=== PATIENT | female | born 1950 | race Caucasian/White ===

== ENCOUNTER 2024-10-19 10:55 | Inpatient (IN) ==
[2024-10-19] MEDS: SODIUM CHLORIDE 0.9% 1,000 ML IV ONE (11:30)
[2024-10-19 12:29] LABS: Hematocrit (blood only) 43.6 % (37.0-47.0); Hemoglobin 15.4 g/dl (12.0-16.0); Mean Corpuscular Hemoglobin 30.4 pg (25.0-34.0); Mean Corpuscular Hgb Conc 35.3 g/dL (32.0-36.0); Mean Platelet Volume 10.1 fL (9.4-12.4); Platelet Count 294 K/uL (130-400); RDW Coefficient of Variation 13.5 % (11.5-14.5); RDW Standard Deviation 42.4 fL (36.4-46.3); Red Blood Count 5.07 M/uL (4.20-5.40); White Blood Count 18.42 K/ul (4.8-10.8)
[2024-10-19 12:41] LABS: Alanine Aminotransferase 19 U/L (7-52); Albumin Level 3.4 gm/dl (3.4-5.0); Alkaline Phosphatase 69 U/L (34-104); Anion Gap 10 (3-11); Aspartate Aminotransferase 29 U/L (13-39); BUN Creatinine Ratio 26.1 (10-20); Bilirubin Direct 0.2 mg/dl (0-0.2); Bilirubin,Total 0.8 mg/dl (0.2-1.0); Blood Urea Nitrogen 12 mg/dl (6-23); Calcium 8.6 mg/dl (8.6-10.3); Carbon Dioxide 28 mmol/L (21-32); Chloride 93 mmol/L (98-107); Glucose 265 mg/dl (70-99(Fasting)); Magnesium 1.5 mg/dl (1.7-2.4); Potassium 3.9 mmol/L (3.5-5.1); Sodium 131 mmol/L (136-145); Total Protein 7.5 gm/dl (6.0-8.3)
[2024-10-19 12:46] LABS: Troponin I High Sensitivity 17.4 pg/ml (0-14)
[2024-10-19] MEDS: CEFEPIME 2000MG 2,000 MG/20 ML SYR IV STA (12:46)
[2024-10-19 12:52] LABS: Basophils # (auto) 0.05 K/uL (0.00-0.20); Basophils % (auto) 0.3 %; Eosinophils # (auto) 0.09 K/uL (0.00-0.50); Eosinophils % (auto) 0.5 %; Immature Granulocytes # (auto) 0.13 K/uL (0.01-0.20); Immature Granulocytes % (auto) 0.7 %; Lymphocytes % (auto) 2.7 %; Monocytes # (auto) 0.59 K/uL (0.11-0.59); Monocytes % (auto) 3.2 %; Neutrophils # (auto) 17.06 K/uL (1.40-6.50); Neutrophils % (auto) 92.6 %
--- NOTE | 2024-10-19 12:52 | Emergency Department Note ---
History of Present Illness General Chief complaint: Syncope (Near Syncope) Stated complaint: COUGH, WEAKNESS, FAINTED LAST WEEK/FELL ON FACE Time Seen by Provider: 10/19/24 11:31 Source: patient Mode of arrival: ambulatory Limitations: no limitations History of Present Illness Patient is a 74-year-old female with history of chronic hypotension on midodrine, chronic tobacco use presenting for 2 to 3 weeks of increased lightheadedness, generalized weakness and falls. She has fallen twice over the past week. Most recently today when she was getting out of her car. Unknown loss of consciousness. She does endorse head injury. Patient states she gets lightheaded prior to the falls. She does have some old bruising to the right side of her face from a fall last week. She was seen by her primary care physician at that time but no imaging was performed. Patient is also had 2 weeks of a productive cough. Denies any shortness of breath or chest pain. No fevers, chills, nausea, vomiting, abdominal pain. Denies any change in bowel or bladder habits. She did take her midodrine this morning. Past Med/Surg History Problem List (Updated 10/19/24 @ 17:06 by Anil Riley MD) Pneumonia (Acute) Sepsis (Acute) Atrial fibrillation Influenza A (Acute) Social History Smoking Status: Current every day smoker Feels Safe at Home: Yes Review of Systems See HPI for pertinent positives & negatives. Physical Exam Vital Signs Vital Signs - 24 hr 10/19/24 11:04 10/19/24 11:30 10/19/24 11:30 Temperature 36.7 C Temperature Source Temporal Artery Scan Pulse Rate 108 H 98 H Pulse Rate [Apical] Pulse Rate from SpO2 Sensor 97 H Respiratory Rate 16 26 H Respiratory Effort / Characteristics Non-Labored Spontaneous Respiratory Depth Normal Blood Pressure 93/59 L 79/58 L Blood Pressure [Left Arm] Blood Pressure Mean 70 65 Blood Pressure Mean [Left Arm] Blood Pressure Position Sitting Pulse Oximetry 97 95 Oxygen Delivery Method Room Air Room Air Sepsis Recent Fever Within 48 Hours No Sepsis New/Unexplained Change in Mental Status N/A Sepsis Action Taken by Nursing No Action Required 10/19/24 11:33 10/19/24 11:35 10/19/24 11:40 Temperature Temperature Source Pulse Rate 105 H 98 H Pulse Rate [Apical] Pulse Rate from SpO2 Sensor 101 H Respiratory Rate 21 Respiratory Effort / Characteristics Respiratory Depth Blood Pressure 86/56 L Blood Pressure [Left Arm] Blood Pressure Mean 71 Blood Pressure Mean [Left Arm] Blood Pressure Position Pulse Oximetry 96 Oxygen Delivery Method Room Air Sepsis Recent Fever Within 48 Hours Sepsis New/Unexplained Change in Mental Status Sepsis Action Taken by Nursing 10/19/24 11:40 10/19/24 11:45 10/19/24 11:45 Temperature Temperature Source Pulse Rate 97 H Pulse Rate [Apical] Pulse Rate from SpO2 Sensor 98 H Respiratory Rate 21 Respiratory Effort / Characteristics Respiratory Depth Blood Pressure 82/55 L 85/60 L Blood Pressure [Left Arm] Blood Pressure Mean 66 67 Blood Pressure Mean [Left Arm] Blood Pressure Position Pulse Oximetry 97 Oxygen Delivery Method Room Air Sepsis Recent Fever Within 48 Hours Sepsis New/Unexplained Change in Mental Status Sepsis Action Taken by Nursing 10/19/24 11:48 10/19/24 11:50 10/19/24 11:54 Temperature Temperature Source Pulse Rate 99 H 96 H Pulse Rate [Apical] Pulse Rate from SpO2 Sensor 94 H Respiratory Rate 22 26 H Respiratory Effort / Characteristics Respiratory Depth Blood Pressure 89/60 L Blood Pressure [Left Arm] Blood Pressure Mean 75 Blood Pressure Mean [Left Arm] Blood Pressure Position Pulse Oximetry 92 Oxygen Delivery Method Room Air Sepsis Recent Fever Within 48 Hours Sepsis New/Unexplained Change in Mental Status Sepsis Action Taken by Nursing 10/19/24 11:55 10/19/24 11:57 10/19/24 12:00 Temperature Temperature Source Pulse Rate 93 H Pulse Rate [Apical] Pulse Rate from SpO2 Sensor 96 H Respiratory Rate 20 Respiratory Effort / Characteristics Respiratory Depth Blood Pressure 87/58 L 94/57 L Blood Pressure [Left Arm] Blood Pressure Mean 66 80 Blood Pressure Mean [Left Arm] Blood Pressure Position Pulse Oximetry 99 Oxygen Delivery Method Room Air Sepsis Recent Fever Within 48 Hours Sepsis New/Unexplained Change in Mental Status Sepsis Action Taken by Nursing 10/19/24 12:10 10/19/24 12:10 10/19/24 12:15 Temperature Temperature Source Pulse Rate Pulse Rate [Apical] Pulse Rate from SpO2 Sensor Respiratory Rate Respiratory Effort / Characteristics Respiratory Depth Blood Pressure 78/49 L 78/49 L 79/51 L Blood Pressure [Left Arm] Blood Pressure Mean 61 61 69 Blood Pressure Mean [Left Arm] Blood Pressure Position Pulse Oximetry Oxygen Delivery Method Sepsis Recent Fever Within 48 Hours Sepsis New/Unexplained Change in Mental Status Sepsis Action Taken by Nursing 10/19/24 12:25 10/19/24 12:30 10/19/24 12:30 Temperature Temperature Source Pulse Rate 95 H Pulse Rate [Apical] Pulse Rate from SpO2 Sensor 96 H Respiratory Rate 24 Respiratory Effort / Characteristics Respiratory Depth Blood Pressure 83/59 L 80/49 L Blood Pressure [Left Arm] Blood Pressure Mean 68 61 Blood Pressure Mean [Left Arm] Blood Pressure Position Pulse Oximetry 95 Oxygen Delivery Method Sepsis Recent Fever Within 48 Hours Sepsis New/Unexplained Change in Mental Status Sepsis Action Taken by Nursing 10/19/24 12:30 10/19/24 12:50 10/19/24 12:51 Temperature Temperature Source Pulse Rate 128 H Pulse Rate [Apical] Pulse Rate from SpO2 Sensor Respiratory Rate 38 H Respiratory Effort / Characteristics Respiratory Depth Blood Pressure 80/49 L 79/66 L Blood Pressure [Left Arm] Blood Pressure Mean 61 71 Blood Pressure Mean [Left Arm] Blood Pressure Position Pulse Oximetry Oxygen Delivery Method Sepsis Recent Fever Within 48 Hours Sepsis New/Unexplained Change in Mental Status Sepsis Action Taken by Nursing 10/19/24 12:54 10/19/24 12:55 10/19/24 12:57 Temperature Temperature Source Pulse Rate 140 H 135 H Pulse Rate [Apical] Pulse Rate from SpO2 Sensor 126 H Respiratory Rate 24 21 Respiratory Effort / Characteristics Respiratory Depth Blood Pressure 89/52 L Blood Pressure [Left Arm] Blood Pressure Mean 69 Blood Pressure Mean [Left Arm] Blood Pressure Position Pulse Oximetry 93 Oxygen Delivery Method Sepsis Recent Fever Within 48 Hours Sepsis New/Unexplained Change in Mental Status Sepsis Action Taken by Nursing 10/19/24 13:00 10/19/24 13:00 10/19/24 13:00 Temperature Temperature Source Pulse Rate 129 H Pulse Rate [Apical] Pulse Rate from SpO2 Sensor Respiratory Rate 25 H Respiratory Effort / Characteristics Respiratory Depth Blood Pressure 74/54 L 74/54 L Blood Pressure [Left Arm] Blood Pressure Mean 60 60 Blood Pressure Mean [Left Arm] Blood Pressure Position Pulse Oximetry Oxygen Delivery Method Sepsis Recent Fever Within 48 Hours Sepsis New/Unexplained Change in Mental Status Sepsis Action Taken by Nursing 10/19/24 13:05 10/19/24 13:10 10/19/24 13:15 Temperature Temperature Source Pulse Rate Pulse Rate [Apical] Pulse Rate from SpO2 Sensor Respiratory Rate Respiratory Effort / Characteristics Respiratory Depth Blood Pressure 78/54 L 75/54 L 76/58 L Blood Pressure [Left Arm] Blood Pressure Mean 64 57 64 Blood Pressure Mean [Left Arm] Blood Pressure Position Pulse Oximetry Oxygen Delivery Method Sepsis Recent Fever Within 48 Hours Sepsis New/Unexplained Change in Mental Status Sepsis Action Taken by Nursing 10/19/24 13:32 10/19/24 13:33 10/19/24 13:35 Temperature Temperature Source Pulse Rate 125 H Pulse Rate [Apical] Pulse Rate from SpO2 Sensor 121 H Respiratory Rate 24 Respiratory Effort / Characteristics Respiratory Depth Blood Pressure 82/59 L 82/62 L Blood Pressure [Left Arm] Blood Pressure Mean 64 65 Blood Pressure Mean [Left Arm] Blood Pressure Position Pulse Oximetry 94 Oxygen Delivery Method Sepsis Recent Fever Within 48 Hours Sepsis New/Unexplained Change in Mental Status Sepsis Action Taken by Nursing 10/19/24 13:36 10/19/24 13:41 10/19/24 13:45 Temperature Temperature Source Pulse Rate 145 H Pulse Rate [Apical] 126 H Pulse Rate from SpO2 Sensor 127 H Respiratory Rate 28 H Respiratory Effort / Characteristics Respiratory Depth Blood Pressure 92/75 L Blood Pressure [Left Arm] 84/66 L Blood Pressure Mean 77 Blood Pressure Mean [Left Arm] 72 Blood Pressure Position Pulse Oximetry 91 Oxygen Delivery Method Sepsis Recent Fever Within 48 Hours Sepsis New/Unexplained Change in Mental Status Sepsis Action Taken by Nursing 10/19/24 13:45 10/19/24 13:45 10/19/24 13:45 Temperature Temperature Source Pulse Rate 122 H Pulse Rate [Apical] Pulse Rate from SpO2 Sensor 118 H Respiratory Rate 24 Respiratory Effort / Characteristics Respiratory Depth Blood Pressure 92/75 L 92/75 L Blood Pressure [Left Arm] Blood Pressure Mean 77 77 Blood Pressure Mean [Left Arm] Blood Pressure Position Pulse Oximetry 95 Oxygen Delivery Method Sepsis Recent Fever Within 48 Hours Sepsis New/Unexplained Change in Mental Status Sepsis Action Taken by Nursing 10/19/24 13:48 10/19/24 13:50 10/19/24 13:50 Temperature Temperature Source Pulse Rate 132 H Pulse Rate [Apical] Pulse Rate from SpO2 Sensor 129 H Respiratory Rate 28 H Respiratory Effort / Characteristics Respiratory Depth Blood Pressure 87/53 L 87/53 L Blood Pressure [Left Arm] Blood Pressure Mean 76 76 Blood Pressure Mean [Left Arm] Blood Pressure Position Pulse Oximetry 93 Oxygen Delivery Method Sepsis Recent Fever Within 48 Hours Sepsis New/Unexplained Change in Mental Status Sepsis Action Taken by Nursing 10/19/24 13:50 10/19/24 13:51 10/19/24 13:54 Temperature Temperature Source Pulse Rate 134 H 136 H Pulse Rate [Apical] Pulse Rate from SpO2 Sensor 129 H 136 H Respiratory Rate 25 H 21 Respiratory Effort / Characteristics Respiratory Depth Blood Pressure 87/53 L Blood Pressure [Left Arm] Blood Pressure Mean 76 Blood Pressure Mean [Left Arm] Blood Pressure Position Pulse Oximetry 95 92 Oxygen Delivery Method Sepsis Recent Fever Within 48 Hours Sepsis New/Unexplained Change in Mental Status Sepsis Action Taken by Nursing 10/19/24 13:55 10/19/24 13:55 10/19/24 14:00 Temperature Temperature Source Pulse Rate 135 H Pulse Rate [Apical] Pulse Rate from SpO2 Sensor 134 H Respiratory Rate 15 Respiratory Effort / Characteristics Respiratory Depth Blood Pressure 88/63 L 88/63 L Blood Pressure [Left Arm] Blood Pressure Mean 68 68 Blood Pressure Mean [Left Arm] Blood Pressure Position Pulse Oximetry 92 Oxygen Delivery Method Sepsis Recent Fever Within 48 Hours Sepsis New/Unexplained Change in Mental Status Sepsis Action Taken by Nursing 10/19/24 14:00 10/19/24 14:05 10/19/24 14:05 Temperature Temperature Source Pulse Rate Pulse Rate [Apical] Pulse Rate from SpO2 Sensor Respiratory Rate Respiratory Effort / Characteristics Respiratory Depth Blood Pressure 85/61 L 78/58 L 78/58 L Blood Pressure [Left Arm] Blood Pressure Mean 63 67 67 Blood Pressure Mean [Left Arm] Blood Pressure Position Pulse Oximetry Oxygen Delivery Method Sepsis Recent Fever Within 48 Hours Sepsis New/Unexplained Change in Mental Status Sepsis Action Taken by Nursing 10/19/24 14:05 10/19/24 14:05 10/19/24 14:06 Temperature Temperature Source Pulse Rate 124 H Pulse Rate [Apical] Pulse Rate from SpO2 Sensor 134 H Respiratory Rate 26 H Respiratory Effort / Characteristics Respiratory Depth Blood Pressure 78/58 L 78/58 L Blood Pressure [Left Arm] Blood Pressure Mean 67 67 Blood Pressure Mean [Left Arm] Blood Pressure Position Pulse Oximetry 94 Oxygen Delivery Method Sepsis Recent Fever Within 48 Hours Sepsis New/Unexplained Change in Mental Status Sepsis Action Taken by Nursing 10/19/24 14:09 10/19/24 14:10 10/19/24 14:20 Temperature Temperature Source Pulse Rate 133 H Pulse Rate [Apical] Pulse Rate from SpO2 Sensor 135 H Respiratory Rate 26 H Respiratory Effort / Characteristics Respiratory Depth Blood Pressure 90/62 L 91/65 L Blood Pressure [Left Arm] Blood Pressure Mean 76 70 Blood Pressure Mean [Left Arm] Blood Pressure Position Pulse Oximetry 95 Oxygen Delivery Method Sepsis Recent Fever Within 48 Hours Sepsis New/Unexplained Change in Mental Status Sepsis Action Taken by Nursing 10/19/24 14:21 10/19/24 14:25 10/19/24 14:30 Temperature Temperature Source Pulse Rate 137 H 134 H Pulse Rate [Apical] Pulse Rate from SpO2 Sensor 138 H 130 H Respiratory Rate 25 H 27 H Respiratory Effort / Characteristics Respiratory Depth Blood Pressure 84/68 L Blood Pressure [Left Arm] Blood Pressure Mean 76 Blood Pressure Mean [Left Arm] Blood Pressure Position Pulse Oximetry 93 93 Oxygen Delivery Method Room Air Sepsis Recent Fever Within 48 Hours Sepsis New/Unexplained Change in Mental Status Sepsis Action Taken by Nursing 10/19/24 14:30 10/19/24 14:35 10/19/24 14:36 Temperature Temperature Source Pulse Rate 139 H Pulse Rate [Apical] Pulse Rate from SpO2 Sensor 137 H Respiratory Rate 23 Respiratory Effort / Characteristics Respiratory Depth Blood Pressure 92/65 L 87/64 L Blood Pressure [Left Arm] Blood Pressure Mean 76 69 Blood Pressure Mean [Left Arm] Blood Pressure Position Pulse Oximetry 93 Oxygen Delivery Method Room Air Sepsis Recent Fever Within 48 Hours Sepsis New/Unexplained Change in Mental Status Sepsis Action Taken by Nursing 10/19/24 14:39 10/19/24 14:41 10/19/24 14:45 Temperature Temperature Source Pulse Rate 139 H 147 H Pulse Rate [Apical] Pulse Rate from SpO2 Sensor 135 H 145 H Respiratory Rate 17 28 H Respiratory Effort / Characteristics Respiratory Depth Blood Pressure 82/64 L Blood Pressure [Left Arm] Blood Pressure Mean 72 Blood Pressure Mean [Left Arm] Blood Pressure Position Pulse Oximetry 93 99 Oxygen Delivery Method Room Air Room Air Sepsis Recent Fever Within 48 Hours Sepsis New/Unexplained Change in Mental Status Sepsis Action Taken by Nursing 10/19/24 14:46 10/19/24 14:51 10/19/24 14:55 Temperature Temperature Source Pulse Rate Pulse Rate [Apical] Pulse Rate from SpO2 Sensor Respiratory Rate Respiratory Effort / Characteristics Respiratory Depth Blood Pressure 87/51 L 92/53 L 87/68 L Blood Pressure [Left Arm] Blood Pressure Mean 58 71 76 Blood Pressure Mean [Left Arm] Blood Pressure Position Pulse Oximetry Oxygen Delivery Method Sepsis Recent Fever Within 48 Hours Sepsis New/Unexplained Change in Mental Status Sepsis Action Taken by Nursing 10/19/24 14:57 10/19/24 15:00 10/19/24 15:05 Temperature Temperature Source Pulse Rate 141 H Pulse Rate [Apical] Pulse Rate from SpO2 Sensor 142 H Respiratory Rate 32 H Respiratory Effort / Characteristics Respiratory Depth Blood Pressure 62/49 L 80/48 L Blood Pressure [Left Arm] Blood Pressure Mean 51 68 Blood Pressure Mean [Left Arm] Blood Pressure Position Pulse Oximetry 95 Oxygen Delivery Method Room Air Sepsis Recent Fever Within 48 Hours Sepsis New/Unexplained Change in Mental Status Sepsis Action Taken by Nursing 10/19/24 15:09 10/19/24 15:15 10/19/24 15:18 Temperature Temperature Source Pulse Rate 143 H 143 H Pulse Rate [Apical] Pulse Rate from SpO2 Sensor 144 H 141 H Respiratory Rate 26 H 27 H Respiratory Effort / Characteristics Respiratory Depth Blood Pressure 81/54 L 90/74 L Blood Pressure [Left Arm] Blood Pressure Mean 63 79 Blood Pressure Mean [Left Arm] Blood Pressure Position Pulse Oximetry 93 91 Oxygen Delivery Method Sepsis Recent Fever Within 48 Hours Sepsis New/Unexplained Change in Mental Status Sepsis Action Taken by Nursing 10/19/24 15:20 10/19/24 15:24 10/19/24 15:25 Temperature Temperature Source Pulse Rate 144 H Pulse Rate [Apical] Pulse Rate from SpO2 Sensor 134 H Respiratory Rate 27 H Respiratory Effort / Characteristics Respiratory Depth Blood Pressure 86/66 L 76/53 L Blood Pressure [Left Arm] Blood Pressure Mean 70 55 Blood Pressure Mean [Left Arm] Blood Pressure Position Pulse Oximetry 93 Oxygen Delivery Method Sepsis Recent Fever Within 48 Hours Sepsis New/Unexplained Change in Mental Status Sepsis Action Taken by Nursing 10/19/24 15:37 10/19/24 15:40 Temperature Temperature Source Pulse Rate 89 Pulse Rate [Apical] Pulse Rate from SpO2 Sensor Respiratory Rate Respiratory Effort / Characteristics Respiratory Depth Blood Pressure 91/66 L Blood Pressure [Left Arm] Blood Pressure Mean 77 Blood Pressure Mean [Left Arm] Blood Pressure Position Pulse Oximetry Oxygen Delivery Method Sepsis Recent Fever Within 48 Hours Sepsis New/Unexplained Change in Mental Status Sepsis Action Taken by Nursing See below Constitutional WD/WN, vitals as above Eyes PERRL, conjunctivae normal, anicteric sclerae ENMT external ear and nose normal, oropharynx normal dry mucosa Respiratory normal respiratory effort; does not use accessory muscles and not tachypneic Auscultation: + crackles (Bibasilar ) Cardiovascular Rate/Rhythm: + tachycardic and + irregularly irregular Heart Sounds: + murmur Vessels: no JVD Extremities: no calf tenderness, no pedal edema and no edema Gastrointestinal (Abdomen) normal bowel sounds, soft, nontender, no hepatosplenomegaly Musculoskeletal no cyanosis or clubbing, extremities motor strength 5/5 Skin no rashes, warm and dry Course Administered Medications Discontinued Medications Diltiazem HCl (Diltiazem Hcl 5 Mg/Ml 5 Ml Vial) 15 mg IV NOW STA Stop: 10/19/24 14:41 Last Admin: 10/19/24 14:57 Dose: 15 mg Documented By: NIKOLAY Co-signed By: VON Hydrocortisone Sodium Succinate (Hydrocortisone Sod Succinate 100 Mg/2 Ml Vial) 100 mg IV NOW STA Stop: 10/19/24 16:27 Last Admin: 10/19/24 16:49 Dose: 100 mg Documented By: CEF Cefepime HCl (Maxipime 2000mg) 2,000 mg in 20 mls @ 5 mls/min IV NOW STA; Protocol Stop: 10/19/24 11:52 Last Admin: 10/19/24 12:46 Dose: 5 mls/min Documented By: NIKOLAY Sodium Chloride (Nss) 1,000 mls @ 999 mls/hr IV .Q1H1M BRUNO Stop: 10/19/24 13:54 Last Infusion: 10/19/24 13:33 Dose: Infused Documented By: Admin: 10/19/24 13:08 Dose: 999 mls/hr Documented By: NIKOLAY Norepinephrine Bitartrate (Levophed/D5w) 4 mg in 250 mls @ 9.638 mls/hr IV .Q24H BRUNO; Protocol Stop: 11/18/24 13:29 Last Titration: 10/19/24 16:55 Dose: Infused Documented By: SALOMÓN Co-signed By: LYNNETTE Titration: 10/19/24 14:47 Dose: 0.09 mcg/kg/min, 17.3 mls/hr Documented By: NIKOLAY Co-signed By: VON Titration: 10/19/24 14:09 Dose: 0.07 mcg/kg/min, 13.5 mls/hr Documented By: LINNETTE Co-signed By: LYNNETTE Admin: 10/19/24 13:34 Dose: 0.05 mcg/kg/min, 9.6 mls/hr Documented By: LINNETTE Co-signed By: NIOKLAY Sodium Chloride (Nss) 1,000 mls @ 999 mls/hr IV .Q1H1M ONE Stop: 10/19/24 15:27 Last Infusion: 10/19/24 14:29 Dose: Infused Documented By: Admin: 10/19/24 11:30 Dose: 999 mls/hr Documented By: NIKOLAY Miscellaneous (Stat Iv Infusion Titration Per Protocol) 1 each N/A NOW STA Stop: 10/19/24 13:23 Last Admin: 10/19/24 13:37 Dose: Not Given Documented By: LINNETTE Norepinephrine Bitartrate (Norepinephrine/D5w 4 Mg/250 Ml) Confirm Administered Dose 4 mg IV .STK-MED ONE Stop: 10/19/24 13:26 Last Admin: 10/19/24 13:37 Dose: Not Given Documented By: LINNETTE Critical Care Time Critical Care Time: Yes Total Critical Care Time: 45 Medical Decision Making Differential Diagnosis Sepsis, pneumonia, influenza, shock, dehydration, atrial fibrillation Medical Records Attestation: I reviewed the patient's medical records. Laboratory Data 10/19/24 11:33 10/19/24 11:33 Lab Results 10/19/24 10/19/24 10/19/24 Range/Units 11:25 11:33 12:08 WBC 18.42 H (4.8-10.8) K/ul RBC 5.07 (4.20-5.40) M/uL Hgb 15.4 (12.0-16.0) g/dl Hct 43.6 (37.0-47.0) % MCV 86.0 (80.0-100.0) fL MCH 30.4 (25.0-34.0) pg MCHC 35.3 (32.0-36.0) g/dL RDW Std Deviation 42.4 (36.4-46.3) fL RDW Coeff of Misty 13.5 (11.5-14.5) % Plt Count 294 (130-400) K/uL MPV 10.1 (9.4-12.4) fL Immature Gran % (Auto) 0.7 % Neut % (Auto) 92.6 % Lymph % (Auto) 2.7 % Cole % (Auto) 3.2 % Eos % (Auto) 0.5 % Baso % (Auto) 0.3 % Neut # (Auto) 17.06 H (1.40-6.50) K/uL Lymph # (Auto) 0.50 L (1.20-3.40) K/uL Cole # (Auto) 0.59 (0.11-0.59) K/uL Eos # (Auto) 0.09 (0.00-0.50) K/uL Baso # (Auto) 0.05 (0.00-0.20) K/uL Immature Gran # (Auto) 0.13 (0.01-0.20) K/uL Sodium 131 L (136-145) mmol/L Potassium 3.9 (3.5-5.1) mmol/L Chloride 93 L (98-107) mmol/L Carbon Dioxide 28 (21-32) mmol/L Anion Gap 10 (3-11) BUN 12 (6-23) mg/dl Creatinine 0.46 L (0.6-1.2) mg/dl Est Cr Clr Drug Dosing Not Reportable eGFR 100.35 BUN/Creatinine Ratio 26.1 H (10-20) Glucose 265 H (70-99(Fasting)) mg/dl POC Glucose 287 H (70-99) mg/dl Lactate 1.3 (0.4-2.0) mmol/L Calcium 8.6 (8.6-10.3) mg/dl Magnesium 1.5 L (1.7-2.4) mg/dl Total Bilirubin 0.8 (0.2-1.0) mg/dl Direct Bilirubin 0.2 (0-0.2) mg/dl AST 29 (13-39) U/L ALT 19 (7-52) U/L Alkaline Phosphatase 69 (34-104) U/L Troponin I High Sens 17.4 H (0-14) pg/ml Total Protein 7.5 (6.0-8.3) gm/dl Albumin 3.4 (3.4-5.0) gm/dl Procalcitonin 0.08 (0-0.5) ng/ml Random Cortisol 55.69 mcg/dl Urine Color Urine Appearance (Clear) Urine pH (4.5-7.5) Ur Specific [place] (1.000-1.030) Urine Protein (Negative) Urine Glucose (UA) (Negative) Urine Ketones (Negative) Urine Blood (Negative) Urine Nitrite (Negative) Urine Bilirubin (Negative) Urine Urobilinogen (Negative) Ur Leukocyte Esterase (Negative) Urine WBC (Auto) (0-5) /hpf Urine RBC (Auto) (0-2) /hpf U Hyaline Cast (Auto) (0-2) /lpf U Epithel Cells (Auto) (0-2) /hpf Urine Bacteria (Auto) (None Seen) Adenovirus (PCR) Not Detected (NotDetected) B. pertussis DNA (PCR) Not Detected (NotDetected) B.parapertussis DNA PCR Not Detected (NotDetected) C. pneumoniae DNA (PCR) Not Detected (NotDetected) Coronavirus OC43 (PCR) Not Detected (NotDetected) Coronavirus HKU1 (PCR) Not Detected (NotDetected) Coronavirus 229E (PCR) Not Detected (NotDetected) SARS-CoV-2 (PCR) Not Detected (NotDetected) Coronavirus NL63 (PCR) Not Detected (NotDetected) Human Metapneumovir PCR Not Detected (NotDetected) Influenza A (H3) PCR DETECTED A (NotDetected) Influenza Type B (PCR) Not Detected (NotDetected) M. pneumoniae (PCR) Not Detected (NotDetected) Parainfluenza 1 (PCR) Not Detected (NotDetected) Parainfluenza 2 (PCR) Not Detected (NotDetected) Parainfluenza 3 (PCR) Not Detected (NotDetected) Parainfluenza 4 (PCR) Not Detected (NotDetected) RSV (PCR) Not Detected (NotDetected) Entero/Rhino (PCR) Not Detected (NotDetected) 10/19/24 Range/Units 14:40 WBC (4.8-10.8) K/ul RBC (4.20-5.40) M/uL Hgb (12.0-16.0) g/dl Hct (37.0-47.0) % MCV (80.0-100.0) fL MCH (25.0-34.0) pg MCHC (32.0-36.0) g/dL RDW Std Deviation (36.4-46.3) fL RDW Coeff of Misty (11.5-14.5) % Plt Count (130-400) K/uL MPV (9.4-12.4) fL Immature Gran % (Auto) % Neut % (Auto) % Lymph % (Auto) % Cole % (Auto) % Eos % (Auto) % Baso % (Auto) % Neut # (Auto) (1.40-6.50) K/uL Lymph # (Auto) (1.20-3.40) K/uL Cole # (Auto) (0.11-0.59) K/uL Eos # (Auto) (0.00-0.50) K/uL Baso # (Auto) (0.00-0.20) K/uL Immature Gran # (Auto) (0.01-0.20) K/uL Sodium (136-145) mmol/L Potassium (3.5-5.1) mmol/L Chloride (98-107) mmol/L Carbon Dioxide (21-32) mmol/L Anion Gap (3-11) BUN (6-23) mg/dl Creatinine (0.6-1.2) mg/dl Est Cr Clr Drug Dosing eGFR BUN/Creatinine Ratio (10-20) Glucose (70-99(Fasting)) mg/dl POC Glucose (70-99) mg/dl Lactate (0.4-2.0) mmol/L Calcium (8.6-10.3) mg/dl Magnesium (1.7-2.4) mg/dl Total Bilirubin (0.2-1.0) mg/dl Direct Bilirubin (0-0.2) mg/dl AST (13-39) U/L ALT (7-52) U/L Alkaline Phosphatase (34-104) U/L Troponin I High Sens (0-14) pg/ml Total Protein (6.0-8.3) gm/dl Albumin (3.4-5.0) gm/dl Procalcitonin (0-0.5) ng/ml Random Cortisol mcg/dl Urine Color Yellow Urine Appearance Cloudy A (Clear) Urine pH 6.0 (4.5-7.5) Ur Specific [place] 1.012 (1.000-1.030) Urine Protein 1+ H (Negative) Urine Glucose (UA) 2+ H (Negative) Urine Ketones 1+ H (Negative) Urine Blood Negative (Negative) Urine Nitrite Negative (Negative) Urine Bilirubin Negative (Negative) Urine Urobilinogen Negative (Negative) Ur Leukocyte Esterase Negative (Negative) Urine WBC (Auto) 0-5 (0-5) /hpf Urine RBC (Auto) 11-20 H (0-2) /hpf U Hyaline Cast (Auto) 0-2 (0-2) /lpf U Epithel Cells (Auto) 3-5 H (0-2) /hpf Urine Bacteria (Auto) 2+ H (None Seen) Adenovirus (PCR) (NotDetected) B. pertussis DNA (PCR) (NotDetected) B.parapertussis DNA PCR (NotDetected) C. pneumoniae DNA (PCR) (NotDetected) Coronavirus OC43 (PCR) (NotDetected) Coronavirus HKU1 (PCR) (NotDetected) Coronavirus 229E (PCR) (NotDetected) SARS-CoV-2 (PCR) (NotDetected) Coronavirus NL63 (PCR) (NotDetected) Human Metapneumovir PCR (NotDetected) Influenza A (H3) PCR (NotDetected) Influenza Type B (PCR) (NotDetected) M. pneumoniae (PCR) (NotDetected) Parainfluenza 1 (PCR) (NotDetected) Parainfluenza 2 (PCR) (NotDetected) Parainfluenza 3 (PCR) (NotDetected) Parainfluenza 4 (PCR) (NotDetected) RSV (PCR) (NotDetected) Entero/Rhino (PCR) (NotDetected) Imaging Data Radiologist's Impression: Head CT 10/19/24 11:52 CT head/brain wo con CLINICAL HISTORY: 74 years-old Female with fall on plavix. Acute head trauma status post fall TECHNIQUE: Multiple axial CT images of the head were obtained without contrast. A dose lowering technique was utilized adhering to the principles of ALARA. CT DOSE: 625.8 mGy.cm COMPARISON: None. FINDINGS: No acute intracranial hemorrhage, midline shift, intracranial mass, hydrocephalus, territorial ischemia or abnormal extra-axial collection. Involutional changes with mild white matter hypodensities, likely chronic microvascular ischemic disease. The calvarium is intact. Moderate to severe mucosal thickening of the right- sided paranasal sinuses. Mastoid air cells are clear. Unremarkable soft tissues. IMPRESSION: No acute intracranial abnormality or calvarial fracture. ACT 112: Negative or not required by law. The above report was generated using voice recognition software. It may contain grammatical, syntax or spelling errors. Electronically signed by: Fei Swanson M.D. 10/19/2024 1:03 PM Chest X-Ray 10/19/24 14:58 XR chest 1V portable HISTORY: 74 years-old Female cough acute cough COMPARISON: None TECHNIQUE: AP view the chest FINDINGS: Cardiac silhouette is enlarged. Perivascular congestion with interstitial coarsening. Patchy ill-defined left basilar opacities. Masslike left perihilar/paramediastinal opacity measures up to approximately 9 cm. A vascular graft is noted. Degenerative changes of the shoulders and spine. IMPRESSION: 1. Left perihilar/paramediastinal masslike opacity requires further correlation with chest CT. 2. Cardiomegaly with pulmonary vascular congestion. 3. Mild patchy left basilar atelectasis versus pneumonitis. ACT 112: Positive. There are findings on this exam that require communication between the performing entity and the patient following Patient Test Result Information Act ([place] Act 112) guidelines. The above report was generated using voice recognition software. It may contain grammatical, syntax or spelling errors. Electronically signed by: Fei Swanson M.D. 10/19/2024 3:45 PM Blood Pressure Blood Pressure Findings: Low blood pressure MDM Narrative Patient is a 74-year-old female with history of chronic hypotension who presents for generalized weakness, cough and syncopal event. Patient initially hypotensive with a pressure of 87/51 on arrival. Heart rate of 125 . Unclear patient's baseline blood pressure without any prior records however it is known that patient is on midodrine 3 times a day for hypotension. Afebrile however due to her hypotension and tachycardia sepsis workup was initiated. On my evaluation patient's heart rate had improved to 102 and was noted to be sinus tach on the monitor. Patient given 2 L of IV fluids here in the ED with concerns for dehydration and sepsis. Patient did not respond to fluid boluses here in the ED and was eventually started on Levophed. Leukocytosis of 18,000 here in the ED. Lactate within normal limits. No evidence of endorgan damage noted on lab work. Influenza A positive. Patient was started on IV cefepime. Blood cultures and urine culture sent prior to broad-spectrum antibiotics. I discussed the case with Dr. Brannon with critical care who recommended trial of stress dose steroids and restarting the midodrine as well as discontinue the Levophed as long as maps remain above 55. Chest x-ray shows left-sided perihilar mass versus opacity. CT was ordered to further deliniate. Patient was accepted by the hospitalist service with admission to ICU. Critical care to consult. Impression & Plan Influenza A, Sepsis, Pneumonia Admit to ICU Discharge Plan Visit Data Chief Complaint: Syncope (Near Syncope) Stated Complaint: COUGH, WEAKNESS, FAINTED LAST WEEK/FELL ON FACE ED Provider: Anil Riley Discharge Problem: Influenza A, Sepsis, Pneumonia Forms Stand Alone Forms: My [facility] Referrals Referrals: Sean Macias MD [Primary Care Provider] -
--- NOTE | 2024-10-19 13:00 | Electrocardiogram Report ---
Test Reason : Blood Pressure : */* mmHG Vent. Rate : 102 BPM Atrial Rate : 102 BPM P-R Int : 142 ms QRS Dur : 80 ms QT Int : 338 ms P-R-T Axes : 50 4 71 degrees QTcB Int : 440 ms Sinus tachycardia Otherwise normal ECG No previous ECGs available Confirmed by Miles Simmons ([id number]) on 10/19/2024 1:00:35 PM Referred By: REFERRED SELF Confirmed By: Miles Simmons
--- NOTE | 2024-10-19 13:05 | CT Scan Report ---
CT head/brain wo con CLINICAL HISTORY: 74 years-old Female with fall on plavix. Acute head trauma status post fall TECHNIQUE: Multiple axial CT images of the head were obtained without contrast. A dose lowering tech nique was utilized adhering to the principles of ALARA. CT DOSE: 625.8 mGy.cm COMPARISON: None. FINDINGS: No acute intracranial hemorrhage, midline shift, intracranial mass, hydrocephalus, territorial ischem ia or abnormal extra-axial collection. Involutional changes with mild white matter hypodensities, lik kostas chronic microvascular ischemic disease. The calvarium is intact. Moderate to severe mucosal thickening of the right-sided paranasal sinuses. Mastoid air cells are clear. Unremarkable soft tissues. IMPRESSION: No acute intracranial abnormality or calvarial fracture. ACT 112: Negative or not required by law. The above report was generated using voice recognition software. It may contain grammatical, syntax o r spelling errors. Electronically signed by: Fei Swanson M.D. 10/19/2024 1:03 PM
[2024-10-19] MEDS: SODIUM CHLORIDE 0.9% 1,000 ML IV SCH ×2 (13:08→19:41)
[2024-10-19 13:32] LABS: Adenovirus PCR Not Detected (NotDetected); Bordetella parapertussis PCR Not Detected (NotDetected); Bordetella pertussis PCR Not Detected (NotDetected); Chlamydia pneumoniae PCR Not Detected (NotDetected); Coronavirus 229E PCR Not Detected (NotDetected); Coronavirus CoV-2 (COVID19)PCR Not Detected (NotDetected); Coronavirus HKU1 PCR Not Detected (NotDetected); Coronavirus NL63 PCR Not Detected (NotDetected); Coronavirus OC43PCR Not Detected (NotDetected); Human Metapneumovirus PCR Not Detected (NotDetected); Influenza A (H3) PCR DETECTED (NotDetected); Influenza B PCR Not Detected (NotDetected); Mycoplasma pneumoniae PCR Not Detected (NotDetected); Parainfluenza Virus 1 PCR Not Detected (NotDetected); Parainfluenza Virus 2 PCR Not Detected (NotDetected); Parainfluenza Virus 3 PCR Not Detected (NotDetected); Parainfluenza Virus 4 PCR Not Detected (NotDetected); Respiratory Syncytial VirusPCR Not Detected (NotDetected); Rhinovirus/Enterovirus PCR Not Detected (NotDetected)
[2024-10-19] MEDS: NOREPINEPHRINE/D5W 4 MG/250 ML PLCT IV SCH ×2 (13:34→18:07)
[2024-10-19] MEDS: STAT IV Infusion **Titration per Protocol STA (13:37)
[2024-10-19] MEDS: NOREPINEPHRINE/D5W 4 MG/250 ML IV ONE (13:37)
[2024-10-19] MEDS: dilTIAZem HCl 5 MG/ML 5 ML VIAL IV STA (14:57)
[2024-10-19 15:06] LABS: Appearance Urine Cloudy (Clear); Bacteria Urine Automated 2+ (None Seen); Bilirubin Urine Negative (Negative); Blood Urine Negative (Negative); Cast Urine Automated 0-2 /lpf (0-2); Color Urine Yellow; Glucose Urine UA 2+ (Negative); Ketones Urine 1+ (Negative); Leukocyte Esterase Urine Negative (Negative); Nitrite Urine Negative (Negative); Protein Urine 1+ (Negative); Specific Gravity Urine 1.012 (1.000-1.030); Urobilinogen Urine Negative (Negative); WBC Urine Automated 0-5 /hpf (0-5)
--- NOTE | 2024-10-19 15:46 | XRay Report ---
XR chest 1V portable HISTORY: 74 years-old Female cough acute cough COMPARISON: None TECHNIQUE: AP view the chest FINDINGS: Cardiac silhouette is enlarged. Perivascular congestion with interstitial coarsening. Patchy ill-defi tod left basilar opacities. Masslike left perihilar/paramediastinal opacity measures up to approximat kostas 9 cm. A vascular graft is noted. Degenerative changes of the shoulders and spine. IMPRESSION: 1. Left perihilar/paramediastinal masslike opacity requires further correlation with chest CT. 2. Cardiomegaly with pulmonary vascular congestion. 3. Mild patchy left basilar atelectasis versus pneumonitis. ACT 112: Positive. There are findings on this exam that require communication between the performing entity and the patient following Patient Test Result Information Act [place] Act 112) guidelines. The above report was generated using voice recognition software. It may contain grammatical, syntax o r spelling errors. Electronically signed by: Fei Swanson M.D. 10/19/2024 3:45 PM
[2024-10-19] MEDS: HYDROCORTISONE SOD SUCCINATE 100 MG/2 ML VIAL IV STA (16:49)
--- NOTE | 2024-10-19 16:49 | Cardiology Consultation ---
Date of Consultation October 19, 2024 Assessment & Plan (1) Influenza A: (2) Atrial fibrillation: At baseline patient is on midodrine 5 mg 3 times daily for blood pressure support due to longstanding history of orthostasis and need for diuretics with regards to chronic venous insufficiency with lower extremity edema. Ongoing treatment midodrine recommended, and agree with acute plan to titrate to 10 mg 3 times daily. Oral fludrocortisone has been initiated. I think this is reasonable in the sh ort-term, although long-term, would likely result in additional fluid retention is likely not a good long-term medication for her. Will hold off on additional AV malka blockers for now, if she becomes tachycardic again, would recommend low-dose IV metoprolol or digoxin as first- line agents rather than diltiazem as they are less likely to contribute to the low blood pressure. As noted it appears that the low blood pressure was present before the atrial fibrillation. The patient's [id number] score is at least 4, with 1 point assigned for age greater than 64 and less than 75 however it is noted that she is closer to 75 and 65, female sex, vascular disease, and diabetes predicting a moderate risk for cardioembolic stroke. The patient however was only documented to have been in atrial fibrillation for 3 hours and she has a history of orthostasis and multiple recent mechanical falls and therefore I think it is most prudent to hold off on systemic anticoagulation for now. Not certain that she is a long- term anticoagulation candidate and we have a reason for the atrial fibrillation event (influenza illness, sepsis, and received norepinephrine with beta agonist action). Will need additional imaging for evaluation of abnormal chest x-ray once clinically stable. History of Present Illness History of Present Illness Caitlin Izquierdo is a 74 year old female seen in cardiology consultation per the request of Dr Riley for the evaluation of atrial fibrillation. The patient is accompanied by her family in the emergency department. She endorses a 1 week history of easy fatigability and several week history of cough. She noted increased lightheadedness today and has had recent frequent falls most recent of which was getting out of a car today. She has tested positive for influenza A (H3) . Her initial vital signs on presentation earlier today at 11:04 AM include a blood pressure of 93/59 and a heart rate in the 80s with sinus rhythm noted on telemetry. She had several low blood pressure readings with systolic blood pressures in the 70s and ultimately had a blood pressure as low as 60/49 today at 1500. This prompted initiation of peripheral norepinephrine. Shortly thereafter the patient was observed to have converted from sinus rhythm with rate of 100 bpm to atrial fibrillation with r apid ventricular response at 150 bpm at 12:45 PM. The patient subsequently received a dose of IV diltiazem and as of 1536 she converted back to sinus rhythm and rate remains in the range of 80 to 100 bpm at rest. She denies any chest discomfort or shortness of breath. Denies any recent palpitations. At time of most recent cardiology follow-up visit on 09/06/2024, stable cardiac signs and symptoms were noted. She had a repeat transthoracic echocardiogram performed as an outpatient 3 weeks ago that revealed stable findings of moderate bicuspid aortic valve stenosis. Past Cardiac History: History includes: 1.bicuspid aortic valve with moderate aortic stenosis per last echo 2.carotid vascular disease S/P left CEA - follows with vascular 3.Dyslipidemia 4.active tobacco abuse. 5.Hypotension - on midodrine 6.Chronic LE edema/venous stasis Patient History Social History Smoking Status: Current every day smoker Feels Safe at Home: Yes Review of Systems Review of Systems: All systems reviewed & are unremarkable except as noted in HPI & below Physical Exam Physical Exam: General: no acute distress and stated age, Thin, frail in appearance Mild ecchymosis over the right face stemming from a fall a week ago Eyes: conjunctiva are pink and non-injected, sclera clear Neck: normal jugular venous pulse, no hepatojugular reflux Chest: normal shape and normal respiratory effort Lungs: clear to auscultation and percussion Cardiac Exam: - Regular rhythm, 2/6 systolic murmur, no edema Abdomen: abdomen soft, non-tender, no abnormal masses and no hepatosplenomegaly Musculoskeletal: no gait disturbance, no weakness Extremities: no edema and no cyanosis Neuro:awake, conversant, follows commands, no focal motor deficits Results & Data Vital Signs (Past 12 Hours) Vital Signs Temp Pulse Pulse Resp BP BP Pulse Ox 10/19/24 15:40 91/66 L 10/19/24 15:37 89 10/19/24 15:25 76/53 L 10/19/24 15:24 144 H 27 H 93 10/19/24 15:20 86/66 L 10/19/24 15:18 143 H 27 H 91 10/19/24 15:15 90/74 L 10/19/24 15:09 143 H 26 H 81/54 L 93 10/19/24 15:05 80/48 L 10/19/24 15:00 62/49 L 10/19/24 14:57 141 H 32 H 95 10/19/24 14:55 87/68 L 10/19/24 14:51 92/53 L 10/19/24 14:46 87/51 L 10/19/24 14:45 147 H 28 H 99 10/19/24 14:41 82/64 L 10/19/24 14:39 139 H 17 93 10/19/24 14:36 139 H 23 93 10/19/24 14:35 87/64 L 10/19/24 14:30 92/65 L 10/19/24 14:30 134 H 27 H 93 10/19/24 14:25 84/68 L 10/19/24 14:21 137 H 25 H 93 10/19/24 14:20 91/65 L 10/19/24 14:10 90/62 L 10/19/24 14:09 133 H 26 H 95 10/19/24 14:06 124 H 26 H 94 10/19/24 14:05 78/58 L 10/19/24 14:05 78/58 L 10/19/24 14:05 78/58 L 10/19/24 14:05 78/58 L 10/19/24 14:00 85/61 L 10/19/24 14:00 135 H 15 92 10/19/24 13:55 88/63 L 10/19/24 13:55 88/63 L 10/19/24 13:54 136 H 21 92 10/19/24 13:51 134 H 25 H 95 10/19/24 13:50 87/53 L 10/19/24 13:50 87/53 L 10/19/24 13:50 87/53 L 10/19/24 13:48 132 H 28 H 93 10/19/24 13:45 122 H 24 95 10/19/24 13:45 92/75 L 10/19/24 13:45 92/75 L 10/19/24 13:45 92/75 L 10/19/24 13:41 126 H 84/66 L 10/19/24 13:36 145 H 28 H 91 10/19/24 13:35 82/62 L 10/19/24 13:33 125 H 24 94 10/19/24 13:32 82/59 L 10/19/24 13:15 76/58 L 10/19/24 13:10 75/54 L 10/19/24 13:05 78/54 L 10/19/24 13:00 74/54 L 10/19/24 13:00 129 H 25 H 10/19/24 13:00 74/54 L 10/19/24 12:57 135 H 21 93 10/19/24 12:55 89/52 L 10/19/24 12:54 140 H 24 10/19/24 12:51 128 H 38 H 10/19/24 12:50 79/66 L 10/19/24 12:30 80/49 L 10/19/24 12:30 80/49 L 10/19/24 12:30 95 H 24 95 10/19/24 12:25 83/59 L 10/19/24 12:15 79/51 L 10/19/24 12:10 78/49 L 10/19/24 12:10 78/49 L 10/19/24 12:00 94/57 L 10/19/24 11:57 93 H 20 99 10/19/24 11:55 87/58 L 10/19/24 11:54 96 H 26 H 92 10/19/24 11:50 89/60 L 10/19/24 11:48 99 H 22 10/19/24 11:45 97 H 21 97 10/19/24 11:45 85/60 L 10/19/24 11:40 82/55 L 10/19/24 11:40 98 H 10/19/24 11:35 86/56 L 10/19/24 11:33 105 H 21 96 10/19/24 11:30 98 H 26 H 95 10/19/24 11:30 79/58 L 10/19/24 11:04 36.7 C 108 H 16 93/59 L 97 O2 Del Method 10/19/24 15:40 10/19/24 15:37 10/19/24 15:25 10/19/24 15:24 10/19/24 15:20 10/19/24 15:18 10/19/24 15:15 10/19/24 15:09 10/19/24 15:05 10/19/24 15:00 10/19/24 14:57 Room Air 10/19/24 14:55 10/19/24 14:51 10/19/24 14:46 10/19/24 14:45 Room Air 10/19/24 14:41 10/19/24 14:39 Room Air 10/19/24 14:36 Room Air 10/19/24 14:35 10/19/24 14:30 10/19/24 14:30 Room Air 10/19/24 14:25 10/19/24 14:21 10/19/24 14:20 10/19/24 14:10 10/19/24 14:09 10/19/24 14:06 10/19/24 14:05 10/19/24 14:05 10/19/24 14:05 10/19/24 14:05 10/19/24 14:00 10/19/24 14:00 10/19/24 13:55 10/19/24 13:55 10/19/24 13:54 10/19/24 13:51 10/19/24 13:50 10/19/24 13:50 10/19/24 13:50 10/19/24 13:48 10/19/24 13:45 10/19/24 13:45 10/19/24 13:45 10/19/24 13:45 10/19/24 13:41 10/19/24 13:36 10/19/24 13:35 10/19/24 13:33 10/19/24 13:32 10/19/24 13:15 10/19/24 13:10 10/19/24 13:05 10/19/24 13:00 10/19/24 13:00 10/19/24 13:00 10/19/24 12:57 10/19/24 12:55 10/19/24 12:54 10/19/24 12:51 10/19/24 12:50 10/19/24 12:30 10/19/24 12:30 10/19/24 12:30 10/19/24 12:25 10/19/24 12:15 10/19/24 12:10 10/19/24 12:10 10/19/24 12:00 10/19/24 11:57 Room Air 10/19/24 11:55 10/19/24 11:54 Room Air 10/19/24 11:50 10/19/24 11:48 10/19/24 11:45 Room Air 10/19/24 11:45 10/19/24 11:40 10/19/24 11:40 10/19/24 11:35 10/19/24 11:33 Room Air 10/19/24 11:30 Room Air 10/19/24 11:30 10/19/24 11:04 Room Air Laboratory Results Cardiac Enzymes 10/19/24 Range/Units 11:33 AST 29 (13-39) U/L Troponin I High Sens 17.4 H (0-14) pg/ml CBC 10/19/24 Range/Units 11:33 WBC 18.42 H (4.8-10.8) K/ul RBC 5.07 (4.20-5.40) M/uL Hgb 15.4 (12.0-16.0) g/dl Hct 43.6 (37.0-47.0) % Plt Count 294 (130-400) K/uL Neut # (Auto) 17.06 H (1.40-6.50) K/uL Lymph # (Auto) 0.50 L (1.20-3.40) K/uL [place] # (Auto) 0.59 (0.11-0.59) K/uL Eos # (Auto) 0.09 (0.00-0.50) K/uL Baso # (Auto) 0.05 (0.00-0.20) K/uL Comprehensive Metabolic Panel 10/19/24 Range/Units 11:33 Sodium 131 L (136-145) mmol/L Potassium 3.9 (3.5-5.1) mmol/L Chloride 93 L (98-107) mmol/L Carbon Dioxide 28 (21-32) mmol/L BUN 12 (6-23) mg/dl Creatinine 0.46 L (0.6-1.2) mg/dl Glucose 265 H (70-99(Fasting)) mg/dl Calcium 8.6 (8.6-10.3) mg/dl Direct Bilirubin 0.2 (0-0.2) mg/dl AST 29 (13-39) U/L ALT 19 (7-52) U/L Alkaline Phosphatase 69 (34-104) U/L Total Protein 7.5 (6.0-8.3) gm/dl Albumin 3.4 (3.4-5.0) gm/dl Intake and Output 10/19/24 10/19/24 10/19/24 06:59 14:59 22:59 Intake Total Balance Intake: IV Norepinephrine/D5w 4 mg In 250 ml @ 0.05 MCG/KG/MIN 9.638 mls/ hr IV .Q24H [facility] Rx#:[id number] Sodium Chloride 0.9% 1,000 ml @ 2000 / 2000 999 mls/hr IV .Q1H1M [facility] Rx#: [id number] Other: Weight 51.4 kg Weight Measurement Method Built in [facility] Patient Weight 10/20/24 06:59 Weight 51.4 kg Diagnostic Findings EKG performed on arrival 10/19/2024 at 1118 and interpret independently: Sinus tachycardia 102 bpm, no significant repolarization abnormalities. Summary transthoracic echocardiogram performed today 10/05/2024: The LV wall thickness is mildly increased (concentric). The left ventricular wall motion is normal. The qualitative LV ejection fraction is 60-64% (normal). The left ventricular diastolic function is mildly abnormal (grade I). The aortic valve is congenitally bicuspid. The aortic valve is moderately calcified. Moderate aortic valve stenosis is present. There is mild mitral annular calcification. The aortic root and proximal ascending aorta are normal sized. Compared to prior study of June 17, 2023, there is no significant change. Radiology report reviewed, CT of the head with no acute intracranial abnormality Summary of radiology report of chest x-ray: Left perihilar Mediastinal masslike opacity for which further correlation with chest CT recommended Cardiomegaly with pulmonary vascular congestion Mild patchy left basilar atelectasis versus pneumonitis
[2024-10-19 17:07] LABS: iSTAT Arterial Blood Gas HCO3 23 meg/L (19-24); iSTAT Arterial Blood Gas pCO2 32 mmHg (35-46); iSTAT Arterial Blood Gas pH 7.46 (7.35-7.45); iSTAT Arterial Blood Gas pO2 62 mmHg (80-95); iSTAT Carbon Dioxide 23 mmol/L (24-31); iSTAT Hematocrit 38 % (37-47); iSTAT Hemoglobin 12.9 g/dl (12.0-16.0); iSTAT Potassium 3.5 mmol/L (3.3-5.0); iSTAT Sodium 134 mmol/L (135-144)
[2024-10-19] MEDS: OPTIRAY 320 100ml IV ONE (17:10)
--- NOTE | 2024-10-19 17:24 | History & Physical Report ---
Date of Service October 19, 2024 Assessment & Plan (1) Pneumonia: Plan Influenza A URTI Possible pneumonia, likely superimposed bacterial infection Septic shock: In the setting of pneumonia. Patient presents with cough for 2 weeks, productive in nature. Admitting CXR with left. Hilar/paramediastinal masslike opacity and mild patchy left basilar atelectasis versus pneumonitis. Blood pressure has been running low, respiratory rate & WBC elevated, lactate WNL. Blood pressure low. VBG with pO2 at 62. CT chest pending. Status post 2 L IV fluid in the ED, Levophed was started in the ED and currently on hold per ICU recommendation. BP dropped to 60/40, give iv albumin, give further ivf. D/w icu attending, use neosynephrine instead of levophed. Will admit patient to ICU for close monitoring/possible need for continuation of pressure support. f/u blood and sputum culture. c/w cefepime and doxy Droplet precaution A-fib RVR. Syncope likely orthostatic hypotension given underlying Chronic hypotension given possible ongoing repiratory infection in the last 1-2 weeks. Patient reports lightheadedness and fall last Thursday. Get ortho vitals. Patient noted to be in A-fib RVR with heart rate in 140s at presentation in the ED. Patient reports no prior diagnosis of A-fib.. Patient spontaneously converted to normal sinus rhythm in the ED. Will get TSH. 10/05/2024 echo with EF of 60 to 64%, grade 1 diastolic dysfunction, left ventricular wall motion normal. Trend troponin x 1 more time, cardiology consult. Mild hyponatremia: Sodium of 131, patient started with sodium level of close 135. Likely 2/2 acute infection. Labs in AM. Hypomagnesemia: Replete magnesium Other chronic medical conditions: Continue/resume home meds as when able. Patient's Home medications are: As needed albuterol, as needed Xanax 0.5 Mg, baby aspirin daily, Plavix 75 Mg daily, atorvastatin 80 Mg daily, furosemide 20 Mg as needed for leg swelling. Levothyroxine 100 mcg daily, midodrine 5 Mg 3 times daily, nortriptyline 25 Mg at bedtime, omeprazole 1-2 times a week, Ozempic 4 mg subcutaneous every week,. DVT prophylaxis: Heparin subcu CODE STATUS: History of Present Illness Chief Complaint: lightheadedness, generalized weakness and fall Primary Care Provider: Sean Macias MD 74-year-old lady with PMH of T2DM, peripheral neuropathy, peripheral angiopathy, HLD, postoperative hypothyroidism, hypotension on midodrine, COPD, peripheral arterial disease, right subclavian artery stenosis, GERD, restless leg syndrome, lumbar disc disease, primary osteoarthritis of both knees, bariatric surgery, RUY, tobacco use disorder, status post carotid endarterectomy presented to the ED with complaint of cough, generalized weakness and syncope x 1. Patient reports cough for 2 weeks productive cough greenish sputum, currently sore throat has resolved, denies fever. Reports worsening generalized weakness. Patient reports poor appetite at baseline, denies nausea and vomiting currently but did have upset stomach earlier in the course. Patient reports 1 episode of diarrhea yesterday, denies pain or burning while passing urine. The patient reports getting lightheaded and dizzy and fell on face after getting out of car last Thursday. She hit right side of the face. Because she was not getting better and getting weaker, she decided to come to the ED. Patient noted to be in A-fib RVR with heart rate in the 140s at presentation. S/P 2L IVF at ED. ER physician was in touch w/ ICU attending, recommendation was to use hydrocortisone, florinef, home midodrine and hold Levophed to see if patient can hold her blood pressure. Pt was evaluated at bedside and BP noted to be 60/40, pt w/ no symptom of lightheadedness or chest pain. I will put in 25% albumin and put pressors back. and admit to ICU. Patient reports smoking her whole life, 1 pack a day currently. Denies alcohol/recreational drug use. Medication reviewed with the patient at bedside. Full code Plan of care discussed with the patient and her daughter at bedside, answered all the questions, they voiced understanding. Allergies Allergy/AdvReac Type Severity Reaction Status Date / Time Penicillins Allergy Hives Unverified 10/19/24 18:40 metformin AdvReac Diarrhea Unverified 10/19/24 18:40 Home Medications Medication Instructions Recorded Confirmed Type albuterol sulfate 90 mcg/actuation 2 inh inhalation QID PRN SOB 10/19/24 10/19/24 History aerosol inhaler alprazolam 0.5 mg tablet 0.5 mg PO BID PRN Anxiety 10/19/24 10/19/24 History atorvastatin 80 mg tablet 80 mg PO DAILY 10/19/24 10/19/24 History clopidogrel 75 mg tablet 75 mg PO DAILY 10/19/24 10/19/24 History hydrocodone 5 mg-acetaminophen 325 1 tab PO Q6H PRN Pain 10/19/24 10/19/24 History mg tablet levothyroxine 100 mcg tablet 100 mcg PO DAILY 10/19/24 10/19/24 History midodrine 5 mg tablet 5 mg PO DAILY 10/19/24 10/19/24 History nortriptyline 25 mg capsule 25 mg PO DAILY 10/19/24 10/19/24 History omeprazole 20 mg capsule,delayed 20 mg PO DAILY 10/19/24 10/19/24 History release semaglutide 1 mg/dose (4 mg/3 mL) 1 mg subcut WK 10/19/24 10/19/24 History subcutaneous pen injector (Ozempic) Past Med/Surg History Problem List (Updated 10/19/24 @ 17:06 by Anil Riley MD) Pneumonia (Acute) Sepsis (Acute) Atrial fibrillation Influenza A (Acute) Social History Smoking Status: Current every day smoker Feels Safe at Home: Yes Review of Systems Review of Systems: Negative otherwise mentioned in HPI. Physical Exam Physical Exam: GENERAL: Alert and oriented x3. NAD, on RA. Appears weak/frail/ill. HEENT: No pallor, no icterus. Pupils equal, round and reactive to light. Oral mucosa moist. NECK: No JVD, no neck masses. HEART: S1 and S2 heard. Regular rate and rhythm. in 80s. No murmur, no gallop. RESPIRATORY SYSTEM: Normal AP diameter. No accessory muscle use. No wheezing, bb crackles. ABDOMEN: Soft, bowel sounds present, nontender, no distention. CENTRAL NERVOUS SYSTEM: No facial droop. Speech is clear. Obeys simple commands. Moves extremities. EXTREMITIES: No edema, no erythema seen. ble chronic skin changes noted. Results & Data Results & Data Vital Signs (Past 12 Hours) Vital Signs Temp Pulse Pulse Resp BP BP Pulse Ox 10/19/24 15:40 91/66 L 10/19/24 15:37 89 10/19/24 15:25 76/53 L 10/19/24 15:24 144 H 27 H 93 10/19/24 15:20 86/66 L 10/19/24 15:18 143 H 27 H 91 10/19/24 15:15 90/74 L 10/19/24 15:09 143 H 26 H 81/54 L 93 10/19/24 15:05 80/48 L 10/19/24 15:00 62/49 L 10/19/24 14:57 141 H 32 H 95 10/19/24 14:55 87/68 L 10/19/24 14:51 92/53 L 10/19/24 14:46 87/51 L 10/19/24 14:45 147 H 28 H 99 10/19/24 14:41 82/64 L 10/19/24 14:39 139 H 17 93 10/19/24 14:36 139 H 23 93 10/19/24 14:35 87/64 L 10/19/24 14:30 92/65 L 10/19/24 14:30 134 H 27 H 93 10/19/24 14:25 84/68 L 10/19/24 14:21 137 H 25 H 93 10/19/24 14:20 91/65 L 10/19/24 14:10 90/62 L 10/19/24 14:09 133 H 26 H 95 10/19/24 14:06 124 H 26 H 94 10/19/24 14:05 78/58 L 10/19/24 14:05 78/58 L 10/19/24 14:05 78/58 L 10/19/24 14:05 78/58 L 10/19/24 14:00 85/61 L 10/19/24 14:00 135 H 15 92 10/19/24 13:55 88/63 L 10/19/24 13:55 88/63 L 10/19/24 13:54 136 H 21 92 10/19/24 13:51 134 H 25 H 95 10/19/24 13:50 87/53 L 10/19/24 13:50 87/53 L 10/19/24 13:50 87/53 L 10/19/24 13:48 132 H 28 H 93 10/19/24 13:45 122 H 24 95 10/19/24 13:45 92/75 L 10/19/24 13:45 92/75 L 10/19/24 13:45 92/75 L 10/19/24 13:41 126 H 84/66 L 10/19/24 13:36 145 H 28 H 91 10/19/24 13:35 82/62 L 10/19/24 13:33 125 H 24 94 10/19/24 13:32 82/59 L 10/19/24 13:15 76/58 L 10/19/24 13:10 75/54 L 10/19/24 13:05 78/54 L 10/19/24 13:00 74/54 L 10/19/24 13:00 129 H 25 H 10/19/24 13:00 74/54 L 10/19/24 12:57 135 H 21 93 10/19/24 12:55 89/52 L 10/19/24 12:54 140 H 24 10/19/24 12:51 128 H 38 H 10/19/24 12:50 79/66 L 10/19/24 12:30 80/49 L 10/19/24 12:30 80/49 L 10/19/24 12:30 95 H 24 95 10/19/24 12:25 83/59 L 10/19/24 12:15 79/51 L 10/19/24 12:10 78/49 L 10/19/24 12:10 78/49 L 10/19/24 12:00 94/57 L 10/19/24 11:57 93 H 20 99 10/19/24 11:55 87/58 L 10/19/24 11:54 96 H 26 H 92 10/19/24 11:50 89/60 L 10/19/24 11:48 99 H 22 10/19/24 11:45 97 H 21 97 10/19/24 11:45 85/60 L 10/19/24 11:40 82/55 L 10/19/24 11:40 98 H 10/19/24 11:35 86/56 L 10/19/24 11:33 105 H 21 96 10/19/24 11:30 98 H 26 H 95 10/19/24 11:30 79/58 L 10/19/24 11:04 36.7 C 108 H 16 93/59 L 97 O2 Del Method 10/19/24 15:40 10/19/24 15:37 10/19/24 15:25 10/19/24 15:24 10/19/24 15:20 10/19/24 15:18 10/19/24 15:15 10/19/24 15:09 10/19/24 15:05 10/19/24 15:00 10/19/24 14:57 Room Air 10/19/24 14:55 10/19/24 14:51 10/19/24 14:46 10/19/24 14:45 Room Air 10/19/24 14:41 10/19/24 14:39 Room Air 10/19/24 14:36 Room Air 10/19/24 14:35 10/19/24 14:30 10/19/24 14:30 Room Air 10/19/24 14:25 10/19/24 14:21 10/19/24 14:20 10/19/24 14:10 10/19/24 14:09 10/19/24 14:06 10/19/24 14:05 10/19/24 14:05 10/19/24 14:05 10/19/24 14:05 10/19/24 14:00 10/19/24 14:00 10/19/24 13:55 10/19/24 13:55 10/19/24 13:54 10/19/24 13:51 10/19/24 13:50 10/19/24 13:50 10/19/24 13:50 10/19/24 13:48 10/19/24 13:45 10/19/24 13:45 10/19/24 13:45 10/19/24 13:45 10/19/24 13:41 10/19/24 13:36 10/19/24 13:35 10/19/24 13:33 10/19/24 13:32 10/19/24 13:15 10/19/24 13:10 10/19/24 13:05 10/19/24 13:00 10/19/24 13:00 10/19/24 13:00 10/19/24 12:57 10/19/24 12:55 10/19/24 12:54 10/19/24 12:51 10/19/24 12:50 10/19/24 12:30 10/19/24 12:30 10/19/24 12:30 10/19/24 12:25 10/19/24 12:15 10/19/24 12:10 10/19/24 12:10 10/19/24 12:00 10/19/24 11:57 Room Air 10/19/24 11:55 10/19/24 11:54 Room Air 10/19/24 11:50 10/19/24 11:48 10/19/24 11:45 Room Air 10/19/24 11:45 10/19/24 11:40 10/19/24 11:40 10/19/24 11:35 10/19/24 11:33 Room Air 10/19/24 11:30 Room Air 10/19/24 11:30 10/19/24 11:04 Room Air
[2024-10-19] MEDS ORDERED: STAT IV Infusion **Titration per Protocol STA ×2 (17:47→18:04)
[2024-10-19] MEDS: FLUDROCORTISONE ACETATE 0.1 MG TAB PO SCH (17:58)
[2024-10-19] MEDS: MIDODRINE HCL 10 MG TAB PO SCH (17:58)
[2024-10-19] MEDS ORDERED: Patient's ALLERGY Info needs ENTERED STA (18:12)
--- NOTE | 2024-10-19 18:36 | CT Scan Report ---
CT chest with contrast History: Chest pain Comparison: None Technique: Helical CT imaging of the chest performed with IV contrast Dose reduction techniques were achieved by using automatic exposure control and/or adjustment of mA and/or kV according to patient size and/or use of iterative reconstruction technique. Findings: Small left pleural effusion. Moderate bibasilar patchy consolidative opacities. Masslike, necrotic lymphadenopathy throughout the mediastinum, including a 9.4 x 6.7 cm area throughout the left mediastinum with rim enhancement. No pneumothorax. Heart size is normal. The thoracic aorta is normal in size. The pulmonary artery is enlarged in size. No significant pericardial effusion. Severe emphysema. The central airway is clear. Limited visualized upper abdomen. There are numerous rim-enhancing lesions throughout the liver, including the right lobe, image 46, measuring 14 mm, and in the left lobe on axial image 50 measuring 11 mm, within the anterior central portion of the liver on axial image 50 measuring 9 mm, in the medial right lobe on axial image 50, measuring 13 mm, in the posterior right lobe on axial image 50 measuring 13 mm. Prominent multilobular thickening of the left adrenal gland suspicious for metastatic disease. No acute bony abnormalities. Impression: Masslike, necrotic lymphadenopathy in the mediastinum, is consistent with malignancy, especially small cell lung cancer, versus possibly lymphoma. Small left pleural effusion. Bibasilar patchy opacities, consistent with pneumonia. Numerous rim-enhancing lesions throughout the liver partially seen, consistent with metastasis. Multilobular thickening of the left adrenal gland is most suspicious for metastatic disease. No pulmonary embolism. Electronically signed by Juan Hardwick 10-19-2024 6:35 PM
[2024-10-19] MEDS: PHENYLEPHRINE/NSS 25 MG/250 ML BAG IV SCH (18:49)
[2024-10-19] MEDS: POTASSIUM CHLORIDE CRTAB 20 MEQ TABCR PO STA (18:50)
[2024-10-19] MEDS: ALBUMIN 25% 25 GM/100 ML VIAL IV ONE (19:22)
--- NOTE | 2024-10-19 19:44 | Critical Care Consultation ---
Date of Consultation October 19, 2024 Assessment & Plan (1) Hypotension: (2) Mediastinal mass: (3) Atrial fibrillation: (4) Influenza A: Plan Reason Critically Ill: Hypotension likely 2/2 hypovolemia on ?carotid sinus syndrome based on history from patient. Influenza A + Neuro - [facility] ICU: negative RASS GOAL 0 Multimodal pain management APAP PRN pain/fever Fall precautions Cardiac - AFRVR has resolved Cardiology was consulted in ED with recommendations for low dose BB or Digoxin for recurrence. No AC given her frequent falls Continue neosynephrine for MAP goal 55-60mmHg. Continue midodrine at 10mg TID while weaning neosynephrine. TTE from 09/2024 showed known bicuspid AV stenosis, unable to review other findings as not available on [facility] Respiratory - SpO2 goal 90-92% Albuterol PRN, DuoNebs PRN Nicotine patch IS/Flutter GI - Diet: Advance as tolerated SUP: Home PPI Bowel regimen: Miralax RENAL/LYTES - Replete electrolytes as indicated No current indication for marrero catheter Maintain net even to net negative ENDO - Continue hydrocortisone and fludrocortisone for presumed adrenal insufficiency TSH pending Continue home Levoxyl BG 140-180 per [facility] guidelines ISS if needed while inpatient HEME/ONC/OTHER - Will obtain MRI Brain w/wo to evaluate for metastasis Consult Oncology for possible bx when clinically stable ID - Cefepime and doxycycline started in ED Follow fever curve, WBC, culture data with de-escalation as indicated BC x2 pending, sputum cx, procalcitonin pending, Flu A +, UA not infected LINES/TUBES/DRAINS - PIV x2 DVT PROPHYLAXIS - Enoxaparin Disposition: ICU while on vasopressors I have personally spent 35 minutes of critical care time in the direct management of this patient. This is a life/limb threatening event. This includes time spent evaluating patient, direct bedside care, chart review, placing orders, interpretation of diagnostic studies, discussion with consultants, patient, and family members, as well as other required patient management activities. This time is exclusive of all separately billable procedures, and teaching time and separate from and in addition to any other critical care service time. Thank you for allowing us to participate in the care of this patient. Please refer to my attending physician's documentation for any further recommendations. Supervising Physician Co-Signing Physician Notes Patient seen and examined. EMR reviewed. Discussed with ER staff, admitting hospitalist, and critical care ELVIE. Agree with assessment plan as noted. For additional details please refer to my progress note from 10/20/2024 History of Present Illness Reason for Consultation: Shock Requesting Physician: Andrea Attending Physician: Andrea History of Present Illness Ms. Caitlin Izquierdo is a 74YOF with a history of tobacco use disorder, emphysema with presumed COPD (no PFTs on file), anxiety, hyperlipidemia, orthostatic hypotension, hypothyroidism, and GERD who presented to [facility] ED on 10/19/2024 due to 2-3 weeks of dizziness, generalized weakness, productive cough, and falls. She was hypotensive and tachycardic on arrival to ED. She received 2L IVF and was subsequently started on vasopressors. She developed AFRVR shortly thereafter. Received IV Diltiazem with conversion to sinus rhythm. Her work-up was remarkable for leukocytosis with neutrophil predominance, Flu A +. Lactate WNL. Imaging showed necrotic lymphadenopathy of the mediastinum concerning for malignancy as well as possible metastasis to liver as well as adrenal gland. She was started on cefepime and doxycycline as well as stress-dosed steroids. ICU was consulted for admission due to vasopressor dependence. Patient seen on arrival to ICU 110. She is AAOx3. No acute distress. Hemodynamically stable on 0.5mcg/kg/min neosynephrine. Quite frail appearing. Patient tells me she's lost a bit of weight the past few months which she attributes to her Ozempic. Appetite has been OK, states she is eating and drinking adequately. She continues to smoke about 1 PPD cigarettes. Endorses hypotension and syncope since her L CEA where the surgeon told her "a fiber was hit" which now has lead to her symptoms. She has been on midodrine since that time. Tells me her baseline blood pressure is 50/30 and with this BP she is up and walking around asymptomatically. Denies current or recent chest pain, headache, visual disturbances, shortness of breath, n/v/d, peripheral edema. + recent productive cough, falls, and weakness. Of note, chart review is limited as patient is [facility] so I am unable to see office 365 consultant vascular surgery notes. Allergies Allergy/AdvReac Type Severity Reaction Status Date / Time Penicillins Allergy Hives Unverified 10/19/24 18:40 metformin AdvReac Diarrhea Unverified 10/19/24 18:40 Home Medications Medication Instructions Recorded Confirmed Type albuterol sulfate 90 mcg/actuation 2 inh inhalation QID PRN SOB 10/19/24 10/19/24 History aerosol inhaler alprazolam 0.5 mg tablet 0.5 mg PO BID PRN Anxiety 10/19/24 10/19/24 History atorvastatin 80 mg tablet 80 mg PO DAILY 10/19/24 10/19/24 History clopidogrel 75 mg tablet 75 mg PO DAILY 10/19/24 10/19/24 History hydrocodone 5 mg-acetaminophen 325 1 tab PO Q6H PRN Pain 10/19/24 10/19/24 History mg tablet levothyroxine 100 mcg tablet 100 mcg PO DAILY 10/19/24 10/19/24 History midodrine 5 mg tablet 5 mg PO DAILY 10/19/24 10/19/24 History nortriptyline 25 mg capsule 25 mg PO DAILY 10/19/24 10/19/24 History omeprazole 20 mg capsule,delayed 20 mg PO DAILY 10/19/24 10/19/24 History release semaglutide 1 mg/dose (4 mg/3 mL) 1 mg subcut WK 10/19/24 10/19/24 History subcutaneous pen injector (Ozempic) Patient History Social History Smoking Status: Former smoker Tobacco Type: Cigarettes Cigarettes Per Day: 20; Do You Dip or Chew Tobacco: No; Hx Alcohol Use: No Hx Substance Use: No Preferred Language: Mohawk Communication Ability: Effective [employer] Safe Required: No Beliefs That Will Affect Care: None Current Living Situation: Family Current Living Situation Comment: grandson and great grandson Feels Safe at Home: Yes Safety Concerns: Feels Safe At This Time Assistive Devices: Denture - Upper, Denture - Lower and Glasses Review of Systems Review of Systems: All systems reviewed & are unremarkable except as noted in Subjective Physical Exam Constitutional: + thin and + frail appearing; no acute d istress Eyes: PERRL, conjunctivae normal, anicteric sclerae ENMT: edentulous MM WNL Neck: Thyroid: normal thyroid LAD bilaterally Respiratory: normal respiratory effort; no respiratory distress Auscultation: + diminished lung sounds Cardiovascular: Rate/Rhythm: regular rate and regular rhythm Heart Sounds: + murmur Vessels: no JVD and no carotid bruit Extremities: normal capillary refill; no edema Gastrointestinal (Abdomen): normal bowel sounds, soft, nontender, no hepatosplenomegaly No palpable LN in abdomen Musculoskeletal: Head/Neck/Chest: normocephalic and head atraumatic Extremities: strength 5/5 throughout Skin: normal turgor; no rashes and no lesions No groin LAD Neurologic: PERRL, EOMI, accommodation nl, no face palsy, no dysarthria Results & Data Results & Data Vital Signs (Past 12 Hours) Vital Signs Temp Pulse Pulse Resp BP BP Pulse Ox 10/19/24 18:40 75/51 L 10/19/24 18:36 82/54 L 10/19/24 18:33 83 25 H 96/48 L 96 10/19/24 18:29 81 10/19/24 18:25 86/54 L 10/19/24 18:21 83 24 83/50 L 10/19/24 18:18 82 24 88/45 L 10/19/24 18:09 85 26 H 76/51 L 95 10/19/24 18:05 76/49 L 10/19/24 18:00 63/42 L 10/19/24 17:57 83 26 H 63/42 L 94 10/19/24 17:55 72/43 L 10/19/24 17:55 72/43 L 10/19/24 17:54 84 15 94 10/19/24 17:50 69/45 L 10/19/24 17:46 65/41 L 10/19/24 17:45 85 30 H 95 10/19/24 17:44 60/46 L 10/19/24 17:42 86 28 H 92 10/19/24 17:33 87 21 95 10/19/24 17:21 86 25 H 93 10/19/24 16:55 91/66 L 10/19/24 16:50 75/61 L 10/19/24 16:48 92 H 27 H 87/58 L 94 10/19/24 16:35 96/64 L 10/19/24 16:30 92/68 L 10/19/24 16:25 88/62 L 10/19/24 16:21 88 29 H 92/66 L 95 10/19/24 16:15 86 26 H 88/65 L 94 10/19/24 16:10 92/68 L 10/19/24 16:05 91/58 L 10/19/24 16:03 88 28 H 88/55 L 95 10/19/24 16:00 88/55 L 10/19/24 15:57 88 26 H 93 10/19/24 15:55 81/56 L 10/19/24 15:51 90 27 H 89/67 L 92 10/19/24 15:40 91/66 L 10/19/24 15:37 89 10/19/24 15:25 76/53 L 10/19/24 15:24 144 H 27 H 93 10/19/24 15:20 86/66 L 10/19/24 15:18 143 H 27 H 91 10/19/24 15:15 90/74 L 10/19/24 15:09 143 H 26 H 81/54 L 93 10/19/24 15:05 80/48 L 10/19/24 15:00 62/49 L 10/19/24 14:57 141 H 32 H 95 10/19/24 14:55 87/68 L 10/19/24 14:51 92/53 L 10/19/24 14:46 87/51 L 10/19/24 14:45 147 H 28 H 99 10/19/24 14:41 82/64 L 10/19/24 14:39 139 H 17 93 10/19/24 14:36 139 H 23 93 10/19/24 14:35 87/64 L 10/19/24 14:30 92/65 L 10/19/24 14:30 134 H 27 H 93 10/19/24 14:25 84/68 L 10/19/24 14:21 137 H 25 H 93 10/19/24 14:20 91/65 L 10/19/24 14:10 90/62 L 10/19/24 14:09 133 H 26 H 95 10/19/24 14:06 124 H 26 H 94 10/19/24 14:05 78/58 L 10/19/24 14:05 78/58 L 10/19/24 14:05 78/58 L 10/19/24 14:05 78/58 L 10/19/24 14:00 85/61 L 10/19/24 14:00 135 H 15 92 10/19/24 13:55 88/63 L 10/19/24 13:55 88/63 L 10/19/24 13:54 136 H 21 92 10/19/24 13:51 134 H 25 H 95 10/19/24 13:50 87/53 L 10/19/24 13:50 87/53 L 10/19/24 13:50 87/53 L 10/19/24 13:48 132 H 28 H 93 10/19/24 13:45 122 H 24 95 10/19/24 13:45 92/75 L 10/19/24 13:45 92/75 L 10/19/24 13:45 92/75 L 10/19/24 13:41 126 H 84/66 L 10/19/24 13:36 145 H 28 H 91 10/19/24 13:35 82/62 L 10/19/24 13:33 125 H 24 94 10/19/24 13:32 82/59 L 10/19/24 13:15 76/58 L 10/19/24 13:10 75/54 L 10/19/24 13:05 78/54 L 10/19/24 13:00 74/54 L 10/19/24 13:00 129 H 25 H 10/19/24 13:00 74/54 L 10/19/24 12:57 135 H 21 93 10/19/24 12:55 89/52 L 10/19/24 12:54 140 H 24 10/19/24 12:51 128 H 38 H 10/19/24 12:50 79/66 L 10/19/24 12:30 80/49 L 10/19/24 12:30 80/49 L 10/19/24 12:30 95 H 24 95 10/19/24 12:25 83/59 L 10/19/24 12:15 79/51 L 10/19/24 12:10 78/49 L 10/19/24 12:10 78/49 L 10/19/24 12:00 94/57 L 10/19/24 11:57 93 H 20 99 10/19/24 11:55 87/58 L 10/19/24 11:54 96 H 26 H 92 10/19/24 11:50 89/60 L 10/19/24 11:48 99 H 22 10/19/24 11:45 97 H 21 97 10/19/24 11:45 85/60 L 10/19/24 11:40 82/55 L 10/19/24 11:40 98 H 10/19/24 11:35 86/56 L 10/19/24 11:33 105 H 21 96 10/19/24 11:30 98 H 26 H 95 10/19/24 11:30 79/58 L 10/19/24 11:04 36.7 C 108 H 16 93/59 L 97 O2 Del Method 10/19/24 18:40 10/19/24 18:36 10/19/24 18:33 10/19/24 18:29 10/19/24 18:25 10/19/24 18:21 10/19/24 18:18 10/19/24 18:09 10/19/24 18:05 10/19/24 18:00 10/19/24 17:57 10/19/24 17:55 10/19/24 17:55 10/19/24 17:54 10/19/24 17:50 10/19/24 17:46 10/19/24 17:45 10/19/24 17:44 10/19/24 17:42 10/19/24 17:33 10/19/24 17:21 10/19/24 16:55 10/19/24 16:50 10/19/24 16:48 10/19/24 16:35 10/19/24 16:30 10/19/24 16:25 10/19/24 16:21 10/19/24 16:15 10/19/24 16:10 10/19/24 16:05 10/19/24 16:03 10/19/24 16:00 10/19/24 15:57 10/19/24 15:55 10/19/24 15:51 10/19/24 15:40 10/19/24 15:37 10/19/24 15:25 10/19/24 15:24 10/19/24 15:20 10/19/24 15:18 10/19/24 15:15 10/19/24 15:09 10/19/24 15:05 10/19/24 15:00 10/19/24 14:57 Room Air 10/19/24 14:55 10/19/24 14:51 10/19/24 14:46 10/19/24 14:45 Room Air 10/19/24 14:41 10/19/24 14:39 Room Air 10/19/24 14:36 Room Air 10/19/24 14:35 10/19/24 14:30 10/19/24 14:30 Room Air 10/19/24 14:25 10/19/24 14:21 10/19/24 14:20 10/19/24 14:10 10/19/24 14:09 10/19/24 14:06 10/19/24 14:05 10/19/24 14:05 10/19/24 14:05 10/19/24 14:05 10/19/24 14:00 10/19/24 14:00 10/19/24 13:55 10/19/24 13:55 10/19/24 13:54 10/19/24 13:51 10/19/24 13:50 10/19/24 13:50 10/19/24 13:50 10/19/24 13:48 10/19/24 13:45 10/19/24 13:45 10/19/24 13:45 10/19/24 13:45 10/19/24 13:41 10/19/24 13:36 10/19/24 13:35 10/19/24 13:33 10/19/24 13:32 10/19/24 13:15 10/19/24 13:10 10/19/24 13:05 10/19/24 13:00 10/19/24 13:00 10/19/24 13:00 10/19/24 12:57 10/19/24 12:55 10/19/24 12:54 10/19/24 12:51 10/19/24 12:50 10/19/24 12:30 10/19/24 12:30 10/19/24 12:30 10/19/24 12:25 10/19/24 12:15 10/19/24 12:10 10/19/24 12:10 10/19/24 12:00 10/19/24 11:57 Room Air 10/19/24 11:55 10/19/24 11:54 Room Air 10/19/24 11:50 10/19/24 11:48 10/19/24 11:45 Room Air 10/19/24 11:45 10/19/24 11:40 10/19/24 11:40 10/19/24 11:35 10/19/24 11:33 Room Air 10/19/24 11:30 Room Air 10/19/24 11:30 10/19/24 11:04 Room Air Laboratory Results Reviewed. Diagnostic Findings Reviewed. Medications Administered See NOV. Coding Level of Care Code 77967 CRITICAL CARE 1ST 30-74M Diagnoses Hypotension I95.9 Mediastinal mass J98.59 Atrial fibrillation I48.91 Influenza A J10.1 Time Spent (min) 35
[2024-10-19 19:48] LABS: Partial Thromboplastin Ratio 1.2; Partial Thromboplastin Time 31 Seconds (21-31); Prothrombin Time 10.9 Seconds (9.0-12.0)
[2024-10-19] MEDS: MAGNESIUM SULFATE / D5W 1 GM/100 ML BAG IV SCH (20:26)
[2024-10-19] MEDS ORDERED: ICU Protocol for HYPERglycemia SCH (21:00)
[2024-10-19] MEDS: GADOBUTROL 65ML VIAL IV ONE (21:08)
--- NOTE | 2024-10-19 22:09 | Magnetic Resonance Report ---
Exam(s): MRI HEAD W/WO Contrast IV Amt: 5mL Gadavist given existing IV EXAM: MR Head Without and With Intravenous Contrast CLINICAL HISTORY: Reason for exam: Metastatic cancer. TECHNIQUE: Magnetic resonance images of the head/brain without and with intravenous contrast in multiple planes. CONTRAST: Patient received 5mL Gadavist given existing IV of IV contrast COMPARISON: No relevant prior studies available. FINDINGS: Brain: Unremarkable. No mass. No hemorrhage. No acute infarct. No abnormal enhancement. Ventricles: Unremarkable. No ventriculomegaly. Bones/joints: Unremarkable. No acute fracture. Sinuses: Right maxillary sinusitis. Mastoid air cells: Unremarkable as visualized. No mastoid effusion. Orbits: Unremarkable as visualized. IMPRESSION: 1. No acute intracranial abnormality. 2. Right maxillary sinusitis. Electronically signed by: Brennan Moore MD 10/19/24 22:08 PM
[2024-10-19] MEDS: CEFEPIME 2000MG 2,000 MG/20 ML SYR IV SCH (22:20)
[2024-10-19] MEDS: DOXYCYCLINE HYCLATE 100 MG in DEXTROSE 5% MINI-B 100 ML IV SCH (22:20)
[2024-10-19] MEDS: OSELTAMIVIR PHOSPHATE 75 MG CAP PO SCH (22:29)
[2024-10-19] MEDS: NORTRIPTYLINE HCL 25 MG CAP PO SCH (22:31)
[2024-10-19] MEDS: ICU Protocol for HYPERglycemia SCH (22:35)
[2024-10-19] MEDS ORDERED: GLUCOSE 10 TAB/TUBE PO PRN (22:36)
[2024-10-19] MEDS ORDERED: DEXTROSE 50% 50 ML SYRINGE IV PRN (22:36)
[2024-10-19] MEDS ORDERED: GLUCAGON FOR INJ 1 MG VIAL SQ PRN (22:36)
[2024-10-19] MEDS ORDERED: CARBOHYDRATES FOR HYPOGLYCEMIA PO PRN (22:36)
[2024-10-19] MEDS ORDERED: GLUCOSE 40% GEL 15 GM TUBE PO PRN (22:36)
[2024-10-19] MEDS: HEPARIN SOD 5,000 UNIT/0.5 ML VIAL SQ SCH (22:39)
[2024-10-19] MEDS: INSULIN ASPART PER UNIT CHARGE SC SCH (22:50)
--- OUTSIDE RECORDS SUMMARY | 2024-10-20 03:54 | External Medical Summary | Summary of Care ---
Author Name Unknown Organization [facility] Address [address] [place] [address] Phone [phone] Care Team Providers Care Park Warden Name Role Phone Sena Macias MD Primary Care Provider [phone] Reason for Referral * Ancillary Services (Within 10 days (routine)) - Authorized Specialty Diagnoses / Procedures Referred By Contac t Referred To Contact Audiology Diagnoses Hearing impaired person, bilateral Aurelio Ball MD [address] [place] [address] Phone: tel: fax: Referral ID Status Reason Start Date Expiration Date Visits Requested Visits Authorized [id number] Authorized Ancillary Services Required 10/12/2024 999 999 Question Answer Referral Priority Within 10 days (routine) [facility] Reason for Referral: Hearing Loss Is this sudden hearing loss or post chemotherapy hearing loss? No Reason for Visit * Reason Comments Fall Pt here for a fall M onday in the [employer] parking lot next to her car. Pt states that she fell forward hitting her head on the pavement. Pt not sure what happened but believes that she may have passed out for a few seconds. Pt does have some lacerations by the right eye from her glasses along with bruising Pt reports that she also has a sore spot on her right hip. . Encounter Details Date Type Department Care Team (Latest Contact Info) Description 10/12/2024 11:00 AM EST Office Visit Family [facility] [address] [place] [address] Aurelio Ball MD [address] [place] [phone] Fall in elderly patient*; Screening for depression; Orthostatic hypotension; Subconjunctival hematoma, right; Hearing impaired person, bilateral; Hematoma; Hypotension, unspecified hypotension type; COPD, group A, by GOLD 2017 classification ([facility]); DM type 2 with diabetic peripheral neuropathy ([facility]); Postoperative hypothyroidism; Dyslipidemia; RUY (generalized anxiety disorder) Allergies Active Allergy Reactions Criticality Noted Date Comments Gabapentin Neuro complications (Please comment) Medium 12/14/2013 Metformin Diarrhea Medium 07/17/2011 Penicillins 10/12/2024 Hives only when given high doses documented as of this encounter (statuses as of 10/12/2024) Medications MULTIVITAMINS PO TABS one tablet daily Active ASPIRIN EC 81 MG PO TBECIndications:DM type 2, goal A1c below 7 Take one pill daily 100 Tab 3 11/28/19 11 Active Fluconazole 150 MG Oral Tablet (Diflucan) Take 1 tablet by mouth every 72 hours x 3 doses, then one tablet per week x 3 months 15 Tablet 11/27/19 23 Active Clopidogrel Bisulfate 75 MG Oral Tablet (Plavix)Indication s:Carotid stenosis, non-symptomatic, bilateral Take 1 Tablet by mouth in the morning. 30 Tablet 5 09/28/19 24 Active Diclofenac Sodium 1 % External Gel (Voltaren) Apply 2 g topically to affected area in the morning and 2 g at noon and 2 g before bedtime. Apply 2 g topically on the skin 3 times a day.. 100 g 3 12/03/19 24 Active Nortriptyline HCl 25 MG Oral Capsule (Pamelor)Indicatio ns:DM type 2 with diabetic peripheral neuropathy (HCC) TAKE ONE CAPSULE BY MOUTH AT BEDTIME 90 Capsule 3 01/21/20 24 Active Nystatin-Triamcino lone 391565-8.1 UNIT/GM-% External Cream (Mycolog) Apply topically to affected area 3 times a day. Apply to vulvar region 15 g 2 03/02/20 24 Active PowWowHRTouch Ultra 2 w/Device Kit Check blood sugar one to two times daily. E11.9 1 Each 03/16/20 24 Active OneTouch Ultra Test In Vitro Strip (Glucose Blood) Check blood sugar one to two times daily. E11.9 100 Strip 3 03/16/20 24 Active OneTouch Delica Lancets 33G Check blood sugar one to two times daily. E11.9 100 Each 3 03/16/20 24 Active Furosemide 20 MG Oral Tablet (Lasix) Take 1 Tablet by mouth in the morning. 30 Tablet 11 03/16/20 24 Active Atorvastatin Calcium 80 MG Oral Tablet (Lipitor)Indicatio ns:Dyslipidemia Take 1 Tablet by mouth in the morning. 90 Tablet 2 03/21/20 24 Active Mupirocin 2 % External Ointment (Bactroban) APPLY TOPICALLY TO AFFECTED AREA 3 TIMES A DAY FOR UP TO 14 DAYS 22 g 1 03/30/20 24 Active Omeprazole 20 MG Oral Capsule Delayed Release (PriLOSEC)Indicati ons:Gastroesophage al reflux disease with esophagitis TAKE ONE CAPSULE BY MOUTH EVERY DAY BEFORE BREAKFAST 30 Capsule 5 04/25/20 24 Active Levothyroxine Sodium 100 MCG Oral Tablet (Levoxyl)Indicatio ns:Toxic diffuse goiter,Postoperati ve hypothyroidism TAKE ONE TABLET BY MOUTH EVERY DAY AT LEAST 30 MINUTES PRIOR TO BREAKFAST OR OTHER MEALS 90 Tablet 2 06/22/20 24 Active Albuterol Sulfate HFA 108 (90 Base) MCG/ACT Inhalation Aerosol SolutionIndication s:Bronchitis, complicated INHALE TWO PUFFS BY MOUTH FOUR TIMES A DAY 18 g 3 09/03/20 24 Active ALPRAZolam 0.5 MG Oral Tablet (xaNAX)Indications :Generalized anxiety disorder TAKE ONE TABLET BY MOUTH TWICE A DAY NEEDED FOR ANXIETY 60 Tablet 09/21/19 25 Active HYDROcodone-Acetam inophen 5-325 MG Oral TabletIndications: Lumbar disc disease Take 1 Tablet by mouth every 6 hours as needed for Pain, Severe. 60 Tablet 10/05/19 25 Active Ozempic (1 MG/DOSE) 4 MG/3ML Subcutaneous Solution Pen-injector (Semaglutide (1 MG/DOSE))Indicatio ns:DM type 2 with diabetic peripheral neuropathy (HCC) INJECT 1MG UNDER THE SKIN ONCE A WEEK 3 mL 5 10/08/19 25 Active Midodrine HCl 5 MG Oral Tablet (Proamatine)Indica tions:Hypotension, unspecified hypotension type Take 1 tablet in the morning. Take 1 tablet in the afternoon. Take 1 tablet in evening 90 Tablet 5 10/12/19 25 Active Midodrine HCl 5 MG Oral Tablet (Proamatine)Indica tions:Hypotension, unspecified hypotension type Take 1 tablet in the morning. Take 1 tablet in the afternoon 09/06/20 24 025 Discontin ued(Refil l) documented as of this encounter (statuses as of 10/12/2024) Active Problems Problem Noted Date Diagnosed Date Overweight (BMI 25.0-29.9) 10/21/2023 Subclavian artery stenosis, right 03/18/2023 DM peripheral angiopathy 01/07/2023 S/P carotid endarterectomy 11/18/2022 Calcific aortic stenosis of bicuspid valve 06/11 Assessment & Plan (01/07/2023 4:29 PM EDT): Followed by cardiology with annual echo Peripheral arterial disease 06/05/2021 COPD, group A, by GOLD 2017 classification 02/12 Overview: Per COPD GOLD Classification Assessment & Plan (03/16/2023 1:23 PM EDT): Current Status : "Stable" for patient / At or near baseline Degree of Condition Awareness: Demonstrates very good awareness of condition, disease course, and prognosis "RED FLAG" COPD symptoms: o Increased dyspnea on exertion ("I can't walk to the kitchen or up the stairs without coughing and wheezing", "My chest feels tight any time I move") o Increased shortness of breath at rest ("I struggle to breathe even when watching TV", "I have to wear or turn up my oxygen just when I'm sitting on the couch") o Cough ("I get a different kind of cough than what I' have every day") o Wheezing ("You can hear the whistling across the room") Medication Regimen o All Classes - ERIK Self-Management plan o High frequency nebulizer treatments every 4-6 hours around the clock Exacerbation plan o Chest Xray o Other/Additional Comments: Pred 40mg bid x 5 days, oral abx Assessment & Plan (01/07/2023 4:46 PM EDT): "RED FLAG" COPD symptoms: o NO IDENTIFIED SYMPTOMS Medication Regimen o All Classes - ERIK Self-Management plan o Other/Additional Comments: no recent exac, call [facility] Exacerbation plan o Chest Xray Additional Comments: o Stable today o Not interested in smoking cessation Gastroesophageal reflux disease with esophagitis 01/26/2019 Tobacco use disorder 12/21/2018 Assessment & Plan (03/16/2023 1:23 PM EDT): Recommend cessation of tobacco use Assessment & Plan (01/07/2023 4:47 PM EDT): Not interested in cessation Primary osteoarthritis of both knees 11/29/2018 DM type 2 with diabetic peripheral neuropathy Assessment & Plan (01/07/2023 4:45 PM EDT): "RED FLAG" Diabetic symptoms: o Other: none Goal HgbA1c o <8 Diabetic Complications o Vascular (examples: PVD, PAD, CAD, CVA) o Neurologic (example: Peripheral Neuropathy) Medication Regimen o Sulfonylureas (ex: Glipizide) o TZD (ex: Actos) DM Secondary Prevention o Moderate-High Intensity Statin o Aspirin Additional Comments o Referral to outpt MTM to assist with improved DM control and assist with patient assistance program for meds she cannot afford. Postoperative hypothyroidism 04/01/2018 Overview (04/01/2018): I 131 History of radioactive iodine thyroid ablation 0 04/13/2017 Dyslipidemia 04/13/2017 RUY (generalized anxiety disorder) 04/13/2017 Lumbar disc disease 03/25/2012 Overview (03/25/2012): L5 NERVE ROOT PRESSURE ON RIGHT. Restless legs syndrome 02/19/2011 Type 2 diabetes mellitus wit h hemoglobin A1c goal of less than 8.0% 11/19/2010 Overview (01/01/2016): ICD-10 update of inactive term Assessment & Plan (03/16/2023 1:28 PM EDT): Current Status: "Stable" for patient / At or near baseline Degree of Condition Awareness: Demonstrates very good awareness of condition, disease course, and prognosis "RED FLAG" Diabetic symptoms: o polyurea, polydipsia, polyphagia, fatigue, blurry vision Goal HgbA1c o <7 Diabetic Complications o Vascular (examples: PVD, PAD, CAD, CVA) o Neurologic (example: Peripheral Neuropathy) Medication Regimen o GLP-1 Agonist (ex: Victoza, Trulicity, Ozempic) o TZD (ex: Actos) DM Secondary Prevention o Moderate-High Intensity Statin o Aspirin o Routine Podiatry Care o Yearly Diabetic Eye Exam No GILMAR/ARB secondary to hypotension History of bariatric surgery 11/19/2010 documented as of this encounter (statuses as of 10/12/2024) Resolved Problems Problem Noted Date Diagnosed Date Resolved Date Essential (primary) hypertension 02/15/2024 08/19/2024 Hypotension 01/07/2023 08/12/2023 Assessment & Plan (03/16/2023 1:22 PM EDT): BP 118/72 during visit. However, has had a few readings SBP<100 since prior provider visit in January - note BP logs in visit note. Will hold off on weaning midodrine for now and patient is agreeable. Patient is asymptomatic. Recommend compression stocking daily - remove hs Assessment & Plan (01/07/2023 4:48 PM EDT): Remains on midodrine and to monitor BP and we midodrine as tolerated. Noted if systolic BP remains greater than 100 reduce midodrine to 2.5 mg three times daily, then twice daily, then discontinued. Low threshold to start low-dose furosemide for fluid status rather than resuming hydrochlorothiazide. Aortic atherosclerosis 01/07/202308/12 Assessment & Plan (01/07/2023 4:53 PM EDT): Aortic Atherosclerosis noted on prior imaging. Continue with treatment including Antiplatelet therapy Blood pressure control Lipid control Smoking abstinence/cessation Glycemic control Dyslipidemia, goal LDL below 70 12/30/2022 08/11/2023 Postprocedural hypotension 11/18/2022 0 11/28/2022 Obesity, Class I, BMI 30.0-3 4.9 (see actual BMI) 09/30/2022 10/21/2023 Compression fracture of L1 v ertebra with routine healing 06/14/2021 03/16/2023 Carotid stenosis, non-symptomatic, bilateral 08/12/2023 Obesity, Class II, BMI 35-39 .9, isolated (see actual BMI) 06/10/2021 09/30/2022 Severe obesity (BMI 35.0-39. 9) with comorbidity 03/05/2021 06/10/2021 Panlobular emphysema 01/10/2019 022 Morbid (severe) obesity due to excess calories 12/21/2018 03/05/2021 HTN, goal below 140/90 12/21/201810/12 COPD, moderate 12/21/2018 02/16/2020 Overview: Per COPD GOLD Classification Heart murmur 12/21/2018 06/11/2021 COPD exacerbation 12/21/2018 01/19/2019 Plantar fasciitis 04/01/2018 12/21/2018 Overview (04/01/2018): Left- injected April 01, 2018 Hx of fracture of clavicle 06/17/2017 0 04/01/2018 Reactive airway disease that is not asthma 04/13/2017 12/21/2018 Female stress incontinence 01/26/2017 1 Gardnerella vaginitis 08/15/20162016 Essential hypertension with goal blood pressure less than 140/90 04/21/2016 04/13/2017 Cellulitis of right lower extremity 12/27/2015 04/13/2017 Systolic murmur 12/21/2015 04/13/2017 Cellulitis of left lower leg 12/21/2015 04/13/2017 HTN, goal below 150/90 09/21/201506/22 S/P gastric bypass 09/21/2015 2 Acute bronchitis, complicated 06/06/2015 09/21/2015 Postoperative hypothyroidism 05/21/2015 04/13/2017 Monilial vaginitis 01/17/2015 5 Candidal vulvovaginitis 03/17/201405/08 Hypertension goal BP (blood pressure) < 140/80 12/14/2013 09/21/2015 Complicated acute bronchitis 11/17/2012 10/07/2013 Cellulitis of leg 07/22/2012 10/07/2013 BV (bacterial vaginosis) 06/28/2012 GBS (group B streptococcus) infection 06/28/2012 10/07/2013 Infected sebaceous cyst 01/07/201203/07 Hair follicle infection 01/07/201203/07 L4-5 SPONDYLOLISTHESIS 07/17/201104/13 SCREENING MAMMOGRAM 02/19/2011 01/02/20 12 Encounter for routine gyneco logical examination 02/19/2011 01/02/2012 Overview (06/08/2017): ICD-10 update of inactive term II A HLP (goal LDL below 70) 11/27/2010 03/05/2021 Special screening for malign ant neoplasms, colon 11/27/2010 01/02/2012 EDEMA LEFT LEG 11/19/2010 01/02/2012 CELLULITIS OF LEFT LEG 11/19/201001/01 HYPOTHYROIDISM POST ABLATION 11/19/2010 05/21/2015 GRAVE'S DISEASE OF THYROID S/P ABLATION 11/19/2010 04/13/2017 Need for influenza vaccination 11/19/2010 11/19/2010 SUPERFICIAL PHLEBITIS LEFT LEG 11/19/2010 01/02/2012 OSTEOARTHRITIS 11/19/2010 04/13/2017 HYPOTHYROIDISM POST ABLATION 11/19/2010 04/01/2018 GRAVE'S DISEASE OF THYROID S/P ABLATION 11/19/2010 06/22/2018 Acute cystitis 05/27/2010 09/25/2011 MEDICATION USE AGREEMENT documented as of this encounter (statuses as of 10/12/2024) Immunizations Name Administration Dates Next Due Diptheria/Tetanus (Adult) 06/25/2000 Hepatitis B, 0-19 yrs 02/23/2001,10/05/2000,06/07 PPD 06/25/2000 Pneumococcal Conjugate Vacc, 13 Valent (Prevnar) 05/18/2015 Pneumococcal Polysaccharide PPV23 (Pneumovax) 10/15/2016,06/23/2005 Seasonal Influenza Vac., MDV , IM, 0.5 mL (Fluzone) 05/18/2015,10/02/2014,07/08/2012,06/09,11/19/2010,07/08/2008,06/07/20,08/07/2004 11/20/2011 Seasonal Influenza, High Dos e, Trivalent, PF, IM (Fluzone HD) 09/06/2024,06/17/2017 Seasonal Influenza, MDCK, Tr ivalent, PF, (Flucelvax) 10/07/2013 Seasonal Influenza, PF, 6 M & above, IM , (FluLaval or Fluzone) 06/22/2018 Seasonal Influenza, Quadriva lent Hd (Fluzone Hd) 06/11/2021 Seasonal Influenza, Quadriva lent, No Preserve, IM 10/15/2016 TDAP, Age 7 and older, IM (Adacel) 02/19/2011 documented as of this encounter Social History Tobacco Use Types Packs/Day Years Used Date Smoking Tobacco: Some Days Cigarettes Started: 11/19/1976; Last attempted to quit: 11/19/2006 Passive Smoke Exposure: Current Smokeless Tobacco: Never Tobacco Cessation:Ready to Q uit: No; Counseling Given: No Comments:03/18/23 1 pack daily, declined pamphlet Alcohol Use Standard Drinks/Week Comments Not Currently 0 (1 standard drink = 0.6 oz pur e alcohol) rarely PHQ-2 Answer Date Recorded PHQ Adult Total Score 0 10/12/2024 Hunger Vital Sign Answer Date Recorded Worried About Running Out of Food in the Last Ye ar Never true 03/05/2021 Ran Out of Food in the Last Year Never true 03/05/2021 Comments No Sex and Gender Information Value Date Recorded Sex Assigned at Female 12/21/2018 11:08 AM EDT Legal Sex Female 6:45 AM EST Gender Identity Female 12/21/2018 11:08 AM EDT Sexual Orientation Straight 12/21/2018 11 :08 AM EDT documented as of this encounter Last Filed Vital Signs Vital Sign Reading Time Taken Comments Blood Pressure 92/62 10/12/2024 11:19 AM EST Pulse 68 10/12/2024 11:19 AM EST Temperature 36.3 C (97.4 F) 10/12/2024 1 1:19 AM EST Respiratory Rate 16 10/12/2024 11:1 9 AM EST Oxygen Saturation - - Inhaled Oxygen Concentration - - Weight 58.9 kg (129 lb 12.8 oz) 025 11:19 AM EST Height 165.1 cm (5' 5") 10/12/2024 11:1 9 AM EST Body Mass Index 21.6 10/12/2024 11:19 AM EST documented in this encounter Functional Status * Are you deaf or do you have serious difficulty hearing? Answer Date of Assessment Author No 11/18/2022 5:10 PM Masoud Yo RN * Are you blind or do you have serious difficulty seeing, even when wearing glasses? Answer Date of Assessment Author No 11/18/2022 5:10 PM Masoud Yo RN * Do you have serious difficulty walking or climbing stairs? (5 years old or older) Answer Date of Assessment Author No 11/18/2022 5:10 PM Masoud Yo RN * Do you have difficulty dressing or bathing? (5 years old or older) Answer Date of Assessment Author No 11/18/2022 5:10 PM Masoud Yo RN * Because of a physical, mental, or emotional condition, do you have difficulty doing errands alone such as visiting a doctors office or shopping? (15 years old or older) Answer Date of Assessment Author No 11/18/2022 5:10 PM Masoud Yo RN documented as of this encounter Mental Status * Because of a physical, mental, or emotional condition, do you have serious difficulty concentrating, remembering, or making decisions? (5 years old or older) Answer Entry Date Author No 11/18/2022 5:10 PM Masoud Yo RN documented in this encounter Progress Notes * Aurelio Ball MD - 10/12/2024 11:41 AM EST Images from the original note were not included. History of Present Illness Caitlin Izquierdo is a 74 year old female that presents for Fall (Pt here for a fall Thursday in the [employer] parking lot next to her car. Pt states that she fell forward hitting her head on the pavement. Pt not sure what happened but believes that she may have passed out for a few seconds. Pt does have some lacerations by the right eye from her glasses along with bruising Pt reports that she also has a sore spot on her right hip. . ) Physical Exam BP 92/62 (BP Site: Left Arm, BP Position: Sitting, BP Cuff Size: Regular) | Pulse 68 | Temp 97.4 F (36.3 C) (Tympanic) | Resp 16 | Ht 5' 5" (1.651 m) | Wt 129 lb 12.8 oz (58.9 kg) | BMI 21.60 kg/m | BSA 1.64 m NAD Thin habitus Evidence of recent weight loss Non ill appearing + hematoma of right eye orbit with mild swelling Minimal tenderness EOMI Visual acuity intact myopically No deformity noted + right subconjunctival hemorrhage RRR Lungs clear Neck supple Throat clear Slow gait I have reviewed most recent labs Hemoglobin A1C Assessment and Plan Fall in elderly patient - orthostatic by description and history. She fell forward onto her face breaking her glasses and pushing her frames into her right orbital area. Screening for depression - completed - DEPRESSION SCREENING PERFORMED Orthostatic hypotension - see above. We will adjust her midodrine again - her recent and continued weight loss is an issue here. Will change midodrine to 3x a day again. She was advised that she needs to stop her ozempic due to the weight loss and the restriction/impairment to her appetite and intake. She is very hesitantto do this "because my sugar is the best its been in years." I will discuss this with her PCP who she is seeing next week Subconjunctival hematoma, right - related to fall - has ROM movement and no acute change or loss in visual acuity. She does have a cataract and will be seeing her physician neonatology soon to get new glasses - needs this evaluated along with DM eye exam - she encourages me she will have this done Hearing impaired person, bilateral - more of a concern per daughter but the patient readily admits that her hearing has declined. Audiology referral made for eval and likely hearing aids - AUDIOLOGY REFERRAL OP Hematoma - of orbit/periorbital area. Topical ice Hypotension, unspecified hypotension type - increased midodrine to TID. - Midodrine HCl 5 MG Oral Tablet (Proamatine); Take 1 tablet in the morning. Take 1 tablet in the afternoon. Take 1 tablet in evening Wrap-Up Keep scheduled f/u with PCP Time: I spent a total of 40-54 minutes (exact time 44 mins) on the date of service in preparation, delivery, and documentation of the care provided to Caitlin Izquierdo excluding any time spent in the performance of separately billed services. documented in this encounter Plan of Treatment Upcoming Encounters Date Type Department Care Team (Late st Contact Info) Description 10/19/2024 10:20 AM EST Office [facility] [address] [facility] [address] [facility] [address] [facility] [address] 10/19/2024 1:00 PM EST [facility] [address] [facility] [address] 12/27/2024 1:00 PM EDT Appointment Vascular Lab, [address] [address] 12/27/2024 2:00 PM EDT Appointment Vascular Lab, [address] [address] 01/05/2025 1:30 PM EDT Office Visit Vascular Surgery, [address] [address] Sean Vitale MD [address] [place] [address] 03/29/2025 10:00 AM EDT Office Visit Cardiology, [facility] [address] [facility] [place] [address] Lupe Haile PA-C [address] [place] [address] Scheduled Referrals Name Type Priority Associated Diagnoses Orde r Schedule AUDIOLOGY REFERRAL OP Referral Within 10 days (routine) Hearing impaired person, bilateral Ordered: 10/12/2024 Health Maintenance Due Date Last Done Comments Alpha-1 Antitrypsin 1968 O2 ASSESSMENT COMPLETED IN PAST YEAR FOR COPD 1968 Cologuard 1995 Sigmoidoscopy 1995 Fecal Occult Blood Test 02/25/2012 02/24/2011 DISCUSS TOBACCO CESSATION (REFER TO SMARTSET #[id number]) 10/02/2015 10/02/2014 Adult Wellness Visit 2016 *COPD SEVERITY VERIFIED BY PFT 12/23/2018 Diabetic Foot Exam 01/24/2021 01/25/2020, 1 , 06/17/2017, Additional history exists Diabetic Eye Exam 06/06/2022 06/06/2021, (Discussed) DXA Scan 12/20/2022 12/21/2015 DTap/Tdap Vaccines (2 - Td or Tdap) 10/13/2024 02/19/2011, 06/25/2000 Postponed from 02/19/2021 (Patient Declined After Education) Zoster Vaccines (1 of 2) 10/13/2024 Pos tponed from 2000 (Patient Declined After Education) Mammogram 11/04/2024 11/04/2023, 10/09, 10/29/2022, Additional history exists TSH 02/14/2025 02/15/2024, 05/0 09/2023, 03/07/2022, Additional history exists HbA1c 03/08/2025 09/08/2024, 05/0 09/2023, 09/17/2023, Additional history exists Albumin/Creatinine Ratio 09/08/2025 025, 03/11/2023, 03/05/2021, Additional history exists GFR 09/08/2025 09/08/2024, 071 , 02/18/2024, Additional history exists Depression Screening 10/12/2025 10/12/2024 Colonoscopy 01/21/2028 01/20/2018, 01/20/2018 Colorectal Cancer Screening 01/21/2028 Lipid Panel 01/05/2029 01/06/2024, 07/0 09/2021, 03/05/2021, Additional history exists Hepatitis B Vaccine Aged Out 02/23/2001, 10/05/2000, 06/25/2000 No longer eligible based on patient's age to complete this topic Pneumococcal Vaccine: 50+ Years Completed 10/15/2016, 05/18/2015, 06/23/2005 Influenza Vaccine (FLU shot) Completed 09/06/2024, 06/11/2021, 06/22/2018, Additional history exists COVID-19 Vaccine Discontinued HPV (Gardasil) Vaccine Aged Out No lo nger eligible based on patient's age to complete this topic MENINGOCOCCAL (MENACTRA/MENVEO) Aged Out No longer eligible based on patient's age to complete this topic documented as of this encounter Medical Devices Implanted Type Area Instructional Leader Device Identifier Shelf Expiration Date Model / Serial / Lot Patch Xenosure [id number] - [id number] Implanted:Qty : 1 on 11/18/2022 by Sean Vitale MD at OR [facility] Left: Carotid [employer] [id number] 07/04/2028 E0.8P8 / [id number] / [id number] documented as of this encounter Visit Diagnoses Diagnosis DM type 2 with diabetic peripheral neuropathy (HCC)- Primary Type II or unspecified type diabetes mellitus with neurological manifestations, not stated as uncontrolled Advanced care planning/counseling discussion Other specified counseling Calcific aortic stenosis of bicuspid valve Congenital stenosis of aortic valve COPD, group A, by GOLD 2017 classification ([facility]) History of bariatric surgery Bariatric surgery status S/P carotid endarterectomy Other postprocedural status Tobacco use disorder Hypotension, unspecified hypotension type History of radioactive iodine thyroid ablation Personal history of surgery to other organs DM peripheral angiopathy (HCC) Type II or unspecified type diabetes mellitus with peripheral circulatory disorders, not stated as uncontrolled Aortic atherosclerosis (HCC) Atherosclerosis of aorta Hypotension, unspecified hypotension type- Primary COPD, group A, by GOLD 2017 classification ([facility]) Type 2 diabetes mellitus with hemoglobin A1c goal of less than 8.0% (HCC) Tobacco use disorder Fall in elderly patient- Primary Screening for depression Orthostatic hypotension Subconjunctival hematoma, right Hearing impaired person, bilateral Hematoma Contusion of unspecified site Hypotension, unspecified hypotension type COPD, group A, by GOLD 2017 classification (HCC) DM type 2 with diabetic peripheral neuropathy (HCC) Type II or unspecified type diabetes mellitus with neurological manifestations, not stated as uncontrolled Postoperative hypothyroidism Postsurgical hypothyroidism Dyslipidemia Other and unspecified hyperlipidemia RUY (generalized anxiety disorder) Generalized anxiety disorder documented in this encounter Advance Directives * Full Code (Latest Code Status on File) Date Activated Date Inactivated Comments 05/18/2023 12:06 PM 05/19/2023 2:48 PM This order reflects the patients wishes and were consensually agreed upon. Question Answer Comments Discussion of Advance Directives occurred with: Patient * Full Code Date Activated Date Inactivated Comments 11/18/2022 10:24 AM 11/22/2022 4:04 PM This order reflects the patients wishes and were consensually agreed upon. Question Answer Comments Discussion of Advance Direct ra occurred with: Not Discussed due to patient's condition * Full Code Date Activated Date Inactivated Comments 03/12/2015 10:17 AM 03/12/2015 4:02 PM This order re flects the patients wishes and were consensually agreed upon. Healthcare Agents on File Name Relationship Healthcare Agent Relationshi p Communication Brigid Villalobos Adult Child Health Care Repr esentative (appointed verbally by patient or by statute hierarchy) Radha Cruz Adult Child Health Care Repr esentative (appointed verbally by patient or by statute hierarchy) Care Teams Park Warden Relationship Specialty Start Date End Date Sean Macias MD [address] [place] [address] PCP - General Family Medicine 11/04/21 documented as of this encounter
--- OUTSIDE RECORDS SUMMARY | 2024-10-20 03:54 | External Medical Summary | Summary of Care ---
Author Name Unknown Organization [facility] Address [address] [place] [address] Phone [phone] Care Team Providers Care Groundwater Monitoring Technician Name Role Phone Sean Macias MD Primary Care Provider [phone] [phone] Reason for Visit * Reason Onset Date Comments Test Results 10/11/2024 Encounter Details Date Type Department Care Team (Late st Contact Info) Description 10/11/2024 Telephone Cardiology, [facility] [address] [place] [address] Lupe Haile PA-C [address] [place] [address] Test Results Allergies Active Allergy Reactions Criticality Noted Date Comments Gabapentin Neuro complications (Please comment) Medium 12/14/2013 Metformin Diarrhea Medium 07/17/2011 documented as of this encounter (statuses as of 10/12/2024) Medications MULTIVITAMINS PO TABS one tablet daily Active ASPIRIN EC 81 MG PO TBECIndications:DM type 2, goal A1c below 7 Take one pill daily 100 Tab 3 1 Active Fluconazole 150 MG Oral Tablet (Diflucan) Take 1 tablet by mouth every 72 hours x 3 doses, then one tablet per week x 3 months 15 Tablet 3 Active Clopidogrel Bisulfate 75 MG Oral Tablet (Plavix)Indication s:Carotid stenosis, non-symptomatic, bilateral Take 1 Tablet by mouth in the morning. 30 Tablet 5 4 Active Diclofenac Sodium 1 % External Gel (Voltaren) Apply 2 g topically to affected area in the morning and 2 g at noon and 2 g before bedtime. Apply 2 g topically on the skin 3 times a day.. 100 g 3 4 Active Nortriptyline HCl 25 MG Oral Capsule (Pamelor)Indicatio ns:DM type 2 with diabetic peripheral neuropathy (HCC) TAKE ONE CAPSULE BY MOUTH AT BEDTIME 90 Capsule 3 4 Active Nystatin-Triamcino lone 132632-8.1 UNIT/GM-% External Cream (Mycolog) Apply topically to affected area 3 times a day. Apply to vulvar region 15 g 2 4 Active [employer] Ultra 2 w/Device Kit Check blood sugar one to two times daily. E11.9 1 Each 4 Active [employer] Ultra Test In Vitro Strip (Glucose Blood) Check blood sugar one to two times daily. E11.9 100 Strip 3 4 Active [employer] Delica Lancets 33G Check blood sugar one to two times daily. E11.9 100 Each 3 4 Active Furosemide 20 MG Oral Tablet (Lasix) Take 1 Tablet by mouth in the morning. 30 Tablet 11 4 Active Atorvastatin Calcium 80 MG Oral Tablet (Lipitor)Indicatio ns:Dyslipidemia Take 1 Tablet by mouth in the morning. 90 Tablet 2 4 Active Mupirocin 2 % External Ointment (Bactroban) APPLY TOPICALLY TO AFFECTED AREA 3 TIMES A DAY FOR UP TO 14 DAYS 22 g 1 4 Active Omeprazole 20 MG Oral Capsule Delayed Release (PriLOSEC)Indicati ons:Gastroesophage al reflux disease with esophagitis TAKE ONE CAPSULE BY MOUTH EVERY DAY BEFORE BREAKFAST 30 Capsule 5 4 Active Levothyroxine Sodium 100 MCG Oral Tablet (Levoxyl)Indicatio ns:Toxic diffuse goiter,Postoperati ve hypothyroidism TAKE ONE TABLET BY MOUTH EVERY DAY AT LEAST 30 MINUTES PRIOR TO BREAKFAST OR OTHER MEALS 90 Tablet 2 4 Active Albuterol Sulfate HFA 108 (90 Base) MCG/ACT Inhalation Aerosol SolutionIndication s:Bronchitis, complicated INHALE TWO PUFFS BY MOUTH FOUR TIMES A DAY 18 g 3 4 Active Midodrine HCl 5 MG Oral Tablet (Proamatine)Indica tions:Hypotension, unspecified hypotension type Take 1 tablet in the morning. Take 1 tablet in the afternoon 4 Active ALPRAZolam 0.5 MG Oral Tablet (xaNAX)Indications :Generalized anxiety disorder TAKE ONE TABLET BY MOUTH TWICE A DAY NEEDED FOR ANXIETY 60 Tablet 5 Active HYDROcodone-Acetam inophen 5-325 MG Oral TabletIndications: Lumbar disc disease Take 1 Tablet by mouth every 6 hours as needed for Pain, Severe. 60 Tablet 5 Active Ozempic (1 MG/DOSE) 4 MG/3ML Subcutaneous Solution Pen-injector (Semaglutide (1 MG/DOSE))Indicatio ns:DM type 2 with diabetic peripheral neuropathy (HCC) INJECT 1MG UNDER THE SKIN ONCE A WEEK 3 mL 5 5 Active documented as of this encounter (statuses as [...] o Other/Additional Comments: no recent exac, call [facility] Exacerbation plan o Chest Xray Additional Comments: o Stable today o Not interested in smoking cessation Gastroesophageal reflux disease with esophagitis 01/26/2019 HTN, goal below 140/90 12/21/2018 Tobacco use disorder 12/21/2018 Assessment & Plan [...] obesity due to excess calories 12/21/2018 03/05/2021 COPD, moderate 12/21/2018 02/16/2020 Overview: Per COPD [...] Vac., MDV , IM, 0.5 mL (Fluzone) 05/18/2015,10/02/2014,07/08/2012,06/09,11/19/2010,07/08/2008,06/07/20 05,08/07/2004 11/20/2011 Seasonal Influenza, High Dos e, Trivalent, [...] Started: 11/19/1976; Last attempted to quit: 11/19/2006 Smokeless Tobacco: Never Comments:03/18/23 1 pack angel y, declined pamphlet Alcohol Use Standard Drinks/Week Comments Yes 0 (1 standard drink = 0.6 oz pur e alcohol) rarely PHQ-2 Answer Date Recorded PHQ Adult Total Score 0 03/05/2021 Hunger Vital Sign Answer Date Recorded Worried [...] AM EDT documented as of this encounter Functional Status * Are you deaf or do you have serious difficulty hearing? Answer Date of Assessment Author No 11/18/2022 5:10 PM YELENAT Masoud Smith RN * Are you blind or do you have serious difficulty seeing, even when wearing glasses? Answer Date of Assessment Author No 11/18/2022 5:10 PM YELENAT Masoud Smith RN * Do you have serious difficulty walking or climbing stairs? (5 years old or older) Answer Date of Assessment Author No 11/18/2022 5:10 PM YELENAT Masoud Smith RN * Do you have difficulty dressing [...] Masoud Yo RN documented in this encounter Miscellaneous Notes * Telephone Encounter - Kary Lugo CMA - 10/11/2024 3:42 PM EST Pt aware of results. * Telephone Encounter - Lillian Beckwith OSA - 10/11/2024 3:38 PM EST Person calling: Caitlin Relationship to patient: patient Phone/Fax to return call: [phone] Reason for call(brief): returning call Provider Name: Mic Detailed message to office: Patient returned call. Attempted to but unable to connect with nurse. Please advise. * Telephone Encounter - Annmarie Duff LPN - 10/11/2024 3:20 PM EST Called pt, no answer, LMOM * Telephone Encounter - Annmarie Duff LPN - 10/11/2024 3:19 PM EST ----- Message from Lupe Haile sent at 10/11/2024 3:11 PM EST ----- Echo results reviewed Normal LVEF at 60-64%. Normal wall motion Moderate aortic stenosis. Normal sized ascending aorta and aortic root. Compared with prior study, no significant changes. Stable valvular disease No changes at this time. Keep follow up as scheduled in Summer 2024 documented in this encounter Plan of Treatment Upcoming Encounters Date Type Department Care Team (Late st Contact Info) Description 10/12/2024 11:00 AM EST Office Visit [facility] [address] [address] Aurelio Ball MD [address] [place] [address] 10/19/2024 10:20 AM EST Office Visit [facility] [address] [address] Sean Macias MD [address] [place] [address] 10/19/2024 1:00 PM EST Imaging Vascular Lab, [facility] 2nd Floor, [place] [address] [place] [place] [address] 12/27/2024 1:00 PM EDT Appointment [facility]ascular [facility] [address] 12/27/2024 2:00 PM EDT Appointment Vascular Lab, [facility] [address] [facility] [place] [address] 01/05/2025 1:30 PM EDT Office Visit Vascular Surgery, [place] [address] [facility] [place] [address] [facility] MD [address] [facility] [address] 03/29/2025 10:00 AM EDT Office Visit Cardiology, [facility] [address] [place] [address] Lupe Haile PA-C [address] [place] [address] Health Maintenance Due Date Last Done Comments Alpha-1 Antitrypsin 1968 O2 ASSESSMENT COMPLETED IN PAST YEAR FOR COPD 1968 Cologuard 1995 Sigmoidoscopy 1995 Zoster Vaccines (1 of 2) 2000 Fecal Occult Blood Test 02/25/2012 02/24/2011 DISCUSS TOBACCO CESSATION (REFER TO SMARTSET #3291) 10/02/2015 10/02/2014 Adult Wellness Visit 2016 *COPD SEVERITY VERIFIED BY PFT 12/23/2018 Diabetic Foot Exam 01/24/2021 01/25/2020, 1 , 06/17/2017, Additional history exists DTap/Tdap Vaccines (2 - Td or Tdap) 02/19/2021 02/19/2011, 06/25/2000 Depression Screening 03/05/2022 03/05/2021 Diabetic Eye Exam 06/06/2022 06/06/2021, (Discussed) DXA Scan 12/20/2022 12/21/2015 Mammogram 11/04/2024 11/04/2023, 10/09, 10/29/2022, Additional history exists TSH 02/14/2025 02/15/2024, 050 09/2023, 03/07/2022, Additional history exists HbA1c 03/08/2025 09/08/2024, 05/0 09/2023, 09/17/2023, Additional history exists Albumin/Creatinine Ratio 09/08/2025 025, 03/11/2023, 03/05/2021, Additional history exists GFR 09/08/2025 09/08/2024, 1 , 02/18/2024, Additional history exists Colonoscopy 01/21/2028 01/20/2018, 01/20/2018 Colorectal Cancer Screening 01/21/2028 Lipid Panel 01/05/2029 01/06/2024, 070 09/2021, 03/05/2021, Additional history exists Hepatitis B [...] this encounter Medical Devices Implanted Type Area Mortgage Loan Originator Device Identifier Shelf Expiration Date Model / Serial / Lot Patch Xenosure [id number] - [id number] Implanted:Qty : 1 on 11/18/2022 by Sean Vitale MD at [facility] Left: Carotid [employer] [id number] 07/04/2028 E0.8P8 / [id number] / [id number] documented as of this encounter Advance Directives * Full Code [...] patient or by statute hierarchy) Care Teams Groundwater Monitoring Technician Relationship Specialty Start Date End Date Sean Macias MD [address] [address] PCP - General Family Medicine 11/04/21 documented as of this encounter
--- OUTSIDE RECORDS SUMMARY | 2024-10-20 03:54 | External Medical Summary | Summary of Care ---
Author Name Unknown Organization [facility] Address [address] [place] [address] Phone [phone] Care Team Providers Care Charge Attendant Name Role Phone Sean Macias MD Primary Care Provider [phone] Reason for Visit * Reason Onset Date Comments Appointment 10/11/2024 Encounter Details Date Type Department Care Team (Late st Contact Info) Description 10/11/2024 Telephone Family Practice [facility] [address] [place] [address] Sean Macias MD [address] [place] [phone] Appointment Allergies Active Allergy Reactions Criticality Noted Date [...] 90 Capsule 3 4 Active Nystatin-Triamcino lone 487412-5.1 UNIT/GM-% External Cream (Mycolog) Apply topically to affected area 3 times a day. Apply to vulvar region 15 g 2 4 Active [employer] Ultra 2 w/Device Kit Check blood sugar one to two times daily. E11.9 1 Each 4 Active [employer] Ultra Test In Vitro Strip (Glucose Blood) Check blood sugar one to two times daily. E11.9 100 Strip 3 4 Active [employer] Delica Lancets 33G Check blood sugar one [...] o Other/Additional Comments: no recent exac, call [facility] Exacerbation plan o Chest Xray Additional Comments: [...] of Assessment Author No 11/18/2022 5:10 PM EDT Masoud Smith RN * Are you blind or do you have serious difficulty seeing, even when wearing glasses? Answer Date of Assessment Author No 11/18/2022 5:10 PM EDT Masoud Smith RN * Do you have [...] encounter Miscellaneous Notes * Telephone Encounter - Brenna Donato OSA - 10/11/2024 2:41 PM EST Spoke w/ pt and specifically said Dr Ball has an opening pt agreed to come in tomorrow for acute with Dr Ball * Telephone Encounter - Evelyn Huitron OSA - 10/11/2024 1:47 PM EST No Appointments Available What Visit Type is needed? Acute Were surrounding clinics offered? Yes Call Details are required. Please review Patient declined available appointment(s)?: Yes, explain: will only see at [facility] Were other providers in the clinic offered? Yes documented in this encounter Plan of Treatment Upcoming Encounters Date Type Department Care Team (Late st Contact Info) Description 10/12/2024 11:00 AM EST Office [facility] [place] [address] Aurelio Ball MD [address] [place] [address] 10/19/2024 10:20 AM EST Office Visit [facility] [address] [facility] [place] [address] Sean Macias MD [address] [facility] [place] [address] 10/19/2024 1:00 PM EST [facility] [address] [facility] [place] [address] 12/27/2024 1:00 PM EDT Appointment Vascular Lab, [address] [place] [address] 12/27/2024 2:00 PM EDT Appointment Vascular Lab, [address] [place] [address] 01/05/2025 1:30 PM EDT Office Visit Vascular Surgery, [address] [place] [address] Sean Vitale MD [address] [place] [address] 03/29/2025 10:00 AM EDT Office Visit Cardiology, [facility] [address] [facility] [place] [address] Lupe Haile PA-C [address] [place] [address] Health Maintenance Due Date Last Done Comments Alpha-1 Antitrypsin 1968 O2 ASSESSMENT COMPLETED IN PAST YEAR FOR COPD 1968 Cologuard 1995 Sigmoidoscopy 1995 Zoster Vaccines (1 of 2) 2000 Fecal Occult Blood Test 02/25/2012 02/24/2011 DISCUSS TOBACCO CESSATION (REFER TO SMARTSET #6745) 10/02/2015 10/02/2014 Adult Wellness Visit 2016 *COPD [...] this encounter Medical Devices Implanted Type Area Maintenance Shop Manager Device Identifier Shelf Expiration Date Model / Serial / Lot Patch Xenosure [id number] - [id number] Implanted:Qty : 1 on 11/18/2022 by Sean Vitale MD at [facility] Left: Carotid [employer] [id number] 07/04/2028 E0.8P8 / [id number] / [id number] documented as of this encounter Advance Directives [...] patient or by statute hierarchy) Care Teams Charge Attendant Relationship Specialty Start Date End Date Sean Macias MD [address] [place] [address] PCP - General Family Medicine 11/04/21 documented as of this encounter
--- OUTSIDE RECORDS SUMMARY | 2024-10-20 03:54 | External Medical Summary | Summary of Care ---
Author Name Unknown Organization [facility] Address [address] [place] [address] Phone [phone] Care Team Providers Care Underwater Trapper Name Role Phone Sean Macias MD Primary Care Provider [phone] [phone] Encounter Details Date Type Department Care Team (Late st Contact Info) Description 10/18/2024 Orders Only Family Practice [facility] [address] [place] [address] Sean Macias MD [address] [place] [address] Allergies Active Allergy Reactions Criticality Noted Date Comments Gabapentin Neuro complications (Please comment) Medium 12/14/2013 Metformin Diarrhea Medium 07/17/2011 Penicillins 10/12/2024 Hives only when given high doses documented as of this encounter (statuses as of 10/18/2024) Medications MULTIVITAMINS PO TABS one tablet daily [...] 90 Capsule 3 4 Active Nystatin-Triamcino lone 755461-3.1 UNIT/GM-% External Cream (Mycolog) Apply topically to affected area 3 times a day. Apply to vulvar region 15 g 2 4 Active [employer] Ultra 2 w/Device Kit Check blood sugar one to two times daily. E11.9 1 Each 4 Active [employer] Ultra Test In Vitro Strip (Glucose Blood) Check blood sugar one to two times daily. E11.9 100 Strip 3 4 Active [employer] Delica Lancets 33G Check blood sugar one [...] A DAY 18 g 3 4 Active ALPRAZolam 0.5 MG Oral Tablet [...] A WEEK 3 mL 5 5 Active Midodrine HCl 5 MG Oral Tablet (Proamatine)Indica tions:Hypotension, unspecified hypotension type Take 1 tablet in the morning. Take 1 tablet in the afternoon. Take 1 tablet in evening 90 Tablet 5 5 Active documented as of this encounter (statuses as of 10/18/2024) Active Problems Problem Noted Date Diagnosed Date [...] o Other/Additional Comments: no recent exac, call [place] Exacerbation plan o Chest Xray Additional Comments: [...] as of this encounter (statuses as of 10/18/2024) Resolved Problems Problem Noted Date Diagnosed Date [...] as of this encounter (statuses as of 10/18/2024) Immunizations Name Administration Dates Next Due Diptheria/Tetanus [...] Passive Smoke Exposure: Current Smokeless Tobacco: Never Comments:03/18/23 1 pack angel [...] 11/18/2022 5:10 PM YELENAT Masoud Smith RN documented as of this encounter Mental Status * Because of a physical, mental, or emotional condition, do you have serious difficulty concentrating, remembering, or making decisions? (5 years old or older) Answer Entry Date Author No 11/18/2022 5:10 PM Masoud Yo RN documented in this encounter Plan of Treatment Upcoming Encounters Date Type Department Care Team (Late st Contact Info) Description 10/19/2024 10:20 AM EST Office Visit Family Practice [facility] [address] [place] [address] [address] Sean Macias MD [address] [place] [address] 10/19/2024 1:00 PM EST Imaging Vascular Lab, [facility] 2nd Floor, [place] [address] [address] 12/27/2024 1:00 PM EDT Appointment Vascular Lab, [address] [place] [address] 12/27/2024 2:00 PM EDT Appointment Vascular Lab, [facility] [address] [facility] [place] [address] 01/05/2025 1:30 PM EDT Office [address], [address] [address] Sean Vitale MD [address] [facility] [place] [address] 03/29/2025 10:00 AM EDT Office Visit Cardiology, [facility] [address] [place] [address] uLpe Haile PA-C [address] [place] [address] Health Maintenance Due Date Last Done Comments Alpha-1 Antitrypsin 1968 O2 ASSESSMENT COMPLETED IN PAST YEAR FOR COPD 1968 Cologuard 1995 Sigmoidoscopy 1995 Zoster Vaccines (1 of 2) 2000 Fecal Occult Blood Test 02/25/2012 02/24/2011 DISCUSS TOBACCO CESSATION (REFER TO SMARTSET #0153) 10/02/2015 10/02/2014 Adult Wellness Visit 2016 *COPD SEVERITY VERIFIED BY PFT 12/23/2018 Diabetic Foot Exam 01/24/2021 01/25/2020, 1 , 06/17/2017, Additional history exists DTap/Tdap Vaccines (2 - Td or Tdap) 02/19/2021 02/19/2011, 06/25/2000 DXA Scan 12/20/2022 12/21/2015 Mammogram 11/04/2024 11/04/2023, 10/09, 10/29/2022, Additional history exists TSH 02/14/2025 02/15/2024, 05/0 09/2023, 03/07/2022, Additional history exists HbA1c 03/08/2025 09/08/2024, 050 09/2023, 09/17/2023, Additional history exists Albumin/Creatinine Ratio 09/08/2025 025, 03/11/2023, 03/05/2021, Additional history exists GFR 09/08/2025 09/08/2024, 03/07, 02/18/2024, Additional history exists Depression Screening 10/12/2025 10/12/2024 Diabetic Eye Exam 10/17/2025 10/17/2024, , 02/19/2011 (Discussed) Colonoscopy 01/21/2028 01/20/2018, 01/20/2018 Colorectal Cancer Screening 01/21/2028 Lipid Panel 01/05/2029 01/06/2024, 09/2021, 03/05/2021, Additional history exists Hepatitis B [...] this encounter Medical Devices Implanted Type Area Banquet Supervisor Device Identifier Shelf Expiration Date Model / Serial / Lot Patch Xenosure [id number] - [id number] Implanted:Qty : 1 on 11/18/2022 by Sean Vitale MD at [facility] Left: Carotid [employer] [id number] 07/04/2028 E0.8P8 / [id number] / [id number] documented as of this encounter Procedures Procedure Name Priority Date/Time Associated Diagnosis Comments DIABETIC EYE EXAM Routine 10/17/2024 documented in this encounter Results * DIABETIC EYE EXAM (10/17/2024) 10/17/2024 us Deepika Ariza OD OTHER Final Result OUTSIDE LAB (SEE SCANNED REPORT) documented in this encounter Advance Directives * [...] patient or by statute hierarchy) Care Teams Underwater Trapper Relationship Specialty Start Date End Date Sean Macias MD [address] [address] PCP - General Family Medicine 11/04/21 documented as of this encounter
--- OUTSIDE RECORDS SUMMARY | 2024-10-20 03:55 | External Medical Summary ---
Author Name Unknown Address Unknown Organization [id number]:[facility] [place] - [address] [facility] [facility] [address] Laboratory Report Ordering Provider Test Date Status KELVIN ALBERT 09/08/2024 10:49:40 Final Observation Date Value Abnormality Reference (Units ) Status BUN 09/08/2024 10:49:40 15 6-20 (mg/dL) Final Creatinine 09/08/2024 10:49:40 0.5 0.5-1.0 (mg/dL) Final Glomerular filtration rate/1.73 sq M.predicted [Volume Rate/Area] in Serum, Plasma or Blood by Creatinine-based formula (CKD-EPI) 09/08/2024 10:49:40 >90 >=60 (mL/min) Final eGFR is calculated based on the CKD-EPI 2020 equation. Sodium 09/08/2024 10:49:40 134 Below low normal 135 -146 (mmol/L) Final Potassium 09/08/2024 10:49:40 4.4 3.5-5.1 (m mol/L) Final Cl 09/08/2024 10:49:40 98 98-107 (mm ol/L) Final CO2 09/08/2024 10:49:40 20 Below low normal 22- 32 (mmol/L) Final Anion gap 09/08/2024 10:49:40 16 Above high normal 7- 15 (mmol/L) Final Glucose 09/08/2024 10:49:40 211 Above high normal 70 -120 (mg/dL) Final Calcium 09/08/2024 10:49:40 8.9 8.4-10.2 ( mg/dL) Final Performing Location [facility] [place] - [address] [place] [address]
--- OUTSIDE RECORDS SUMMARY | 2024-10-20 03:55 | External Medical Summary ---
Author Name Unknown Address Unknown Organization [id number]:[facility] [place] - [address] [place] [address] Laboratory Report Ordering Provider Test Date Status SHAUNVANDANADARWIN 09/08/2024 10:49:40 Final Normal: <30 mg/g creatinine< br/>High: 30-300 mg/g creatinine
Very High: >300 mg/g creatinine
Nephrotic: >2200 mg/g creatinine Observation Date Value Abnormality Reference (Units ) Status Albumin, Urine 09/08/2024 10:49:40 4.00 (mg/dL) Final Creatinine, Urine 09/08/2024 10:49:40 236 (mg/dL) Final Albumin/Creatinine [Mass Ratio] in Urine 09/08/2024 10:49:40 17 <30 (mg/g Creat) Final Performing Location [facility]ORY [facility] - [address] [place] [address]
--- OUTSIDE RECORDS SUMMARY | 2024-10-20 03:55 | External Medical Summary | Summary of Care ---
Author Name Unknown Organization [facility] Address [address] [place] [address] Phone [phone] Care Team Providers Care Promotions Director Name Role Phone Sudha Macias MD Primary Care Provider [phone] Reason for Referral * Medication Prior Authorization - Pending Review Specialty Diagnoses / Procedures Referred By Contac t Referred To Contact Diagnoses DM type 2 with diabetic peripheral neuropathy (HCC) Estrella Perez, [facility] [address] [facility] [place] [address] Phone: tel: fax: Referral ID Status Reason Start Date Expiration Date V isits Requested Visits Authorized [id number] Pending Review [id number] Reason for Visit * Reason Comments eRx-Medication Refill Encounter Details Date Type Department Care Team (Late st Contact Info) Description 10/08/2024 Refill Family Practice [facility] [address] [facility] [place] [address] Sudha Macias MD [address] [facility] [place] [address] DM type 2 with diabetic peripheral neuropathy (HCC) Allergies Active Allergy Reactions Criticality Noted Date Comments Gabapentin Neuro complications (Please comment) Medium 12/14/2013 Metformin Diarrhea Medium 07/17/2011 documented as of this encounter (statuses as of 10/08/2024) Medications MULTIVITAMINS PO TABS one tablet daily Active ASPIRIN EC 81 MG PO TBECIndications:D M type 2, goal A1c below 7 Take one pill daily 100 Tab 3 11/28/19 11 Active Fluconazole 150 MG Oral Tablet (Diflucan) Take 1 tablet by mouth every 72 hours x 3 doses, then one tablet per week x 3 months 15 Tablet 11/27/19 23 Active Clopidogrel Bisulfate 75 MG Oral Tablet (Plavix)Indicatio ns:Carotid stenosis, non-symptomatic, bilateral Take 1 Tablet by [...] Active Nortriptyline HCl 25 MG Oral Capsule (Pamelor)Indicati ons:DM type 2 with diabetic peripheral neuropathy (HCC) TAKE ONE CAPSULE BY MOUTH AT BEDTIME 90 Capsule 3 01/21/20 24 Active Nystatin-Triamcin olone 272071-1.1 UNIT/GM-% External Cream (Mycolog) Apply topically to affected area 3 times a day. Apply to vulvar region 15 g 2 03/02/20 24 Active South49 Solutionsuch Ultra 2 w/Device Kit Check blood sugar one to two times daily. E11.9 1 Each 03/16/20 24 Active South49 Solutionsuch Ultra Test In Vitro Strip (Glucose Blood) Check blood sugar one to two times daily. E11.9 100 Strip 3 03/16/20 24 Active South49 Solutionsuch Delica Lancets 33G Check blood sugar one to two times daily. E11.9 100 Each 3 03/16/20 24 Active Furosemide 20 MG Oral Tablet (Lasix) Take 1 Tablet by mouth in the morning. 30 Tablet 11 03/16/20 24 Active Atorvastatin Calcium 80 MG Oral Tablet (Lipitor)Indicati ons:Dyslipidemia Take 1 Tablet by mouth in the morning. 90 Tablet 2 03/21/20 24 Active Mupirocin 2 % External Ointment (Bactroban) APPLY TOPICALLY TO AFFECTED AREA 3 TIMES A DAY FOR UP TO 14 DAYS 22 g 1 03/30/20 24 Active Omeprazole 20 MG Oral Capsule Delayed Release (PriLOSEC)Indicat ions:Gastroesopha geal reflux disease with esophagitis TAKE ONE CAPSULE BY MOUTH EVERY DAY BEFORE BREAKFAST 30 Capsule 5 04/25/20 24 Active Levothyroxine Sodium 100 MCG Oral Tablet (Levoxyl)Indicati ons:Toxic diffuse goiter,Postoperat justin hypothyroidism TAKE ONE TABLET BY MOUTH EVERY DAY AT LEAST 30 MINUTES PRIOR TO BREAKFAST OR OTHER MEALS 90 Tablet 2 06/22/20 24 Active Albuterol Sulfate HFA 108 (90 Base) MCG/ACT Inhalation Aerosol SolutionIndicatio ns:Bronchitis, complicated INHALE TWO PUFFS BY MOUTH FOUR TIMES A DAY 18 g 3 09/03/20 24 Active Midodrine HCl 5 MG Oral Tablet (Proamatine)Indic ations:Hypotensio n, unspecified hypotension type Take 1 tablet in the morning. Take 1 tablet in the afternoon 09/06/20 24 Active ALPRAZolam 0.5 MG Oral Tablet (xaNAX)Indication s:Generalized anxiety disorder TAKE ONE TABLET BY MOUTH TWICE A DAY NEEDED FOR ANXIETY 60 Tablet 09/21/19 25 Active HYDROcodone-Aceta minophen 5-325 MG Oral TabletIndications :Lumbar disc disease Take 1 Tablet by mouth every 6 hours as needed for Pain, Severe. 60 Tablet 10/05/19 25 Active Ozempic (1 MG/DOSE) 4 MG/3ML Subcutaneous Solution Pen-injector (Semaglutide (1 MG/DOSE))Indicati ons:DM type 2 with diabetic peripheral neuropathy (HCC) INJECT 1MG UNDER THE SKIN ONCE A WEEK 3 mL 5 10/08/19 25 Active Ozempic (1 MG/DOSE) 4 MG/3ML Subcutaneous Solution Pen-injector (Semaglutide (1 MG/DOSE))Indicati ons:DM type 2 with diabetic peripheral neuropathy (HCC) Inject 1 mg under the skin once a week. (Patient assistance) 3 mL 06/06/20 24 025 Discontinued documented as of this encounter (statuses as of 10/08/2024) Active Problems Problem Noted Date Diagnosed Date [...] as of this encounter (statuses as of 10/08/2024) Resolved Problems Problem Noted Date Diagnosed Date [...] as of this encounter (statuses as of 10/08/2024) Immunizations Name Administration Dates Next Due Diptheria/Tetanus [...] Assessment Author No 11/18/2022 5:10 PM EDT Jigar Smith RN * Are you blind or [...] 5:10 PM YELENAT Masoud Smith RN * Because of a physical, mental, [...] encounter Miscellaneous Notes * Telephone Encounter - Estrella Perez [facility] - 10/08/2024 11:09 AM EST Signed Prescriptions: Disp Refills Ozempic (1 MG/DOSE) 4 MG/3ML Subcutaneous *3 mL 5 Sig: INJECT 1MG UNDER THE SKIN ONCE A WEEK Authorizing Provider: SUDHA MACIAS Ordering User: ESTRELLA PEREZ * Telephone Encounter - Wendy Sigala CPhT - 10/08/2024 10:58 AM EST Patient needs ordered today Did you pend patient's preferred pharmacy and medication before forwarding?yes Pharmacy: [facility] [address] [place] [address] [place] Pending Prescriptions: Disp Refills Ozempic (1 MG/DOSE) 4 MG/3ML Subcutaneous*3 mL 0 Sig: INJECT 1MG UNDER THE SKIN ONCE A WEEK Last Visit: 08/19/2024 (in office), Visit date not found (telemedicine) Next Visit: 10/19/2024 If no future appointments scheduled, and last appointment is greater than a year ago, please schedule patient for a follow-up appointment Last date the medication was ordered: [id number] Is this request for a controlled substance?No Urine Drug Screen: Results for orders placed or performed in visit on 03/05/21 PAIN MANAGEMENT DRUG PANEL, URINE W/ INTERPRETATION Result Value Compliance Interpretation Based on the medication information provided: The negative benzodiazepines screen is CONSISTENT with alprazolam last taken 2-3 weeks prior to urine drug testing. Confirmatory testing is available upon request. Amphetamines Screen, U Negative Benzodiazepines Screen, U Negative Cannabinoids Screen, U Negative Cocaine Metabolite Screen, U Negative Hydrocodone Screen, U Negative Methadone Metabolite Screen, U Negative Morphine/Codeine Screen, U Negative Oxycodone Screen, U Negative Valid Interpretation Normal Creatinine, U 53 Narrative Cutoff Concentrations: Drug Level Amphetamines 500 ng/mL Benzodiazepines 100 ng/mL Cannabinoids 50 ng/mL Cocaine Metabolite 150 ng/mL Hydrocodone / Hydromorphone 100 ng/mL Methadone Metabolite 100 ng/mL Morphine / Codeine 300 ng/mL Oxycodone / Oxymorphone 100 ng/mL Screening results are presumptive and can only be used for medical purposes. Confirmatory testing is available upon request. Results for orders placed or performed in visit on 10/04/14 TOX SCREEN, URINE, W/ CONFIRMATION Result Value Amphetamine NEGATIVE Barbiturates NEGATIVE Benzodiazepines NEGATIVE Cannabinoids NEGATIVE Cocaine Metabolite NEGATIVE Morphine / Codeine NEGATIVE METHADONE METABOLITE NEGATIVE OXYCODONE NEGATIVE TOX COMMENT THE ABOVE SCREENING RESULTS ARE PRESUMPTIVE AND CAN ONLY BE USED FOR MEDICAL PURPOSES. POSITIVE RESULTS REFLEX TO CONFIRMATORY TESTING. Cutoff Concentration Patient Phone Numbers Labs: Lab Results Component Value Date/Time CREAT 0.5 09/08/2024 10:49 AM CREAT 0.5 10/08/2021 12:00 AM CREAT 0.5 04/07/2018 10:25 AM POTASSIUM 4.4 09/08/2024 10:49 AM POTASSIUM 3.0 (L) 11/18/2022 09:57 AM POTASSIUM 5.0 10/08/2021 12:00 AM POTASSIUM 4.3 04/07/2018 10:25 AM TSH 0.73 02/15/2024 09:51 AM TSH 0.17 (L) 01/05/2019 08:24 AM LDL 44 01/06/2024 08:09 AM LDL 81 01/05/2019 08:24 AM LDL NOT APPLICABLE 01/05/2019 08:24 AM LDLCALC 119 11/20/2010 12:00 AM ALT 47 (H) 02/18/2024 01:40 PM ALT 18 04/07/2018 10:25 AM HGBA1C 8.8 (H) 09/08/2024 10:49 AM HGBA1C 8.0 (H) 01/05/2019 08:24 AM * Telephone Encounter - Joe Echols MD - 10/08/2024 10:52 AM EST Pending Prescriptions: Disp Refills Ozempic (1 MG/DOSE) 4 MG/3ML Subcutaneous *3 mL 0 Sig: INJECT 1MG UNDER THE SKIN ONCE A WEEK * Telephone Encounter - Joe Echols MD - 10/08/2024 10:52 AM EST To PCP documented in this encounter Plan of Treatment Upcoming Encounters Date Type Department Care Team (Late st Contact Info) Description 10/19/2024 10:20 AM EST Office Visit Family Practice [facility] [address] [place] [address] Sudha Macias MD [address] [place] [address] 10/19/2024 1:00 PM EST Imaging Vascular Lab, [facility] [address] [facility] [address] [place] [address] 12/27/2024 1:00 PM EDT Appointment Vascular Lab, [address] [place] [address] 12/27/2024 2:00 PM EDT Appointment Vascular Lab, [address] [place] [address] 01/05/2025 1:30 PM EDT Office Visit Vascular Surgery, [address] [place] [address] Sudha Vitale MD [address] [place], [place] [address] 03/29/2025 10:00 AM EDT Office Visit Cardiology, [facility] [address] [place] [address] Lupe Haile PA-C [address] [place] [address] Health Maintenance Due Date Last Done Comments Alpha-1 Antitrypsin 1968 O2 ASSESSMENT COMPLETED IN PAST YEAR FOR COPD 1968 Cologuard 1995 Sigmoidoscopy 1995 Zoster Vaccines (1 of 2) 2000 Fecal Occult Blood Test 02/25/2012 02/24/2011 DISCUSS TOBACCO CESSATION (REFER TO SMARTSET #9622) 10/02/2015 10/02/2014 Adult Wellness Visit 2016 *COPD [...] 09/08/2025 09/08/2024, 03/07, 02/18/2024, Additional history exists Colonoscopy 01/21/2028 01/20/2018, [...] this encounter Medical Devices Implanted Type Area Expanded Duty Dental Assistant Device Identifier Shelf Expiration Date Model / Serial / Lot Patch Xenosure [id number] - [id number] Implanted:Qty : 1 on 11/18/2022 by Sudha Vitale MD at [facility] Left: Carotid [employer] [id number] 07/04/2028 [id number] / [id number] / [id number] documented as of this encounter Visit Diagnoses Diagnosis DM type 2 with diabetic peripheral neuropathy (HCC)- Primary Type II or unspecified type diabetes mellitus with neurological manifestations, not stated as uncontrolled Advanced care planning/counseling discussion Other specified counseling Calcific aortic stenosis of bicuspid valve Congenital stenosis of aortic valve COPD, group A, by GOLD 2017 classification (HCC) History of bariatric surgery Bariatric surgery status [...] group A, by GOLD 2017 classification (HCC) Type 2 diabetes mellitus with hemoglobin A1c goal of less than 8.0% (HCC) Tobacco use disorder DM type 2 with diabetic peripheral neuropathy (HCC) Type II or unspecified type diabetes mellitus with neurological manifestations, not stated as uncontrolled documented in this encounter Advance Directives * [...] patient or by statute hierarchy) Care Teams Promotions Director Relationship Specialty Start Date End Date Sudha Macias MD [address] [place] [address] PCP - General Family Medicine 11/04/21 documented as of this encounter
--- OUTSIDE RECORDS SUMMARY | 2024-10-20 03:55 | External Medical Summary ---
Author Name Unknown Address Unknown Organization K01:[facility] [place] [facility] [address] [facility] [address] [facility] [id number] Laboratory Report Ordering Provider Test Date Status KELVIN ALBERT 09/08/2024 10:49:40 Final Observation Date Value Abnormality Reference (Units ) Status WBC, Total 09/08/2024 10:49:40 10.69 4.00-10.80 (K/uL) Final RBC 09/08/2024 10:49:40 4.42 3.85-5.15 (M/uL) Final Hemoglobin 09/08/2024 10:49:40 13.8 12.0-15.3 (g/dL) Final HCT 09/08/2024 10:49:40 41.4 36.0-45.2 (%) Final MCV 09/08/2024 10:49:40 93.7 81.5-97.5 (fL) Final MCH 09/08/2024 10:49:40 31.2 27.0-34.0 (pg) Final MCHC 09/08/2024 10:49:40 33.3 32.0-36.0 (g/dL) Final RDW 09/08/2024 10:49:40 13.4 11.5-15.5 (%) Final Platelets 09/08/2024 10:49:40 282 140-400 (K/uL) Final MPV 09/08/2024 10:49:40 11.6 6.6-11.1 (fL) Final Nucleated erythrocytes/100 leukocytes [Ratio] in Blood by Automated count 09/08/2024 10:49:40 0 <=0 (/100 WBCs) Final Performing Location [facility] [place] [facility] [address] [facility] [address]
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
--- OUTSIDE RECORDS SUMMARY | 2024-10-20 03:55 | External Medical Summary ---
Author Name Unknown Address Unknown Organization [id number]:LABORATORY [facility] - [address] [facility] [address] Laboratory Report Ordering Provider Test Date Status CRISTI HALEY 09/08/2024 10:49:40 Final Observation Date Value Abnormality Reference (Units ) Status HbA1C 09/08/2024 10:49:40 8.8 Above high normal 4. 0-5.6 (%) Final The use of HbA1c to monitor glycemic status is based on normal hemoglobin and HbA composition. This test should not be used in patients with abnormal hemoglobin that affects the half life of the red blood cell or the in vivo glycation rates. Glucose, estimated average 09/08/2024 10:49:40 206 Above high normal <126 (mg/dL) Eduard sena Performing Location LABORATORY [facility] - [address] [facility] [address]
--- OUTSIDE RECORDS SUMMARY | 2024-10-20 03:55 | External Medical Summary | Summary of Care ---
Author Name Unknown Organization [facility] Address [address] [place] [address] Phone [phone] Care Team Providers Care Staff Development Coordinator Name Role Phone Sean Macias MD Primary Care Provider [phone] Encounter Details Date Type Department Care Team (Late st Contact Info) Description 09/26/2024 Population Health External Data Unspecified Department Allergies Active Allergy Reactions Criticality Noted Date Comments Gabapentin Neuro complications (Please comment) Medium 12/14/2013 Metformin Diarrhea Medium 07/17/2011 documented as of this encounter (statuses as of 09/26/2024) Medications MULTIVITAMINS PO TABS one tablet daily [...] 90 Capsule 3 4 Active Nystatin-Triamcino lone 871052-4.1 UNIT/GM-% External Cream (Mycolog) Apply topically to affected area 3 times a day. Apply to vulvar region 15 g 2 4 Active Visual TeleHealth SystemsTouch Ultra 2 w/Device Kit Check blood sugar one to two times daily. E11.9 1 Each 4 Active Visual TeleHealth SystemsTouch Ultra Test In Vitro Strip (Glucose Blood) Check blood sugar one to two times daily. E11.9 100 Strip 3 4 Active OneTouch Delica Lancets 33G Check blood [...] BEFORE BREAKFAST 30 Capsule 5 4 Active Ozempic (1 MG/DOSE) 4 MG/3ML Subcutaneous Solution Pen-injector (Semaglutide (1 MG/DOSE))Indicatio ns:DM type 2 with diabetic peripheral neuropathy (HCC) Inject 1 mg under the skin once a week. (Patient assistance) 3 mL 4 Active Levothyroxine Sodium 100 MCG Oral [...] for Pain, Severe. 60 Tablet 5 Active documented as of this encounter (statuses as of 09/26/2024) Active Problems Problem Noted Date Diagnosed Date [...] o Other/Additional Comments: no recent exac, call [facility] Exacerbation plan o Chest Xray Additional Comments: [...] as of this encounter (statuses as of 09/26/2024) Resolved Problems Problem Noted Date Diagnosed Date [...] as of this encounter (statuses as of 09/26/2024) Immunizations Name Administration Dates Next Due Diptheria/Tetanus [...] Author No 11/18/2022 5:10 PM EDT Masoud Smith, RN * Are you blind or do [...] 5:10 PM EDT Masoud Smith RN * Because of a physical, mental, or emotional condition, do you have difficulty doing errands alone such as visiting a doctors office or shopping? (15 years old or older) Answer Date of Assessment Author No 11/18/2022 5:10 PM EDT Masoud Smith RN documented as of this encounter Mental Status * Because of a physical, mental, or emotional condition, do you have serious difficulty concentrating, remembering, or making decisions? (5 years old or older) Answer Entry Date Author No 11/18/2022 5:10 PM EDT Masoud Smith RN documented in this encounter Plan of Treatment Upcoming Encounters Date Type Department Care Team (Late st Contact Info) Description 10/05/2024 3:00 PM EST Cardiac Studies Cardiac Studies, [facility] [address] [place] [address] 10/19/2024 10:20 AM EST Office Visit Family Practice [facility] [address] [place] [address] Sean Macias MD [address] [facility] [place] [address] 12/27/2024 1:00 PM EDT Appointment Vascular Lab, [address] [place] [address] 12/27/2024 2:00 PM EDT Appointment Vascular Lab, [address] [place] [address] 01/05/2025 1:30 PM EDT Office Visit Vascular Surgery, [place] [address] [place] [address] Sean Vitale MD [address] [facility] [place] [address] 03/29/2025 10:00 AM EDT Office Visit Cardiology, [facility] [address] [place] [address] Lupe Haile, BREANNA [address] [place] [address] Health Maintenance Due Date Last Done Comments [...] this encounter Medical Devices Implanted Type Area Farmworker Dairy Device Identifier Shelf Expiration Date Model / Serial / Lot Patch Xenosure [id number] - [id number] Implanted:Qty : 1 on 11/18/2022 by Sean Vitale MD at [place] [facility] Left: Carotid [employer] [id number] 07/04/2028 E0.8P8 / [id number] / [id number] documented as of this encounter Advance Directives [...] patient or by statute hierarchy) Care Teams Staff Development Coordinator Relationship Specialty Start Date End Date Sean Macias MD [address] [place] [address] PCP - General Family Medicine 11/04/21 documented as of this encounter
--- OUTSIDE RECORDS SUMMARY | 2024-10-20 03:55 | External Medical Summary | Summary of Care ---
Author Name Unknown Organization [facility] Address [address] [place] [address] Phone [phone] Care Team Providers Care Aeronautics Teacher Name Role Phone Sean Macias MD Primary Care Provider [phone] Reason for Visit * Reason Comments Outpatient Testing Encounter Details Date Type Department Care Team (Late st Contact Info) Description 09/08/2024 10:40 AM EST Laboratory Laboratory [facility] [place] [address] [place] [address] [facility] [address] [place] [address] Diabetes mellitus (HCC); DM peripheral angiopathy (HCC); Calcific aortic stenosis of bicuspid valve; Need for prophylactic vaccination and inoculation against influenza; Bilateral leg edema; Venous stasis dermatitis Allergies Active Allergy Reactions Criticality Noted Date Comments Gabapentin Neuro complications (Please comment) Medium 12/14/2013 Metformin Diarrhea Medium 07/17/2011 documented as of this encounter (statuses as of 09/08/2024) Medications MULTIVITAMINS PO TABS one tablet daily [...] 90 Capsule 3 4 Active Nystatin-Triamcino lone 653101-8.1 UNIT/GM-% External Cream (Mycolog) Apply topically to affected area 3 times a day. Apply to vulvar region 15 g 2 4 Active Paperfold Ultra 2 w/Device Kit Check blood sugar one to two times daily. E11.9 1 Each 4 Active Paperfold Ultra Test In Vitro Strip (Glucose Blood) Check blood sugar one to two times daily. E11.9 100 Strip 3 4 Active Fetch Technologiesuch Delica Lancets 33G Check blood sugar one [...] BEFORE BREAKFAST 30 Capsule 5 4 Active ALPRAZolam 0.5 MG Oral Tablet (xaNAX)Indications :Generalized anxiety disorder TAKE ONE TABLET BY MOUTH TWICE A DAY NEEDED FOR ANXIETY 60 Tablet 4 Active Ozempic (1 MG/DOSE) 4 MG/3ML [...] OTHER MEALS 90 Tablet 2 4 Active HYDROcodone-Acetam inophen 5-325 MG Oral TabletIndications: Lumbar disc disease Take 1 Tablet by mouth every 6 hours as needed for Pain, Severe. 60 Tablet 4 Active Albuterol Sulfate HFA 108 (90 Base) MCG/ACT Inhalation Aerosol SolutionIndication s:Bronchitis, complicated INHALE TWO PUFFS BY MOUTH FOUR TIMES A DAY 18 g 3 4 Active Midodrine HCl 5 MG Oral Tablet (Proamatine)Indica tions:Hypotension, unspecified hypotension type Take 1 tablet in the morning. Take 1 tablet in the afternoon 4 Active documented as of this encounter (statuses as of 09/08/2024) Active Problems Problem Noted Date Diagnosed Date [...] o Other/Additional Comments: no recent exac, call [facility] Exacerbation plan o Chest Xray Additional Comments: [...] as of this encounter (statuses as of 09/08/2024) Resolved Problems Problem Noted Date Diagnosed Date [...] as of this encounter (statuses as of 09/08/2024) Immunizations Name Administration Dates Next Due Diptheria/Tetanus [...] Description 10/05/2024 2:00 PM EST Imaging Radiology [facility] [address] [place] [address] 10/05/2024 3:00 PM EST Cardiac Studies Cardiac Studies, [address] [place] [address] 10/19/2024 10:20 AM EST Office Visit Family Practice [address] [place] [address] Sean Macias MD [address] [place] [address] 03/29/2025 10:00 AM EDT Office Visit Cardiology, [facility] [address] [place] [address] Lupe Haile PA-C [address] [place] [address] Pending Results Name Type Priority Associated Diagnoses Date /Time HEMOGLOBIN A1C Lab Routine Diabetes mellitus (HCC) 09/08/2024 10:49 AM EST ALBUMIN / CREATININE RATIO, URINE Lab Routine DM peripheral angiopathy (HCC) 09/08/2024 10:49 AM EST CBC Lab Routine Calcific aortic stenosis of bicuspid valve Need for prophylactic vaccination and inoculation against influenza Bilateral leg edema Venous stasis dermatitis 09/08/2024 10:49 AM EST BASIC METABOLIC PANEL Lab Routine Calcific aortic stenosis of bicuspid valve Need for prophylactic vaccination and inoculation against influenza Bilateral leg edema Venous stasis dermatitis 09/08/2024 10:49 AM EST Health Maintenance Due Date Last Done Comments [...] DXA Scan 12/20/2022 12/21/2015 Albumin/Creatinine Ratio 03/11/2024 023, 03/05/2021, 04/07/2018, Additional history exists HbA1c [...] this encounter Medical Devices Implanted Type Area Mirror Painter Device Identifier Shelf Expiration Date Model / Serial / Lot Patch Xenosure [id number] - [id number] Implanted:Qty : 1 on 11/18/2022 by Sean Vitale MD at OR [facility] [place] Left: Carotid [employer] [id number] 07/04/2028 E0.8P8 / [id number] / [id number] documented as of this encounter Visit Diagnoses Diagnosis DM type 2 with diabetic peripheral neuropathy (HCC)- Primary Type II or unspecified type diabetes mellitus with neurological manifestations, not stated as uncontrolled Advanced care planning/counseling discussion Other specified counseling Calcific aortic stenosis of bicuspid valve Congenital stenosis of aortic valve COPD, group A, by GOLD 2017 classification ([facility]) History of bariatric surgery Bariatric surgery status [...] COPD, group A, by GOLD 2017 classification ([facility]) Type 2 diabetes mellitus with hemoglobin A1c goal of less than 8.0% (HCC) Tobacco use disorder Diabetes mellitus (HCC) Type II or unspecified type diabetes mellitus without mention of complication, not stated as uncontrolled DM peripheral angiopathy (HCC) Type II or unspecified type diabetes mellitus with peripheral circulatory disorders, not stated as uncontrolled Calcific aortic stenosis of bicuspid valve Congenital stenosis of aortic valve Need for prophylactic vaccination and inoculation against influenza Bilateral leg edema Edema Venous stasis dermatitis Varicose veins of lower extremities with inflammation documented in this encounter Advance Directives * [...] patient or by statute hierarchy) Care Teams Aeronautics Teacher Relationship Specialty Start Date End Date Sean Macias MD [address] [place] [address] PCP - General Family Medicine 11/04/21 documented as of this encounter
--- OUTSIDE RECORDS SUMMARY | 2024-10-20 03:55 | External Medical Summary | Summary of Care ---
Author Name Unknown Organization [facility] Address [address] [place] [address] Phone [phone] Care Team Providers Care Hog Worker Name Role Phone Sean Macias MD Primary Care Provider [phone] [phone] Reason for Visit * Reason Onset Date Comments Medication Refill 06/24/2024 Encounter Details Date Type Department Care Team (Late st Contact Info) Description 06/24/2024 Telephone Family Practice [facility] [address] [place] [address] Sean Macias MD [address] [place] [address] Medication Refill Allergies Active Allergy Reactions Criticality Noted Date Comments Gabapentin Neuro complications (Please comment) Medium 12/14/2013 Metformin Diarrhea Medium 07/17/2011 documented as of this encounter (statuses as of 09/23/2024) Medications MULTIVITAMINS PO TABS one tablet daily [...] Capsule 3 01/21/20 24 Active Nystatin-Triamcin olone 630777-7.1 UNIT/GM-% External Cream (Mycolog) Apply topically to affected area 3 times a day. Apply to vulvar region 15 g 2 03/02/20 24 Active [employer] Ultra 2 w/Device Kit Check blood sugar one to two times daily. E11.9 1 Each 03/16/20 24 Active [employer] Ultra Test In Vitro Strip (Glucose Blood) Check blood sugar one to two times daily. E11.9 100 Strip 3 03/16/20 24 Active [employer] Delica Lancets 33G Check blood sugar one [...] BREAKFAST 30 Capsule 5 04/25/20 24 Active Ozempic (1 MG/DOSE) 4 MG/3ML [...] OR OTHER MEALS 90 Tablet 2 06/22/20 Active Midodrine HCl 5 MG Oral Tablet (Proamatine)Indic ations:Hypotensio n, unspecified hypotension type TAKE 1 TABLET BY MOUTH IN THE MORNING, 1 TABLET AT NOON AND 1 TABLET BEFORE BEDTIME 90 Tablet 5 01/21/20 24 2023 Discontinued Albuterol Sulfate HFA 108 (90 Base) MCG/ACT Inhalation Aerosol SolutionIndicatio ns:Bronchitis, complicated INHALE TWO PUFFS BY MOUTH FOUR TIMES A DAY 18 g 3 04/25/20 24 2023 Discontinued ALPRAZolam 0.5 MG Oral Tablet (xaNAX)Indication s:Generalized anxiety disorder TAKE ONE TABLET BY MOUTH TWICE A DAY NEEDED FOR ANXIETY 60 Tablet 05/19/20 24 2024 Discontinued(R efill) documented as of this encounter (statuses as of 09/23/2024) Active Problems Problem Noted Date Diagnosed Date [...] o Other/Additional Comments: no recent exac, call [facility] Exacerbation plan o Chest Xray Additional Comments: [...] as of this encounter (statuses as of 09/23/2024) Resolved Problems Problem Noted Date Diagnosed Date [...] as of this encounter (statuses as of 09/23/2024) Immunizations Name Administration Dates Next Due Diptheria/Tetanus (Adult) 06/25/2000 Hepatitis B, 0-19 yrs 02/23/2001,10/05/2000,06/07 PPD 06/25/2000 Pneumococcal Conjugate Vacc, 13 Valent (Prevnar) 05/18/2015 Pneumococcal Polysaccharide PPV23 (Pneumovax) 10/15/2016,06/23/2005 Seasonal Influenza Vac., MDV , IM, 0.5 mL (Fluzone) 05/18/2015,10/02/2014,07/08/2012,06/09,11/19/2010,07/08/2008,06/07/20 05,08/07/2004 11/20/2011 Seasonal Influenza, High Dos e, Trivalent, PF, IM (Fluzone HD) 06/17/2017 Seasonal Influenza, MDCK, Tr ivalent, PF, (Flucelvax) [...] Masoud Smith RN documented in this encounter Miscellaneous Notes * Telephone Encounter - Kelli Samson LPN - 06/24/2024 2:48 PM EDT Received pt assistance medication Placed in med room fridge LMOM documented in this encounter Plan of Treatment Upcoming Encounters Date Type Department Care Team (Late st Contact Info) Description 10/05/2024 3:00 PM EST Cardiac Studies Cardiac Studies, [address] [place] [address] 10/19/2024 10:20 AM EST Office Visit Family Practice [facility] [address] [place] [address] Sean Macias MD [address] [place] [address] 12/27/2024 1:00 PM EDT Appointment Vascular Lab, [address] [address] 12/27/2024 2:00 PM EDT Appointment Vascular Lab, [facility] [address] [place] [address] 01/05/2025 1:30 PM EDT Office Visit Vascular Surgery, [address] [address] Sean Vitale MD [address] [place] [address] 03/29/2025 10:00 AM EDT Office Visit Cardiology, [facility] [address] [place] [address] Lupe Haile PA-C [address] [facility] [place] [address] Health Maintenance Due Date Last Done Comments [...] this encounter Medical Devices Implanted Type Area Equipment Maintenance Superintendent Device Identifier Shelf Expiration Date Model / Serial / Lot Patch Xenosure [id number] - [id number] Implanted:Qty : 1 on 11/18/2022 by Sean Vitale MD at [place] [facility] [place] Left: Carotid [employer] [id number] 07/04/2028 E0.8P8 / [id number] / [id number] documented as of this encounter Advance Directives [...] patient or by statute hierarchy) Care Teams Hog Worker Relationship Specialty Start Date End Date Sean Macias MD [address] [place] [address] PCP - General Family Medicine 11/04/21 documented as of this encounter
--- OUTSIDE RECORDS SUMMARY | 2024-10-20 03:55 | External Medical Summary | Summary of Care ---
Author Name Unknown Organization [facility] Address [address] [place] [address] Phone [phone] Care Team Providers Care Application Integrator Name Role Phone Sudha Colin MD Primary Care Provider [phone] Reason for Visit * Reason Onset Date Comments Medication Refill 09/20/2024 Encounter Details Date Type Department Care Team (Late st Contact Info) Description 09/20/2024 Refill Family Practice [facility] [address] [place] [address] Sudha Colin MD [address] [place] [address] Generalized anxiety disorder; Lumbar disc disease Allergies Active Allergy Reactions Criticality Noted Date Comments Gabapentin Neuro complications (Please comment) Medium 12/14/2013 Metformin Diarrhea Medium 07/17/2011 documented as of this encounter (statuses as of 09/21/2024) Medications MULTIVITAMINS PO TABS one tablet daily [...] Capsule 3 01/21/20 24 Active Nystatin-Triamcino lone 446327-8.1 UNIT/GM-% External Cream (Mycolog) Apply topically to affected area 3 times a day. Apply to vulvar region 15 g 2 03/02/20 24 Active UmBio Ultra 2 w/Device Kit Check blood sugar one to two times daily. E11.9 1 Each 03/16/20 24 Active UmBio Ultra Test In Vitro Strip (Glucose Blood) Check blood sugar one to two times daily. E11.9 100 Strip 3 03/16/20 24 Active A Green Night's Sleepuch Delica Lancets 33G Check blood sugar one [...] as needed for Pain, Severe. 60 Tablet 09/21/19 25 Active ALPRAZolam 0.5 MG Oral Tablet (xaNAX)Indications :Generalized anxiety disorder TAKE ONE TABLET BY MOUTH TWICE A DAY NEEDED FOR ANXIETY 60 Tablet 05/19/20 24 025 Discontin ued(Refil l) HYDROcodone-Acetam inophen 5-325 MG Oral TabletIndications: Lumbar disc disease Take 1 Tablet by mouth every 6 hours as needed for Pain, Severe. 60 Tablet 09/04/20 24 025 Discontin ued(Refil l) documented as of this encounter (statuses as of 09/21/2024) Active Problems Problem Noted Date Diagnosed Date [...] as of this encounter (statuses as of 09/21/2024) Resolved Problems Problem Noted Date Diagnosed Date [...] as of this encounter (statuses as of 09/21/2024) Immunizations Name Administration Dates Next Due Diptheria/Tetanus [...] encounter Miscellaneous Notes * Telephone Encounter - Sudha Colin MD - 09/21/2024 12:12 PM ESTSigned Prescriptions: Disp Refills ALPRAZolam 0.5 MG Oral Tablet (xaNAX) 60 Tab*0 Sig: TAKE ONE TABLET BY MOUTH TWICE A DAY NEEDED FOR ANXIETY Authorizing Provider: SUDHA COLIN HYDROcodone-Acetaminophen 5-325 MG Oral Ta*60 Tab*0 Sig: Take 1 Tablet by mouth every 6 hours as needed for Pain, Severe. Authorizing Provider: SUDHA COLIN S * Telephone Encounter - Kaity Matthews [facility] - 09/21/2024 11:45 AM ESTPending Prescriptions: Disp Refills ALPRAZolam 0.5 MG Oral Tablet (xaNAX) 60 Tab*0 Sig: TAKE ONE TABLET BY MOUTH TWICE A DAY NEEDED FOR ANXIETY HYDROcodone-Acetaminophen 5-325 MG Oral Ta*60 Tab*0 Sig: Take 1 Tablet by mouth every 6 hours as needed for Pain, Severe. * Telephone Encounter - Kaity Matthews [facility] - 09/21/2024 11:44 AM EST I have reviewed the patients controlled substance dispensing history in the Prescription Drug Monitoring Program in compliance with the [facility] regulations before prescribing a controlled substance. PDMP checked on 09/21/2024. Pending Prescriptions: Disp Refills ALPRAZolam 0.5 MG Oral Tablet (xaNAX) 60 Tab*0 Sig: TAKE ONE TABLET BY MOUTH TWICE A DAY NEEDED FOR ANXIETY HYDROcodone-Acetaminophen 5-325 MG Oral T*60 Tab*0 Sig: Take 1 Tablet by mouth every 6 hours as needed for Pain, Severe. Last Visit: 08/19/2024 (in office), Visit date not found (telemedicine) Next Visit: 10/19/2024 Date medication was last filled: 09/04 ([place]), 05/19 (Alprazolam) Date medication is due for refill: 09/18, 06/17 Pharmacy: [facility] [place] [id number] [id number] [facility] [place] Is this request for a controlled substance? Yes and Urine Drug Screen Not completed Toxicology results: Results for orders placed or performed in [...] RESULTS REFLEX TO CONFIRMATORY TESTING. Cutoff Concentration Please approve if appropriate. Thank You, Kaity Matthews [facility] Clinical Pharmacist [facility] ([facility]) [phone] [id number] 09/21/2024, 11:44 AM * Telephone Encounter - Adali Mckeon, deblocker - 09/20/2024 1:27 PM EST Did you pend patient's preferred pharmacy and medication before forwarding?yes Pharmacy: [id number] [id number] [facility] [place] Pending Prescriptions: Disp Refills ALPRAZolam 0.5 MG Oral Tablet (xaNAX) 60 Tab*0 Sig: TAKE ONE TABLET BY MOUTH TWICE A DAY NEEDED FOR ANXIETY HYDROcodone-Acetaminophen 5-325 MG Oral T*60 Tab*0 Sig: Take 1 Tablet by mouth every 6 hours as needed for Pain, Severe. Last Visit: 08/19/2024 (in office), Visit date not found (telemedicine) Next Visit: 10/19/2024 If no future appointments scheduled, and last appointment is greater than a year ago, please schedule patient for a follow-up appointment Last date the medication was ordered: 05/19/24-09/04/24 Is this request for a controlled substance?Yes, What was the last refill date 05/19/24-09/04/24 w/ quantity 60, 60 and dosage 0.5 mg, 5-325 mg and Urine Drug Screen was completed Urine Drug Screen: Results for orders placed [...] AM HGBA1C 8.0 (H) 01/05/2019 08:24 AM documented in this encounter Plan of Treatment Upcoming Encounters Date Type Department Care Team (Late st Contact Info) Description 10/05/2024 3:00 PM EST Cardiac Studies Cardiac Studies, [facility] [address] [place] [address] 10/19/2024 10:20 AM EST Office Visit Family Practice [facility] [address] [place] [address] Sudha Colin MD [address] [place] [address] 12/27/2024 1:00 PM EDT Appointment Vascular Lab, [address] [place] [address] 12/27/2024 2:00 PM EDT Appointment Vascular Lab, [address] [place] [address] 01/05/2025 1:30 PM EDT Office Visit Vascular Surgery, [address] [place] [address] [facility] [address] [facility] [address] 03/29/2025 10:00 AM EDT Office Visit Cardiology, [facility] [address] [place] [address] Lupe Haile PA-C [address] [place] [address] Health Maintenance Due Date Last Done Comments [...] Cancer Screening 01/21/2028 Lipid Panel 01/05/2029 01/06/2024, 0 09/2021, 03/05/2021, Additional history exists Hepatitis B [...] this encounter Medical Devices Implanted Type Area Tire Tester Device Identifier Shelf Expiration Date Model / Serial / Lot Patch Xenosure [id number] - [id number] Implanted:Qty : 1 on 11/18/2022 by Sudha Vitale MD at OR [facility] Left: Carotid [employer] [id number] 07/04/2028 E0.8P8 / [id number] / [id number] documented as of this encounter Visit Diagnoses Diagnosis DM type 2 with diabetic peripheral neuropathy (HCC)- Primary Type II or unspecified type diabetes mellitus with neurological manifestations, not stated as uncontrolled Advanced care planning/counseling discussion Other specified counseling Calcific aortic stenosis of bicuspid valve Congenital stenosis of aortic valve COPD, group A, by GOLD 2017 classification ([facility]) History of bariatric surgery Bariatric surgery status S/P carotid endarterectomy Other postprocedural status Tobacco use disorder Hypotension, unspecified hypotension type History of radioactive iodine thyroid ablation Personal history of surgery to other organs DM peripheral angiopathy ([facility]) Type II or unspecified type diabetes mellitus with peripheral circulatory disorders, not stated as uncontrolled Aortic atherosclerosis ([facility]) Atherosclerosis of aorta Hypotension, unspecified hypotension type- Primary COPD, group A, by GOLD 2017 classification ([facility]) Type 2 diabetes mellitus with hemoglobin A1c goal of less than 8.0% ([facility]) Tobacco use disorder Generalized anxiety disorder Lumbar disc disease Other and unspecified disc disorder of lumbar region documented in this encounter Advance Directives * [...] Relationship Healthcare Agent Relationshi p Communication Brigid Villalobso Adult Child Health Care Repr esentative (appointed verbally by patient or by statute hierarchy) Radha Cruz Adult Child Health Care Repr esentative (appointed verbally by patient or by statute hierarchy) Care Teams Application Integrator Relationship Specialty Start Date End Date Sudha Colin MD [address] [place] [id number] PCP - General Family Medicine 11/04/21 documented as of this encounter
--- OUTSIDE RECORDS SUMMARY | 2024-10-20 03:56 | External Medical Summary | Summary of Care ---
Author Name Unknown Organization [facility] Address [address] [place] [address] Phone [phone] Care Team Providers Care Senior Project Engineer Name Role Phone Sean Macias MD Primary Care Provider [phone] Reason for Visit * Reason Onset Date Comments Advice 08/16/2024 Encounter Details Date Type Department Care Team (Late st Contact Info) Description 08/16/2024 Telephone Family Practice [facility] [address] [place] [address] Sean Macias MD [address] [place] [address] Advice Allergies Active Allergy Reactions Criticality Noted Date Comments Gabapentin Neuro complications (Please comment) Medium 12/14/2013 Metformin Diarrhea Medium 07/17/2011 documented as of this encounter (statuses as of 08/17/2024) Medications MULTIVITAMINS PO TABS one tablet daily [...] BEDTIME 90 Capsule 3 01/21/20 24 Active Midodrine HCl 5 MG Oral Tablet (Proamatine)Indica tions:Hypotension, unspecified hypotension type TAKE 1 TABLET BY MOUTH IN THE MORNING, 1 TABLET AT NOON AND 1 TABLET BEFORE BEDTIME 90 Tablet 5 01/21/20 24 Active Additional Information Patient taking differently: 5 mg Oral Daily(Non-Specified), Reported on 03/16/2024 Nystatin-Triamcino lone 321405-6.1 UNIT/GM-% External Cream (Mycolog) Apply topically to affected area 3 times a day. Apply to vulvar region 15 g 2 03/02/20 24 Active ParasitXTouch Ultra 2 w/Device Kit Check blood sugar [...] DAYS 22 g 1 03/30/20 24 Active Albuterol Sulfate HFA 108 (90 Base) MCG/ACT Inhalation Aerosol SolutionIndication s:Bronchitis, complicated INHALE TWO PUFFS BY MOUTH FOUR TIMES A DAY 18 g 3 04/25/20 24 Active Omeprazole 20 MG Oral Capsule [...] MEALS 90 Tablet 2 06/22/20 24 Active HYDROcodone-Acetam inophen 5-325 MG Oral TabletIndications: Lumbar disc disease Take 1 Tablet by mouth every 6 hours as needed for Pain, Severe. 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 DM peripheral angiopathy 01/07/2023 S/P carotid [...] o Other/Additional Comments: no recent exac, call [facility] Exacerbation plan o Chest Xray [...] as of this encounter (statuses as of 08/17/2024) Resolved Problems Problem Noted Date Diagnosed Date Resolved Date Hypotension 01/07/2023 08/12/2023 Assessment & Plan (03/16/2023 [...] excess calories 12/21/2018 03/05/2021 HTN, goal below 130/80 12/21/201803/16 COPD, moderate 12/21/2018 02/16/2020 Overview: Per COPD [...] as of this encounter (statuses as of 08/17/2024) Immunizations Name Administration Dates Next Due Diptheria/Tetanus [...] in the Last Year Never true 03/05/2021 Utilities Answer Date Recorded Do you have trouble paying y our heating, water, or electric bill? (Adult - for ages 18 years and over) Not on file 02/23/2024 Is your family able to pay t he heat, water, or electric bill? (Household - for ages 0-17 years) Not on file 02/23/2024 Does your family have access to good internet? (Household - for ages 0-17 years) Not on file 02/23/2024 Social Connections Answer Date Recorded How often do you feel lonely or isolated from those around you? (Adult - for ages 18 years and over) Not on file 02/23/2024 Comments No Sex and Gender Information Value [...] Telephone Encounter - Brenna Donato OSA - 08/17/2024 3:39 PM EST Called pt tried to offer other clinics - she denied and is going to call back tomorrow morning for acute appointments at [facility] * Telephone Encounter - Natalie Snell OSA - 08/17/2024 3:04 PM EST Patient called back tried to contact the front end technician twice no answer. Please call patient back to assist with overbooking per note. * Telephone Encounter - Kelli Samson LPN - 08/16/2024 6:25 PM EST Please assist pt with appt * Telephone Encounter - Eryn Alfonso OSA - 08/16/2024 4:35 PM EST No Appointments Available Patient declined appointments?: Yes What Visit Type is needed? Acute If Acute Visit Type is needed, were surrounding clinics offered to patient (Yes/No)? Yes Was patient offered appointments with other available providers (Yes/No)? Yes See Call Details? (Yes or No): Yes documented in this encounter Plan of Treatment Upcoming Encounters Date Type Department Care Team (Late st Contact Info) Description 09/06/2024 2:30 PM EST Office Visit Cardiology, [facility] [address] [place] [address] Lupe Haile PA-C [address] [place] [address] 10/19/2024 10:20 AM EST Office Visit Family Practice [facility] [address] [place] [address] Sean Macias MD [address] [place] [address] Health Maintenance Due Date Last Done Comments Alpha-1 Antitrypsin 1968 Cologuard 1995 Sigmoidoscopy 1995 Zoster Vaccines [...] 03/11/2024 023, 03/05/2021, 04/07/2018, Additional history exists Influenza Vaccine (FLU shot) (#1) 2024 06/11/2021, 06/22/2018, 06/17/2017, Additional history exists HbA1c 07/08/2024 01/06/2024, 09/07, 03/11/2023, Additional history exists O2 ASSESSMENT COMPLETED IN PAST YEAR FOR COPD 08/21/2024 08/21/2023 Mammogram 11/04/2024 11/04/2023, 10/09, 10/29/2022, Additional history [...] age to complete this topic Pneumococcal Vaccine: 65+ Years Completed 10/15/2016, 05/18/2015, 06/23/2005 COVID-19 Vaccine Discontinued HPV (Gardasil) Vaccine Aged Out No lo nger eligible based on patient's age to complete this topic MENINGOCOCCAL (MENACTRA/MENVEO) Aged Out No longer eligible based on patient's age to complete this topic documented as of this encounter Medical Devices Implanted Type Area Sack Sewer Device Identifier Shelf Expiration Date Model / Serial / Lot Patch Xenosure [id number] - [id number] Implanted:Qty : 1 on 11/18/2022 by Sean Vitale MD at [facility] Left: Carotid [employer] [id number] 07/04/2028 E0.8P8 / [id number] / [id number] documented as of this encounter Advance Directives [...] patient or by statute hierarchy) Care Teams Senior Project Engineer Relationship Specialty Start Date End Date Sean Macias MD [address] [place] [address] PCP - General Family Medicine 11/04/21 documented as of this encounter
--- OUTSIDE RECORDS SUMMARY | 2024-10-20 03:56 | External Medical Summary | Summary of Care ---
Author Name Unknown Organization [facility] Address [address] [place] [address] Phone [phone] Care Team Providers Care Investigation Division Captain Name Role Phone Sean Macias MD Primary Care Provider [phone] Reason for Visit * Reason Onset Date Comments FYI 08/08/2024 Encounter Details Date Type Department Care Team ([facility] st Contact Info) Description 08/08/2024 Telephone Pharmacy, [address] [place] [phone] Eileen Ann, [facility] [address] [place] [address] FYI Allergies Active Allergy Reactions Criticality Noted Date Comments Gabapentin Neuro complications (Please comment) Medium 12/14/2013 Metformin Diarrhea Medium 07/17/2011 documented as of this encounter (statuses as of 08/08/2024) Medications MULTIVITAMINS PO TABS one tablet daily [...] Oral Daily(Non-Specified), Reported on 03/16/2024 Nystatin-Triamcino lone 693523-9.1 UNIT/GM-% External Cream (Mycolog) Apply topically to affected area 3 times a day. Apply to vulvar region 15 g 2 03/02/20 24 Active KwicrTouch Ultra 2 w/Device Kit Check blood sugar [...] as of this encounter (statuses as of 08/08/2024) Active Problems Problem Noted Date Diagnosed Date [...] o Other/Additional Comments: no recent exac, call [facility] Exacerbation plan o Chest Xray [...] as of this encounter (statuses as of 08/08/2024) Resolved Problems Problem Noted Date Diagnosed Date [...] as of this encounter (statuses as of 08/08/2024) Immunizations Name Administration Dates Next Due Diptheria/Tetanus [...] encounter Miscellaneous Notes * Telephone Encounter - Eileen Ann RPh - 08/08/2024 10:15 AM EST [facility] [place] [facility] and requested 2022 taxinformation. Eileen Ann RPH Clinical Pharmacist 08/08/2024, 10:15 AM documented in this encounter Plan of Treatment Upcoming Encounters Date Type Department Care Team (Late st Contact Info) Description 09/06/2024 2:30 PM EST Office Visit Cardiology, [facility] [address] [place] [address] Lupe Haile PA-C [address] [place] [address] 10/19/2024 10:20 AM EST Office Visit Family Practice [facility] [address] [place] [address] Sean Macias MD [address] [place] [address] Health Maintenance Due Date Last Done Comments [...] this encounter Medical Devices Implanted Type Area Appliance Counselor Device Identifier Shelf Expiration Date Model / Serial / Lot Patch Xenosure [id number] - [id number] Implanted:Qty : 1 on 11/18/2022 by Sean Vitale MD at [facility] Left: Carotid [employer] [id number] 07/04/2028 E0.8P8 / [id number] / [id number] documented as of this encounter Advance Directives [...] patient or by statute hierarchy) Care Teams Investigation Division Captain Relationship Specialty Start Date End Date Sean Macias MD [address] [place] [address] PCP - General Family Medicine 11/04/21 documented as of this encounter
--- OUTSIDE RECORDS SUMMARY | 2024-10-20 03:56 | External Medical Summary | Summary of Care ---
Author Name Unknown Organization [facility] Address [address] [place] [address] Phone [phone] Care Team Providers Care Automation And Controls Instructor Name Role Phone Sean Macias MD Primary Care Provider [phone] Reason for Visit * Reason Comments Redness Pt c/o redness in BL E, pt states her legs are painful and at times she has discharge in legs Encounter Details Date Type Department Care Team (Late st Contact Info) Description 08/19/2024 12:20 PM EST Office Visit Family Practice [facility] [address] [facility] [place] [address] Sean Macias MD [address] [place] [address] Stasis dermatitis of both legs*; Lumbar disc disease Allergies Active Allergy Reactions Criticality Noted Date Comments Gabapentin Neuro complications (Please comment) Medium 12/14/2013 Metformin Diarrhea Medium 07/17/2011 documented as of this encounter (statuses as of 08/20/2024) Medications MULTIVITAMINS PO TABS one tablet daily [...] differently: 5 mg Oral Daily(Non-Specified), Reported on 08/19/2024 Nystatin-Triamcino lone 929476-5.1 UNIT/GM-% External Cream (MycStudentbox) Apply topically to affected area 3 times a day. Apply to vulvar region 15 g 2 03/02/20 24 Active iOculi Ultra 2 w/Device Kit Check blood sugar one to two times daily. E11.9 1 Each 03/16/20 24 Active [employer] Ultra Test In Vitro Strip (Glucose Blood) Check blood sugar one to two times daily. E11.9 100 Strip 3 03/16/20 24 Active [employer] Delica Lancets 33G Check blood sugar one [...] MEALS 90 Tablet 2 06/22/20 24 Active Sulfamethoxazole-T rimethoprim 800-160 MG Oral Tablet (Bactrim DS) Take 1 Tablet by mouth in the morning and 1 Tablet before bedtime. Do all this for 10 days. Until gone.. 20 Tablet 08/19/20 24 024 Active Mupirocin 2 % External Ointment (Bactroban) Apply topically to affected area 3 times a day for 14 days. To affected area for up to 14 days. 22 g 1 08/19/20 24 024 Active HYDROcodone-Acetam inophen 5-325 MG Oral TabletIndications: Lumbar disc disease Take 1 Tablet by mouth every 6 hours as needed for Pain, Severe. 60 Tablet 08/19/20 24 Active HYDROcodone-Acetam inophen 5-325 MG Oral TabletIndications: Lumbar disc disease Take 1 Tablet by mouth every 6 hours as needed for Pain, Severe. 60 Tablet 08/07/20 24 024 Discontin ued(Refil l) documented as of this encounter (statuses as of 08/20/2024) Active Problems Problem Noted Date Diagnosed Date [...] o Other/Additional Comments: no recent exac, call [facility] Exacerbation plan o Chest Xray Additional [...] as of this encounter (statuses as of 08/20/2024) Resolved Problems Problem Noted Date Diagnosed Date [...] as of this encounter (statuses as of 08/20/2024) Immunizations Name Administration Dates Next Due Diptheria/Tetanus [...] Sign Reading Time Taken Comments Blood Pressure 92/60 08/19/2024 12:23 PM EST Pulse 88 08/19/2024 12:23 PM EST Temperature 36 C (96.8 F) 08/19/2024 12:23 PM EST Respiratory Rate 18 08/19/2024 12:23 PM EST Oxygen Saturation - - Inhaled Oxygen Concentration - - Weight 64 kg (141 lb) 08/19/2024 12:23 PM EST Height 165.1 cm (5' 5") 08/19/2024 12:23 PM EST Body Mass Index 23.46 08/19/2024 12:23 PM EST documented in this [...] documented in this encounter Progress Notes * Sean Macias MD - 08/20/2024 7:20 PM EST SUBJECTIVE: Caitlin Izquierdo is a 73 year old female. Chief Complaint Patient presents with Redness Pt c/o redness in BLE, pt states her legs are painful and at times she has discharge in legs HPI: Chronic stasis dermatitis now painful. Might be early cellulitis. No fevers. Needs pain meds for back refilled. Patient Active Problem List Diagnosis Type 2 diabetes mellitus with hemoglobin A1c goal of less than 8.0% (HCC) History of bariatric surgery Restless legs syndrome Lumbar disc disease History of radioactive iodine thyroid ablation Dyslipidemia RUY (generalized anxiety disorder) Postoperative hypothyroidism DM type 2 with diabetic peripheral neuropathy (HCC) Primary osteoarthritis of both knees HTN, goal below 140/90 Tobacco use disorder Gastroesophageal reflux disease with esophagitis COPD, group A, by GOLD 2017 classification (HCC) Peripheral arterial disease (HCC) Calcific aortic stenosis of bicuspid valve S/P carotid endarterectomy DM peripheral angiopathy (HCC) Subclavian artery stenosis, right (HCC) Overweight (BMI 25.0-29.9) Current Outpatient Medications Medication Sig Dispense Refill [...] by mouth daily.) 90 Tablet 5 Nystatin-Triamcinolone 982979-3.1 UNIT/GM-% External Cream (Mycolog) Apply topically to affected area 3 times a day. Apply to vulvar region 15 g 2 OneTouch Delica Lancets 33G Check blood sugar [...] UP TO 14 DAYS 22 g 1 Albuterol Sulfate HFA 108 (90 Base) MCG/ACT Inhalation Aerosol Solution INHALE TWO PUFFS BY MOUTH FOUR TIMES A DAY 18 g 3 Omeprazole 20 MG Oral Capsule Delayed Release [...] BREAKFAST OR OTHER MEALS 90 Tablet 2 Sulfamethoxazole-Trimethoprim 800-160 MG Oral Tablet (Bactrim DS) Take 1 Tablet by mouth in the morning and 1 Tablet before bedtime. Do all this for 10 days. Until gone.. 20 Tablet 0 Mupirocin 2 % External Ointment (Bactroban) Apply topically to affected area 3 times a day for 14 days. To affected area for up to 14 days. 22 g 1 HYDROcodone-Acetaminophen 5-325 MG Oral Tablet Take 1 Tablet by mouth every 6 hours as needed for Pain, Severe. 60 Tablet 0 OneTouch Ultra 2 w/Device Kit Check blood sugar one to two times daily. E11.9 1 Each 0 OneTouch Ultra Test In Vitro Strip (Glucose Blood) Check blood sugar one to two times daily. E11.9 100 Strip 3 No current facility-administered medications for this visit. Allergy: Review of patient's allergies indicates: Allergen Reactions Gabapentin Neuro complications (Please comment) Metformin Diarrhea OBJECTIVE: BP 92/60 | Pulse 88 | Temp 96.8 F (36 C) | Resp 18 | Ht 5' 5" (1.651 m) | Wt 141 lb (64 kg) | BMI 23.46 kg/m | BSA 1.71 m Gen: nad Ext: b/l stasis dermatitis ASSESSMENT AND PLAN: (I87.2) Stasis dermatitis of both legs (primary encounter diagnosis) Plan: will treat with abx for early cellulitis (M51.9) Lumbar disc disease Plan: HYDROcodone-Acetaminophen 5-325 MG Oral Tablet Follow up as needed. No other complaints were offered at this time. Sean Macias MD documented in this encounter Nursing Notes * Kelli Samson LPN - 08/19/2024 12:23 PM EST The patient has been properly identified by confirmation of name and date of . Chief Complaint Patient presents with Redness Pt c/o redness in BLE, pt states her legs are painful and at times she has discharge in legs documented in this encounter Plan of Treatment Upcoming Encounters Date Type Department Care Team (Late st Contact Info) Description 09/06/2024 2:30 PM EST Office Visit Cardiology, [facility] [address] [place] [address] Lupe Haile PA-C [address] [place] [address] 10/19/2024 10:20 AM EST Office Visit Family Practice [facility] [address] [place] [address] Sean Macias MD [address] [place] [address] Health Maintenance Due Date Last Done Comments [...] this encounter Medical Devices Implanted Type Area Technical Maintenance Technician Device Identifier Shelf Expiration Date Model / Serial / Lot Patch Xenosure [id number] - [id number] Implanted:Qty : 1 on 11/18/2022 by Sean Vitale MD at OR [facility] Left: Carotid [employer] [id number] 07/04/2028 E0.8P8 / [id number] / [id number] documented as of this encounter Visit Diagnoses Diagnosis DM type 2 with diabetic peripheral neuropathy (HCC)- Primary Type II or unspecified type diabetes mellitus with neurological manifestations, not stated as uncontrolled Advanced care planning/counseling discussion Other specified counseling Calcific aortic stenosis of bicuspid valve Congenital stenosis of aortic valve COPD, group A, by GOLD 2017 classification ([facility]) History of bariatric surgery Bariatric surgery [...] COPD, group A, by GOLD 2017 classification ([facility]) Type 2 diabetes mellitus with hemoglobin A1c goal of less than 8.0% ([facility]) Tobacco use disorder Stasis dermatitis of both legs- Primary Varicose veins of lower extremities with inflammation Lumbar disc disease Other and unspecified disc [...] patient or by statute hierarchy) Care Teams Automation And Controls Instructor Relationship Specialty Start Date End Date Sean Macias MD [address] [place] [phone] PCP - General Family Medicine 11/04/21 documented as of this encounter
--- OUTSIDE RECORDS SUMMARY | 2024-10-20 03:56 | External Medical Summary | Summary of Care ---
Author Name Unknown Organization [facility] Address [address] [place] [address] Phone [phone] Care Team Providers Care Cake Press Operator Name Role Phone Sean Macias MD Primary Care Provider [phone] Encounter Details Date Type Department Care Team (Late st Contact Info) Description 08/09/2024 Orders Only PATIENT PORTAL DO NOT DELETE THIS DEPT [facility] [place] [address] Allergies Active Allergy Reactions Criticality Noted Date Comments Gabapentin Neuro complications (Please comment) Medium 12/14/2013 Metformin Diarrhea Medium 07/17/2011 documented as of this encounter (statuses as of 08/09/2024) Medications MULTIVITAMINS PO TABS one tablet daily [...] Oral Daily(Non-Specified), Reported on 03/16/2024 Nystatin-Triamcino lone 603449-3.1 UNIT/GM-% External Cream (Mycolog) Apply topically to affected area 3 times a day. Apply to vulvar region 15 g 2 03/02/20 24 Active [employer]onetics Technologiesuch Ultra 2 w/Device Kit Check blood sugar one to two times daily. E11.9 1 Each 03/16/20 24 Active [employer] Ultra Test In Vitro Strip (Glucose Blood) Check blood sugar one to two times daily. E11.9 100 Strip 3 03/16/20 24 Active [employer] Delica Lancets 33G Check blood sugar [...] as of this encounter (statuses as of 08/09/2024) Active Problems Problem Noted Date Diagnosed Date [...] as of this encounter (statuses as of 08/09/2024) Resolved Problems Problem Noted Date Diagnosed Date [...] as of this encounter (statuses as of 08/09/2024) Immunizations Name Administration Dates Next Due Diptheria/Tetanus [...] 09/06/2024 2:30 PM EST Office Visit Cardiology, [address] [place] [address] Lupe Haile, BREANNA [address] [place] [address] 10/19/2024 10:20 AM EST Office Visit Family [facility] [address] [place] [address] Sean Macias MD [address] [place] [address] Health Maintenance Due Date Last Done Comments [...] 02/15/2024, 050 09/2023, 03/07/2022, Additional history exists GFR 03/16/2025 [...] this encounter Medical Devices Implanted Type Area Puller Out Device Identifier Shelf Expiration Date Model / Serial / Lot Patch Xenosure [id number] - [id number] Implanted:Qty : 1 on 11/18/2022 by Sean Vitale MD at [place] [facility] [place] Left: Carotid [employer] [id number] 07/04/2028 E0.8P8 / [id number] / [id number] documented as of this encounter Advance Directives [...] by patient or by statute hierarchy) Radha Nancy Adult Child Health Care Repr esentative (appointed verbally by patient or by statute hierarchy) Care Teams Cake Press Operator Relationship Specialty Start Date End Date Sean Macias MD [address] [place] [address] PCP - General Family Medicine 11/04/21 documented as of this encounter
--- OUTSIDE RECORDS SUMMARY | 2024-10-20 03:56 | External Medical Summary | Summary of Care ---
Author Name Unknown Organization [facility] Address [address] [place] [address] Phone [phone] Care Team Providers Care Drop Wire Hanger Name Role Phone Sudha Colin MD Primary Care Provider [phone] Reason for Visit * Reason Onset Date Comments Medication Refill 09/02/2024 Encounter Details Date Type Department Care Team (Late st Contact Info) Description 09/02/2024 Refill Family Practice [facility] [address] [place] [address] Sudha Colin MD [address] [place] [address] Lumbar disc disease Allergies Active Allergy Reactions Criticality Noted Date Comments Gabapentin Neuro complications (Please comment) Medium 12/14/2013 Metformin Diarrhea Medium 07/17/2011 documented as of this encounter (statuses as of 09/04/2024) Medications MULTIVITAMINS PO TABS one tablet daily [...] Oral Daily(Non-Specified), Reported on 08/19/2024 Nystatin-Triamcino lone 596891-8.1 UNIT/GM-% External Cream (Mycolog) Apply topically to affected area 3 times a day. Apply to vulvar region 15 g 2 03/02/20 24 Active [employer] Ultra 2 w/Device Kit Check blood sugar one to two times daily. E11.9 1 Each 03/16/20 24 Active OneTouch Ultra Test In Vitro Strip (Glucose Blood) Check blood sugar one to two times daily. E11.9 100 Strip 03/16/20 24 Active OneTouch Delica Lancets 33G [...] Pain, Severe. 60 Tablet 09/04/20 24 Active HYDROcodone-Acetam inophen 5-325 MG Oral TabletIndications: Lumbar disc disease Take 1 Tablet by mouth every 6 hours as needed for Pain, Severe. 60 Tablet 08/19/20 24 024 Discontin ued(Refil l) documented as of this encounter (statuses as of 09/04/2024) Active Problems Problem Noted Date Diagnosed Date [...] o Other/Additional Comments: no recent exac, call [facility] Exacerbation plan o Chest Xray Additional [...] as of this encounter (statuses as of 09/04/2024) Resolved Problems Problem Noted Date Diagnosed Date [...] as of this encounter (statuses as of 09/04/2024) Immunizations Name Administration Dates Next Due Diptheria/Tetanus [...] Telephone Encounter - Sudha Colin MD - 09/04/2024 10:20 AM ESTSigned Prescriptions: Disp Refills HYDROcodone-Acetaminophen 5-325 MG Oral Ta*60 Tab*0 Sig: Take 1 Tablet by mouth every 6 hours as needed for Pain, Severe. Authorizing Provider: SUDHA COLIN * Telephone Encounter - Ena Ball [facility] - 09/04/2024 7:56 AM EST Pending Prescriptions: Disp Refills HYDROcodone-Acetaminophen 5-325 MG Oral Ta*60 Tab*0 Sig: Take 1 Tablet by mouth every 6 hours as needed for Pain, Severe. * Telephone Encounter - Ena Ball [facility] - 09/04/2024 7:56 AM EST I have reviewed the patients controlled substance dispensing history in the Prescription Drug Monitoring Program in compliance with the [place] regulations before prescribing a controlled substance. PDMP checked on 09/04/2024. Pending Prescriptions: Disp Refills HYDROcodone-Acetaminophen 5-325 MG Oral T*60 Tab*0 Sig: Take 1 Tablet by mouth every 6 hours as needed for Pain, Severe. Last Visit: 08/19/2024 (in office), Visit date not found (telemedicine) Next Visit: 10/19/2024 Date medication was last filled: 08/21/24 Date medication is due for refill: 09/05/24 Pharmacy: [facility] [address] [place], [place] [id number] [facility] Is this request for a controlled substance? Yes and Urine Drug Screen was completed Toxicology results: Results for orders placed [...] Cutoff Concentration Please approve if appropriate. Thank you, Ena Ball, PharmD Clinical Pharmacist [facility] ([facility]) 09/04/24 7:56 AM [phone] * Telephone Encounter - Wendy Sigala CPhT - 09/02/2024 9:03 AM EST Did you pend patient's preferred pharmacy and medication before forwarding?yes Pharmacy: [facility] [address] [place], [place] [id number] [facility] Pending Prescriptions: Disp Refills HYDROcodone-Acetaminophen 5-325 MG Oral T*60 Tab*0 Sig: Take 1 Tablet by mouth every 6 hours as needed for Pain, Severe. Last Visit: 08/19/2024 (in office), Visit date not found (telemedicine) Next Visit: 10/19/2024 If no future appointments scheduled, and last appointment is greater than a year ago, please schedule patient for a follow-up appointment Last date the medication was ordered: Is this request for a controlled substance?Yes, What was the last refill date w/ quantity 60 and dosage 5/325mg and Urine Drug Screen Not completed Urine Drug Screen: Results for orders [...] Labs: Lab Results Component Value Date/Time CREAT 0.4 (L) 03/16/2024 12:49 PM CREAT 0.5 10/08/2021 12:00 AM CREAT 0.5 04/07/2018 10:25 AM POTASSIUM 4.4 03/16/2024 12:49 PM POTASSIUM 3.0 (L) 11/18/2022 09:57 AM POTASSIUM 5.0 10/08/2021 12:00 AM POTASSIUM 4.3 04/07/2018 10:25 AM TSH 0.73 02/15/2024 09:51 AM TSH 0.17 (L) 01/05/2019 08:24 AM LDL 44 01/06/2024 08:09 AM LDL 81 01/05/2019 08:24 AM LDL NOT APPLICABLE 01/05/2019 08:24 AM LDLCALC 119 11/20/2010 12:00 AM ALT 47 (H) 02/18/2024 01:40 PM ALT 18 04/07/2018 10:25 AM HGBA1C 7.2 (H) 01/06/2024 08:09 AM HGBA1C 8.0 (H) 01/05/2019 08:24 AM documented in this encounter Plan of Treatment Upcoming Encounters Date Type Department Care Team (Late st Contact Info) Description 09/06/2024 2:30 PM EST Office Visit Cardiology, [facility] [address] [place] [address] Lupe Haile PA-C [address] [place] [address] 10/19/2024 10:20 AM EST Office Visit Family Practice [facility] [address] [place] [address] Sudha Colin MD [address] [place] [address] Health Maintenance Due Date Last Done Comments Alpha-1 Antitrypsin 1968 O2 ASSESSMENT COMPLETED IN PAST YEAR FOR COPD 1968 Cologuard 1995 Sigmoidoscopy 1995 Zoster Vaccines (1 of 2) 2000 Fecal Occult Blood Test 02/25/2012 02/24/2011 DISCUSS TOBACCO CESSATION (REFER TO SMARTSET #7006) 10/02/2015 10/02/2014 Adult Wellness Visit 2016 *COPD [...] 10/29/2022, Additional history exists TSH 02/14/2025 02/15/2024, 0509/2023, 03/07/2022, Additional history exists GFR 03/16/2025 03/16/2024, 02/05, 02/15/2024, Additional history exists Colonoscopy 01/21/2028 01/20/2018, 01/20/2018 Colorectal Cancer Screening 01/21/2028 Lipid Panel 01/05/2029 01/06/2024, 07/0 09/2021, 03/05/2021, Additional history exists Hepatitis B Vaccine Aged Out 02/23/2001, 10/05/2000, 06/25/2000 No longer eligible based on patient's age to complete this topic Pneumococcal Vaccine: 50+ Years Completed 10/15/2016, 05/18/2015, 06/23/2005 COVID-19 Vaccine Discontinued HPV (Gardasil) Vaccine Aged Out No lo nger eligible based on patient's age to complete this topic MENINGOCOCCAL (MENACTRA/MENVEO) Aged Out No longer eligible based on patient's age to complete this topic documented as of this encounter Medical Devices Implanted Type Area Bakery Machine Mechanic Supervisor Device Identifier Shelf Expiration Date Model / Serial / Lot Patch Xenosure [id number] - [id number] Implanted:Qty : 1 on 11/18/2022 by Sudha Vitale MD at OR [facility] [place] Left: Carotid [employer] [id number] 07/04/2028 E0.8P8 / [id number] / [id number] documented as of this encounter Visit Diagnoses [...] less than 8.0% (HCC) Tobacco use disorder Lumbar disc disease Other and unspecified [...] Relationship Healthcare Agent Relationshi p Communication Brigid Canalesubb Adult Child Health Care Repr esentative (appointed verbally by patient or by statute hierarchy) Radha Cruz Adult Child Health Care Repr esentative (appointed verbally by patient or by statute hierarchy) Care Teams Drop Wire Hanger Relationship Specialty Start Date End Date Sudha Colin MD [address] [place] [address] PCP - General Family Medicine 11/04/21 documented as of this encounter
--- OUTSIDE RECORDS SUMMARY | 2024-10-20 03:56 | External Medical Summary | Summary of Care ---
Author Name Unknown Organization [facility] Address [address] [place] [address] Phone [phone] Care Team Providers Care Corporate Legal Intern Name Role Phone Sudha Colin MD Primary Care Provider [phone] Reason for Visit * Reason Comments eRx-Medication Refill Encounter Details Date Type Department Care Team (Late st Contact Info) Description 09/03/2024 Refill Family Practice [facility] [address] [place] [address] Sudha Colin MD [address] [place] [address] Bronchitis, complicated Allergies Active Allergy Reactions Criticality Noted Date Comments Gabapentin Neuro complications (Please comment) Medium 12/14/2013 Metformin Diarrhea Medium 07/17/2011 documented as of this encounter (statuses as of 09/03/2024) Medications MULTIVITAMINS PO TABS one tablet daily Active ASPIRIN EC 81 MG PO TBECIndications:D M type 2, goal A1c below 7 Take one pill daily 100 Tab 3 011 Active Fluconazole 150 MG Oral Tablet (Diflucan) Take 1 tablet by mouth every 72 hours x 3 doses, then one tablet per week x 3 months 15 Tablet 023 Active Clopidogrel Bisulfate 75 MG Oral Tablet (Plavix)Indicatio ns:Carotid stenosis, non-symptomatic, bilateral Take 1 Tablet by mouth in the morning. 30 Tablet 5 024 Active Diclofenac Sodium 1 % External Gel (Voltaren) Apply 2 g topically to affected area in the morning and 2 g at noon and 2 g before bedtime. Apply 2 g topically on the skin 3 times a day.. 100 g 3 024 Active Nortriptyline HCl 25 MG Oral Capsule (Pamelor)Indicati ons:DM type 2 with diabetic peripheral neuropathy (HCC) TAKE ONE CAPSULE BY MOUTH AT BEDTIME 90 Capsule 3 024 Active Midodrine HCl 5 MG Oral Tablet (Proamatine)Indic ations:Hypotensio n, unspecified hypotension type TAKE 1 TABLET BY MOUTH IN THE MORNING, 1 TABLET AT NOON AND 1 TABLET BEFORE BEDTIME 90 Tablet 5 024 Active Additional Information Patient taking differently: 5 mg Oral Daily(Non-Specified), Reported on 08/19/2024 Nystatin-Triamcin olone 572862-8.1 UNIT/GM-% External Cream (Active Endpoints) Apply topically to affected area 3 times a day. Apply to vulvar region 15 g 2 024 Active ShoutEmuch Ultra 2 w/Device Kit Check blood sugar one to two times daily. E11.9 1 Each 024 Active RingpayTouch Ultra Test In Vitro Strip (Glucose Blood) Check blood sugar one to two times daily. E11.9 100 Strip Active RingpayTouch Delica Lancets 33G Check blood sugar one to two times daily. E11.9 100 Each 3 024 Active Furosemide 20 MG Oral Tablet (Lasix) Take 1 Tablet by mouth in the morning. 30 Tablet 11 024 Active Atorvastatin Calcium 80 MG Oral Tablet (Lipitor)Indicati ons:Dyslipidemia Take 1 Tablet by mouth in the morning. 90 Tablet 2 024 Active Mupirocin 2 % External Ointment (Bactroban) APPLY TOPICALLY TO AFFECTED AREA 3 TIMES A DAY FOR UP TO 14 DAYS 22 g 1 024 Active Omeprazole 20 MG Oral Capsule Delayed Release (PriLOSEC)Indicat ions:Gastroesopha geal reflux disease with esophagitis TAKE ONE CAPSULE BY MOUTH EVERY DAY BEFORE BREAKFAST 30 Capsule 5 024 Active ALPRAZolam 0.5 MG Oral Tablet (xaNAX)Indication s:Generalized anxiety disorder TAKE ONE TABLET BY MOUTH TWICE A DAY NEEDED FOR ANXIETY 60 Tablet 024 Active Ozempic (1 MG/DOSE) 4 MG/3ML Subcutaneous Solution Pen-injector (Semaglutide (1 MG/DOSE))Indicati ons:DM type 2 with diabetic peripheral neuropathy (HCC) Inject 1 mg under the skin once a week. (Patient assistance) 3 mL 024 Active Levothyroxine Sodium 100 MCG Oral Tablet (Levoxyl)Indicati ons:Toxic diffuse goiter,Postoperat justin hypothyroidism TAKE ONE TABLET BY MOUTH EVERY DAY AT LEAST 30 MINUTES PRIOR TO BREAKFAST OR OTHER MEALS 90 Tablet 2 024 Active HYDROcodone-Aceta minophen 5-325 MG Oral TabletIndications :Lumbar disc disease Take 1 Tablet by mouth every 6 hours as needed for Pain, Severe. 60 Tablet 024 Active Albuterol Sulfate HFA 108 (90 Base) MCG/ACT Inhalation Aerosol SolutionIndicatio ns:Bronchitis, complicated INHALE TWO PUFFS BY MOUTH FOUR TIMES A DAY 18 g 3 024 Active Albuterol Sulfate HFA 108 (90 Base) MCG/ACT Inhalation Aerosol SolutionIndicatio ns:Bronchitis, complicated INHALE TWO PUFFS BY MOUTH FOUR TIMES A DAY 18 g 3 024 2023 Discontinued documented as of this encounter (statuses as of 09/03/2024) Active Problems Problem Noted Date Diagnosed Date [...] o Other/Additional Comments: no recent exac, call [facility] Exacerbation plan o Chest Xray Additional [...] as of this encounter (statuses as of 09/03/2024) Resolved Problems Problem Noted Date Diagnosed Date [...] as of this encounter (statuses as of 09/03/2024) Immunizations Name Administration Dates Next Due Diptheria/Tetanus [...] encounter Miscellaneous Notes * Telephone Encounter - Jose Sampson [facility] - 09/03/2024 7:34 PM ESTSigned Prescriptions: Disp Refills Albuterol Sulfate HFA 108 (90 Base) MCG/AC*18 g 3 Sig: INHALE TWO PUFFS BY MOUTH FOUR TIMES A DAYAuthorizing Provider: SUDHA COLIN User: JOSE SAMPSON documented in this encounter Plan of Treatment Upcoming Encounters Date Type Department Care Team (Late st Contact Info) Description 09/06/2024 2:30 PM EST Office Visit Cardiology, [facility] [address] [address] Lupe Haile PA-C [address] [place] [address] 10/19/2024 10:20 AM EST Office Visit Family Practice [facility] [address] [address] Sudha Colin MD [address] [place] [address] Health Maintenance Due Date Last Done Comments Alpha-1 Antitrypsin 1968 O2 ASSESSMENT COMPLETED IN PAST YEAR FOR COPD 1968 Cologuard 1995 Sigmoidoscopy 1995 Zoster Vaccines (1 of 2) 2000 Fecal Occult Blood Test 02/25/2012 02/24/2011 DISCUSS TOBACCO CESSATION (REFER TO SMARTSET #0251) 10/02/2015 10/02/2014 Adult Wellness Visit 2016 *COPD [...] this encounter Medical Devices Implanted Type Area Composing Machine Operator/Tender Device Identifier Shelf Expiration Date Model / Serial / Lot Patch Xenosure [id number] - [id number] Implanted:Qty : 1 on 11/18/2022 by Sudha Vitale [place] [facility] [place]: Carotid [employer] [id number] 07/04/2028 E0.8P8 / [id number] / [id number] documented as of this encounter Visit Diagnoses [...] less than 8.0% (HCC) Tobacco use disorder Bronchitis, complicated Bronchitis, not specified as acute or chronic documented in this encounter Advance Directives * [...] patient or by statute hierarchy) Care Teams Corporate Legal Intern Relationship Specialty Start Date End Date Sudha Colin MD [address] [place] [address] PCP - General Family Medicine 11/04/21 documented as of this encounter
--- OUTSIDE RECORDS SUMMARY | 2024-10-20 03:57 | External Medical Summary | Summary of Care ---
Author Name Unknown Organization [facility] Address [address] [place] [address] Phone [phone] Care Team Providers Care Grain Mill Worker Name Role Phone Sean Macias MD Primary Care Provider [phone] Reason for Visit * Reason Onset Date Comments Medication Question 06/06/2024 Encounter Details Date Type Department Care Team ([facility] st Contact Info) Description 06/06/2024 Telephone Centralized Clinical Pharmacy Services, Judd Calixto [address] [place] [address] [place] [address] Pharmacist1, [address] [address] Medication Question Allergies Active Allergy Reactions Criticality Noted Date Comments Gabapentin Neuro complications (Please comment) Medium 12/14/2013 Metformin Diarrhea Medium 07/17/2011 documented as of this encounter (statuses as of 06/13/2024) Medications Medication Sig Dispensed Refills Start Date End Date Status MULTIVITAMINS PO TABS one tablet daily Active ASPIRIN EC 81 MG PO TBECIndications:DM type 2, goal A1c below 7 Take one pill daily 100 Tab 3 11/27/2010 Active Fluconazole 150 MG Oral Tablet (Diflucan) Take 1 tablet by mouth every 72 hours x 3 doses, then one tablet per week x 3 months 15 Tablet 11/26/2022 Active Levothyroxine Sodium 100 MCG Oral Tablet (Levoxyl)Indication s:Toxic diffuse goiter,Postoperativ e hypothyroidism TAKE ONE TABLET BY MOUTH EVERY DAY AT LEAST 30 MINUTES PRIOR TO BREAKFAST OR OTHER MEALS 30 Tablet 11 06/22/2023 Active Clopidogrel Bisulfate 75 MG Oral Tablet (Plavix)Indications :Carotid stenosis, non-symptomatic, bilateral Take 1 Tablet by mouth in the morning. 30 Tablet 5 09/28/2023 Active Diclofenac Sodium 1 % External Gel (Voltaren) Apply 2 g topically to affected area in the morning and 2 g at noon and 2 g before bedtime. Apply 2 g topically on the skin 3 times a day.. 100 g 3 12/03/2023 Active Nortriptyline HCl 25 MG Oral Capsule (Pamelor)Indication s:DM type 2 with diabetic peripheral neuropathy (HCC) TAKE ONE CAPSULE BY MOUTH AT BEDTIME 90 Capsule 3 01/21/2024 Active Midodrine HCl 5 MG Oral Tablet (Proamatine)Indicat ions:Hypotension, unspecified hypotension type TAKE 1 TABLET BY MOUTH IN THE MORNING, 1 TABLET AT NOON AND 1 TABLET BEFORE BEDTIME 90 Tablet 5 01/21/2024 Active Additional Information Patient taking differently: 5 mg Oral Daily(Non-Specified), Reported on 03/16/2024 Nystatin-Triamcinol one 115503-1.1 UNIT/GM-% External Cream (OBOOK) Apply topically to affected area 3 times a day. Apply to vulvar region 15 g 2 03/02/2024 Active [employer] Ultra 2 w/Device Kit Check blood sugar one to two times daily. E11.9 1 Each 03/16/2024 Active PopJamuch Ultra Test In Vitro Strip (Glucose Blood) Check blood sugar one to two times daily. E11.9 100 Strip 3 03/16/2024 Active PopJam[employer] Delica Lancets 33G Check blood sugar one to two times daily. E11.9 100 Each 3 03/16/2024 Active Furosemide 20 MG Oral Tablet (Lasix) Take 1 Tablet by mouth in the morning. 30 Tablet 11 03/16/2024 Active Atorvastatin Calcium 80 MG Oral Tablet (Lipitor)Indication s:Dyslipidemia Take 1 Tablet by mouth in the morning. 90 Tablet 2 03/21/2024 Active Mupirocin 2 % External Ointment (Bactroban) APPLY TOPICALLY TO AFFECTED AREA 3 TIMES A DAY FOR UP TO 14 DAYS 22 g 1 03/30/2024 Active Albuterol Sulfate HFA 108 (90 Base) MCG/ACT Inhalation Aerosol SolutionIndications :Bronchitis, complicated INHALE TWO PUFFS BY MOUTH FOUR TIMES A DAY 18 g 3 04/25/2024 Active Omeprazole 20 MG Oral Capsule Delayed Release (PriLOSEC)Indicatio ns:Gastroesophageal reflux disease with esophagitis TAKE ONE CAPSULE BY MOUTH EVERY DAY BEFORE BREAKFAST 30 Capsule 5 04/25/2024 Active ALPRAZolam 0.5 MG Oral Tablet (xaNAX)Indications: Generalized anxiety disorder TAKE ONE TABLET BY MOUTH TWICE A DAY NEEDED FOR ANXIETY 60 Tablet 05/19/2024 Active Ozempic (1 MG/DOSE) 4 MG/3ML Subcutaneous Solution Pen-injector (Semaglutide (1 MG/DOSE))Indication s:DM type 2 with diabetic peripheral neuropathy (HCC) Inject 1 mg under the skin once a week. (Patient assistance) 3 mL 06/06/2024 Active Ozempic (1 MG/DOSE) 4 MG/3ML Subcutaneous Solution Pen-injector (Semaglutide (1 MG/DOSE)) Inject 1 mg under the skin once a week. (Patient assistance) 09/18/2023 4 Discontinu ed(Refill) HYDROcodone-Acetami nophen 5-325 MG Oral TabletIndications:L umbar disc disease Take 1 Tablet by mouth every 6 hours as needed for Pain, Severe. 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 DM peripheral angiopathy 01/07/2023 S/P carotid endarterectomy 11/18/2022 Calcific aortic stenosis of bicuspid valve 06/11 Last Assessment & Plan: Followed by cardiology with annual echo Peripheral arterial disease 06/05/2021 COPD, group A, by GOLD 2017 classification 02/12 Overview: Per COPD GOLD Classification Last Assessment & Plan: Current Status : "Stable" for patient / [...] 40mg bid x 5 days, oral abx Gastroesophageal reflux disease with esophagitis 01/26/2019 Tobacco use disorder 12/21/2018 Last Assessment & Plan: Recommend cessation of tobacco use Primary osteoarthritis of both knees 11/29/2018 DM type 2 with diabetic peripheral neuropathy Last Assessment & Plan: "RED FLAG" Diabetic symptoms: o Other: none [...] meds she cannot afford. Postoperative hypothyroidism 04/01/2018 Overview: I 131 History of radioactive iodine thyroid ablation 0 04/13/2017 Dyslipidemia 04/13/2017 RUY (generalized anxiety disorder) 04/13/2017 Lumbar disc disease 03/25/2012 Overview: L5 NERVE ROOT PRESSURE ON RIGHT. Restless legs syndrome 02/19/2011 Type 2 diabetes mellitus wit h hemoglobin A1c goal of less than 8.0% 11/19/2010 Overview: ICD-10 update of inactive term Last Assessment & Plan: Current Status: "Stable" for patient / At [...] as of this encounter (statuses as of 06/13/2024) Resolved Problems Problem Noted Date Diagnosed Date Resolved Date Hypotension 01/07/2023 08/12/2023 Last Assessment & Plan: BP 118/72 during visit. However, has had a few readings SBP<100 since prior provider visit in January - note BP logs in visit note. Will hold off on weaning midodrine for now and patient is agreeable. Patient is asymptomatic. Recommend compression stocking daily - remove hs Aortic atherosclerosis 01/07/202308/12 Last Assessment & Plan: Aortic Atherosclerosis noted on prior imaging. Continue [...] exacerbation 12/21/2018 01/19/2019 Plantar fasciitis 04/01/2018 12/21/2018 Overview: Left- injected April 01, 2018 Hx of [...] for routine gyneco logical examination 02/19/2011 01/02/2012 Overview: ICD-10 update of inactive term II A [...] as of this encounter (statuses as of 06/13/2024) Immunizations Name Administration Dates Next Due Diptheria/Tetanus [...] years and over) Not on file 02/23/2024 Sex and Gender Information Value Date Recorded Sex Assigned at Female 12/21/2018 11:08 AM EDT Gender Identity Female 12/21/2018 11:08 AM EDT Sexual Orientation Straight 12/21/2018 11 :08 AM EDT Job Start Date Occupation Industry Not on file Not on file Not on file documented as of this encounter Functional Status Functional Status Response Date of Assess ment Are you deaf or do you have serious difficulty h earing? No 11/18/2022 Are you blind or do you have serious difficulty seeing, even when wearing glasses? No 11/18/2022 Do you have serious difficul ty walking or climbing stairs? (5 years old or older) No 11/18/2022 Do you have difficulty dress ing or bathing? (5 years old or older) No 11/18/2022 Because of a physical, menta l, or emotional condition, do you have difficulty doing errands alone such as visiting a doctor s office or shopping? (15 years old or older) No 11/19/19 23 Cognitive Status Response Date of Assessm ent Because of a physical, menta l, or emotional condition, do you have serious difficulty concentrating, remembering, or making decisions? (5 years old or older) No 11/18/2022 documented as of this encounter Miscellaneous Notes * Telephone Encounter - Aydee Boateng consulting senior practice director - 06/13/2024 1:11 PM EDT Patient calling stating the dr office did not receive the ozempic. Reached out to providers office and they advised that they did not receive the shipment. Advised they can call [phone] . Thank you, Aydee Boateng Motor And Generator Brush Maker I [facility] ([facility]) 06/13/2024,1:18 PM * Telephone Encounter - Eileen Ann RPh - 06/06/2024 2:46 PM EDT Patient needs to call [facility] patient assistance to inquire about shipment. Patient Phone Numbers 2:52 PM - Home phone - no answer, mailbox full and cannot leave a message 2:52 PM - Reached patient on mobile phone. Provided patient phone number. Sent in Rx as requested in the event that shipment is delayed/. Eileen Ann RPH Clinical Pharmacist 06/06/2024, 2:53 PM * Telephone Encounter - Vikki Combs consulting senior practice director - 06/06/2024 2:28 PM EDT Caller's name: Caitlin Preferred call back number(OFFICE NUMBER FOR ): [phone] Reason for call: Pt calling about her Ozempic asking why she isnt receiving yet. Please return her call. Thank you, Vikki Combs Car Distributor [facility] 06/06/2024,2:29 PM documented in this encounter Plan of Treatment Upcoming Encounters Date Type Department Care Team (Late st Contact Info) Description 10/19/2024 10:20 AM EST Office Visit Family [facility] [address] [place] [address] Sean Macias MD [address] [place] [address] Health Maintenance Due Date Last Done Comments [...] this encounter Medical Devices Implanted Type Area Revenue Enforcement Collection Agent Device Identifier Shelf Expiration Date Model / Serial / Lot Patch Xenosure [id number] - [id number] Implanted:Qty : 1 on 11/18/2022 by Sean Vitale MD at [facility] Left: Carotid [employer] [id number] 07/04/2028 E0.8P8 / [id number] / [id number] documented as of this encounter Visit Diagnoses [...] patient or by statute hierarchy) Care Teams Grain Mill Worker Relationship Specialty Start Date End Date Sean Macias MD [address] [address] PCP - General Family Medicine 11/04/21 documented as of this encounter
--- OUTSIDE RECORDS SUMMARY | 2024-10-20 03:57 | External Medical Summary | Summary of Care ---
Author Name Unknown Organization [facility] Address [address] [place] [address] Phone [phone] Care Team Providers Care Flooring Salesperson Name Role Phone Sudha Colin MD Primary Care Provider [phone] Reason for Visit * Reason Onset Date Comments Medication Refill 07/20/2024 Encounter Details Date Type Department Care Team (Late st Contact Info) Description 07/20/2024 Refill Family Practice [facility] [address] [place] [address] Sudha Colin MD [address] [place] [address] Lumbar disc disease Allergies Active Allergy Reactions Criticality Noted Date Comments Gabapentin Neuro complications (Please comment) Medium 12/14/2013 Metformin Diarrhea Medium 07/17/2011 documented as of this encounter (statuses as of 07/22/2024) Medications MULTIVITAMINS PO TABS one tablet daily [...] Oral Daily(Non-Specified), Reported on 03/16/2024 Nystatin-Triamcino lone 858677-2.1 UNIT/GM-% External Cream (Mycolog) Apply topically to affected area 3 times a day. Apply to vulvar region 15 g 2 03/02/20 24 Active SVTC TechnologiesTouch Ultra 2 w/Device Kit Check blood sugar [...] FOR UP TO 14 DAYS 22 g 03/30/20 24 Active Albuterol Sulfate HFA 108 [...] as needed for Pain, Severe. 60 Tablet 07/22/20 24 Active HYDROcodone-Acetam inophen 5-325 MG Oral TabletIndications: Lumbar disc disease Take 1 Tablet by mouth every 6 hours as needed for Pain, Severe. 60 Tablet 07/06/20 24 024 Discontin ued(Refil l) documented as of this encounter (statuses as of 07/22/2024) Active Problems Problem Noted Date Diagnosed Date [...] as of this encounter (statuses as of 07/22/2024) Resolved Problems Problem Noted Date Diagnosed Date [...] as of this encounter (statuses as of 07/22/2024) Immunizations Name Administration Dates Next Due Diptheria/Tetanus [...] Telephone Encounter - Sudha Colin MD - 07/22/2024 10:19 AM ESTSigned Prescriptions: Disp Refills HYDROcodone-Acetaminophen 5-325 MG Oral Ta*60 Tab*0 Sig: Take 1 Tablet by mouth every 6 hours as needed for Pain, Severe. Authorizing Provider: SUDHA COLIN * Telephone Encounter - Elda Stovall [facility] - 07/22/2024 9:40 AM ESTPending Prescriptions: Disp Refills HYDROcodone-Acetaminophen 5-325 MG Oral Ta*60 Tab*0 Sig: Take 1 Tablet by mouth every 6 hours as needed for Pain, Severe. * Telephone Encounter - Elda Stovall [facility] - 07/22/2024 9:39 AM EST I have reviewed the patients controlled substance dispensing history in the Prescription Drug Monitoring Program in compliance with the [facility] regulations before prescribing a controlled substance. PDMP checked on 07/22/2024. Pending Prescriptions: Disp Refills HYDROcodone-Acetaminophen 5-325 MG Oral T*60 Tab*0 Sig: Take 1 Tablet by mouth every 6 hours as needed for Pain, Severe. Last Visit: 03/16/2024 (in office), Visit date not found (telemedicine) Next Visit: 10/19/2024 Date medication was last filled: 07/06/24 Date medication is due for refill: 07/20/24 Pharmacy: [id number] [facility] [place] Is this request for a controlled [...] TESTING. Cutoff Concentration Please approve if appropriate. Thanks, Elda Stovall, PharmD Clinical Pharmacist Centralized Clinical Pharmacy Services [phone] 07/22/2024 9:39 AM * Telephone Encounter - Naomi Chavez CPhT - 07/20/2024 4:14 PM EST Did you pend patient's preferred pharmacy and medication before forwarding?yes Pharmacy: [facility] [phone] [facility] [place] Pending Prescriptions: Disp Refills HYDROcodone-Acetaminophen 5-325 MG Oral T*60 Tab*0 Sig: Take 1 Tablet by mouth every 6 hours as needed for Pain, Severe. Last Visit: 03/16/2024 (in office), Visit date not found (telemedicine) Next Visit: 10/19/2024 If no future appointments scheduled, and last appointment is greater than a year ago, please schedule patient for a follow-up appointment Last date the medication was ordered: 07/06/2024 Is this request for a controlled substance?Yes, What was the last refill date 07/06/2024 w/ quantity 60 and dosage 1 every 6 hours and Urine Drug Screen was completed Urine [...] 09/06/2024 2:30 PM EST Office Visit Cardiology, [facility] [address] [address] Lupe Haile PA-C [address] [address] 10/19/2024 10:20 AM EST Office Visit Family Practice [facility] [address] [address] Sudha Colin MD [address] [address] Health Maintenance Due Date Last Done Comments Alpha-1 Antitrypsin 1968 Cologuard 1995 Sigmoidoscopy 1995 Zoster Vaccines (1 of 2) 2000 Fecal Occult Blood Test 02/25/2012 02/24/2011 DISCUSS TOBACCO CESSATION (REFER TO SMARTSET #5856) 10/02/2015 10/02/2014 Adult Wellness Visit 2016 *COPD [...] this encounter Medical Devices Implanted Type Area Room Service Runner Device Identifier Shelf Expiration Date Model / Serial / Lot Patch Xenosure [id number] - [id number] Implanted:Qty : 1 on 11/18/2022 by Sudha Vitale MD at [place] [facility] [place] Left: Carotid [employer] [id number] 07/04/2028 E0.8P8 / [id number] / [id number] documented as of this encounter Visit Diagnoses [...] patient or by statute hierarchy) Care Teams Flooring Salesperson Relationship Specialty Start Date End Date Sudha Colin MD [address] [place] [address] PCP - General Family Medicine 11/04/21 documented as of this encounter
--- OUTSIDE RECORDS SUMMARY | 2024-10-20 03:57 | External Medical Summary | Summary of Care ---
Author Name Unknown Organization [facility] Address [address] [place] [address] Phone [phone] Care Team Providers Care Retort Forker Name Role Phone Sean Macias MD Primary Care Provider [phone] Reason for Referral * Evaluate & Treat - Unlimited Visits (Within 10 days (routine)) - Authorized Specialty Diagnoses / Procedures Referred By Contact Referred To Contact Cardiovascular Medicine / Cardiology Diagnoses Calcific aortic stenosis of bicuspid valve Sean Macias MD [address] [place] [address] Phone: tel: fax: Referral ID Status Reason Start Date Expiration Date Visits Requested Visits Authorized [id number] Authorized Specialty Services Required 4 999 999 Question Answer Referral Priority Within 10 days (routine) Where should this appointment be scheduled? [facility] To which of the following clinics are you referring your patient? General Cardiology Clinic Encounter Details Date Type Department Care Team (Late st Contact Info) Description 07/04/2024 Telephone Family Practice [facility] [address] [place] [address] Sean Macias MD [address] [place] [address] Allergies Active Allergy Reactions Criticality Noted Date Comments Gabapentin Neuro complications (Please comment) Medium 12/14/2013 Metformin Diarrhea Medium 07/17/2011 documented as of this encounter (statuses as of 07/15/2024) Medications MULTIVITAMINS PO TABS one tablet daily [...] by mouth in the morning. 30 Tablet 09/28/19 24 Active Diclofenac Sodium 1 % [...] AND 1 TABLET BEFORE BEDTIME 90 Tablet 01/21/20 24 Active Additional Information Patient taking differently: 5 mg Oral Daily(Non-Specified), Reported on 03/16/2024 Nystatin-Triamcino lone 635644-8.1 UNIT/GM-% External Cream (Mycolog) Apply topically to affected area 3 times a day. Apply to vulvar region 15 g 2 03/02/20 24 Active KoolSpan Ultra 2 w/Device Kit Check blood sugar one to two times daily. E11.9 1 Each 03/16/20 24 Active Muutuch Ultra Test In Vitro Strip (Glucose Blood) Check blood sugar one to two times daily. E11.9 100 Strip 3 03/16/20 24 Active Muutuch Delica Lancets 33G Check blood sugar one [...] MEALS 90 Tablet 2 06/22/20 24 Active documented as of this encounter (statuses as of 07/15/2024) Active Problems Problem Noted Date Diagnosed Date [...] as of this encounter (statuses as of 07/15/2024) Resolved Problems Problem Noted Date Diagnosed Date [...] as of this encounter (statuses as of 07/15/2024) Immunizations Name Administration Dates Next Due Diptheria/Tetanus [...] encounter Miscellaneous Notes * Telephone Encounter - Shukri Pereira OSA - 07/04/2024 11:58 AM EDT Called patient, she is aware of the date and time on: RETURN CARDIOLOGY at 2:30 PM (30 min)Arrive by 2:15 PM Friday September 06, 2024 Appointment Provider:Lupe Haile PA-C in CARDIOLOGY [facility] * Telephone Encounter - Shukri Pereira OSA - 07/04/2024 11:55 AM EDT Patient has been scheduled on: RETURN CARDIOLOGY at 2:30 PM (30 min)Arrive by 2:15 PM Friday September 06, 2024 Appointment Provider:Lupe Haile PA-C in CARDIOLOGY [facility] * Telephone Encounter - Sean Macias MD - 07/04/2024 11:40 AM EDT Patient has completely fallen out of cardiology follow up. Please schedule SOLA. documented in this encounter Plan of Treatment Upcoming Encounters Date Type Department Care Team (Late st Contact Info) Description 09/06/2024 2:30 PM EST Office Visit Cardiology, [address] [place] [address] Lupe Haile PA-C [address] [place] [address] 10/19/2024 10:20 AM EST Office Visit Family Practice [facility] [address] [place] [address] Sean Macias MD [address] [place] [address] Scheduled Referrals Name Type Priority Associated Diagnoses Orde r Schedule CARDIOLOGY REFERRAL OP Referral Within 10 days (routine) Calcific aortic stenosis of bicuspid valve Ordered: 07/04/2024 Health Maintenance Due Date Last Done Comments [...] this encounter Medical Devices Implanted Type Area Lead Burner Device Identifier Shelf Expiration Date Model / Serial / Lot Patch Xenosure [id number] - [id number] Implanted:Qty : 1 on 11/18/2022 by Sean Vitale MD at [facility] Left: Carotid [employer] [id number] 07/04/2028 E0.8P8 / [id number] / [id number] documented as of this encounter Visit Diagnoses [...] group A, by GOLD 2017 classification ([facility]) Type 2 diabetes mellitus with hemoglobin A1c goal of less than 8.0% (HCC) Tobacco use disorder Calcific aortic stenosis of bicuspid valve- Primary Congenital stenosis of aortic valve documented in this encounter Advance Directives * [...] patient or by statute hierarchy) Care Teams Retort Forker Relationship Specialty Start Date End Date Sean Macias MD [address] [place] [address] PCP - General Family Medicine 11/04/21 documented as of this encounter
--- OUTSIDE RECORDS SUMMARY | 2024-10-20 03:57 | External Medical Summary | Summary of Care ---
Author Name Unknown Organization [facility] Address [address] [place] [address] Phone [phone] Care Team Providers Care Shot Peen Operator Name Role Phone Sudha Colin MD Primary Care Provider [phone] Reason for Referral * Medication Prior Authorization - Closed Specialty Diagnoses / Procedures Referred By Contac t Referred To Contact Diagnoses Lumbar disc disease Sudha Colin MD [address] [place] [address] Referral ID Status Reason Start Date Expiration Date Visits Re quested Visits Authorized [id number] Closed 999 999 Reason for Visit * Reason Onset Date Comments Medication Refill 07/05/2024 Encounter Details Date Type Department Care Team (Late st Contact Info) Description 07/05/2024 Refill Family Practice [facility] [address] [place] [facility] [place] [address] Sudha Colin MD [address] [place] [address] Lumbar disc disease Allergies Active Allergy Reactions Criticality Noted Date Comments Gabapentin Neuro complications (Please comment) Medium 12/14/2013 Metformin Diarrhea Medium 07/17/2011 documented as of this encounter (statuses as of 07/06/2024) Medications Medication Sig Dispensed Refills Start Date [...] x 3 months 15 Tablet 11/26/2022 Active Clopidogrel Bisulfate 75 MG Oral Tablet [...] Oral Daily(Non-Specified), Reported on 03/16/2024 Nystatin-Triamcinol one 294204-6.1 UNIT/GM-% External Cream (Specialized Vascular Technologiesolog) Apply topically to affected area 3 times a day. Apply to vulvar region 15 g 2 03/02/2024 Active Primo.iouch Ultra 2 w/Device Kit Check blood sugar one to two times daily. E11.9 1 Each 03/16/2024 Active Uanbai Ultra Test In Vitro Strip (Glucose Blood) Check blood sugar one to two times daily. E11.9 100 Strip 3 03/16/2024 Active Primo.iouch Delica Lancets 33G Check blood sugar one to two times daily. E11.9 100 Each 03/16/2024 Active Furosemide 20 MG Oral Tablet [...] week. (Patient assistance) 3 mL 06/06/2024 Active Levothyroxine Sodium 100 MCG Oral Tablet (Levoxyl)Indication s:Toxic diffuse goiter,Postoperativ e hypothyroidism TAKE ONE TABLET BY MOUTH EVERY DAY AT LEAST 30 MINUTES PRIOR TO BREAKFAST OR OTHER MEALS 90 Tablet 2 06/22/2024 Active HYDROcodone-Acetami nophen 5-325 MG Oral TabletIndications:L umbar disc disease Take 1 Tablet by mouth every 6 hours as needed for Pain, Severe. 60 Tablet 07/06/2024 Active HYDROcodone-Acetami nophen 5-325 MG Oral TabletIndications:L umbar disc disease Take 1 Tablet by mouth every 6 hours as needed for Pain, Severe. 60 Tablet 06/22/2024 4 Discontinu ed(Refill) documented as of this encounter (statuses as of 07/06/2024) Active Problems Problem Noted Date Diagnosed Date [...] as of this encounter (statuses as of 07/06/2024) Resolved Problems Problem Noted Date Diagnosed Date [...] as of this encounter (statuses as of 07/06/2024) Immunizations Name Administration Dates Next Due Diptheria/Tetanus [...] (15 years old or older) No 11/19/19 Cognitive Status Response Date of Assessm ent Because of a physical, menta l, or emotional condition, do you have serious difficulty concentrating, remembering, or making decisions? (5 years old or older) No 11/18/2022 documented as of this encounter Miscellaneous Notes * Telephone Encounter - Sudha Colin MD - 07/06/2024 4:45 PM EDTSigned Prescriptions: Disp Refills HYDROcodone-Acetaminophen 5-325 MG Oral Ta*60 Tab*0 Sig: Take 1 Tablet by mouth every 6 hours as needed for Pain, Severe. Authorizing Provider: SUDHA COLIN * Telephone Encounter - Hector Ricks RPh - 07/06/2024 1:52 PM EDTPending Prescriptions: Disp Refills HYDROcodone-Acetaminophen 5-325 MG Oral Ta*60 Tab*0 Sig: Take 1 Tablet by mouth every 6 hours as needed for Pain, Severe. * Telephone Encounter - GaHector floodMaddi - 07/06/2024 1:51 PM EDT I have reviewed the patients controlled substance dispensing history in the Prescription Drug Monitoring Program in compliance with the [facility] regulations before prescribing a controlled substance. PDMP checked on 07/06/2024. Pending Prescriptions: Disp Refills HYDROcodone-Acetaminophen 5-325 MG Oral T*60 Tab*0 Sig: Take 1 Tablet by mouth every 6 hours as needed for Pain, Severe. Last Visit: 03/16/2024 (in office), Visit date not found (telemedicine) Next Visit: 10/19/2024 Date medication was last filled: 06/22/24 Date medication is due for refill: 07/07/24 Pharmacy: [facility] [address]- [place] Is this request for a controlled substance? [...] Cutoff Concentration Please approve if appropriate. Thanks, Hector Ricks Rph, Pharm D. Clinical Pharmacist Centralized Clinical [facility]acy Services/[facility] [phone] 07/06/2024,1:51 PM * Telephone Encounter - Mayda Hughes PHARM Tech - 07/05/2024 11:14 AM EDT Did you pend patient's preferred pharmacy and medication before forwarding?yes Pharmacy: [id number] [address] [facility] [place] Pending Prescriptions: Disp Refills HYDROcodone-Acetaminophen [...] appointment Last date the medication was ordered: 06/22/24 Is this request for a controlled substance?Yes, What was the last refill date 06/22/24 w/ quantity 60 and dosage 5-325mg and Urine Drug Screen Not completed Urine [...] 09/06/2024 2:30 PM EST Office Visit Cardiology, [address] [place] [address] Lupe Haile PA-C [address] [place] [address] 10/19/2024 10:20 AM EST Office Visit Family Practice [facility] [address] [place] [address] Sudha Colin MD [address] [place] [address] Health Maintenance Due Date Last Done Comments [...] this encounter Medical Devices Implanted Type Area Claims Service Representative Device Identifier Shelf Expiration Date Model / Serial / Lot Patch Xenosure [id number] - [id number] Implanted:Qty : 1 on 11/18/2022 by Sudha Vitale MD at [facility] Left: Carotid [employer] [id number] 07/04/2028 E0.8P8 / [id number] / [id number] documented as of this encounter Visit Diagnoses Diagnosis Lumbar disc disease Other and unspecified disc [...] patient or by statute hierarchy) Care Teams Shot Peen Operator Relationship Specialty Start Date End Date Sudha Colin MD [address] [place] [address] PCP - General Family Medicine 11/04/21 documented as of this encounter
--- OUTSIDE RECORDS SUMMARY | 2024-10-20 03:57 | External Medical Summary | Summary of Care ---
Author Name Unknown Organization [facility] Address [address] [place] [address] Phone [phone] Care Team Providers Care Data Control Assistant Name Role Phone Sean Macias MD Primary Care Provider [phone] Reason for Visit * Reason Onset Date Comments Medication Refill 06/03/2024 Returning Call 06/03/2024 Encounter Details Date Type Department Care Team (Late st Contact Info) Description 06/03/2024 Telephone Family Practice [facility] [address] [facility] [place] [address] Sean Macias MD [address] [place] [address] Medication Refill; Returning Call Allergies Active Allergy Reactions Criticality Noted Date Comments Gabapentin Neuro complications (Please comment) Medium 12/14/2013 Metformin Diarrhea Medium 07/17/2011 documented as of this encounter (statuses as of 06/09/2024) Medications Medication Sig Dispensed Refills Start Date [...] CAPSULE BY MOUTH AT BEDTIME 90 Capsule 01/21/2024 Active Midodrine HCl 5 MG Oral Tablet (Proamatine)Indicat ions:Hypotension, unspecified hypotension type TAKE 1 TABLET BY MOUTH IN THE MORNING, 1 TABLET AT NOON AND 1 TABLET BEFORE BEDTIME 90 Tablet 01/21/2024 Active Additional Information Patient taking differently: 5 mg Oral Daily(Non-Specified), Reported on 03/16/2024 Nystatin-Triamcinol one 926374-7.1 UNIT/GM-% External Cream (Mycolog) Apply topically to affected area 3 times a day. Apply to vulvar region 15 g 2 03/02/2024 Active Insane LogicTouch Ultra 2 w/Device Kit Check blood sugar one to two times daily. E11.9 1 Each 03/16/2024 Active Insane LogicTouch Ultra Test In Vitro Strip (Glucose Blood) Check blood sugar one to two times daily. E11.9 100 Strip 3 03/16/2024 Active Insane LogicTouch Delica Lancets 33G Check blood sugar one to two times daily. E11.9 100 Each 3 03/16/2024 Active Furosemide 20 MG Oral Tablet (Lasix) Take 1 Tablet by mouth in the morning. 30 Tablet 03/16/2024 Active Atorvastatin Calcium 80 MG Oral [...] as of this encounter (statuses as of 06/09/2024) Active Problems Problem Noted Date Diagnosed Date [...] as of this encounter (statuses as of 06/09/2024) Resolved Problems Problem Noted Date Diagnosed Date [...] as of this encounter (statuses as of 06/09/2024) Immunizations Name Administration Dates Next Due Diptheria/Tetanus [...] Notes * Telephone Encounter - Aydee Boateng nutrition aide - 06/08/2024 10:57 AM EDT Patient returning call. Reached out to office. States if Kelli needed to contact patient she will contact her. Advised patient of this Thank you, Aydee Boateng Plastics Patternmaker I [facility] ([facility]) 06/08/2024,11:02 AM * Telephone Encounter - Isaac Slater PHARM Tech - 06/07/2024 10:43 AM EDT Pt is returning phone call. Attempting to warm transfer to [facility]. Nurse wasn't available to talk. Please call pt back. Thank you, Mac Slater, Strategic Account Director Plastics Patternmaker 1 [facility] ([facility]) (Formerly Telepharmacy) 06/07/2024,10:43 AM * Telephone Encounter - Aparna Palacios LPN - 06/07/2024 10:39 AM EDT Attempted to call patient. Line dropped after patient picked up. Tried again, went straight to . * Telephone Encounter - Toby Yu nutrition aide - 06/06/2024 2:32 PM EDT Patient called in to check the status of the Ozempic. Thank you, Toby Yu Strategic Account Director Shanika Meridarmausten 06/06/2024, 2:32 PM * Telephone Encounter - Wendy Sigala CPhT - 06/06/2024 9:08 AM EDT Patient is due for her Ozempic shot today and has not received her med from patient assistance , she is asking if 1 month can be sent to [facility] to hold her over please advise Thank you, Wendy Sigala Polysomnographic Tech II [facility] ([facility]) (formerly Telepharmacy) 06/06/2024 9:09 AM * Telephone Encounter - Farideh Mccormack LPN - 06/03/2024 12:06 PM EDT Called and notified that medication has not arrived to our office. Informed pt that when it arrivesshe will be contacted to filler picker. Pt voiced understanding. * Telephone Encounter - Stefany Finch PHARM Tech - 06/03/2024 11:21 AM EDT Pt is calling to see if her Ozempic has arrived at the office. Adivsed I would message her PCP's office. Pt calling to check on status of Ozempic (1 MG/DOSE) 4 MG/3ML Subcutaneous Solution Pen-injector (Semaglutide (1 MG/DOSE)) . Caller can be reached at [phone]. Thank you, Stefany Finch Plastics Patternmaker I [facility] ([facility]) 06/03/2024,11:21 AM documented in this encounter Plan of Treatment Upcoming Encounters Date Type Department Care Team (Late st Contact Info) Description 10/19/2024 10:20 AM EST Office Visit [facility] [address] [place] [address] Sean Macias MD [address] [place] [address] Health Maintenance Due Date Last Done Comments [...] this encounter Medical Devices Implanted Type Area Business Support Liaison Device Identifier Shelf Expiration Date Model / Serial / Lot Patch Xenosure [id number] - [id number] Implanted:Qty : 1 on 11/18/2022 by Sean Vitale MD at [facility] Left: Carotid [employer] [id number] 07/04/2028 E0.8P8 / [id number] / [id number] documented as of this encounter Advance Directives [...] patient or by statute hierarchy) Care Teams Data Control Assistant Relationship Specialty Start Date End Date Sean Macias MD [address] [place] [address] PCP - General Family Medicine 11/04/21 documented as of this encounter
--- OUTSIDE RECORDS SUMMARY | 2024-10-20 03:57 | External Medical Summary | Summary of Care ---
Author Name Unknown Organization [facility] Address [address] [place] [address] Phone [phone] Care Team Providers Care Digital Product Specialist Name Role Phone Sudha Colin MD Primary Care Provider [phone] Reason for Referral * Medication Prior Authorization - Closed Specialty Diagnoses / Procedures Referred By Contac t Referred To Contact Diagnoses Lumbar disc disease Sudha Colin MD [address] [place] [address] Referral ID Status Reason Start Date Expiration Date Visits Re quested Visits Authorized [id number] Closed 999 999 Reason for Visit * Reason Onset Date Comments Medication Refill 06/20/2024 Encounter Details Date Type Department Care Team (Late st Contact Info) Description 06/20/2024 Refill Family Practice [facility] [address] [facility] [place] [address] Sudha Colin MD [address] [place] [address] Lumbar disc disease Allergies Active Allergy Reactions Criticality Noted Date Comments Gabapentin Neuro complications (Please comment) Medium 12/14/2013 Metformin Diarrhea Medium 07/17/2011 documented as of this encounter (statuses as of 06/22/2024) Medications Medication Sig Dispensed Refills Start Date [...] Oral Daily(Non-Specified), Reported on 03/16/2024 Nystatin-Triamcinol one 146611-2.1 UNIT/GM-% External Cream (Mycolog) Apply topically to affected area 3 times a day. Apply to vulvar region 15 g 2 03/02/2024 Active InnSania Ultra 2 w/Device Kit Check blood sugar one to two times daily. E11.9 1 Each 03/16/2024 Active Vyyouch Ultra Test In Vitro Strip (Glucose Blood) Check blood sugar one to two times daily. E11.9 100 Strip 3 03/16/2024 Active Vyyouch Delica Lancets 33G Check blood sugar one [...] week. (Patient assistance) 3 mL 06/06/2024 Active HYDROcodone-Acetami nophen 5-325 MG Oral TabletIndications:L umbar disc disease Take 1 Tablet by mouth every 6 hours as needed for Pain, Severe. 60 Tablet 06/22/2024 Active HYDROcodone-Acetami nophen 5-325 MG Oral TabletIndications:L umbar disc disease Take 1 Tablet by mouth every 6 hours as needed for Pain, Severe. 60 Tablet 06/07/2024 4 Discontinu ed(Refill) documented as of this encounter (statuses as of 06/22/2024) Active Problems Problem Noted Date Diagnosed Date [...] as of this encounter (statuses as of 06/22/2024) Resolved Problems Problem Noted Date Diagnosed Date [...] as of this encounter (statuses as of 06/22/2024) Immunizations Name Administration Dates Next Due Diptheria/Tetanus [...] Telephone Encounter - Sudha Colin MD - 06/22/2024 8:57 AM EDTSigned Prescriptions: Disp Refills HYDROcodone-Acetaminophen 5-325 MG Oral Ta*60 Tab*0 Sig: Take 1 Tablet by mouth every 6 hours as needed for Pain, Severe. Authorizing Provider: SUDHA COLIN * Telephone Encounter - Castro Gutierrez [facility] - 06/22/2024 8:49 AM EDT Pending Prescriptions: Disp Refills HYDROcodone-Acetaminophen 5-325 MG Oral Ta*60 Tab*0 Sig: Take 1 Tablet by mouth every 6 hours as needed for Pain, Severe. * Telephone Encounter - Castro Gutierrez [facility] - 06/22/2024 8:48 AM EDT I have reviewed the patients controlled substance dispensing history in the Prescription Drug Monitoring Program in compliance with the [facility] regulations before prescribing a controlled substance. PDMP checked on 06/22/2024. Pending Prescriptions: Disp Refills HYDROcodone-Acetaminophen 5-325 MG Oral T*60 Tab*0 Sig: Take 1 Tablet by mouth every 6 hours as needed for Pain, Severe. Last Visit: 03/16/2024 (in office), Visit date not found (telemedicine) Next Visit: 10/19/2024 Date medication was last filled: 06/07/2024 Date medication is due for refill: 06/21/2024 Pharmacy: [facility] [address] [place] [address] [place] Is this request for a controlled substance? [...] Concentration Please approve if appropriate. Thank You, Castro Gutierrez, Pharm-D Clinical Pharmacist [facility] ([facility]) [phone] 06/22/2024, 8:48 AM * Telephone Encounter - Aydee Boateng, multiple drill operator - 06/20/2024 3:28 PM EDT Did you pend patient's preferred pharmacy and medication before forwarding?yes Pharmacy: [id number] [address] [facility] [place] Pending Prescriptions: Disp Refills HYDROcodone-Acetaminophen 5-325 [...] appointment Last date the medication was ordered: 06/07/2024 Is this request for a controlled substance?Yes, What was the last refill date 06/07/2024 w/ [id number] and dosage 5-325 mg and Urine Drug Screen Not completed Urine [...] Description 10/19/2024 10:20 AM EST Office Visit [address] [place] [address] Sudha Colin MD [address] [place] [address] Health Maintenance Due Date Last Done Comments Alpha-1 Antitrypsin 1968 Cologuard 1995 Sigmoidoscopy 1995 Zoster Vaccines (1 of 2) 2000 Fecal Occult Blood Test 02/25/2012 02/24/2011 DISCUSS TOBACCO CESSATION (REFER TO SMARTSET #7572) 10/02/2015 10/02/2014 Adult Wellness Visit 2016 *COPD [...] this encounter Medical Devices Implanted Type Area Robotics Engineer Device Identifier Shelf Expiration Date Model / Serial / Lot Patch Xenosure [id number] - [id number] Implanted:Qty : 1 on 11/18/2022 by Sudha Vitale MD at [facility] Left: Carotid [employer] [id number] 07/04/2028 E0.8P8 / [id number] / [id number] documented as of this encounter Visit Diagnoses [...] Relationship Healthcare Agent Relationshi p Communication Brigid Wilfredo Adult Child Health Care Repr esentative (appointed verbally by patient or by statute hierarchy) Radha Cruz Adult Child Health Care Repr esentative (appointed verbally by patient or by statute hierarchy) Care Teams Digital Product Specialist Relationship Specialty Start Date End Date Sudha Colin MD [address] [place] [address] PCP - General Family Medicine 11/04/21 documented as of this encounter
--- OUTSIDE RECORDS SUMMARY | 2024-10-20 03:57 | External Medical Summary | Summary of Care ---
Author Name Unknown Organization [facility] Address [address] [place] [address] Phone [phone] Care Team Providers Care Personnel Administrator Name Role Phone Sean Macias MD Primary Care Provider [phone] [phone] Reason for Visit * Reason Onset Date Comments Information 05/17/2024 Med Request 06/01/2024 Ozempic Encounter Details Date Type Department Care Team (Late st Contact Info) Description 05/17/2024 Telephone Family Practice [facility] [address] [place] [address] Sean Macias MD [address] [place] [address] Information; Med Request (Ozempic) Allergies Active Allergy Reactions Criticality Noted Date Comments Gabapentin Neuro complications (Please comment) Medium 12/14/2013 Metformin Diarrhea Medium 07/17/2011 documented as of this encounter (statuses as of 06/10/2024) Medications Medication Sig Dispensed Refills Start Date [...] TO BREAKFAST OR OTHER MEALS 30 Tablet 06/22/2023 Active Clopidogrel Bisulfate 75 MG Oral [...] Oral Daily(Non-Specified), Reported on 03/16/2024 Nystatin-Triamcinol one 019940-5.1 UNIT/GM-% External Cream (Mycolog) Apply topically to affected area 3 times a day. Apply to vulvar region 15 g 2 03/02/2024 Active [employer]uch Ultra 2 w/Device Kit Check blood sugar one to two times daily. E11.9 1 Each 03/16/2024 Active [employer] Ultra Test In Vitro Strip (Glucose Blood) Check blood sugar one to two times daily. E11.9 100 Strip 03/16/2024 Active [employer] Delica Lancets 33G Check blood sugar [...] BEFORE BREAKFAST 30 Capsule 5 04/25/2024 Active Ozempic (1 MG/DOSE) 4 MG/3ML Subcutaneous Solution Pen-injector (Semaglutide (1 MG/DOSE)) Inject 1 mg under the skin once a week. (Patient assistance) 09/18/2023 4 Discontinu ed(Refill) ALPRAZolam 0.5 MG Oral Tablet (xaNAX)Indications: Generalized anxiety disorder TAKE ONE TABLET BY MOUTH TWICE A DAY NEEDED FOR ANXIETY 60 Tablet 02/05/2024 4 Discontinu ed(Refill) HYDROcodone-Acetami nophen 5-325 MG Oral TabletIndications:L umbar disc disease Take 1 Tablet by mouth every 6 hours as needed for Pain, Severe. 60 Tablet 05/09/2024 4 Discontinu ed(Refill) documented as of this encounter (statuses as of 06/10/2024) Active Problems Problem Noted Date Diagnosed Date [...] as of this encounter (statuses as of 06/10/2024) Resolved Problems Problem Noted Date Diagnosed Date [...] 01/07/201203/07 L4-5 SPONDYLOLISTHESIS 07/17/201104/13 SCREENING MAMMOGRAM 02/19/2011 04/27/20 12 Encounter for routine gyneco logical examination [...] as of this encounter (statuses as of 06/10/2024) Immunizations Name Administration Dates Next Due Diptheria/Tetanus [...] encounter Miscellaneous Notes * Telephone Encounter - Marlen Calzada CPhT - 06/10/2024 1:29 PM EDT Cover my meds calling to verify the PCP's fax number regarding the PA for Ozempic as they are continuing to get an error message when trying to fax. I advised caller of the fax number. Thank you, Marianna Calzada CPhT Industrial Sales Representative III [facility] ([facility]) [address] [place] [address] * Telephone Encounter - Otilia Giron LPN - 06/01/2024 12:18 PM EDT Called pt-- Informed script has not yet been delivered, but when it has we will call. * Telephone Encounter - Renee Ochoa OSA - 06/01/2024 8:25 AM EDT Caitlin Izquierdo is calling in to see if her Ozempic has arrived at the clinic. If it has, she could like to stop by the clinic today Weds 06.01.2024, to pick it up. Caitlin can be contacted at [phone] Thank you * Telephone Encounter - Donald Gordon OSA - 05/31/2024 10:16 AM EDT Calling in to check if medication has arrived please advice * Telephone Encounter - Kelli Samson LPN - 05/18/2024 9:25 AM EDT Called pt, medication has not arrived at this point. Will call once arrives * Telephone Encounter - Hector Mortensen hyperbaric welder diver - 05/18/2024 9:23 AM EDT Pt calling to check on status of previous message. Caller can be reached at [phone]. Thank You, Hector Mortensen [facility] Risk Tech II [facility] 05/18/2024, 9:23 AM * Telephone Encounter - Christa Vera CPhT - 05/17/2024 11:00 AM EDT Pt calling checking if medication Ozempic has been deliver to office . Please call Pt if medicationhas been deliver to office. Caller can be reached [phone]. Thank you, Christa Vera CPhT Risk Tech II [facility] ([facility]) ([facility]) 05/17/2024,11:05 AM documented in this encounter Plan of Treatment Upcoming Encounters Date Type Department Care Team (Late st Contact Info) Description 10/19/2024 10:20 AM EST Office Visit [facility] [address] [place] [address] Sean Macias MD [address] [place] [address] Health Maintenance Due Date Last Done Comments Alpha-1 Antitrypsin 1968 Cologuard 1995 Sigmoidoscopy 1995 Zoster Vaccines (1 of 2) 2000 Fecal Occult Blood Test 02/25/2012 02/24/2011 DISCUSS TOBACCO CESSATION (REFER TO SMARTSET #9454) 10/02/2015 10/02/2014 Adult Wellness Visit 2016 *COPD [...] this encounter Medical Devices Implanted Type Area Certified Legal Investigator Device Identifier Shelf Expiration Date Model / Serial / Lot Patch Xenosure [id number] - [id number] Implanted:Qty : 1 on 11/18/2022 [place] [facility] [place]: Carotid [employer] [id number] 07/04/2028 E0.8P8 / [id number] / [id number] documented as of this encounter Advance Directives [...] patient or by statute hierarchy) Care Teams Personnel Administrator Relationship Specialty Start Date End Date Sean Macias MD [address] [facility] [place] [address] PCP - General Family Medicine 11/04/21 documented as of this encounter
--- OUTSIDE RECORDS SUMMARY | 2024-10-20 03:57 | External Medical Summary | Summary of Care ---
Author Name Unknown Organization [facility] Address [address] [place] [address] Phone [phone] Care Team Providers Care Stonework Tracer Name Role Phone Sudha Colin MD Primary Care Provider [phone] Reason for Visit * Reason Comments eRx-Medication Refill Encounter Details Date Type Department Care Team (Late st Contact Info) Description 06/22/2024 Refill Family Practice [facility] [address] [facility] [address] Sudha Colin MD [address] [place] [address] GRAVE'S DISEASE OF THYROID S/P ABLATION; Postoperative hypothyroidism Allergies Active Allergy Reactions Criticality Noted Date [...] AT BEDTIME 90 Capsule 3 4 Active Midodrine HCl 5 MG Oral Tablet (Proamatine)Indicat ions:Hypotension, unspecified hypotension type TAKE 1 TABLET BY MOUTH IN THE MORNING, 1 TABLET AT NOON AND 1 TABLET BEFORE BEDTIME 90 Tablet 5 4 Active Additional Information Patient taking differently: 5 mg Oral Daily(Non-Specified), Reported on 03/16/2024 Nystatin-Triamcinol one 052789-6.1 UNIT/GM-% External Cream (Hum) Apply topically to affected area 3 times a day. Apply to vulvar region 15 g 2 4 Active txtrTouch Ultra 2 w/Device Kit Check blood sugar one to two times daily. E11.9 1 Each 4 Active txtrTouch Ultra Test In Vitro Strip (Glucose Blood) Check blood sugar one to two times daily. E11.9 100 Strip 3 4 Active txtrTouch Delica Lancets 33G Check blood sugar one [...] 14 DAYS 22 g 1 4 Active Albuterol Sulfate HFA 108 (90 Base) MCG/ACT Inhalation Aerosol SolutionIndications :Bronchitis, complicated INHALE TWO PUFFS BY MOUTH FOUR TIMES A DAY 18 g 3 4 Active Omeprazole 20 MG Oral Capsule Delayed Release (PriLOSEC)Indicatio ns:Gastroesophageal reflux disease with esophagitis TAKE ONE CAPSULE BY MOUTH EVERY DAY BEFORE BREAKFAST 30 Capsule 5 4 Active ALPRAZolam 0.5 MG Oral Tablet (xaNAX)Indications: Generalized anxiety disorder TAKE ONE TABLET BY MOUTH TWICE A DAY NEEDED FOR ANXIETY 60 Tablet 4 Active Ozempic (1 MG/DOSE) 4 MG/3ML Subcutaneous Solution Pen-injector (Semaglutide (1 MG/DOSE))Indication s:DM type 2 with diabetic peripheral neuropathy (HCC) Inject 1 mg under the skin once a week. (Patient assistance) 3 mL 4 Active HYDROcodone-Acetami nophen 5-325 MG Oral TabletIndications:L umbar disc disease Take 1 Tablet by mouth every 6 hours as needed for Pain, Severe. 60 Tablet 4 Active Levothyroxine Sodium 100 MCG Oral Tablet (Levoxyl)Indication s:Toxic diffuse goiter,Postoperativ e hypothyroidism TAKE ONE TABLET BY MOUTH EVERY DAY AT LEAST 30 MINUTES PRIOR TO BREAKFAST OR OTHER MEALS 90 Tablet 2 4 Active Levothyroxine Sodium 100 MCG Oral Tablet (Levoxyl)Indication s:Toxic diffuse goiter,Postoperativ e hypothyroidism TAKE ONE TABLET BY MOUTH EVERY DAY AT LEAST 30 MINUTES PRIOR TO BREAKFAST OR OTHER MEALS 30 Tablet 11 3 06/22/20 24 Discontinued documented as of this encounter (statuses [...] encounter Miscellaneous Notes * Telephone Encounter - Dora Lee [facility] - 06/22/2024 5:22 PM EDTSigned Prescriptions: Disp Refills Levothyroxine Sodium 100 MCG Oral Tablet (*90 Tab*2 Sig: TAKE ONE TABLET BY MOUTH EVERY DAY AT LEAST 30 MINUTES PRIOR TO BREAKFAST OR OTHER MEALS Authorizing Provider: SUDHA COLIN Ordering User: DORA LEE * Telephone Encounter - Mayda Hughes client specialist - 06/22/2024 12:58 PM EDT Did you pend patient's preferred pharmacy and medication before forwarding?yes Pharmacy: [facility] [address] [place] [address] [place] Pending Prescriptions: Disp Refills Levothyroxine Sodium 100 MCG Oral Tablet *30 Tab*11 Sig: TAKE ONE TABLET BY MOUTH EVERY DAY AT LEAST 30 MINUTES PRIOR TO BREAKFAST OR OTHER MEALS Last Visit: 03/05/2021 (in office), Visit date not found (telemedicine) Next Visit: Visit date not found If no future appointments scheduled, and last appointment is greater than a year ago, please schedule patient for a follow-up appointment Last date the medication was ordered: 06/22/23 Is this request for a controlled substance?No [...] 10:20 AM EST Office Visit Family Practice [facility] [address] [place] [place] [address] Sudha Colin MD [address] [place] [address] Health Maintenance Due Date Last Done Comments [...] this encounter Medical Devices Implanted Type Area Retail Merchandising Manager Device Identifier Shelf Expiration Date Model / Serial / Lot Patch Xenosure [id number] - [id number] Implanted:Qty : 1 on 11/18/2022 by Sudha Vitale MD at [facility] [place] [facility] Left: Carotid [employer] [id number] 07/04/2028 E0.8P8 / [id number] / [id number] documented as of this encounter Visit Diagnoses Diagnosis 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
--- OUTSIDE RECORDS SUMMARY | 2024-10-20 03:57 | External Medical Summary | Summary of Care ---
Author Name Unknown Organization [facility] Address [address] [place] [address] Phone [phone] Care Team Providers Care Back Shoe Worker Name Role Phone Sudha Colin MD Primary Care Provider [phone] [phone] Reason for Visit * Reason Onset Date Comments Medication Refill 08/05/2024 Encounter Details Date Type Department Care Team (Late st Contact Info) Description 08/05/2024 Refill Family Practice [facility] [address] [place] [address] Sudha Colin MD [address] [place] [address] Lumbar disc disease; DM peripheral angiopathy (HCC) Allergies Active Allergy Reactions Criticality Noted Date Comments Gabapentin Neuro complications (Please comment) Medium 12/14/2013 Metformin Diarrhea Medium 07/17/2011 documented as of this encounter (statuses as of 08/07/2024) Medications MULTIVITAMINS PO TABS one tablet daily [...] Oral Daily(Non-Specified), Reported on 03/16/2024 Nystatin-Triamcino lone 122880-4.1 UNIT/GM-% External Cream (Mycolog) Apply topically to affected area 3 times a day. Apply to vulvar region 15 g 2 03/02/20 24 Active [facility] Ultra 2 w/Device Kit Check blood sugar [...] Pain, Severe. 60 Tablet 08/07/20 24 Active HYDROcodone-Acetam inophen 5-325 MG Oral TabletIndications: Lumbar disc disease Take 1 Tablet by mouth every 6 hours as needed for Pain, Severe. 60 Tablet 07/22/20 24 024 Discontin ued(Refil l) documented as of this encounter (statuses as of 08/07/2024) Active Problems Problem Noted Date Diagnosed Date [...] as of this encounter (statuses as of 08/07/2024) Resolved Problems Problem Noted Date Diagnosed Date [...] as of this encounter (statuses as of 08/07/2024) Immunizations Name Administration Dates Next Due Diptheria/Tetanus [...] Telephone Encounter - Sudha Colin MD - 08/07/2024 12:26 PM ESTSigned Prescriptions: Disp Refills HYDROcodone-Acetaminophen 5-325 MG Oral Ta*60 Tab*0 Sig: Take 1 Tablet by mouth every 6 hours as needed for Pain, Severe. Authorizing Provider: SUDHA COLIN * Telephone Encounter - Casper Altamirano [facility] - 08/06/2024 1:05 PM EST Pending Prescriptions: Disp Refills HYDROcodone-Acetaminophen 5-325 MG Oral Ta*60 Tab*0 Sig: Take 1 Tablet by mouth every 6 hours as needed for Pain, Severe. * Telephone Encounter - Casper Altamirano [facility] - 08/06/2024 1:05 PM EST I have reviewed the patients controlled substance dispensing history in the Prescription Drug Monitoring Program in compliance with the [facility] regulations before prescribing a controlled substance. PDMP checked on 08/06/2024. Pending Prescriptions: Disp Refills HYDROcodone-Acetaminophen 5-325 MG Oral T*60 Tab*0 Sig: Take 1 Tablet by mouth every 6 hours as needed for Pain, Severe. Last Visit: 03/16/2024 (in office), Visit date not found (telemedicine) Next Visit: 10/19/2024 Date medication was last filled: 07/22 Date medication is due for refill: 08/06 Pharmacy: [facility] [address]- [place] Is this request for a controlled [...] Cutoff Concentration Please approve if appropriate. Thanks, Casper Altamirano, JodiD Clinical Pharmacist [facility] ([facility]) [phone] 08/06/2024,1:05 PM * Telephone Encounter - Wendy Sigala CPhT - 08/05/2024 10:20 AM EST Did you pend patient's preferred pharmacy and medication before forwarding?yes Pharmacy: [id number] [address] [facility] [place] Pending Prescriptions: Disp Refills [...] appointment Last date the medication was ordered: [id number] Is this request for a controlled substance?Yes, What was the last refill date [id number] w/ quantity 60 and dosage 5/325mg and [...] 09/06/2024 2:30 PM EST Office Visit Cardiology, [facility] [address] [place] [address] Lupe Haile PA-C [address] [place] [address] 10/19/2024 10:20 AM EST Office Visit Family Practice [facility] [address] [place] [address] Sudha Colin MD [address] [place] [address] Scheduled Orders Name Type Priority Associated Diagnoses Orde r Schedule ALBUMIN / CREATININE RATIO, URINE Lab Routine DM peripheral angiopathy (HCC) Expected: 08/06/2024, Expires: 08/06/2025 Health Maintenance Due Date Last Done Comments [...] this encounter Medical Devices Implanted Type Area Audio/Visual Manager Device Identifier Shelf Expiration Date Model / Serial / Lot Patch Xenosure [id number] - [id number] Implanted:Qty : 1 on 11/18/2022 by Sudha Vitale MD at [place] [facility] [place] Left: Carotid [employer] [id number] 07/04/2028 E0.8P8 / [id number] / [id number] documented as of this encounter Visit Diagnoses [...] and unspecified disc disorder of lumbar region DM peripheral angiopathy (HCC) Type II or unspecified type diabetes mellitus with peripheral circulatory disorders, not stated as uncontrolled documented in this [...] patient or by statute hierarchy) Care Teams Back Shoe Worker Relationship Specialty Start Date End Date Sudha Colin MD [address] [place] [address] PCP - General Family Medicine 11/04/21 documented as of this encounter
--- OUTSIDE RECORDS SUMMARY | 2024-10-20 03:58 | External Medical Summary | Summary of Care ---
Author Name Unknown Organization [facility] Address [address] [place] [address] Phone [phone] Care Team Providers Care Marketing Data Specialist Name Role Phone Sean Macias MD Primary Care Provider [phone] [phone] Reason for Visit * Reason Onset Date Comments Medication Question 06/06/2024 Encounter Details Date Type Department Care Team ([facility] st Contact Info) Description 06/06/2024 Telephone [facility], [facility] Calixto [address] [place] [address] [place] [address] Pharmacist1, [address] [address] Medication Question Allergies Active Allergy Reactions Criticality Noted Date Comments Gabapentin Neuro complications (Please comment) Medium 12/14/2013 Metformin Diarrhea Medium 07/17/2011 documented as of this encounter (statuses as of 06/06/2024) Medications Medication Sig Dispensed Refills Start Date [...] Oral Daily(Non-Specified), Reported on 03/16/2024 Nystatin-Triamcinol one 985364-1.1 UNIT/GM-% External Cream ([employer]) Apply topically to affected area 3 times a day. Apply to vulvar region 15 g 2 03/02/2024 Active [employer] Ultra 2 w/Device Kit Check blood sugar one to two times daily. E11.9 1 Each 03/16/2024 Active [employer]uch Ultra Test In Vitro Strip (Glucose Blood) Check blood sugar one to two times daily. E11.9 100 Strip 3 03/16/2024 Active [employer] Delica Lancets 33G Check blood sugar one [...] NEEDED FOR ANXIETY 60 Tablet 05/19/2024 Active HYDROcodone-Acetami nophen 5-325 MG Oral TabletIndications:L umbar disc disease Take 1 Tablet by mouth every 6 hours as needed for Pain, Severe. 60 Tablet 05/20/2024 Active Ozempic (1 MG/DOSE) 4 MG/3ML Subcutaneous Solution Pen-injector (Semaglutide (1 MG/DOSE))Indication s:DM type 2 with diabetic peripheral neuropathy (HCC) Inject 1 mg under the skin once a week. (Patient assistance) 3 mL 06/06/2024 Active Ozempic (1 MG/DOSE) 4 MG/3ML Subcutaneous Solution Pen-injector (Semaglutide (1 MG/DOSE)) Inject 1 mg under the skin once a week. (Patient assistance) 09/18/2023 4 Discontinu ed(Refill) documented as of this encounter (statuses as of 06/06/2024) Active Problems Problem Noted Date Diagnosed Date [...] as of this encounter (statuses as of 06/06/2024) Resolved Problems Problem Noted Date Diagnosed Date [...] as of this encounter (statuses as of 06/06/2024) Immunizations Name Administration Dates Next Due Diptheria/Tetanus (Adult) 06/25/2000 Hepatitis B, 0-19 yrs 02/23/2001,10/05/2000,06/07 PPD 06/25/2000 Pneumococcal Conjugate Vacc, 13 Valent (Prevnar) 05/18/2015 Pneumococcal Polysaccharide PPV23 (Pneumovax) 10/15/2016,06/23/2005 Seasonal Influenza, High Dos e, Trivalent, PF, IM (Fluzone HD) 06/17/2017 Seasonal Influenza, MDCK, Tr ivalent, PF, (Flucelvax) 10/07/2013 Seasonal Influenza, PF, 6 M & above, IM , (FluLaval or Fluzone) 06/22/2018 Seasonal Influenza, Quadriva lent Hd (Fluzone Hd) 06/11/2021 Seasonal Influenza, Quadriva lent, No Preserve, IM 10/15/2016 Seasonal Influenza, Trivalen t, (IIV3), with Preserv, (Fluzone) 05/18/2015,10/02/2014,07/08/2012,06/09,11/19/2010,07/08/2008,06/07/20 05,08/07/2004 11/20/2011 TDAP, Age 7 and older, IM (Adacel) [...] 2:46 PM EDT Patient needs to call [employer] patient assistance to inquire about shipment. Patient Phone Numbers 2:52 PM - Home phone - no answer, mailbox full and cannot leave a message 2:52 PM - Reached patient on mobile phone. Provided patient phone number. Sent in Rx as requested in the event that shipment is delayed/. Eileen Ann David Clinical Pharmacist 06/06/2024, 2:53 PM * Telephone Encounter - Vikki Combs PHARM Tech - 06/06/2024 2:28 PM EDT Caller's name: Caitlin Preferred call back number(OFFICE NUMBER FOR ): [phone] Reason for call: Pt calling about her Ozempic asking why she isnt receiving yet. Please return her call. Thank you, Vikki Combs Chip Mucker [facility] 06/06/2024,2:29 PM documented in this encounter Plan of Treatment Upcoming Encounters Date Type Department Care Team (Late st Contact Info) Description 10/19/2024 10:20 AM EST Office Visit [address] [place] [address] Sean Macias MD [address] [place] [address] Health Maintenance Due Date Last Done Comments Alpha-1 Antitrypsin 1968 Cologuard 1995 Sigmoidoscopy 1995 Zoster Vaccines (1 of 2) 2000 Fecal Occult Blood Test 02/25/2012 02/24/2011 DISCUSS TOBACCO CESSATION (REFER TO SMARTSET #2115) 10/02/2015 10/02/2014 Adult Wellness Visit 2016 *COPD [...] this encounter Medical Devices Implanted Type Area Corrections Lieutenant Device Identifier Shelf Expiration Date Model / Serial / Lot Patch Xenosure [id number] - [id number] Implanted:Qty : 1 on 11/18/2022 by Sean Vitale MD at [place] [facility] [place] Left: Carotid [employer] [id number] 07/04/2028 E0.8P8 / [id number] / [id number] documented as of this encounter Visit Diagnoses [...] by patient or by statute hierarchy) Radha Leonace Adult Child Health Care Repr esentative (appointed verbally by patient or by statute hierarchy) Care Teams Marketing Data Specialist Relationship Specialty Start Date End Date Sean Macias MD [address] [place] [address] PCP - General Family Medicine 11/04/21 documented as of this encounter
--- OUTSIDE RECORDS SUMMARY | 2024-10-20 03:58 | External Medical Summary | Summary of Care ---
Author Name Unknown Organization [facility] Address [address] [place] [address] Phone [phone] Care Team Providers Care Pierogi Maker Name Role Phone Sean Macias MD Primary Care Provider [phone] [phone] Reason for Visit * Reason Onset Date Comments Medication Refill 06/03/2024 Returning Call 06/03/2024 Encounter Details Date Type Department Care Team (Late st Contact Info) Description 06/03/2024 Telephone Family Practice [facility] [address] [facility] [place] [address] Sean Macias MD [address] [place] [address] Medication Refill; Returning Call Allergies Active Allergy Reactions Criticality Noted Date Comments Gabapentin Neuro complications (Please comment) Medium 12/14/2013 Metformin Diarrhea Medium 07/17/2011 documented as of this encounter (statuses as of 06/08/2024) Medications Medication Sig Dispensed Refills Start Date [...] Oral Daily(Non-Specified), Reported on 03/16/2024 Nystatin-Triamcinol one 673689-2.1 UNIT/GM-% External Cream (Mycolog) Apply topically to affected area 3 times a day. Apply to vulvar region 15 g 2 03/02/2024 Active GreenlotsTouch Ultra 2 w/Device Kit Check blood sugar one to two times daily. E11.9 1 Each 03/16/2024 Active GreenlotsTouch Ultra Test In Vitro Strip (Glucose Blood) Check blood sugar one to two times daily. E11.9 100 Strip 3 03/16/2024 Active GreenlotsTouch Delica Lancets 33G Check blood sugar one [...] as of this encounter (statuses as of 06/08/2024) Active Problems Problem Noted Date Diagnosed Date [...] as of this encounter (statuses as of 06/08/2024) Resolved Problems Problem Noted Date Diagnosed Date [...] as of this encounter (statuses as of 06/08/2024) Immunizations Name Administration Dates Next Due Diptheria/Tetanus [...] Notes * Telephone Encounter - Aydee Boateng supervisor print line - 06/08/2024 10:57 AM EDT Patient returning call. Reached out to office. States if Kelli needed to contact patient she will contact her. Advised patient of this Thank you, Aydee Boateng Meat Apprentice I [facility] ([facility]) 06/08/2024,11:02 AM * Telephone Encounter - Isaac Slater PHARM Tech - 06/07/2024 10:43 AM EDT Pt is returning phone call. Attempting to warm transfer to [facility]. Nurse wasn't available to talk. Please call pt back. Thank you, Mac Slater, Clinical Scientist Meat Apprentice 1 [facility] Services ([facility]) (Formerly Telepharmacy) 06/07/2024,10:43 AM * Telephone Encounter - Aparna Palacios LPN - 06/07/2024 10:39 AM EDT Attempted to call patient. Line dropped after patient picked up. Tried again, went straight to . * Telephone Encounter - Toby Yu supervisor print line - 06/06/2024 2:32 PM EDT Patient called in to check the status of the Ozempic. Thank you, Toby Yu Clinical Scientist Shanika Meridarmausten 06/06/2024, 2:32 PM * Telephone Encounter - Wendy Siglaa CPhT - 06/06/2024 9:08 AM EDT Patient is due for her Ozempic shot today and has not received her med from patient assistance , she is asking if 1 month can be sent to [facility] to hold her over please advise Thank you, Wendy Sigala Gas Leak Inspector Helper II [facility] ([facility]) (formerly Telepharmacy) 06/06/2024 9:09 AM * Telephone Encounter - Farideh Mccormack LPN - 06/03/2024 12:06 PM EDT Called and notified that medication has not arrived to our office. Informed pt that when it arrivesshe will be contacted to picking table worker. Pt voiced understanding. * Telephone Encounter - Stefany Finch PHARM Tech - 06/03/2024 11:21 AM EDT Pt is calling to see if her Ozempic has arrived at the office. Adivsed I would message her PCP's office. Pt calling to check on status of Ozempic (1 MG/DOSE) 4 MG/3ML Subcutaneous Solution Pen-injector (Semaglutide (1 MG/DOSE)) . Caller can be reached at [phone]. Thank you, Stefany Finch Meat Apprentice I [facility] ([facility]) 06/03/2024,11:21 AM documented in this encounter Plan of Treatment Upcoming Encounters Date Type Department Care Team (Late st Contact Info) Description 10/19/2024 10:20 AM EST Office Visit [facility] [address] [place] [address] Sean Macias MD [address] [place] [address] Health Maintenance Due Date Last Done Comments [...] this encounter Medical Devices Implanted Type Area Chronic Care Nurse Device Identifier Shelf Expiration Date Model / Serial / Lot Patch Xenosure [id number] - [id number] Implanted:Qty : 1 on 11/18/2022 by Sean Vitale MD at [facility] Left: Carotid [employer] [id number] 07/04/2028 E0.8P8 / [id number] / [id number] documented as of this encounter Advance Directives [...] patient or by statute hierarchy) Care Teams Pierogi Maker Relationship Specialty Start Date End Date Sean Macias MD [address] [place] [address] PCP - General Family Medicine 11/04/21 documented as of this encounter
--- OUTSIDE RECORDS SUMMARY | 2024-10-20 03:58 | External Medical Summary | Summary of Care ---
Author Name Unknown Organization [facility] Address [address] [place] [address] Phone [phone] Care Team Providers Care Pit Furnace Melter Name Role Phone Sean Macias MD Primary Care Provider [phone] [phone] Reason for Visit * Reason Onset Date Comments Medication Refill 06/03/2024 Encounter Details Date Type Department Care Team (Late st Contact Info) Description 06/03/2024 Telephone Family Practice [facility] [address] [place] [address] Sean Macias MD [address] [place] [address] Medication Refill Allergies Active Allergy Reactions Criticality Noted Date Comments Gabapentin Neuro complications (Please comment) Medium 12/14/2013 Metformin Diarrhea Medium 07/17/2011 documented as of this encounter (statuses as of 06/07/2024) Medications Medication Sig Dispensed Refills Start Date [...] Oral Daily(Non-Specified), Reported on 03/16/2024 Nystatin-Triamcinol one 368285-4.1 UNIT/GM-% External Cream (MycDoutor Recomenda) Apply topically to affected area 3 times a day. Apply to vulvar region 15 g 2 03/02/2024 Active Cinematique Ultra 2 w/Device Kit Check blood sugar one to two times daily. E11.9 1 Each 03/16/2024 Active Cinematique Ultra Test In Vitro Strip (Glucose Blood) Check blood sugar one to two times daily. E11.9 100 Strip 3 03/16/2024 Active Bloompopuch Delica Lancets 33G Check blood sugar one [...] skin once a week. (Patient assistance) 09/18/2023 Discontinu ed(Refill) documented as of this encounter (statuses as of 06/07/2024) Active Problems Problem Noted Date Diagnosed Date [...] as of this encounter (statuses as of 06/07/2024) Resolved Problems Problem Noted Date Diagnosed Date [...] as of this encounter (statuses as of 06/07/2024) Immunizations Name Administration Dates Next Due Diptheria/Tetanus [...] shopping? (15 years old or older) No 03/14/20 23 Cognitive Status Response Date of Assessm ent Because of a physical, menta l, or emotional condition, do you have serious difficulty concentrating, remembering, or making decisions? (5 years old or older) No 11/18/2022 documented as of this encounter Miscellaneous Notes * Telephone Encounter - Aparna Palacios LPN - 06/07/2024 10:39 AM EDT Attempted to call patient. Line dropped after patient picked up. Tried again, went straight to . * Telephone Encounter - Toby Yu PHARM Tech - 06/06/2024 2:32 PM EDT Patient called in to check the status of the Ozempic. Thank you, Toby Yu Shipping Processor [facility] 06/06/2024, 2:32 PM * Telephone Encounter - Wendy Sigala CPhT - 06/06/2024 9:08 AM EDT Patient is due for her Ozempic shot today and has not received her med from patient assistance , she is asking if 1 month can be sent to [facility] to hold her over please advise Thank you, Wendy Sigala Sixth Grade Teacher II [facility] Clinical Pharmacy Services ([facility]PS) (formerly Telepharmacy) 06/06/2024 9:09 AM * Telephone Encounter - Farideh Mccormack LPN - 06/03/2024 12:06 PM EDT Called and notified that medication has not arrived to our office. Informed pt that when it arrivesshe will be contacted to picked edge sewing machine operator. Pt voiced understanding. * Telephone Encounter - Finch, Stefany, satellite television installer - 06/03/2024 11:21 AM EDT Pt is calling to see if her Ozempic has arrived at the office. Adivsed I would message her PCP's office. Pt calling to check on status of Ozempic (1 MG/DOSE) 4 MG/3ML Subcutaneous Solution Pen-injector (Semaglutide (1 MG/DOSE)) . Caller can be reached at [phone]. Thank you, Stefany Finch Aircraft Fuselage Framer I [facility] ([facility]) 06/03/2024,11:21 AM documented in this encounter Plan of Treatment Upcoming Encounters Date Type Department Care Team (Late st Contact Info) Description 10/19/2024 10:20 AM EST Office Visit Family [facility] [address] [place] [address] Sean Macias MD [address] [place] [address] Health Maintenance Due Date Last Done Comments [...] this encounter Medical Devices Implanted Type Area Eyeglass Fitter Device Identifier Shelf Expiration Date Model / Serial / Lot Patch Xenosure [id number] - [id number] Implanted:Qty : 1 on 11/18/2022 by Sean Vitale MD at [facility] Left: Carotid [employer] [id number] 07/04/2028 E0.8P8 / [id number] / [id number] documented as of this encounter Advance Directives [...] patient or by statute hierarchy) Care Teams Pit Furnace Melter Relationship Specialty Start Date End Date Sean Macias MD [address] [place] [address] PCP - General Family Medicine 11/04/21 documented as of this encounter
--- OUTSIDE RECORDS SUMMARY | 2024-10-20 03:58 | External Medical Summary | Summary of Care ---
Author Name Unknown Organization [facility] Address [address] [place] [address] Phone [phone] Care Team Providers Care Principal Web Developer Name Role Phone Sean Macias MD Primary Care Provider [phone] [phone] Reason for Visit * Reason Onset Date Comments Medication Refill 06/03/2024 Encounter Details Date Type Department Care Team (Late st Contact Info) Description 06/03/2024 Telephone Family Practice [facility] [address] [place] [address] Sean [...] Oral Daily(Non-Specified), Reported on 03/16/2024 Nystatin-Triamcinol one 341427-7.1 UNIT/GM-% External Cream (MycImprint Energy) Apply topically to affected area 3 times a day. Apply to vulvar region 15 g 2 03/02/2024 Active [employer]on [employer] Ultra 2 w/Device Kit Check blood sugar one to two times daily. E11.9 1 Each 03/16/2024 Active [employer]on [employer] Ultra Test In Vitro Strip (Glucose Blood) Check blood sugar one to two times daily. E11.9 100 Strip 3 03/16/2024 Active dscovereduch Delica Lancets 33G Check blood sugar one [...] encounter Miscellaneous Notes * Telephone Encounter - Isaac Slater PHARM Tech - 06/07/2024 10:43 AM EDT Pt is returning phone call. Attempting to warm transfer to [facility]. Thank you, Mac Slater, Fuel Testing Technician Premix Concrete Batcher 1 [facility] Clinical Pharmacy Services ([facility]) (Formerly [...] of the Ozempic. Thank you, Toby Yu Fuel Testing Technician [facility] 06/06/2024, 2:32 PM * Telephone Encounter - Wendy Sigala CPhT - 06/06/2024 9:08 AM EDT Patient is due for her Ozempic shot today and has not received her med from patient assistance , she is asking if 1 month can be sent to [facility] to hold her over please advise Thank you, Wendy Sigala Security Analyst II [facility] Services ([facility]) (formerly Telepharmacy) 06/06/2024 9:09 AM * Telephone Encounter - Farideh Mccormack LPN - 06/03/2024 12:06 PM EDT Called and notified that medication has not arrived to our office. Informed pt that when it arrivesshe will be contacted to machine operator picker. Pt voiced understanding. * Telephone Encounter - Stefany Finch PHARM Tech - 06/03/2024 11:21 AM EDT Pt is calling to see if her Ozempic has arrived at the office. Adivsed I would message her PCP's office. Pt calling to check on status of Ozempic (1 MG/DOSE) 4 MG/3ML Subcutaneous Solution Pen-injector (Semaglutide (1 MG/DOSE)) . Caller can be reached at [phone]. Thank you, Stefany Finch Premix Concrete Batcher I [facility] ([facility]) 06/03/2024,11:21 AM documented in this encounter Plan of Treatment Upcoming Encounters Date Type Department Care Team (Late st Contact Info) Description 10/19/2024 10:20 AM EST Office Visit [facility] [address] [place] [address] Sean Macias MD [address] [place] [address] Health Maintenance Due Date Last Done Comments Alpha-1 Antitrypsin 1968 Cologuard 1995 Sigmoidoscopy 1995 Zoster Vaccines (1 of 2) 2000 Fecal Occult Blood Test 02/25/2012 02/24/2011 DISCUSS TOBACCO CESSATION (REFER TO SMARTSET #0615) 10/02/2015 10/02/2014 Adult Wellness Visit 2016 *COPD [...] this encounter Medical Devices Implanted Type Area Consultant Dietitian Device Identifier Shelf Expiration Date Model / Serial / Lot Patch Xenosure [id number] - [id number] Implanted:Qty : 1 on 11/18/2022 by Sean Vitale MD at [facility] Left: Carotid [employer] [id number] 07/04/2028 E0.8P8 / [id number] / [id number] documented as of this encounter Advance Directives [...] patient or by statute hierarchy) Care Teams Principal Web Developer Relationship Specialty Start Date End Date Sean Macias MD [address] [place] [address] PCP - General Family Medicine 11/04/21 documented as of this encounter
--- OUTSIDE RECORDS SUMMARY | 2024-10-20 03:58 | External Medical Summary | Summary of Care ---
Author Name Unknown Organization [facility] Address [address] [place] [address] Phone [phone] Care Team Providers Care Wastewater Treatment Plant Attendant Name Role Phone Sudha Colin MD Primary Care Provider [phone] [phone] Reason for Referral * Medication Prior Authorization - Closed Specialty Diagnoses / Procedures Referred By Contac t Referred To Contact Diagnoses Lumbar disc disease Sudha Colin MD [address] [place] [address] Referral ID Status Reason Start Date Expiration Date Visits Re quested Visits Authorized [id number] Closed [phone] Reason for Visit * Reason Onset Date Comments Medication Refill 06/06/2024 Encounter Details Date Type Department Care Team (Late st Contact Info) Description 06/06/[address] [facility] [address] [facility] [address] Sudha Colin MD [address] [place] [address] Lumbar disc disease Allergies Active Allergy Reactions [...] Oral Daily(Non-Specified), Reported on 03/16/2024 Nystatin-Triamcinol one 192218-5.1 UNIT/GM-% External Cream (Petsy) Apply topically to affected area 3 times a day. Apply to vulvar region 15 g 2 03/02/2024 Active Reppler Ultra 2 w/Device Kit Check blood sugar one to two times daily. E11.9 1 Each 03/16/2024 Active [employer] [employer] Ultra Test In Vitro Strip (Glucose Blood) Check blood sugar one to two times daily. E11.9 100 Strip 3 03/16/2024 Active [employer] Delica Lancets 33G Check blood sugar one [...] needed for Pain, Severe. 60 Tablet 06/07/2024 Active HYDROcodone-Acetami nophen 5-325 MG Oral TabletIndications:L [...] Telephone Encounter - Sudha Colin MD - 06/07/2024 3:01 PM EDTSigned Prescriptions: Disp Refills HYDROcodone-Acetaminophen 5-325 MG Oral Ta*60 Tab*0 Sig: Take 1 Tablet by mouth every 6 hours as needed for Pain, Severe. Authorizing Provider: SUDHA COLIN * Telephone Encounter - Lisa Denise RPh - 06/07/2024 2:55 PM EDT Pending Prescriptions: Disp Refills HYDROcodone-Acetaminophen 5-325 MG Oral Ta*60 Tab*0 Sig: Take 1 Tablet by mouth every 6 hours as needed for Pain, Severe. * Telephone Encounter - Lisa Denise [facility] - 06/07/2024 2:55 PM EDT I have reviewed the patients controlled substance dispensing history in the Prescription Drug Monitoring Program in compliance with the [facility] regulations before prescribing a controlled substance. PDMP checked on 06/07/2024. Pending Prescriptions: Disp Refills HYDROcodone-Acetaminophen 5-325 MG Oral T*60 Tab*0 Sig: Take 1 Tablet by mouth every 6 hours as needed for Pain, Severe. Last Visit: 03/16/2024 (in office), Visit date not found (telemedicine) Next Visit: 10/19/2024 Date medication was last filled: 05/22/24 Date medication is due for refill: 06/05/24 Pharmacy: [facility] [address]- [place] Is this request for a [...] Concentration Please approve if appropriate. Thank you, Lisa Denise, PharmD Clinical Pharmacist [facility] ([facility]) 06/07/24 2:55 PM [phone] * Telephone Encounter - Jeanne Batista CPhT - 06/07/2024 1:54 PM EDT Refill status, advised patient of the 48 hour policy Thank you, Jeanne Batista CPhT Forestry Technician [facility] Clinical Pharmacy Services ([facility]PS) 06/07/2024,1:55 PM * Telephone Encounter - Wenyd Sigala CPhT - 06/06/2024 9:07 AM EDT Did you pend patient's preferred pharmacy and medication before forwarding?yes Pharmacy: [facility] [address] [place] [address] [place] Pending Prescriptions: Disp Refills HYDROcodone-Acetaminophen 5-325 [...] 10:20 AM EST Office Visit Family Practice [facility] [address] [place] [address] Sudha Colin MD [address] [place] [address] Health Maintenance Due Date Last Done Comments Alpha-1 Antitrypsin 1968 Cologuard 1995 Sigmoidoscopy 1995 Zoster Vaccines (1 of 2) 2000 Fecal Occult Blood Test 02/25/2012 02/24/2011 DISCUSS TOBACCO CESSATION (REFER TO SMARTSET #3292) 10/02/2015 10/02/2014 Adult Wellness Visit 2016 *COPD [...] this encounter Medical Devices Implanted Type Area Manager Validation Device Identifier Shelf Expiration Date Model / Serial / Lot Patch Xenosure [id number] - [id number] Implanted:Qty : 1 on 11/18/2022 by Sudha Vitale MD at [place] [facility] Left: Carotid [employer] [id number] 07/04/2028 E0.8P8 / [id number] / [id number] documented as of this encounter Visit Diagnoses [...] patient or by statute hierarchy) Care Teams Wastewater Treatment Plant Attendant Relationship Specialty Start Date End Date Sudha Colin MD [address] [place] [address] PCP - General Family Medicine 11/04/21 documented as of this encounter
--- OUTSIDE RECORDS SUMMARY | 2024-10-20 03:58 | External Medical Summary | Summary of Care ---
Author Name Unknown Organization [facility] Address [address] [place] [address] Phone [phone] Care Team Providers Care Reptile Keeper Name Role Phone Sean Macias MD Primary Care Provider [phone] [phone] Reason for Visit * Reason Onset Date Comments Medication Refill 06/03/2024 Encounter Details Date Type Department Care Team (Late st Contact Info) Description 06/03/2024 Telephone Family Practice [facility] [address] [place] [address] [...] Oral Daily(Non-Specified), Reported on 03/16/2024 Nystatin-Triamcinol one 834779-9.1 UNIT/GM-% External Cream (MycBioIQ) Apply topically to affected area 3 times a day. Apply to vulvar region 15 g 2 03/02/2024 Active [employer] Ultra 2 w/Device Kit Check blood sugar one to two times daily. E11.9 1 Each 03/16/2024 Active [employer] Ultra Test In Vitro Strip (Glucose Blood) Check blood sugar one to two times daily. E11.9 100 Strip 3 03/16/2024 Active [employer]uch Delica Lancets 33G Check blood sugar one [...] Notes * Telephone Encounter - Isaac Slater pit shovel operator - 06/07/2024 10:43 AM EDT Pt is returning phone call. Attempting to warm transfer to [facility]. Nurse wasn't available to talk. Please call pt back. Thank you, Mac Slater, Dispatch Associate Sql Ssrs Ssis Developer 1 Centralized Clinical Pharmacy Services ([facility]) (Formerly [...] of the Ozempic. Thank you, Toby Yu Dispatch Associate [facility] 06/06/2024, 2:32 PM * Telephone Encounter - Wendy Sigala CPhT - 06/06/2024 9:08 AM EDT Patient is due for her Ozempic shot today and has not received her med from patient assistance , she is asking if 1 month can be sent to [facility] to hold her over please advise Thank you, Wendy Sigala Venue Attendant II Centralized Clinical Pharmacy Services ([facility]PS) (formerly Telepharmacy) 06/06/2024 9:09 AM * Telephone Encounter - Farideh Mccormack LPN - 06/03/2024 12:06 PM EDT Called and notified that medication has not arrived to our office. Informed pt that when it arrivesshe will be contacted to metal pickling equipment operator. Pt voiced understanding. * Telephone Encounter - Stefany Finch PHARM Tech - 06/03/2024 11:21 AM EDT Pt is calling to see if her Ozempic has arrived at the office. Adivsed I would message her PCP's office. Pt calling to check on status of Ozempic (1 MG/DOSE) 4 MG/3ML Subcutaneous Solution Pen-injector (Semaglutide (1 MG/DOSE)) . Caller can be reached at [phone]. Thank you, Stefany Finch Sql Ssrs Ssis Developer I [facility] Clinical Pharmacy Services ([facility]) 06/03/2024,11:21 AM documented in this encounter Plan of Treatment Upcoming Encounters Date Type Department Care Team (Late st Contact Info) Description 10/19/2024 10:20 AM EST Office Visit Family Practice [facility] [address] [place] [address] Sean Macias MD [address] [place] [address] Health Maintenance Due Date Last Done Comments [...] this encounter Medical Devices Implanted Type Area Sap Security Architect Device Identifier Shelf Expiration Date Model / Serial / Lot Patch Xenosure [id number] - [id number] Implanted:Qty : 1 on 11/18/2022 by Sean Vitale MD at [place] [facility] Left: Carotid [employer] [id number] 07/04/2028 E0.8P8 / [id number] / [id number] documented as of this encounter Advance Directives [...] patient or by statute hierarchy) Care Teams Reptile Keeper Relationship Specialty Start Date End Date Sean Macias MD [address] [place] [address] PCP - General Family Medicine 11/04/21 documented as of this encounter
--- OUTSIDE RECORDS SUMMARY | 2024-10-20 03:59 | External Medical Summary | Summary of Care ---
Author Name Unknown Organization [facility] Address [address] [place] [address] Phone [phone] Care Team Providers Care Steam Power Plant Operator Name Role Phone Sean Macias MD Primary Care Provider [phone] Reason for Visit * Reason Onset Date Comments Medication Refill 06/03/2024 Encounter Details Date Type Department Care Team (Late st Contact Info) Description 06/03/2024 Refill Family Practice [facility] [address] [facility] [place] [address] Sean Macias MD [address] [place] [address] Allergies Active Allergy Reactions Criticality Noted Date Comments Gabapentin Neuro complications (Please comment) Medium 12/14/2013 Metformin Diarrhea Medium 07/17/2011 documented as of this encounter (statuses as of 06/03/2024) Medications Medication Sig Dispensed Refills Start Date [...] Active Levothyroxine Sodium 100 MCG Oral Tablet (Levoxyl)Indications :Toxic diffuse goiter,Postoperative hypothyroidism TAKE ONE TABLET BY MOUTH EVERY DAY AT LEAST 30 MINUTES PRIOR TO BREAKFAST OR OTHER MEALS 30 Tablet 11 06/22/2023 Active Ozempic (1 MG/DOSE) 4 MG/3ML Subcutaneous Solution Pen-injector (Semaglutide (1 MG/DOSE)) Inject 1 mg under the skin once a week. (Patient assistance) 09/18/2023 Active Clopidogrel Bisulfate 75 MG Oral Tablet (Plavix)Indications: Carotid stenosis, non-symptomatic, bilateral Take 1 Tablet by [...] Active Nortriptyline HCl 25 MG Oral Capsule (Pamelor)Indications :DM type 2 with diabetic peripheral neuropathy (HCC) TAKE ONE CAPSULE BY MOUTH AT BEDTIME 90 Capsule 3 01/21/2024 Active Midodrine HCl 5 MG Oral Tablet (Proamatine)Indicati ons:Hypotension, unspecified hypotension type TAKE 1 TABLET BY MOUTH IN THE MORNING, 1 TABLET AT NOON AND 1 TABLET BEFORE BEDTIME 90 Tablet 5 01/21/2024 Active Additional Information Patient taking differently: 5 mg Oral Daily(Non-Specified), Reported on 03/16/2024 Nystatin-Triamcinolo ne 655337-6.1 UNIT/GM-% External Cream (Mycolog) Apply topically to affected area 3 times a day. Apply to vulvar region 15 g 2 03/02/2024 Active Oxitec Ultra 2 w/Device Kit Check blood sugar one to two times daily. E11.9 1 Each 03/16/2024 Active OnlineSheetMusicuch Ultra Test In Vitro Strip (Glucose Blood) Check blood sugar one to two times daily. E11.9 100 Strip 3 03/16/2024 Active [employer]SheetMusic[employer] Delica Lancets 33G Check blood sugar one to two times daily. E11.9 100 Each 3 03/16/2024 Active Furosemide 20 MG Oral Tablet (Lasix) Take 1 Tablet by mouth in the morning. 30 Tablet 11 03/16/2024 Active Atorvastatin Calcium 80 MG Oral Tablet (Lipitor)Indications :Dyslipidemia Take 1 Tablet by mouth in the morning. 90 Tablet 2 03/21/2024 Active Mupirocin 2 % External Ointment (Bactroban) APPLY TOPICALLY TO AFFECTED AREA 3 TIMES A DAY FOR UP TO 14 DAYS 22 g 1 03/30/2024 Active Albuterol Sulfate HFA 108 (90 Base) MCG/ACT Inhalation Aerosol SolutionIndications: Bronchitis, complicated INHALE TWO PUFFS BY MOUTH FOUR TIMES A DAY 18 g 3 04/25/2024 Active Omeprazole 20 MG Oral Capsule Delayed Release (PriLOSEC)Indication s:Gastroesophageal reflux disease with esophagitis TAKE ONE CAPSULE BY MOUTH EVERY DAY BEFORE BREAKFAST 30 Capsule 5 04/25/2024 Active ALPRAZolam 0.5 MG Oral Tablet (xaNAX)Indications:G eneralized anxiety disorder TAKE ONE TABLET BY MOUTH TWICE A DAY NEEDED FOR ANXIETY 60 Tablet 05/19/2024 Active HYDROcodone-Acetamin ophen 5-325 MG Oral TabletIndications:Homa mbar disc disease Take 1 Tablet by mouth every 6 hours as needed for Pain, Severe. 60 Tablet 05/20/2024 Active documented as of this encounter (statuses as of 06/03/2024) Active Problems Problem Noted Date Diagnosed Date [...] as of this encounter (statuses as of 06/03/2024) Resolved Problems Problem Noted Date Diagnosed Date [...] as of this encounter (statuses as of 06/03/2024) Immunizations Name Administration Dates Next Due Diptheria/Tetanus [...] encounter Miscellaneous Notes * Telephone Encounter - Farideh Mccormack LPN - 06/03/2024 12:06 PM EDT Called and notified that medication has not arrived to our office. Informed pt that when it arrivesshe will be contacted to chart picker. Pt voiced understanding. * Telephone Encounter - Stefany Finch PHARM Tech - 06/03/2024 11:21 AM EDT Pt is calling to see if her Ozempic has arrived at the office. Adivsed I would message her PCP's office. Pt calling to check on status of Ozempic (1 MG/DOSE) 4 MG/3ML Subcutaneous Solution Pen-injector (Semaglutide (1 MG/DOSE)) . Caller can be reached at [phone]. Thank you, Stefany Finch Driver/Guide I [facility] ([facility]) 06/03/2024,11:21 AM documented in this encounter Plan of Treatment Upcoming Encounters Date Type Department Care Team (Late st Contact Info) Description 10/19/2024 10:20 AM EST Office Visit Family [facility] [address] [place] [address] Sean Macias MD [address] [place] [address] Health Maintenance Due Date Last Done Comments [...] this encounter Medical Devices Implanted Type Area Brand Mgr Device Identifier Shelf Expiration Date Model / Serial / Lot Patch Xenosure [id number] - [id number] Implanted:Qty : 1 on 11/18/2022 [place] [facility] [place]: Carotid [employer] [id number] 07/04/2028 E0.8P8 / [id number] / [id number] documented as of this encounter Advance Directives [...] patient or by statute hierarchy) Care Teams Steam Power Plant Operator Relationship Specialty Start Date End Date Sean Macias MD [address] [place] [address] PCP - General Family Medicine 11/04/21 documented as of this encounter
--- OUTSIDE RECORDS SUMMARY | 2024-10-20 03:59 | External Medical Summary | Summary of Care ---
Author Name Unknown Organization [facility] Address [address] [place] [address] Phone [phone] Care Team Providers Care Pack Out Operator Name Role Phone Sean Macias MD Primary Care Provider [phone] Reason for Visit * Reason Onset Date Comments Information 05/17/2024 Med Request 06/01/2024 Ozempic Encounter Details Date Type Department Care Team (Late st Contact Info) Description 05/17/2024 Telephone Family Practice [facility] [address] [place] [address] Sean Macias MD [address] [place] [address] Information; Med Request (Ozempic) Allergies Active Allergy Reactions Criticality Noted Date Comments Gabapentin Neuro complications (Please comment) Medium 12/14/2013 Metformin Diarrhea Medium 07/17/2011 documented as of this encounter (statuses as of 06/01/2024) Medications Medication Sig Dispensed Refills Start Date [...] OR OTHER MEALS 30 Tablet 06/22/2023 Active Ozempic (1 MG/DOSE) 4 MG/3ML [...] Oral Daily(Non-Specified), Reported on 03/16/2024 Nystatin-Triamcinol one 516665-6.1 UNIT/GM-% External Cream (Mycolog) Apply topically to affected area 3 times a day. Apply to vulvar region 15 g 2 03/02/2024 Active Sparkplay Mediauch Ultra 2 w/Device Kit Check blood sugar one to two times daily. E11.9 1 Each 03/16/2024 Active [employer]uch Ultra Test In Vitro Strip (Glucose Blood) Check blood sugar one to two times daily. E11.9 100 Strip 3 03/16/2024 Active [employer]uch Delica Lancets 33G Check blood sugar one [...] as of this encounter (statuses as of 06/01/2024) Active Problems Problem Noted Date Diagnosed Date [...] iodine thyroid ablation 0 04/13/2017 Dyslipidemia 04/13/2017 URY (generalized anxiety disorder) 04/13/2017 Lumbar disc disease [...] as of this encounter (statuses as of 06/01/2024) Resolved Problems Problem Noted Date Diagnosed Date [...] as of this encounter (statuses as of 06/01/2024) Immunizations Name Administration Dates Next Due Diptheria/Tetanus [...] encounter Miscellaneous Notes * Telephone Encounter - Renee Ochoa OSA - 06/01/2024 8:25 AM EDT Caitlin Izquierdo is calling in to see if her Ozempic has arrived at the clinic. If it has, she could like to stop by the clinic today Weds 06.01.2024, to pick it up. Caitlin can be contacted at [phone] Thank you * Telephone Encounter - Donald Gordon OSA - 05/31/2024 10:16 AM EDT Calling in to check if medication has arrived please advice * Telephone Encounter - Kelli Samson LPN - 05/18/2024 9:25 AM EDT Called pt, medication has not arrived at this point. Will call once arrives * Telephone Encounter - Hcetor Mortensen tree scout - 05/18/2024 9:23 AM EDT Pt calling to check on status of previous message. Caller can be reached at [phone]. Thank You, Hector Mortensen [facility] Capsule Machine Operator II [facility] 05/18/2024, 9:23 AM * Telephone Encounter - Christa Vera CPhT - 05/17/2024 11:00 AM EDT Pt calling checking if medication Ozempic has been deliver to office . Please call Pt if medicationhas been deliver to office. Caller can be reached [phone]. Thank you, Christa Vera CPhT Capsule Machine Operator II [facility] ([facility]) (Formerly Telepharmacy) 05/17/2024,11:05 AM documented in this encounter Plan of Treatment Upcoming Encounters Date Type Department Care Team (Late st Contact Info) Description 10/19/2024 10:20 AM EST Office Visit Family Practice [facility] [address] [place] [address] Sean Macias MD [address] [place] [address] Health Maintenance Due Date Last Done [...] 07 023, 03/05/2021, 04/07/2018, Additional history exists Influenza [...] this encounter Medical Devices Implanted Type Area Cracking And Fanning Machine Operator Device Identifier Shelf Expiration Date Model / Serial / Lot Patch Xenosure [id number] - [id number] Implanted:Qty : 1 on 11/18/2022 by Sean Vitale MD at [facility] Left: Carotid [employer] [id number] 07/04/2028 E0.8P8 / [id number] / [id number] documented as of this encounter Advance Directives [...] patient or by statute hierarchy) Care Teams Pack Out Operator Relationship Specialty Start Date End Date Sean Macias MD [address] [place] [address] PCP - General Family Medicine 11/04/21 documented as of this encounter
--- OUTSIDE RECORDS SUMMARY | 2024-10-20 03:59 | External Medical Summary | Summary of Care ---
Author Name Unknown Organization [facility] Address [address] [place] [address] Phone [phone] Care Team Providers Care Ocean Rescue Lieutenant Name Role Phone Sean Macias MD Primary Care Provider [phone] Reason for Visit * Reason Onset Date Comments Information 05/17/2024 Encounter Details Date Type Department Care Team (Late st Contact Info) Description 05/17/2024 Telephone Family Practice [facility] [address] [place] [address] Sean Macias MD [address] [place] [address] Information Allergies Active Allergy Reactions Criticality Noted Date Comments Gabapentin Neuro complications (Please comment) Medium 12/14/2013 Metformin Diarrhea Medium 07/17/2011 documented as of this encounter (statuses as of 05/26/2024) Medications Medication Sig Dispensed Refills Start Date [...] Oral Daily(Non-Specified), Reported on 03/16/2024 Nystatin-Triamcinol one 679470-6.1 UNIT/GM-% External Cream (Mycolog) Apply topically to affected area 3 times a day. Apply to vulvar region 15 g 2 03/02/2024 Active ClickBus Ultra 2 w/Device Kit Check blood sugar one to two times daily. E11.9 1 Each 03/16/2024 Active New Scale Technologiesuch Ultra Test In Vitro Strip (Glucose Blood) Check blood sugar one to two times daily. E11.9 100 Strip 3 03/16/2024 Active [employer] Scale Technologiesuch Delica Lancets 33G Check blood sugar [...] as of this encounter (statuses as of 05/26/2024) Active Problems Problem Noted Date Diagnosed Date [...] as of this encounter (statuses as of 05/26/2024) Resolved Problems Problem Noted Date Diagnosed Date [...] as of this encounter (statuses as of 05/26/2024) Immunizations Name Administration Dates Next Due Diptheria/Tetanus [...] arrives * Telephone Encounter - Hector Mortensen PHARM Tech - 05/18/2024 9:23 AM EDT Pt calling to check on status of previous message. Caller can be reached at [phone]. Thank You, Hector Mortensen [place] Data Modeler II [facility] 05/18/2024, 9:23 AM * Telephone Encounter - Christa Vera CPhT - 05/17/2024 11:00 AM EDT Pt calling checking if medication Ozempic has been deliver to office . Please call Pt if medicationhas been deliver to office. Caller can be reached [phone]. Thank you, Christa Vera CPhT Data Modeler II [facility] ([facility]) (Formerly Telepharmacy) 05/17/2024,11:05 AM documented in this encounter Plan of Treatment Upcoming Encounters Date Type Department Care Team (Late st Contact Info) Description 10/19/2024 10:20 AM EST Office Visit [facility] [address] [place] [address] Sean Macias MD [address] [place] [address] Health Maintenance Due Date Last Done Comments Alpha-1 Antitrypsin 1968 Cologuard 1995 Sigmoidoscopy 1995 Zoster Vaccines (1 of 2) 2000 Fecal Occult Blood Test 02/25/2012 02/24/2011 DISCUSS TOBACCO CESSATION (REFER TO SMARTSET #3563) 10/02/2015 10/02/2014 Adult Wellness Visit 2016 *COPD [...] this encounter Medical Devices Implanted Type Area Motor Brakeman Device Identifier Shelf Expiration Date Model / Serial / Lot Patch Xenosure [id number] - [id number] Implanted:Qty : 1 on 11/18/20[place] [facility] [place] Carotid [employer] [id number] 07/04/2028 E0.8P8 / [id number] / [id number] documented as of this encounter Advance Directives [...] patient or by statute hierarchy) Care Teams Ocean Rescue Lieutenant Relationship Specialty Start Date End Date Sean Macias MD [address] [place] [address] PCP - General Family Medicine 11/04/21 documented as of this encounter
--- OUTSIDE RECORDS SUMMARY | 2024-10-20 03:59 | External Medical Summary | Summary of Care ---
Author Name Unknown Organization [facility] Address [address] [place] [address] Phone [phone] Care Team Providers Care Food Service Specialist Name Role Phone Sean Macias MD Primary Care Provider [phone] Reason for Visit * Reason Onset Date Comments Information 05/17/2024 Encounter Details Date Type Department Care Team (Late st Contact Info) Description 05/17/2024 Telephone Family Practice [facility] [address] [place] [address] Sean Macias MD [address] [place] [address] Information Allergies Active Allergy Reactions Criticality Noted Date Comments Gabapentin Neuro complications (Please comment) Medium 12/14/2013 Metformin Diarrhea Medium 07/17/2011 documented as of this encounter (statuses as of 05/31/2024) Medications Medication Sig Dispensed Refills Start Date [...] Oral Daily(Non-Specified), Reported on 03/16/2024 Nystatin-Triamcinol one 692962-2.1 UNIT/GM-% External Cream (Mycolog) Apply topically to affected area 3 times a day. Apply to vulvar region 15 g 2 03/02/2024 Active [employer] Ultra 2 w/Device Kit Check blood sugar one to two times daily. E11.9 1 Each 03/16/2024 Active Ruxteruch Ultra Test In Vitro Strip (Glucose Blood) Check blood sugar one to two times daily. E11.9 100 Strip 3 03/16/2024 Active Ruxteruch Delica Lancets 33G Check blood sugar one [...] as of this encounter (statuses as of 05/31/2024) Active Problems Problem Noted Date Diagnosed Date [...] as of this encounter (statuses as of 05/31/2024) Resolved Problems Problem Noted Date Diagnosed Date [...] as of this encounter (statuses as of 05/31/2024) Immunizations Name Administration Dates Next Due Diptheria/Tetanus [...] encounter Miscellaneous Notes * Telephone Encounter - Donald Gordon OSA - 05/31/2024 10:16 AM EDT Calling in to check if medication has arrived please advice * Telephone Encounter - Kelli Samson LPN - 05/18/2024 9:25 AM EDT Called pt, medication has not arrived at this point. Will call once arrives * Telephone Encounter - Hector Mortensen electrical electronics engineers - 05/18/2024 9:23 AM EDT Pt calling to check on status of previous message. Caller can be reached at [phone]. Thank You, Hector Mortensen [facility] Gluing Machine Operator Automatic II Central[facility] Clinical Pharmacy Services 05/18/2024, 9:23 AM * Telephone Encounter - Christa Vera CPhT - 05/17/2024 11:00 AM EDT Pt calling checking if medication Ozempic has been deliver to office . Please call Pt if medicationhas been deliver to office. Caller can be reached [phone]. Thank you, Christa Vera CPhT Gluing Machine Operator Automatic II [facility] ([facility]) (Formerly Telepharmacy) 05/17/2024,11:05 AM documented in this encounter Plan of Treatment Upcoming Encounters Date Type Department Care Team (Late st Contact Info) Description 10/19/2024 10:20 AM EST Office Visit Family [facility] [address] [place] [address] Sean Macias MD [address] [place] [address] Health Maintenance Due Date Last Done Comments [...] 03/07/2022, Additional history exists GFR 03/16/2025 03/16/2024, 06/11/2023, 02/15/2024, Additional history exists Colonoscopy 01/21/2028 01/20/2018, [...] this encounter Medical Devices Implanted Type Area Cupola Mechanic Device Identifier Shelf Expiration Date Model / Serial / Lot Patch Xenosure [id number] - [id number] Implanted:Qty : 1 on 11/18/2022 by Sean Vitale MD at [place] [facility] [place] Left: Carotid [employer] [id number] 07/04/2028 E0.8P8 / [id number] / [id number] documented as of this encounter Advance Directives [...] patient or by statute hierarchy) Care Teams Food Service Specialist Relationship Specialty Start Date End Date Sean Macias MD [address] [place] [address] PCP - General Family Medicine 11/04/21 documented as of this encounter
--- OUTSIDE RECORDS SUMMARY | 2024-10-20 03:59 | External Medical Summary | Summary of Care ---
Author Name Unknown Organization [facility] Address [address] [place] [address] Phone [phone] Care Team Providers Care Accountant Controller Name Role Phone Sean Macias MD Primary Care Provider [phone] Reason for Visit * Reason Onset Date Comments Medication Refill 06/03/2024 Encounter Details Date Type Department Care Team (Late st Contact Info) Description 06/03/2024 Telephone Family Practice [facility] [address] [place] [address] [...] Oral Daily(Non-Specified), Reported on 03/16/2024 Nystatin-Triamcinolo ne 705707-1.1 UNIT/GM-% External Cream (Mycolog) Apply topically to affected area 3 times a day. Apply to vulvar region 15 g 2 03/02/2024 Active [employer] Ultra 2 w/Device Kit Check blood sugar one to two times daily. E11.9 1 Each 03/16/2024 Active Cymo[employer] Dxuch Ultra Test In Vitro Strip (Glucose Blood) Check blood sugar one to two times daily. E11.9 100 Strip 3 03/16/2024 Active [employer] Dxuch Delica Lancets 33G Check blood sugar one [...] encounter Miscellaneous Notes * Telephone Encounter - Wendy Sigala CPhT - 06/06/2024 9:08 AM EDT Patient is due for her Ozempic shot today and has not received her med from patient assistance , she is asking if 1 month can be sent to [facility] to hold her over please advise Thank you, Wendy Sigala Help Desk Analyst II [facility] Services ([facility]) (formerly Telepharmacy) 06/06/2024 9:09 AM * Telephone Encounter - Farideh Mccormack LPN - 06/03/2024 12:06 PM EDT Called and notified that medication has not arrived to our office. Informed pt that when it arrivesshe will be contacted to sampler pickup. Pt voiced understanding. * Telephone Encounter - Stefany Finch PHARM Tech - 06/03/2024 11:21 AM EDT Pt is calling to see if her Ozempic has arrived at the office. Adivsed I would message her PCP's office. Pt calling to check on status of Ozempic (1 MG/DOSE) 4 MG/3ML Subcutaneous Solution Pen-injector (Semaglutide (1 MG/DOSE)) . Caller can be reached at [phone]. Thank you, Stefany Finch Kerfer Machine Operator I [facility] ([facility]) 06/03/2024,11:21 AM documented in this encounter Plan of Treatment Upcoming Encounters Date Type Department Care Team (Late st Contact Info) Description 10/19/2024 10:20 AM EST Office Visit Family Practice [facility] [address] [place] [address] Sean Macias MD [address] [place] [address] Health Maintenance Due Date Last Done Comments Alpha-1 Antitrypsin 1968 Cologuard 1995 Sigmoidoscopy 1995 Zoster Vaccines (1 of 2) 2000 Fecal Occult Blood Test 02/25/2012 02/24/2011 DISCUSS TOBACCO CESSATION (REFER TO SMARTSET #3296) 10/02/2015 10/02/2014 Adult Wellness Visit 2016 *COPD [...] this encounter Medical Devices Implanted Type Area Waxer Tender Device Identifier Shelf Expiration Date Model / Serial / Lot Patch Xenosure [id number] - [id number] Implanted:Qty : 1 on 11/18/2022 by Sean Vitale MD at [facility] Left: Carotid [employer] [id number] 07/04/2028 E0.8P8 / [id number] / [id number] documented as of this encounter Advance Directives [...] patient or by statute hierarchy) Care Teams Accountant Controller Relationship Specialty Start Date End Date Sean Macias MD [address] [place] [address] PCP - General Family Medicine 11/04/21 documented as of this encounter
--- OUTSIDE RECORDS SUMMARY | 2024-10-20 03:59 | External Medical Summary | Summary of Care ---
Author Name Unknown Organization [facility] Address [address] [place] [address] Phone [phone] Care Team Providers Care Music Specialist Name Role Phone Sean Macias MD Primary Care Provider [phone] [phone] Reason for Visit * Reason Onset Date Comments Information 05/17/2024 Med Request 06/01/2024 Ozempic Encounter Details Date Type Department Care Team (Late st Contact Info) Description 05/17/2024 Telephone Family Practice [facility] [address] [place] [address] Sean Macias MD [address] [...] Oral Daily(Non-Specified), Reported on 03/16/2024 Nystatin-Triamcinol one 802024-1.1 UNIT/GM-% External Cream (Mycolog) Apply topically to affected area 3 times a day. Apply to vulvar region 15 g 2 03/02/2024 Active Bluebell Telecomuch Ultra 2 w/Device Kit Check blood sugar one to two times daily. E11.9 1 Each 03/16/2024 Active Bluebell Telecomuch Ultra Test In Vitro Strip (Glucose Blood) Check blood sugar one to two times daily. E11.9 100 Strip 3 03/16/2024 Active Bluebell Telecomuch Delica Lancets 33G Check blood sugar one [...] encounter Miscellaneous Notes * Telephone Encounter - Otilia Giron LPN [...] it up. Caitlin can be contacted at [phone] Thank you * Telephone Encounter - Donald Gordon OSA - 05/31/2024 10:16 AM EDT Calling in to check if medication has arrived please advice * Telephone Encounter - Kelli Samson LPN - 05/18/2024 9:25 AM EDT Called pt, medication has not arrived at this point. Will call once arrives * Telephone Encounter - Hector Mortensen, control area operator - 05/18/2024 9:23 AM EDT Pt calling to check on status of previous message. Caller can be reached at [phone]. Thank You, Hector Mortensen [facility] Pig Sticker II Centralized Clinical Pharmacy Services 05/18/2024, 9:23 AM * Telephone Encounter - Christa Vera CPhT - 05/17/2024 11:00 AM EDT Pt calling checking if medication Ozempic has been deliver to office . Please call Pt if medicationhas been deliver to office. Caller can be reached [phone]. Thank you, Christa Vera CPhT Pig Sticker II Centralized Clinical Pharmacy Services (CCPS) (Formerly Telepharmacy) 05/17/2024,11:05 AM documented in this encounter Plan of Treatment Upcoming Encounters Date Type Department Care Team (Late st Contact Info) Description 10/19/2024 10:20 AM EST Office Visit Family Practice [facility] [address] [address] Sean Macias MD [address] [place] [address] Health Maintenance Due Date Last Done Comments [...] this encounter Medical Devices Implanted Type Area Financial Business Analyst Device Identifier Shelf Expiration Date Model / Serial / Lot Patch Xenosure [id number] - [id number] Implanted:Qty : 1 on 11/18/2022 by Sean Vitale MD at [facility] Left: Carotid [employer] [id number] 07/04/2028 E0.8P8 / [id number] / [id number] documented as of this encounter Advance Directives [...] patient or by statute hierarchy) Care Teams Music Specialist Relationship Specialty Start Date End Date Sean Macias MD [address] [place] [address] PCP - General Family Medicine 11/04/21 documented as of this encounter
--- OUTSIDE RECORDS SUMMARY | 2024-10-20 03:59 | External Medical Summary | Summary of Care ---
Author Name Unknown Organization [facility] Address [address] [place] [address] Phone [phone] Care Team Providers Care Guide Excursion Name Role Phone Sean Macias MD Primary Care Provider [phone] Reason for Visit * Reason Onset Date Comments Information 05/17/2024 Encounter Details Date Type Department Care Team (Late st Contact Info) Description 05/17/2024 Telephone Family Practice [facility] [address] [place] [address] Sean Macias MD [address] [place] [address] Information Allergies Active Allergy [...] Oral Daily(Non-Specified), Reported on 03/16/2024 Nystatin-Triamcinol one 077827-4.1 UNIT/GM-% External Cream (Mycolog) Apply topically to affected area 3 times a day. Apply to vulvar region 15 g 2 03/02/2024 Active iSTAR Medical Ultra 2 w/Device Kit Check blood sugar one to two times daily. E11.9 1 Each 03/16/2024 Active Cocrystal Discoveryuch Ultra Test In Vitro Strip (Glucose Blood) Check blood sugar one to two times daily. E11.9 100 Strip 3 03/16/2024 Active Cocrystal Discoveryuch Delica Lancets 33G Check blood sugar one [...] arrives * Telephone Encounter - Hector Mortensen financial planning advisor - 05/18/2024 9:23 AM EDT Pt calling to check on status of previous message. Caller can be reached at [phone]. Thank You, Hector Mortensen [facility] Procurement Professional II Centralized Clinical Pharmacy Services 05/18/2024, 9:23 AM * Telephone Encounter - Christa Vera CPhT - 05/17/2024 11:00 AM EDT Pt calling checking if medication Ozempic has been deliver to office . Please call Pt if medicationhas been deliver to office. Caller can be reached [phone]. Thank you, Christa Vera CPhT Procurement Professional II Centralized Clinical Pharmacy Services (CCPS) (Formerly Telepharmacy) 05/17/2024,11:05 AM documented in this encounter Plan of Treatment Upcoming Encounters Date Type Department Care Team (Late st Contact Info) Description 10/19/2024 10:20 AM EST Office Visit Family [facility] [address] [place] [address] Sean Macias MD [address] [place] [address] Health Maintenance Due Date Last Done Comments [...] this encounter Medical Devices Implanted Type Area Diamond Die Maker Device Identifier Shelf Expiration Date Model / Serial / Lot Patch Xenosure [id number] - [id number] Implanted:Qty : 1 on 11/18/2022 by Sean Vitale [place] [facility] [place] Left: Carotid [employer] [id number] 07/04/2028 E0.8P8 / [id number] / [id number] documented as of this encounter Advance Directives [...] patient or by statute hierarchy) Care Teams Guide Excursion Relationship Specialty Start Date End Date Sean Macias MD [address] [place] [address] PCP - General Family Medicine 11/04/21 documented as of this encounter
--- OUTSIDE RECORDS SUMMARY | 2024-10-20 03:59 | External Medical Summary | Summary of Care ---
Author Name Unknown Organization [facility] Address [address] [place] [address] Phone [phone] Care Team Providers Care Agriscience Technology Instructor Name Role Phone Sean Macias MD Primary Care Provider [phone] [phone] Reason for Visit * Reason Onset Date Comments Medication Refill 06/03/2024 Encounter Details Date Type Department Care Team (Late st Contact Info) Description 06/03/2024 Telephone Family Practice [facility] [address] [place] [address] [...] Oral Daily(Non-Specified), Reported on 03/16/2024 Nystatin-Triamcinolo ne 200676-1.1 UNIT/GM-% External Cream (Mycolog) Apply topically to affected area 3 times a day. Apply to vulvar region 15 g 2 03/02/2024 Active CrowdFlower Ultra 2 w/Device Kit Check blood sugar one to two times daily. E11.9 1 Each 03/16/2024 Active Jump On Ituch Ultra Test In Vitro Strip (Glucose Blood) Check blood sugar one to two times daily. E11.9 100 Strip 3 03/16/2024 Active Jump On Ituch Delica Lancets 33G Check blood sugar one [...] encounter Miscellaneous Notes * Telephone Encounter - Toby Yu PHARM Tech - 06/06/2024 2:32 PM EDT Patient called in to check the status of the Ozempic. Thank you, Toby Yu Protective Services Officer [facility] 06/06/2024, 2:32 PM * Telephone Encounter - Wendy Sigala CPhT - 06/06/2024 9:08 AM EDT Patient is due for her Ozempic shot today and has not received her med from patient assistance , she is asking if 1 month can be sent to [facility] to hold her over please advise Thank you, Wendy Sigala President And Chief Commercial Officer II Centralized Clinical Pharmacy Services (CCPS) (formerly Telepharmacy) 06/06/2024 9:09 AM * Telephone Encounter - Farideh Mccormack LPN - 06/03/2024 12:06 PM EDT Called and notified that medication has not arrived to our office. Informed pt that when it arrivesshe will be contacted to pick pack worker. Pt voiced understanding. * Telephone Encounter - Stefany Finch PHARM Tech - 06/03/2024 11:21 AM EDT Pt is calling to see if her Ozempic has arrived at the office. Adivsed I would message her PCP's office. Pt calling to check on status of Ozempic (1 MG/DOSE) 4 MG/3ML Subcutaneous Solution Pen-injector (Semaglutide (1 MG/DOSE)) . Caller can be reached at [phone]. Thank you, Stefany Finch Ammunition And Explosives Handler I Centralized Clinical Pharmacy Services (CCPS) 06/03/2024,11:21 AM documented in this encounter Plan of Treatment Upcoming Encounters Date Type Department Care Team (Late st Contact Info) Description 10/19/2024 10:20 AM EST Office Visit [facility] [address] [place] [address] Sean Macias MD [address] [place] [address] Health Maintenance Due Date Last Done Comments [...] this encounter Medical Devices Implanted Type Area Riveter Portable Machine Device Identifier Shelf Expiration Date Model / Serial / Lot Patch Xenosure [id number] - [id number] Implanted:Qty : 1 on 11/18/2022 by Sean Vitale MD at [facility] Left: Carotid [employer] [id number] 07/04/2028 E0.8P8 / [id number] / [id number] documented as of this encounter Advance Directives [...] patient or by statute hierarchy) Care Teams Agriscience Technology Instructor Relationship Specialty Start Date End Date Sean Macias MD [address] [place] [address] PCP - General Family Medicine 11/04/21 documented as of this encounter
--- OUTSIDE RECORDS SUMMARY | 2024-10-20 04:00 | External Medical Summary | Summary of Care ---
Author Name Unknown Organization [facility] Address [address] [place] [address] Phone [phone] Care Team Providers Care Tooling Mechanic Name Role Phone Sean Macias MD Primary Care Provider [phone] Reason for Visit * Reason Onset Date Comments FYI 02/18/2024 Encounter Details Date Type Department Care Team (Late st Contact Info) Description 02/18/2024 Telephone Family Practice [facility] [address] [place] [address] Sean Macias MD [address] [place] [address] FYI Allergies Active Allergy Reactions Criticality Noted Date Comments Gabapentin Neuro complications (Please comment) Medium 12/14/2013 Metformin Diarrhea Medium 07/17/2011 documented as of this encounter (statuses as of 05/19/2024) Medications Medication Sig Dispensed Refills Start Date [...] 5 mg Oral Daily(Non-Specified), Reported on 03/16/2024 documented as of this encounter (statuses as of 05/19/2024) Active Problems Problem Noted Date Diagnosed Date [...] as of this encounter (statuses as of 05/19/2024) Resolved Problems Problem Noted Date Diagnosed Date [...] as of this encounter (statuses as of 05/19/2024) Immunizations Name Administration Dates Next Due Diptheria/Tetanus [...] encounter Miscellaneous Notes * Telephone Encounter - Mac Beckman OSA - 02/18/2024 9:22 AM EDT Chart reviewed for to see if labs are fasting or non fasting informed non fasting. documented in this encounter Plan of Treatment Upcoming Encounters Date Type Department Care Team (Late st Contact Info) Description 10/19/2024 10:20 AM EST Office Visit Family Practice [facility] [address] [place] [address] [address] eSan Macias MD [address] [place] [address] Health Maintenance Due Date Last Done Comments [...] this encounter Medical Devices Implanted Type Area Mental Tester Device Identifier Shelf Expiration Date Model / Serial / Lot Patch Xenosure [id number] - [id number] Implanted:Qty : 1 on 11/18/2022 by [place] Vit[place] [facility] [place]: Carotid [employer] [id number] 07/04/2028 E0.8P8 / [id number] / [id number] documented as of this encounter Advance Directives [...] patient or by statute hierarchy) Care Teams Tooling Mechanic Relationship Specialty Start Date End Date Sean Macias MD [address] [place] [address] PCP - General Family Medicine 11/04/21 documented as of this encounter
--- OUTSIDE RECORDS SUMMARY | 2024-10-20 04:00 | External Medical Summary | Summary of Care ---
Author Name Unknown Organization [facility] Address [address] [place] [address] Phone [phone] Care Team Providers Care Weigher Operator Name Role Phone Sudha Colin MD Primary Care Provider [phone] [phone] Reason for Visit * Reason Onset Date Comments Medication Refill 05/20/2024 Encounter Details Date Type Department Care Team (Late st Contact Info) Description 05/20/2024 Refill Family Practice [facility] [address] [place] [address] Sudha Colin MD [address] [place] [address] Lumbar disc disease Allergies Active Allergy Reactions Criticality Noted Date Comments Gabapentin Neuro complications (Please comment) Medium 12/14/2013 Metformin Diarrhea Medium 07/17/2011 documented as of this encounter (statuses as of 05/20/2024) Medications Medication Sig Dispensed Refills Start Date [...] Oral Daily(Non-Specified), Reported on 03/16/2024 Nystatin-Triamcinol one 869859-1.1 UNIT/GM-% External Cream (Zuvvuolog) Apply topically to affected area 3 times a day. Apply to vulvar region 15 g 2 03/02/2024 Active Bolt.iouch Ultra 2 w/Device Kit Check blood sugar one to two times daily. E11.9 1 Each 03/16/2024 Active RxAdvance Ultra Test In Vitro Strip (Glucose Blood) Check blood sugar one to two times daily. E11.9 100 Strip 3 03/16/2024 Active Bolt.iouch Delica Lancets 33G Check blood sugar one [...] for Pain, Severe. 60 Tablet 05/20/2024 Active HYDROcodone-Acetami nophen 5-325 MG Oral TabletIndications:L umbar disc disease Take 1 Tablet by mouth every 6 hours as needed for Pain, Severe. 60 Tablet 05/09/2024 4 Discontinu ed(Refill) documented as of this encounter (statuses as of 05/20/2024) Active Problems Problem Noted Date Diagnosed Date [...] as of this encounter (statuses as of 05/20/2024) Resolved Problems Problem Noted Date Diagnosed Date [...] as of this encounter (statuses as of 05/20/2024) Immunizations Name Administration Dates Next Due Diptheria/Tetanus [...] Telephone Encounter - Sudha Colin MD - 05/20/2024 5:47 PM EDTSigned Prescriptions: Disp Refills HYDROcodone-Acetaminophen 5-325 MG Oral Ta*60 Tab*0 Sig: Take 1 Tablet by mouth every 6 hours as needed for Pain, Severe. Authorizing Provider: SUDHA COLIN * Telephone Encounter - Kim Calderón [facility] - 05/20/2024 4:36 PM EDTPending Prescriptions: Disp Refills HYDROcodone-Acetaminophen 5-325 MG Oral Ta*60 Tab*0 Sig: Take 1 Tablet by mouth every 6 hours as needed for Pain, Severe. * Telephone Encounter - Kim Calderón RP - 05/20/2024 4:34 PM EDT Per Patient:Pt requesting HIGH PRIORITY due to being out of med on [place] Patient should have enough medication until 05/24/2024 I have reviewed the patients controlled substance dispensing history in the Prescription Drug Monitoring Program in compliance with the [facility] regulations before prescribing a controlled substance. PDMP checked on 05/20/2024. Pending Prescriptions: Disp Refills HYDROcodone-Acetaminophen 5-325 MG Oral T*60 Tab*0 Sig: Take 1 Tablet by mouth every 6 hours as needed for Pain, Severe. Last Visit: 03/16/2024 (in office), Visit date not found (telemedicine) Next Visit: 10/19/2024 Date medication was last filled: 05/09/2024 Date medication is due for refill: 05/23/2024 [facility] [address] [facility] [place] Is this request for a controlled [...] Concentration Please approve if appropriate. Thank you, Kim Calderón [facility] Clinical Pharmacist Centralized Clinical Pharmacy Services (CCPS) 05/20/24 4:34 PM [phone] * Telephone Encounter - Christa Vera CPhT - 05/20/2024 4:21 PM EDT Pt requesting HIGH PRIORITY due to being out of med on Thursday Did you pend patient's preferred pharmacy and medication before forwarding?yes Pharmacy: [facility] [address] [place] [address] [address] [facility] [place] Pending Prescriptions: Disp Refills HYDROcodone-Acetaminophen [...] appointment Last date the medication was ordered: 05/09/24 Is this request for a controlled substance?Yes, What was the last refill date 05/09/24 w/ quantity 60and dosage 5-325 and Urine Drug Screen was completed Urine [...] Description 10/19/2024 10:20 AM EST Office Visit [facility] [address] [address] Sudha Colin MD [address] [place] [address] Health Maintenance Due Date Last Done Comments [...] FOR COPD 08/21/2024 08/21/2023 Mammogram 11/04/2024 11/04/2023, 0204/2024, 10/29/2022, Additional history exists TSH 02/14/2025 02/15/2024, [...] this encounter Medical Devices Implanted Type Area Shellac Polisher Device Identifier Shelf Expiration Date Model / Serial / Lot Patch Xenosure [id number] - [id number] Implanted:Qty : 1 on 11/18/2022 by Sudha Vitale MD at [place] [facility] [place] Left: Carotid [employer] [id number] 07/04/2028 E0.8P8 / [id number] / [id number] documented as of this encounter Visit Diagnoses [...] patient or by statute hierarchy) Care Teams Weigher Operator Relationship Specialty Start Date End Date Sudha Colin MD [address] [place] [address] PCP - General Family Medicine 11/04/21 documented as of this encounter
--- OUTSIDE RECORDS SUMMARY | 2024-10-20 04:00 | External Medical Summary | Summary of Care ---
Author Name Unknown Organization [facility] Address [address] [place] [address] Phone [phone] Care Team Providers Care Furniture Finisher Apprentice Name Role Phone Sudha Colin MD Primary Care Provider [phone] [phone] Reason for Visit * Reason Onset Date Comments Medication Refill 05/17/2024 Encounter Details Date Type Department Care Team (Late st Contact Info) Description 05/17/2024 Refill Family Practice [facility] [address] [place] [address] Sudha Colin MD [address] [place] [address] Generalized anxiety disorder Allergies Active Allergy Reactions Criticality Noted Date [...] Oral Daily(Non-Specified), Reported on 03/16/2024 Nystatin-Triamcinol one 419600-9.1 UNIT/GM-% External Cream (Gamzeeolog) Apply topically to affected area 3 times a day. Apply to vulvar region 15 g 2 03/02/2024 Active AcceloWebuch Ultra 2 w/Device Kit Check blood sugar one to two times daily. E11.9 1 Each 03/16/2024 Active Clusterize Ultra Test In Vitro Strip (Glucose Blood) Check blood sugar one to two times daily. E11.9 100 Strip 3 03/16/2024 Active AcceloWebuch Delica Lancets 33G Check blood sugar one [...] BEFORE BREAKFAST 30 Capsule 5 04/25/2024 Active HYDROcodone-Acetami nophen 5-325 MG Oral TabletIndications:L umbar disc disease Take 1 Tablet by mouth every 6 hours as needed for Pain, Severe. 60 Tablet 05/09/2024 Active ALPRAZolam 0.5 MG Oral Tablet (xaNAX)Indications: Generalized anxiety disorder TAKE ONE TABLET BY MOUTH TWICE A DAY NEEDED FOR ANXIETY 60 Tablet 05/19/2024 Active ALPRAZolam 0.5 MG Oral Tablet (xaNAX)Indications: Generalized anxiety disorder TAKE ONE TABLET BY MOUTH TWICE A DAY NEEDED FOR ANXIETY 60 Tablet 02/05/2024 4 Discontinu ed(Refill) documented as of this [...] Telephone Encounter - Sudha Colin MD - 05/19/2024 3:37 PM EDTSigned Prescriptions: Disp Refills ALPRAZolam 0.5 MG Oral Tablet (xaNAX) 60 Tab*0 Sig: TAKE ONE TABLET BY MOUTH TWICE A DAY NEEDED FOR ANXIETY Authorizing Provider: SUDHA COLIN * Telephone Encounter - Casper Altamirano [facility] - 05/19/2024 7:29 AM EDT Pending Prescriptions: Disp Refills ALPRAZolam 0.5 MG Oral Tablet (xaNAX) 60 Tab*0 Sig: TAKE ONE TABLET BY MOUTH TWICE A DAY NEEDED FOR ANXIETY * Telephone Encounter - Casper Altamirano [facility] - 05/19/2024 7:29 AM EDT I have reviewed the patients controlled substance dispensing history in the Prescription Drug Monitoring Program in compliance with the [facility] regulations before prescribing a controlled substance. PDMP checked on 05/19/2024. Pending Prescriptions: Disp Refills ALPRAZolam 0.5 MG Oral Tablet (xaNAX) 60 Tab*0 Sig: TAKE ONE TABLET BY MOUTH TWICE A DAY NEEDED FOR ANXIETY Last Visit: 03/16/2024 (in office), Visit date not found (telemedicine) Next Visit: 10/19/2024 Date medication was last filled: 05/09 Date medication is due for refill: 05/24 [id number] [address] [facility] [place] Is this request for a [...] Cutoff Concentration Please approve if appropriate. Thanks, Jodi ThompsonD Clinical Pharmacist Centralized Clinical Pharmacy Services (CCPS) [phone] 05/19/2024,7:29 AM * Telephone Encounter - Christa Vera, extension course counselor - 05/17/2024 10:58 AM EDT Did you pend patient's preferred pharmacy and medication before forwarding?yes Pharmacy: [facility] [id number] [facility] [place] Pending Prescriptions: Disp Refills ALPRAZolam 0.5 MG Oral Tablet (xaNAX) 60 Tab*0 Sig: TAKE ONE TABLET BY MOUTH TWICE A DAY NEEDED FOR ANXIETY Last Visit: 03/16/2024 (in office), Visit date not found (telemedicine) Next Visit: 10/19/2024 If no future appointments scheduled, and last appointment is greater than a year ago, please schedule patient for a follow-up appointment Last date the medication was ordered: 02/05/24 Is this request for a controlled substance?Yes, What was the last refill date 02/05/24 w/ quantity 60 and dosage 0.5 and Urine Drug Screen was completed Urine [...] Family Practice [facility] [address] [address] Sudha Colin MD [address] [place] [address] Health Maintenance Due Date Last Done Comments [...] 2024 06/11/2021, 06/22/2018, 06/17/2017, Additional history exists O2 ASSESSMENT COMPLETED IN PAST YEAR FOR COPD 05/18/2024 05/18/2023 HbA1c 07/08/2024 01/06/2024, 09/07, 03/11/2023, Additional history [...] this encounter Medical Devices Implanted Type Area Shipping Processor Device Identifier Shelf Expiration Date Model / Serial / Lot Patch Xenosure [id number] - [id number] Implanted:Qty : 1 on 11/18/2022 [place] [facility] [place]: Carotid [employer] [id number] 07/04/2028 E0.8P8 / [id number] / [id number] documented as of this encounter Visit Diagnoses Diagnosis Generalized anxiety disorder documented in this encounter [...] patient or by statute hierarchy) Care Teams Furniture Finisher Apprentice Relationship Specialty Start Date End Date Sudha Colin MD [address] [place] [address] PCP - General Family Medicine 11/04/21 documented as of this encounter
--- OUTSIDE RECORDS SUMMARY | 2024-10-20 04:00 | External Medical Summary | Summary of Care ---
Author Name Unknown Organization [facility] Address [address] [place] [address] Phone [phone] Care Team Providers Care Boatbuilder Apprentice Wood Name Role Phone Sudha Colin MD Primary Care Provider [phone] Reason for Visit * Reason Comments eRx-Medication Refill Encounter Details Date Type Department Care Team (Late st Contact Info) Description 04/22/2024 Refill Family Practice [facility] [address] [place] [address] Sudha Colin MD [address] [facility] [place] [address] Bronchitis, complicated; Gastroesophageal reflux disease with esophagitis Allergies Active Allergy Reactions Criticality Noted Date Comments Gabapentin Neuro complications (Please comment) Medium 12/14/2013 Metformin Diarrhea Medium 07/17/2011 documented as of this encounter (statuses as of 04/25/2024) Medications Medication Sig Dispensed Refills Start Date [...] x 3 months 15 Tablet 3 Active Levothyroxine Sodium 100 MCG Oral Tablet (Levoxyl)Indication s:Toxic diffuse goiter,Postoperativ e hypothyroidism TAKE ONE TABLET BY MOUTH EVERY DAY AT LEAST 30 MINUTES PRIOR TO BREAKFAST OR OTHER MEALS 30 Tablet 11 3 Active Ozempic (1 MG/DOSE) 4 MG/3ML Subcutaneous Solution Pen-injector (Semaglutide (1 MG/DOSE)) Inject 1 mg under the skin once a week. (Patient assistance) 4 Active Clopidogrel Bisulfate 75 MG Oral Tablet [...] 5 mg Oral Daily(Non-Specified), Reported on 03/16/2024 ALPRAZolam 0.5 MG Oral Tablet (xaNAX)Indications: Generalized anxiety disorder TAKE ONE TABLET BY MOUTH TWICE A DAY NEEDED FOR ANXIETY 60 Tablet 4 Active Nystatin-Triamcinol one 755304-4.1 UNIT/GM-% External Cream (Mycolog) Apply topically to affected area 3 times a day. Apply to vulvar region 15 g 2 4 Active [employer]TVuch Ultra 2 w/Device Kit Check blood sugar one to two times daily. E11.9 1 Each 4 Active [employer] Ultra Test In Vitro Strip (Glucose Blood) Check blood sugar one to two times daily. E11.9 100 Strip 3 4 Active [employer] Delica Lancets 33G Check blood sugar one [...] 14 DAYS 22 g 1 4 Active HYDROcodone-Acetami nophen 5-325 MG Oral [...] BEFORE BREAKFAST 30 Capsule 5 4 Active Omeprazole 20 MG Oral Capsule Delayed Release (PriLOSEC)Indicatio ns:Gastroesophageal reflux disease with esophagitis TAKE ONE CAPSULE BY MOUTH EVERY DAY BEFORE BREAKFAST 30 Capsule 5 4 04/25/20 24 Discontinued Albuterol Sulfate HFA 108 (90 Base) MCG/ACT Inhalation Aerosol SolutionIndications :Bronchitis, complicated Inhale 2 Puffs by mouth in the morning and 2 Puffs at noon and 2 Puffs in the evening and 2 Puffs before bedtime. 72 g 1 4 04/25/20 24 Discontinued documented as of this encounter (statuses as of 04/25/2024) Active Problems Problem Noted Date Diagnosed Date [...] as of this encounter (statuses as of 04/25/2024) Resolved Problems Problem Noted Date Diagnosed Date [...] as of this encounter (statuses as of 04/25/2024) Immunizations Name Administration Dates Next Due Diptheria/Tetanus (Adult) 06/25/2000 Hepatitis B, 0-19 yrs 02/23/2001,10/05/2000,06/07 PPD 06/25/2000 Pneumococcal Conjugate Vacc, 13 Valent (Prevnar) 05/18/2015 Pneumococcal Polysaccharide PPV23 (Pneumovax) 10/15/2016,06/23/2005 Season Influenza, Cell Cultu re, 18+ Yrs, With Preserv (Flucelvax) 10/07/2013 Seasonal Influenza, PF, 6 M & above, IM , (FluLaval or Fluzone) 06/22/2018 Seasonal Influenza, Quadriva lent Hd (Fluzone Hd) 06/11/2021 Seasonal Influenza, Quadriva lent, No Preserve, IM 10/15/2016 Seasonal Influenza, Split, I IV3, With Preserve, Inj 05/18/2015,10/02/2014,07/08/2012,06/09,11/19/2010,07/08/2008,06/07/20 05,08/07/2004 11/20/2011 Seasonal Influenza, Trivalen t, High Dose, No Preserve, IM 06/17/2017 TDAP, Age 7 and older, IM (Adacel) [...] encounter Miscellaneous Notes * Telephone Encounter - Juan C Leyva [facility] - 04/25/2024 7:26 AM EDTSigned Prescriptions: Disp Refills Albuterol Sulfate HFA 108 (90 Base) MCG/AC*18 g 3 Sig: INHALE TWO PUFFS BY MOUTH FOUR TIMES A DAYAuthorizing Provider: SUDHA COLIN User: JUAN C LEYVA Omeprazole 20 MG Oral Capsule Delayed Rele*30 Cap*5 Sig: TAKE ONE CAPSULE BY MOUTH EVERY DAY BEFORE BREAKFASTAuthorizing Provider: SUDHA COLIN User: JUAN C LEYVA documented in this encounter Plan of Treatment Upcoming Encounters Date Type Department Care Team (Late st Contact Info) Description 10/19/2024 10:20 AM EST Office Visit Family [facility] [address] [place] [address] Sudha Colin MD [address] [place] [address] Health Maintenance Due Date Last Done Comments Alpha-1 Antitrypsin 1968 Cologuard 1995 Sigmoidoscopy 1995 Zoster Vaccines (1 of 2) 2000 Fecal Occult Blood Test 02/25/2012 02/24/2011 DISCUSS TOBACCO CESSATION (REFER TO SMARTSET #8403) 10/02/2015 10/02/2014 Adult Wellness Visit 2016 *COPD SEVERITY VERIFIED BY PFT 12/23/2018 Diabetic Foot Exam 01/24/2021 01/25/2020, 1 , 06/17/2017, Additional history exists DTaP,Tdap,and Td Vaccines (2 - Td or Tdap) 02/19/2021 [...] this encounter Medical Devices Implanted Type Area Principal Administrative Clerk Device Identifier Shelf Expiration Date Model / Serial / Lot Patch Xenosure [id number] - [id number] Implanted:Qty : 1 on 11/18/2022 by Sudha Vitale MD at OR [facility] [place] Left: Carotid [employer] [id number] 07/04/2028 E0.8P8 / [id number] / [id number] documented as of this encounter Visit Diagnoses Diagnosis Bronchitis, complicated Bronchitis, not specified as acute or chronic Gastroesophageal reflux disease with esophagitis documented in this encounter Advance Directives * [...] patient or by statute hierarchy) Care Teams Boatbuilder Apprentice Wood Relationship Specialty Start Date End Date Sudha Colin MD [address] [place] [address] PCP - General Family Medicine 11/04/21 documented as of this encounter
--- OUTSIDE RECORDS SUMMARY | 2024-10-20 04:00 | External Medical Summary | Summary of Care ---
Author Name Unknown Organization [facility] Address [address] [place] [address] Phone [phone] Care Team Providers Care Account Manager Forest Service Name Role Phone Sudha Colin MD Primary Care Provider [phone] Reason for Referral * Medication Prior Authorization - Closed Specialty Diagnoses / Procedures Referred By Contac t Referred To Contact Diagnoses Lumbar disc disease Sudha Colin MD [address] [place] [address] Referral ID Status Reason Start Date Expiration Date Visits Re quested Visits Authorized [id number] Closed 999 416 Reason for Visit * Reason Onset Date Comments Medication Refill 05/06/2024 Encounter Details Date Type Department Care Team (Late st Contact Info) Description 05/06/2024 [facility]ill [facility] [address] [facility] [address] Sudha Colin MD [address] [place] [address] Lumbar disc disease Allergies Active Allergy Reactions Criticality Noted Date Comments Gabapentin Neuro complications (Please comment) Medium 12/14/2013 Metformin Diarrhea Medium 07/17/2011 documented as of this encounter (statuses as of 05/09/2024) Medications Medication Sig Dispensed Refills Start Date [...] DAY NEEDED FOR ANXIETY 60 Tablet 02/05/2024 Active Nystatin-Triamcinol one 442616-5.1 UNIT/GM-% External Cream (Mycolog) Apply topically to affected area 3 times a day. Apply to vulvar region 15 g 2 03/02/2024 Active OndaVia 2 w/Device Kit Check blood sugar one to two times daily. E11.9 1 Each 03/16/2024 Active OneTouch Ultra Test In Vitro Strip (Glucose Blood) Check blood sugar one to two times daily. E11.9 100 Strip 3 03/16/2024 Active OneTouch Delica Lancets 33G Check blood [...] for Pain, Severe. 60 Tablet 05/09/2024 Active HYDROcodone-Acetami nophen 5-325 MG Oral TabletIndications:L umbar disc disease Take 1 Tablet by mouth every 6 hours as needed for Pain, Severe. 60 Tablet 04/22/2024 Discontinu ed(Refill) documented as of this encounter (statuses as of 05/09/2024) Active Problems Problem Noted Date Diagnosed Date [...] as of this encounter (statuses as of 05/09/2024) Resolved Problems Problem Noted Date Diagnosed Date [...] as of this encounter (statuses as of 05/09/2024) Immunizations Name Administration Dates Next Due Diptheria/Tetanus [...] Influenza, Trivalen t, (IIV3), with Preserv, (Fluzone) 05/18/2015,10/02/2014,07/08/2012,06/09,11/19/2010,07/08/2008,06/07/20,08/07/2004 11/20/2011 TDAP, Age 7 and older, IM [...] Telephone Encounter - Sudha Colin MD - 05/09/2024 12:47 PM EDTSigned Prescriptions: Disp Refills HYDROcodone-Acetaminophen 5-325 MG Oral Ta*60 Tab*0 Sig: Take 1 Tablet by mouth every 6 hours as needed for Pain, Severe. Authorizing Provider: SUDHA COLIN * Telephone Encounter - aCstro Gutierrez [facility] - 05/09/2024 12:18 PM EDT Pending Prescriptions: Disp Refills HYDROcodone-Acetaminophen 5-325 MG Oral Ta*60 Tab*0 Sig: Take 1 Tablet by mouth every 6 hours as needed for Pain, Severe. * Telephone Encounter - Castro Gutierrez [facility] - 05/09/2024 12:17 PM EDT I have reviewed the patients controlled substance dispensing history in the Prescription Drug Monitoring Program in compliance with the [facility] regulations before prescribing a controlled substance. PDMP checked on 05/09/2024. Pending Prescriptions: Disp Refills HYDROcodone-Acetaminophen 5-325 MG Oral T*60 Tab*0 Sig: Take 1 Tablet by mouth every 6 hours as needed for Pain, Severe. Last Visit: 03/16/2024 (in office), Visit date not found (telemedicine) Next Visit: 10/19/2024 Date medication was last filled: 04/20/2024 Date medication is due for refill: 05/03/2024 Pharmacy: [facility] [address]- [place] Is this request for a controlled substance? [...] Clinical Pharmacist [facility] ([facility]) [phone] 05/09/2024, 12:17 PM * Telephone Encounter - Augie Ye, assembly instructions writer - 05/06/2024 2:00 PM EDT Did you pend patient's preferred pharmacy and medication before forwarding?yes Pharmacy: [facility] [id number] [facility] [place] Pending Prescriptions: Disp Refills [...] appointment Last date the medication was ordered: 04/22/2024 Is this request for a controlled substance?Yes, What was the last refill date 04/20/2024 w/ [id number] and dosage 5-325 and Urine Drug Screen Not completed Urine [...] Description 10/19/2024 10:20 AM EST Office Visit [address] [place] [address] Sudha Colin MD [address] [place] [address] Health Maintenance Due Date Last Done Comments Alpha-1 Antitrypsin 1968 Cologuard 1995 Sigmoidoscopy 1995 Zoster Vaccines (1 of 2) 2000 Fecal Occult Blood Test 02/25/2012 02/24/2011 DISCUSS TOBACCO CESSATION (REFER TO SMARTSET #5641) 10/02/2015 10/02/2014 Adult Wellness Visit 2016 *COPD [...] this encounter Medical Devices Implanted Type Area Commercial Diver Device Identifier Shelf Expiration Date Model / Serial / Lot Patch Xenosure [id number] - [id number] Implanted:Qty : 1 on 11/18/2022 by Sudha Vitale MD at [facility] Left: Carotid [employer] [id number] 07/04/2028 E0.8P8 / [id number] / [id number] documented as of this encounter Visit Diagnoses [...] patient or by statute hierarchy) Care Teams Account Manager Forest Service Relationship Specialty Start Date End Date Sudha Colin MD [address] [place] [address] PCP - General Family Medicine 11/04/21 documented as of this encounter
[2024-10-20 04:22] LABS: Hematocrit (blood only) 37.1 % (37.0-47.0); Hemoglobin 12.9 g/dl (12.0-16.0); Mean Corpuscular Hemoglobin 30.3 pg (25.0-34.0); Mean Corpuscular Hgb Conc 34.8 g/dL (32.0-36.0); Mean Corpuscular Volume 87.1 fL (80.0-100.0); Mean Platelet Volume 10.1 fL (9.4-12.4); Platelet Count 299 K/uL (130-400); RDW Coefficient of Variation 13.6 % (11.5-14.5); RDW Standard Deviation 43.2 fL (36.4-46.3); Red Blood Count 4.26 M/uL (4.20-5.40); White Blood Count 15.26 K/ul (4.8-10.8)
[2024-10-20 04:48] LABS: Calcium 7.8 mg/dl (8.6-10.3); Creatinine Clr Calc Pharmacy 118.1 ml/min; Magnesium 2.3 mg/dl (1.7-2.4); Potassium 3.5 mmol/L (3.5-5.1)
[2024-10-20] MEDS ORDERED: PHARMACY GLYCEMIC MGMT CONSULT PRN (04:50)
[2024-10-20 04:52] LABS: Thyroid Stimulating Hormone 1.232 uIu/ml (0.300-4.500)
[2024-10-20] MEDS: ICU ELECTROLYTE REPLACEMENT PROTOCOL SCH (04:57)
[2024-10-20] MEDS: LEVOTHYROXINE SODIUM 100 MCG TABLET PO SCH (05:25)
[2024-10-20] MEDS: POT PHOSPHATE MONOBASIC W/ SOD TAB PO SCH (05:25)
[2024-10-20] MEDS: POTASSIUM CHLORIDE CRTAB 20 MEQ TABCR PO SCH (05:25)
--- NOTE | 2024-10-20 07:28 | Critical Care Progress Note ---
Date of Service October 20, 2024 Assessment & Plan (1) Hypotension: (2) Mediastinal mass: (3) Atrial fibrillation: (4) Influenza A: Plan Impression: 74-year-old female with extensive history of tobacco abuse and chronic hypotension presents with influenza A and low blood pressure in the setting of normal lactate after a fall. Chest x-ray and CT scan show a left suprahilar mass with extensive adenopathy and probable liver mets. She is unaware of this diagnosis. Recommendations: Neuro -pain management. MRI of the brain unrevealing Cardiac -presented with A-fib with RVR. Appreciate cardiology consultation. Not an appropriate anticoagulation candidate given falls and potential need for procedures in the future. Will down titrate Shar-Synephrine to keep systolic above 90. Her hypotension is a chronic issue and has been longstanding. No evidence of endorgan malperfusion. According to the patient her blood pressures are often in the 50s or 60s in the outpatient setting. Continue p.o. midodrine and Florinef. Discontinue hydrocortisone. Unclear indication for Plavix so we will hold now in hopes of procedure in the future Respiratory -lung mass: See comments below. Likely has some degree of emphysema but not bronchospastic. As needed bronchodilators. GI -diet as tolerated. Continue home PPI RENAL/LYTES -ICU electrolyte replacement protocol. ENDO - random cortisol was normal. Discontinue hydrocortisone but continue Florinef. Continue TSH replacement and glycemic control per protocol HEME/ONC/OTHER -lung mass with necrotic adenopathy in the mediastinum and probable adrenal as well as hepatic masses. Will discuss with interventional radiology biopsy of the liver which would provide diagnostic and staging information. Back that she is on Plavix may complicate issues as this may need to be held for 5 days before consideration of invasive procedures. Will need outpatient PET scan. ID -influenza, continue Tamiflu. Minimal findings on the chest to suggest infection. White blood cell count decreasing. Procalcitonin normal. Cultures negative to date. De-escalate antibiotics to Augmentin. Reported hives with penicillin so we will monitor LINES/TUBES/DRAINS - PIV x2 DVT PROPHYLAXIS - Enoxaparin Disposition: ICU while on vasopressors Hopefully the patient's clinical status will improve we will be able to consider transfer to the floor once her hemodynamics are stable Admission and Anticipated Discharge Date Admission Date: October 19, 2024 Subjective Patient seen and examined. EMR reviewed. Discussed with critical care ELVIE as well as with bedside clinical nurse and on multidisciplinary rounds. Patient states that she is feeling much better today. Her facial contusions are not causing her any problems. She is tolerating a diet. She does not report any chest pain or palpitations. No significant shortness of breath. Minimal cough. No abdominal pain nausea or vomiting. Review of Systems Review of Systems: All systems reviewed & are unremarkable except as noted in Subjective Physical Exam Constitutional: + thin; not ill appearing Neck: trachea midline, no thyromegaly Respiratory: normal respiratory effort, lungs clear to auscultation Cardiovascular: RRR, no murmur, no edema Gastrointestinal (Abdomen): normal bowel sounds, soft, nontender, no hepatosplenomegaly Musculoskeletal: Extremities: extremities normal to inspection Skin: no rashes, warm and dry Neurologic: Nonfocal exam Lymphatic: no cervical lymphadenopathy Results & Data Results & Data Vital Signs (Past 12 Hours) Vital Signs Temp Pulse Pulse Resp BP BP Pulse Ox 10/20/24 07:00 77 14 110/67 96 10/20/24 06:30 62 19 107/58 L 96 10/20/24 06:00 78 18 102/61 97 10/20/24 05:30 68 20 117/68 94 10/20/24 05:00 71 19 95/57 L 94 10/20/24 04:00 36.9 C 63 20 119/72 94 10/20/24 03:30 75 20 107/61 93 10/20/24 03:00 62 16 98/56 L 95 10/20/24 02:30 67 21 84/47 L 93 10/20/24 02:00 70 20 80/45 L 94 10/20/24 01:30 75 22 88/50 L 93 10/20/24 01:00 73 21 83/52 L 94 10/20/24 00:30 75 20 82/52 L 95 10/20/24 00:00 36.8 C 76 20 81/54 L 96 10/19/24 23:30 85 19 77/50 L 96 10/19/24 23:26 10/19/24 23:09 83 14 103/64 99 10/19/24 22:37 10/19/24 22:30 68 16 100/65 98 10/19/24 22:06 68 22 83/50 L 97 10/19/24 22:00 71 18 79/55 L 96 10/19/24 22:00 10/19/24 21:47 77 20 87/64 L 96 10/19/24 21:42 36.8 C 73 23 80/63 L 95 10/19/24 20:25 93/59 L 10/19/24 20:21 85 22 92/47 L 91 10/19/24 20:15 82/53 L 10/19/24 20:05 88/57 L 10/19/24 20:03 83 17 85/54 L 94 10/19/24 19:51 86 28 H 89/54 L 94 10/19/24 19:45 82/56 L 10/19/24 19:40 99/64 L 10/19/24 19:39 83 24 92/58 L 96 Pulse Ox O2 Del Method O2 Del Method 10/20/24 07:00 Room Air 10/20/24 06:30 Room Air 10/20/24 06:00 Room Air 10/20/24 05:30 Room Air 10/20/24 05:00 Room Air 10/20/24 04:00 Room Air 10/20/24 03:30 Room Air 10/20/24 03:00 Room Air 10/20/24 02:30 Room Air 10/20/24 02:00 Room Air 10/20/24 01:30 10/20/24 01:00 Room Air 10/20/24 00:30 Room Air 10/20/24 00:00 Room Air 10/19/24 23:30 Room Air 10/19/24 23:26 Room Air 10/19/24 23:09 Room Air 10/19/24 22:37 99 Room Air 10/19/24 22:30 Room Air 10/19/24 22:06 Room Air 10/19/24 22:00 Room Air 10/19/24 22:00 96 Room Air 10/19/24 21:47 Room Air 10/19/24 21:42 Room Air 10/19/24 20:25 10/19/24 20:21 10/19/24 20:15 10/19/24 20:05 10/19/24 20:03 10/19/24 19:51 10/19/24 19:45 10/19/24 19:40 10/19/24 19:39 Critical Care Results & Data Vital Signs (Past 12 Hours) Vital Signs Temp Pulse Pulse Resp BP BP Pulse Ox 10/20/24 07:00 77 14 110/67 96 10/20/24 06:30 62 19 107/58 L 96 10/20/24 06:00 78 18 102/61 97 10/20/24 05:30 68 20 117/68 94 10/20/24 05:00 71 19 95/57 L 94 10/20/24 04:00 36.9 C 63 20 119/72 94 10/20/24 03:30 75 20 107/61 93 10/20/24 03:00 62 16 98/56 L 95 10/20/24 02:30 67 21 84/47 L 93 10/20/24 02:00 70 20 80/45 L 94 10/20/24 01:30 75 22 88/50 L 93 10/20/24 01:00 73 21 83/52 L 94 10/20/24 00:30 75 20 82/52 L 95 10/20/24 00:00 36.8 C 76 20 81/54 L 96 10/19/24 23:30 85 19 77/50 L 96 10/19/24 23:26 10/19/24 23:09 83 14 103/64 99 10/19/24 22:37 10/19/24 22:30 68 16 100/65 98 10/19/24 22:06 68 22 83/50 L 97 10/19/24 22:00 71 18 79/55 L 96 10/19/24 22:00 10/19/24 21:47 77 20 87/64 L 96 10/19/24 21:42 36.8 C 73 23 80/63 L 95 10/19/24 20:25 93/59 L 10/19/24 20:21 85 22 92/47 L 91 10/19/24 20:15 82/53 L 10/19/24 20:05 88/57 L 10/19/24 20:03 83 17 85/54 L 94 10/19/24 19:51 86 28 H 89/54 L 94 10/19/24 19:45 82/56 L 10/19/24 19:40 99/64 L 10/19/24 19:39 83 24 92/58 L 96 Pulse Ox O2 Del Method O2 Del Method 10/20/24 07:00 Room Air 10/20/24 06:30 Room Air 10/20/24 06:00 Room Air 10/20/24 05:30 Room Air 10/20/24 05:00 Room Air 10/20/24 04:00 Room Air 10/20/24 03:30 Room Air 10/20/24 03:00 Room Air 10/20/24 02:30 Room Air 10/20/24 02:00 Room Air 10/20/24 01:30 10/20/24 01:00 Room Air 10/20/24 00:30 Room Air 10/20/24 00:00 Room Air 10/19/24 23:30 Room Air 10/19/24 23:26 Room Air 10/19/24 23:09 Room Air 10/19/24 22:37 99 Room Air 10/19/24 22:30 Room Air 10/19/24 22:06 Room Air 10/19/24 22:00 Room Air 10/19/24 22:00 96 Room Air 10/19/24 21:47 Room Air 10/19/24 21:42 Room Air 10/19/24 20:25 10/19/24 20:21 10/19/24 20:15 10/19/24 20:05 10/19/24 20:03 10/19/24 19:51 10/19/24 19:45 10/19/24 19:40 10/19/24 19:39 Lab & Micro Results (Past 24 Hours) RBC 4.26 M/uL (4.20-5.40) 10/20/24 WBC 15.26 K/ul (4.8-10.8) H 10/20/24 Hgb 12.9 g/dl (12.0-16.0) 10/20/24 Hct 37.1 % (37.0-47.0) 10/20/24 MCV 87.1 fL (80.0-100.0) 10/20/24 MCH 30.3 pg (25.0-34.0) 10/20/24 MCHC 34.8 g/dL (32.0-36.0) 10/20/24 RDW Standard Deviation 43.2 fL (36.4-46.3) 10/20/24 RDW Coefficient of Variation 13.6 % (11.5-14.5) 10/20/24 Plt Count 299 K/uL (130-400) 10/20/24 MPV 10.1 fL (9.4-12.4) 10/20/24 Neutrophils (%) (Auto) 92.6 % 10/19/24 Lymphocytes (%) (Auto) 2.7 % 10/19/24 Monocytes # (Auto) 0.59 K/uL (0.11-0.59) 10/19/24 Eosinophils # (Auto) 0.09 K/uL (0.00-0.50) 10/19/24 Immature Granulocyte % (Auto) 0.7 % 10/19/24 Neutrophils # (Auto) 17.06 K/uL (1.40-6.50) H 10/19/24 Lymphocytes # (Auto) 0.50 K/uL (1.20-3.40) L 10/19/24 Monocytes # (Auto) 0.59 K/uL (0.11-0.59) 10/19/24 Eosinophils # (Auto) 0.09 K/uL (0.00-0.50) 10/19/24 Basophils # (Auto) 0.05 K/uL (0.00-0.20) 10/19/24 Immature Granulocyte # (Auto) 0.13 K/uL (0.01-0.20) 5 Na 133 mmol/L (136-145) L 10/20/24 K 3.5 mmol/L (3.5-5.1) 10/20/24 Cl 103 mmol/L (98-107) 10/20/24 CO2 24 mmol/L (21-32) 10/20/24 Anion Gap 6 (3-11) 10/20/24 BUN 10 mg/dl (6-23) 10/20/24 Creatinine 0.37 mg/dl (0.6-1.2) L 10/20/24 BUN/Creatinine Ratio 27.0 (10-20) H 10/20/24 Glu 318 mg/dl (70-99(Fasting)) H* 10/20/24 Ca 7.8 mg/dl (8.6-10.3) L 10/20/24 Phosphorus Level 2.0 mg/dl (2.5-4.9) L 10/20/24 Total Bilirubin 0.8 mg/dl (0.2-1.0) 10/19/24 Direct Bilirubin 0.2 mg/dl (0-0.2) 10/19/24 AST 29 U/L (13-39) 10/19/24 ALT 19 U/L (7-52) 10/19/24 Alkaline Phosphatase 69 U/L (34-104) 10/19/24 TP 7.5 gm/dl (6.0-8.3) 10/19/24 Albumin 3.4 gm/dl (3.4-5.0) 10/19/24 Mg 2.3 mg/dl (1.7-2.4) 10/20/24 03:41 Calcium Level 7.8 mg/dl (8.6-10.3) L 10/20/24 03:41 Prothromb Time International Ratio 1.0 (0.9-1.1) 10/19/24 11:3 3 Microbiology 10/19/24 12:44 Gram Stain - Final Sputum, Expectorated Diagnostic Findings (Past 24 Hours) Head CT 10/19/24 11:52 CT head/brain wo con CLINICAL HISTORY: 74 years-old Female with fall on plavix. Acute head trauma status post fall TECHNIQUE: Multiple axial CT images of the head were obtained without contrast. A dose lowering technique was utilized adhering to the principles of ALARA. CT DOSE: 625.8 mGy.cm COMPARISON: None. FINDINGS: No acute intracranial hemorrhage, midline shift, intracranial mass, hydrocephalus, territorial ischemia or abnormal extra-axial collection. Involutional changes with mild white matter hypodensities, likely chronic microvascular ischemic disease. The calvarium is intact. Moderate to severe mucosal thickening of the right- sided paranasal sinuses. Mastoid air cells are clear. Unremarkable soft tissues. IMPRESSION: No acute intracranial abnormality or calvarial fracture. ACT 112: Negative or not required by law. The above report was generated using voice recognition software. It may contain grammatical, syntax or spelling errors. Electronically signed by: Fei Swanson M.D. 10/19/2024 1:03 PM Chest X-Ray 10/19/24 14:58 XR chest 1V portable HISTORY: 74 years-old Female cough acute cough COMPARISON: None TECHNIQUE: AP view the chest FINDINGS: Cardiac silhouette is enlarged. Perivascular congestion with interstitial coarsening. Patchy ill-defined left basilar opacities. Masslike left perihilar/paramediastinal opacity measures up to approximately 9 cm. A vascular graft is noted. Degenerative changes of the shoulders and spine. IMPRESSION: 1. Left perihilar/paramediastinal masslike opacity requires further correlation with chest CT. 2. Cardiomegaly with pulmonary vascular congestion. 3. Mild patchy left basilar atelectasis versus pneumonitis. ACT 112: Positive. There are findings on this exam that require communication between the performing entity and the patient following Patient Test Result Information Act ([place] Act 112) guidelines. The above report was generated using voice recognition software. It may contain grammatical, syntax or spelling errors. Electronically signed by: Fei Swanson M.D. 10/19/2024 3:[address] 10/19/24 16:09 CT chest with contrast History: Chest pain Comparison: None Technique: Helical CT imaging of the chest performed with IV contrast Dose reduction techniques were achieved by using automatic exposure control and/or adjustment of mA and/or kV according to patient size and/or use of iterative reconstruction technique. Findings: Small left pleural effusion. Moderate bibasilar patchy consolidative opacities. Masslike, necrotic lymphadenopathy throughout the mediastinum, including a 9.4 x 6.7 cm area throughout the left mediastinum with rim enhancement. No pneumothorax. Heart size is normal. The thoracic aorta is normal in size. The pulmonary artery is enlarged in size. No significant pericardial effusion. Severe emphysema. The central airway is clear. Limited visualized upper abdomen. There are numerous rim-enhancing lesions throughout the liver, including the right lobe, image 46, measuring 14 mm, and in the left lobe on axial image 50 measuring 11 mm, within the anterior central portion of the liver on axial image 50 measuring 9 mm, in the medial right lobe on axial image 50, measuring 13 mm, in the posterior right lobe on axial image 50 measuring 13 mm. Prominent multilobular thickening of the left adrenal gland suspicious for metastatic disease. No acute bony abnormalities. Impression: Masslike, necrotic lymphadenopathy in the mediastinum, is consistent with malignancy, especially small cell lung cancer, versus possibly lymphoma. Small left pleural effusion. Bibasilar patchy opacities, consistent with pneumonia. Numerous rim-enhancing lesions throughout the liver partially seen, consistent with metastasis. Multilobular thickening of the left adrenal gland is most suspicious for metastatic disease. No pulmonary embolism. Electronically signed by Juan Hardwick 10-19-2024 6:35 PM Brain MRI 10/19/24 18:58 Exam(s): MRI HEAD W/WO Contrast IV Amt: 5mL Gadavist given existing IV EXAM: MR Head Without and With Intravenous Contrast CLINICAL HISTORY: Reason for exam: Metastatic cancer. TECHNIQUE: Magnetic resonance images of the head/brain without and with intravenous contrast in multiple planes. CONTRAST: Patient received 5mL Gadavist given existing IV of IV contrast COMPARISON: No relevant prior studies available. FINDINGS: Brain: Unremarkable. No mass. No hemorrhage. No acute infarct. No abnormal enhancement. Ventricles: Unremarkable. No ventriculomegaly. Bones/joints: Unremarkable. No acute fracture. Sinuses: Right maxillary sinusitis. Mastoid air cells: Unremarkable as visualized. No mastoid effusion. Orbits: Unremarkable as visualized. IMPRESSION: 1. No acute intracranial abnormality. 2. Right maxillary sinusitis. Electronically signed by: Brennan Moore MD 10/19/24 22:08 PM I & O Totals 24 Hours 10/19/24 10/20/24 10/21/24 06:59 06:59 06:59 Intake Total 3229.726 / 3229.726 8.835 / 8.835 Output Total 551 / 551 Balance 2678.726 / 2678.726 8.835 / 8.835 Cumulative 10/19/24 10:55 thru 10/20/24 07:20 Intake Total 3238.561 Output Total 551 Balance 2687.561 RT Ventilator Mngmt (Last Documented) Ventilator Ordered Settings Respiratory Rate 14 10/20/24 07:00 Ventilator - PT Measurements Respiratory Rate 14 Coding Level of Care Code 24747 SUB INP/OBS CARE 3/50MIN Diagnoses Hypotension I95.9 Mediastinal mass J98.59 Atrial fibrillation I48.91 Influenza A J10.1
[2024-10-20] MEDS: CALCIUM GLUCONATE 1,000 MG/60 ML BAG IV SCH (08:51)
[2024-10-20] MEDS: AMOXICILLIN/CLAVULANATE 875 MG TAB PO SCH (08:51)
[2024-10-20] MEDS ORDERED: CLOPIDOGREL BISULFATE 75 MG TAB PO SCH (09:00)
[2024-10-20] MEDS: ASPIRIN 81 MG ECTAB PO SCH (09:01)
[2024-10-20] MEDS: ADVANCED PROBIOTIC 625 MG CAPSULE PO SCH (09:01)
[2024-10-20] MEDS: ATORVASTATIN 40 MG TAB PO SCH (09:01)
--- NOTE | 2024-10-20 10:25 | Communication Note ---
Date of Service: October 20, 2024 Telemetry reviewed. No recurrence of atrial fibrillation noted since conversion to SR while in the ED on 10/19/23 at 15:33. Krystle Ayers DO
--- NOTE | 2024-10-20 10:44 | Pharmacy Report ---
Pharmacy Glycemic Short Note 2 - Date of Service October 20, 2024 - Glycemic Short BSG Results (Last 24 hours): 10/19/24 10/19/24 10/19/24 11:25 11:33 22:34 Glucose 265 H POC Glucose 287 H 291 H 10/20/24 10/20/24 03:41 07:22 Glucose 318 H* POC Glucose 228 H OUTPATIENT ANTIDIABETIC REGIMEN: * Ozempic 1mg SQ weekly HbA1C: ___ ASSESSMENT: * Pt is a 74 year old female with chronic hypotension admitted with influenza A and hypotension. History of DM2 on Ozempic at home. Pharmacy consulted to assist with inpatient glycemic management. * Receiving antibiotics and phenylephrine at 0.3mcg/kg/min. Received Solu Cortef 100mg IV X 1 yesterday. Tolerating diet. * BSGs have trended down to 228mg/dl this AM with 4 units of bolus insulin last night. Will hold basal for now (await A1C) given no ongoing steroids. Novolog tightened to 30/12 starting at lunch. PLAN FOR INPATIENT GLYCEMIC CONTROL: * Hold outpatient oral diabetes medications * Basal insulin * Hold * Bolus insulin * NovoLog per scale ACHS or Q6hrs while NPO * Goal Range: Low 110 mg/dL - High 140 mg/dL * Correction Factor: 30 mg/dL/unit * Nutritional / Prandial insulin per carb ratio of 1 unit per 12 grams CHO consumed
[2024-10-20 14:43] LABS: Estimated Average Glucose 214 mg/dl; Hemoglobin A1C 9.1 % (4.5-5.6)
[2024-10-20] MEDS: OPTIRAY 320 100ml IV ONE (15:07)
--- NOTE | 2024-10-20 15:13 | Hospitalist Progress Note ---
Date of Service October 20, 2024 Assessment & Plan (1) Pneumonia: Plan Influenza A Pneumonia Lung mass Septic shock: Patient presents with cough for 2 weeks, productive in nature. Admitting CXR with left hilar/paramediastinal masslike opacity and mild patchy left basilar atelectasis versus pneumonitis. CT chest showed masslike lesion in mediastinum, small pleural effusion, bibasilar opacities, lesions in the liver Currently on phenylephrine Continue tamiflu, Augmentin Critical care eval and recs noted Reviewed findings with patient Patient will need biopsy for better evaluation of lesion once stable. Home plavix has been on hold since admission Paroxysmal Afib Syncope Patient reports lightheadedness and fall last Thursday. Patient noted to be in A-fib RVR with heart rate in 140s at presentation in the ED. Patient reports no prior diagnosis of A-fib.. Patient spontaneously converted to normal sinus rhythm in the ED. 10/05/2024 echo with EF of 60 to 64%, grade 1 diastolic dysfunction, left ventricular wall motion normal. Cardiology eval and recs noted Considering orthostasis, falls; Card recommends holding off AC at this time which is reasonable Patient's Home medications are: As needed albuterol, as needed Xanax 0.5 Mg, baby aspirin daily, Plavix 75 Mg daily, atorvastatin 80 Mg daily, furosemide 20 Mg as needed for leg swelling. Levothyroxine 100 mcg daily, midodrine 5 Mg 3 times daily, nortriptyline 25 Mg at bedtime, omeprazole 1-2 times a week, Ozempic 4 mg subcutaneous every week,. DVT prophylaxis: Heparin subcu I spent a total of 50minutes coordinating, documenting and providing care for this patient excluding time spent in performance of separately billed services Admission and Anticipated Discharge Date Admission Date: October 19, 2024 Subjective Patient seen and examined Reports cough States she is feeling better today Denied any dizziness today. Denied chest pain, nausea, vomiting, abd pain,diarrhea Physical Exam Constitutional: + well hydrated; no acute distress Old bruise on face Eyes: PERRL, conjunctivae normal, anicteric sclerae ENMT: external ear and nose normal, oropharynx normal Respiratory: On room air, CTA b/; Cardiovascular: Rate/Rhythm: regular rate and regular rhythm Gastrointestinal (Abdomen): normal bowel sounds, soft, nontender, no hepatosplenomegaly Musculoskeletal: No pedal edema Neurologic: PERRL, EOMI, accommodation nl, no face palsy, no dysarthria Psychiatric: A+Ox3, euthymic affect Results & Data Results & Data Vital Signs (Past 12 Hours) Vital Signs Temp Pulse Pulse Resp BP BP Pulse Ox 10/20/24 14:30 90/58 L 10/20/24 14:00 84/46 L 10/20/24 14:00 72 16 95 10/20/24 13:00 72/45 L 10/20/24 13:00 69 23 97 10/20/24 12:41 79/45 L 10/20/24 12:30 84/50 L 10/20/24 12:03 72 12 98 10/20/24 12:00 103/61 10/20/24 11:03 70 22 97 10/20/24 11:00 91/59 L 10/20/24 10:19 10/20/24 10:06 71 23 96 10/20/24 10:01 98/49 L 10/20/24 09:31 111/45 L 10/20/24 09:18 91/51 L 10/20/24 09:18 75 20 98 10/20/24 09:08 86/49 L 10/20/24 08:23 70/44 L 10/20/24 08:18 82 25 H 100 10/20/24 08:00 72 10/20/24 07:28 99/72 L 10/20/24 07:27 78 15 94 10/20/24 07:00 77 14 110/67 96 10/20/24 06:30 62 19 107/58 L 96 10/20/24 06:00 78 18 102/61 97 10/20/24 05:30 68 20 117/68 94 10/20/24 05:00 71 19 95/57 L 94 10/20/24 04:00 36.9 C 63 20 119/72 94 10/20/24 03:30 75 20 107/61 93 O2 Del Method 10/20/24 14:30 10/20/24 14:00 10/20/24 14:00 10/20/24 13:00 10/20/24 13:00 10/20/24 12:41 10/20/24 12:30 10/20/24 12:03 10/20/24 12:00 10/20/24 11:03 10/20/24 11:00 10/20/24 10:19 Room Air 10/20/24 10:06 10/20/24 10:01 10/20/24 09:31 10/20/24 09:18 10/20/24 09:18 10/20/24 09:08 10/20/24 08:23 10/20/24 08:18 10/20/24 08:00 10/20/24 07:28 10/20/24 07:27 Room Air 10/20/24 07:00 Room Air 10/20/24 06:30 Room Air 10/20/24 06:00 Room Air 10/20/24 05:30 Room Air 10/20/24 05:00 Room Air 10/20/24 04:00 Room Air 10/20/24 03:30 Room Air Laboratory Results Abnormal lab results 10/19/24 10/19/24 10/19/24 Range/Units 14:40 16:53 19:15 WBC (4.8-10.8) K/ul POC pH 7.46 H (7.35-7.45) POC pCO2 32 L (35-46) mmHg POC pO2 62 L (80-95) mmHg POC Total CO2 23 L (24-31) mmol/L POC Sodium 134 L (135-144) mmol/L Sodium (136-145) mmol/L Creatinine (0.6-1.2) mg/dl BUN/Creatinine Ratio (10-20) Glucose (70-99(Fasting)) mg/dl POC Glucose (70-99) mg/dl Hemoglobin A1c (4.5-5.6) % Calcium (8.6-10.3) mg/dl Phosphorus (2.5-4.9) mg/dl Troponin I High Sens 18.7 H (0-14) pg/ml Urine Appearance Cloudy A (Clear) Urine Protein 1+ H (Negative) Urine Glucose (UA) 2+ H (Negative) Urine Ketones 1+ H (Negative) Urine RBC (Auto) 11-20 H (0-2) /hpf U Epithel Cells (Auto) 3-5 H (0-2) /hpf Urine Bacteria (Auto) 2+ H (None Seen) 10/19/24 10/20/24 10/20/24 Range/Units 22:34 03:41 07:22 WBC 15.26 H (4.8-10.8) K/ul POC pH (7.35-7.45) POC pCO2 (35-46) mmHg POC pO2 (80-95) mmHg POC Total CO2 (24-31) mmol/L POC Sodium (135-144) mmol/L Sodium 133 L (136-145) mmol/L Creatinine 0.37 L (0.6-1.2) mg/dl BUN/Creatinine Ratio 27.0 H (10-20) Glucose 318 H* (70-99(Fasting)) mg/dl POC Glucose 291 H 228 H (70-99) mg/dl Hemoglobin A1c 9.1 H (4.5-5.6) % Calcium 7.8 L (8.6-10.3) mg/dl Phosphorus 2.0 L (2.5-4.9) mg/dl Troponin I High Sens (0-14) pg/ml Urine Appearance (Clear) Urine Protein (Negative) Urine Glucose (UA) (Negative) Urine Ketones (Negative) Urine RBC (Auto) (0-2) /hpf U Epithel Cells (Auto) (0-2) /hpf Urine Bacteria (Auto) (None Seen) 10/20/24 Range/Units 11:10 WBC (4.8-10.8) K/ul POC pH (7.35-7.45) POC pCO2 (35-46) mmHg POC pO2 (80-95) mmHg POC Total CO2 (24-31) mmol/L POC Sodium (135-144) mmol/L Sodium (136-145) mmol/L Creatinine (0.6-1.2) mg/dl BUN/Creatinine Ratio (10-20) Glucose (70-99(Fasting)) mg/dl POC Glucose 212 H (70-99) mg/dl Hemoglobin A1c (4.5-5.6) % Calcium (8.6-10.3) mg/dl Phosphorus (2.5-4.9) mg/dl Troponin I High Sens (0-14) pg/ml Urine Appearance (Clear) Urine Protein (Negative) Urine Glucose (UA) (Negative) Urine Ketones (Negative) Urine RBC (Auto) (0-2) /hpf U Epithel Cells (Auto) (0-2) /hpf Urine Bacteria (Auto) (None Seen)
--- NOTE | 2024-10-20 15:49 | CT Scan Report ---
ABDOMEN AND PELVIS CT WITH IV AND ORAL CONTRAST CT DOSE: 783.92 mGy.cm HISTORY: Staging study in a patient with lung cancer cancer staging TECHNIQUE: Multiaxial CT images of the abdomen and pelvis were performed following the IV administrat ion of 90 cc of Optiray and oral contrast. A dose lowering technique was utilized adhering to the pr inciples of BRAYDEN. COMPARISON STUDY: Chest CT 10/19/2024 FINDINGS: Thoracic findings are better discussed on yesterday's chest CT. Cardiomegaly with coronary artery calcifications. Small pleural effusions with bibasilar consolidation and mucous plugging. Intr alobular septal thickening. No pneumatosis or pneumoperitoneum. Unremarkable spleen. Moderately atrophic pancreas with borderline ductal dilation. Nodular thickening of the adrenal gland measures up to 3.8 cm on the left 1.67 m on the right. Several ill-defined hypo dense liver lesions, metastasis are seen measuring up to 2 cm. Patency of the hepatic and portal vein s. Cholelithiasis. Bilateral renal cysts. No hydronephrosis. Decompressed urinary bladder. There is atherosclerosis of t aorta and branch vessels. Retroperitoneal lymph nodes measure up to 12 mm. Periportal lymph nodes measure up to 1.6 cm. Iliac chain lymph nodes measure up to 11 mm on the left. Mild nonspecific distal esophageal wall thickening. Gastric bypass. Colonic diverticulosis. Moderate fecal retention of the right hemicolon. The appendix is noninflamed. As enteric and body wall edema. No acute fracture or destructive bone lesion is identified. There are a few age-indeterminate maribel mitesh deformities, noted with L1, L3 and L5. IMPRESSION: 1. Small pleural effusion with bibasilar consolidation, and mucous plugging. Please refer to the [facility] t CT from yesterday for further discussion of the thoracic malignant findings. 2. Hepatic and adrenal metastasis with pathologically enlarged lymph nodes of the abdomen and pelvis. 3. Moderate fecal retention of the right hemicolon. No bowel obstruction or bowel wall thickening. 4. Colonic diverticulosis. 5. No destructive bone lesions identified. ACT 112: Negative or not required by law. The above report was generated using voice recognition software. It may contain grammatical, syntax o r spelling errors. Electronically signed by: Fei Swanson M.D. 10/20/2024 3:47 PM
[2024-10-21 04:41] LABS: Hematocrit (blood only) 40.4 % (37.0-47.0); Hemoglobin 13.9 g/dl (12.0-16.0); Mean Corpuscular Hemoglobin 29.8 pg (25.0-34.0); Mean Corpuscular Hgb Conc 34.4 g/dL (32.0-36.0); Mean Corpuscular Volume 86.5 fL (80.0-100.0); Mean Platelet Volume 10.1 fL (9.4-12.4); Platelet Count 318 K/uL (130-400); RDW Coefficient of Variation 13.9 % (11.5-14.5); RDW Standard Deviation 43.3 fL (36.4-46.3); Red Blood Count 4.67 M/uL (4.20-5.40); White Blood Count 10.37 K/ul (4.8-10.8)
[2024-10-21 04:56] LABS: Albumin Globulin Ratio 0.8 (0.9-2); BUN Creatinine Ratio 21.6 (10-20); Bilirubin,Total 0.5 mg/dl (0.2-1.0); Calcium 8.1 mg/dl (8.6-10.3); Creatinine Clr Calc Pharmacy 118.1 ml/min; Globulin 3.6 gm/dl (2.5-4.0); Magnesium 1.6 mg/dl (1.7-2.4); Phosphorus 2.4 mg/dl (2.5-4.9); Potassium 3.6 mmol/L (3.5-5.1); Total Protein 6.6 gm/dl (6.0-8.3)
[2024-10-21] MEDS ORDERED: SODIUM PHOSPHATE 3 MMOL/1 ML INFUSION IV STA (05:03)
[2024-10-21] MEDS: MAGNESIUM SULFATE / D5W 1 GM/100 ML BAG IV SCH (05:42)
[2024-10-21] MEDS: POTASSIUM CHLORIDE CRTAB 20 MEQ TABCR PO SCH (05:42)
[2024-10-21] MEDS: POT PHOSPHATE MONOBASIC W/ SOD TAB PO SCH (05:42)
--- NOTE | 2024-10-21 07:35 | Critical Care Progress Note ---
Date of Service October 21, 2024 Assessment & Plan (1) Hypotension: (2) Mediastinal mass: (3) Atrial fibrillation: (4) Influenza A: Plan Impression: 74-year-old female with extensive history of tobacco abuse and chronic hypotension presents with influenza A and low blood pressure in the setting of normal lactate after a fall. Chest x-ray and CT scan show a left suprahilar mass with extensive adenopathy and probable liver mets. 24-hour events: Patient mated to the ICU. Maintained on Shar-Synephrine. CT of the abdomen and pelvis performed confirming presence of intra-abdominal metastases. Discussed with IR. Biopsy not available until she has been off of Plavix for 5 days. Family updated at bedside Recommendations: Neuro -pain management. MRI of the brain unrevealing. Out of bed to chair as tolerated Cardiac -presented with A-fib with RVR. Holding anticoagulation given falls and potential need for procedures in the future. Will down titrate Shar-Synephrine to keep systolic above 90. Her hypotension is a chronic issue and has been longstanding. No evidence of endorgan malperfusion. According to the patient her blood pressures are often in the 50s or 60s in the outpatient setting. Co ntinue p.o. midodrine and Florinef. Plavix on hold. Add p.o. sodium chloride. Albumin support today. Replace calcium. Respiratory -lung mass: See comments below. Likely has some degree of emphysema but not bronchospastic. As needed bronchodilators. GI -diet as tolerated. Continue home PPI RENAL/LYTES -ICU electrolyte replacement protocol. ENDO - random cortisol was normal. Discontinue hydrocortisone but continue Florinef. Continue TSH replacement and glycemic control per protocol HEME/ONC/OTHER -lung mass with necrotic adenopathy in the mediastinum and probable adrenal as well as hepatic masses. Needs to be off Plavix for 5 days before biopsy, earliest this could be performed would be early next week. Patient and family understand. Would pursue liver biopsy first as this will provide both diagnostic and staging information. ID -influenza, continue Tamiflu. Minimal findings on the chest to suggest infection. White blood cell count decreasing. Procalcitonin normal. Cultures negative to date. De-escalate antibiotics to Augmentin for 5 days. No evidence of hives LINES/TUBES/DRAINS - PIV x2 DVT PROPHYLAXIS - Enoxaparin Disposition: ICU while on vasopressors Hopefully the patient's clinical status will improve we will be able to consider transfer to the floor once her hemodynamics are stable Admission and Anticipated Discharge Date Admission Date: October 19, 2024 Subjective Patient seen and examined. EMR reviewed. Discussed with bedside critical care nurse and overnight critical care ELVIE. Discussed on multidisciplinary rounds. Patient is doing well clinically. She is awake alert conversant. She is eating breakfast. She denies any chest pain or palpitations. No dizziness or lightheadedness. She denies fevers chills or night sweats. No cough or sputum production. She remains on a low-dose of Shar-Synephrine Review of Systems Review of Systems: All systems reviewed & are unremarkable except as noted in Subjective Physical Exam Constitutional: + thin; not ill appearing Neck: trachea midline, no thyromegaly Respiratory: normal respiratory effort, lungs clear to auscultation Cardiovascular: RRR, no murmur, no edema Gastrointestinal (Abdomen): normal bowel sounds, soft, nontender, no hepatosplenomegaly Musculoskeletal: Extremities: extremities normal to inspection Skin: no rashes, warm and dry Lymphatic: no cervical lymphadenopathy Results & Data Results & Data Vital Signs (Past 12 Hours) Vital Signs Temp Pulse Resp BP Pulse Ox O2 Del Method O2 Flow Rate 10/21/24 06:09 77 17 10/21/24 05:33 67 20 10/21/24 05:30 135/76 10/21/24 05:30 135/76 10/21/24 05:30 135/76 10/21/24 05:30 135/76 10/21/24 05:12 68 19 10/21/24 05:00 129/76 10/21/24 05:00 129/76 10/21/24 05:00 129/76 10/21/24 05:00 69 19 10/21/24 04:30 65 19 10/21/24 04:30 100/65 10/21/24 04:00 110/60 10/21/24 04:00 36.5 C 110/60 10/21/24 04:00 67 20 110/60 93 Room Air 10/21/24 03:00 0 10/21/24 03:00 65 19 115/68 Room Air 10/21/24 02:06 63 18 10/21/24 02:00 117/64 10/21/24 02:00 117/64 02/14/25 02:00 117/64 10/21/24 01:57 64 19 10/21/24 01:30 128/68 10/21/24 01:30 128/68 10/21/24 01:30 128/68 10/21/24 01:30 67 19 10/21/24 01:03 67 19 10/21/24 01:00 113/60 10/21/24 01:00 113/60 10/21/24 00:57 69 20 10/21/24 00:30 114/67 10/21/24 00:30 114/67 10/21/24 00:30 114/67 10/21/24 00:30 36.4 C L 114/67 10/21/24 00:30 114/67 10/21/24 00:30 68 19 10/21/24 00:12 70 22 10/21/24 00:00 116/65 10/20/24 23:54 67 18 10/20/24 23:39 68 10/20/24 23:30 67 22 10/20/24 23:30 113/63 10/20/24 23:30 113/63 10/20/24 23:30 113/63 10/20/24 23:30 113/63 10/20/24 23:03 72 20 10/20/24 23:00 135/85 10/20/24 23:00 135/85 10/20/24 23:00 135/85 10/20/24 22:57 67 18 10/20/24 22:48 67 19 10/20/24 22:30 117/72 10/20/24 22:24 75 22 10/20/24 22:06 63 17 10/20/24 22:00 122/66 10/20/24 21:54 61 17 10/20/24 21:36 65 20 10/20/24 21:30 117/64 10/20/24 21:30 117/64 10/20/24 21:18 65 20 82 L 10/20/24 21:12 62 20 94 10/20/24 21:00 115/74 10/20/24 21:00 115/74 10/20/24 20:54 67 10/20/24 20:51 93/53 L 10/20/24 20:51 55 L 13 10/20/24 20:45 59 L 19 10/20/24 20:30 90/56 L 10/20/24 20:30 90/56 L 10/20/24 20:21 57 L 12 10/20/24 20:03 62 18 10/20/24 20:00 86/62 L 10/20/24 20:00 86/62 L 10/20/24 19:51 68 12 Critical Care Results & Data Vital Signs (Past 12 Hours) Vital Signs Temp Pulse Resp BP Pulse Ox O2 Del Method O2 Flow Rate 10/21/24 06:09 77 17 10/21/24 05:33 67 20 10/21/24 05:30 135/76 10/21/24 05:30 135/76 10/21/24 05:30 135/76 10/21/24 05:30 135/76 10/21/24 05:12 68 19 10/21/24 05:00 129/76 10/21/24 05:00 129/76 10/21/24 05:00 129/76 10/21/24 05:00 69 19 10/21/24 04:30 65 19 10/21/24 04:30 100/65 10/21/24 04:00 110/60 10/21/24 04:00 36.5 C 110/60 10/21/24 04:00 67 20 110/60 93 Room Air 10/21/24 03:00 0 10/21/24 03:00 65 19 115/68 Room Air 10/21/24 02:06 63 18 10/21/24 02:00 117/64 10/21/24 02:00 117/64 10/21/24 02:00 117/64 10/21/24 01:57 64 19 10/21/24 01:30 128/68 10/21/24 01:30 128/68 10/21/24 01:30 128/68 10/21/24 01:30 67 19 10/21/24 01:03 67 19 10/21/24 01:00 113/60 10/21/24 01:00 113/60 10/21/24 00:57 69 20 10/21/24 00:30 114/67 10/21/24 00:30 114/67 10/21/24 00:30 114/67 10/21/24 00:30 36.4 C L 114/67 10/21/24 00:30 114/67 10/21/24 00:30 68 19 10/21/24 00:12 70 22 10/21/24 00:00 116/65 10/20/24 23:54 67 18 10/20/24 23:39 68 10/20/24 23:30 67 22 10/20/24 23:30 113/63 10/20/24 23:30 113/63 10/20/24 23:30 113/63 10/20/24 23:30 113/63 10/20/24 23:03 72 20 10/20/24 23:00 135/85 10/20/24 23:00 135/85 10/20/24 23:00 135/85 10/20/24 22:57 67 18 10/20/24 22:48 67 19 10/20/24 22:30 117/72 10/20/24 22:24 75 22 10/20/24 22:06 63 17 10/20/24 22:00 122/66 10/20/24 21:54 61 17 10/20/24 21:36 65 20 10/20/24 21:30 117/64 10/20/24 21:30 117/64 10/20/24 21:18 65 20 82 L 10/20/24 21:12 62 20 94 10/20/24 21:00 115/74 10/20/24 21:00 115/74 10/20/24 20:54 67 10/20/24 20:51 93/53 L 10/20/24 20:51 55 L 13 10/20/24 20:45 59 L 19 10/20/24 20:30 90/56 L 10/20/24 20:30 90/56 L 10/20/24 20:21 57 L 12 10/20/24 20:03 62 18 10/20/24 20:00 86/62 L 10/20/24 20:00 86/62 L 10/20/24 19:51 68 12 Lab & Micro Results (Past 24 Hours) RBC 4.67 M/uL (4.20-5.40) 10/21/24 WBC 10.37 K/ul (4.8-10.8) 10/21/24 Hgb 13.9 g/dl (12.0-16.0) 10/21/24 Hct 40.4 % (37.0-47.0) 10/21/24 MCV 86.5 fL (80.0-100.0) 10/21/24 MCH 29.8 pg (25.0-34.0) 10/21/24 MCHC 34.4 g/dL (32.0-36.0) 10/21/24 RDW Standard Deviation 43.3 fL (36.4-46.3) 10/21/24 RDW Coefficient of Variation 13.9 % (11.5-14.5) 10/21/24 Plt Count 318 K/uL (130-400) 10/21/24 MPV 10.1 fL (9.4-12.4) 10/21/24 Na 137 mmol/L (136-145) 10/21/24 K 3.6 mmol/L (3.5-5.1) 10/21/24 Cl 104 mmol/L (98-107) 10/21/24 CO2 25 mmol/L (21-32) 10/21/24 Anion Gap 8 (3-11) 10/21/24 BUN 8 mg/dl (6-23) 10/21/24 Creatinine 0.37 mg/dl (0.6-1.2) L 10/21/24 BUN/Creatinine Ratio 21.6 (10-20) H 10/21/24 Glu 104 mg/dl (70-99(Fasting)) H 10/21/24 Ca 8.1 mg/dl (8.6-10.3) L 10/21/24 Phosphorus Level 2.4 mg/dl (2.5-4.9) L 10/21/24 Total Bilirubin 0.5 mg/dl (0.2-1.0) 10/21/24 AST 28 U/L (13-39) 10/21/24 ALT 18 U/L (7-52) 10/21/24 Alkaline Phosphatase 52 U/L (34-104) 10/21/24 TP 6.6 gm/dl (6.0-8.3) 10/21/24 Albumin 3.0 gm/dl (3.4-5.0) L 10/21/24 Globulin 3.6 gm/dl (2.5-4.0) 10/21/24 Albumin/Globulin Ratio 0.8 (0.9-2) L 10/21/24 Mg 1.6 mg/dl (1.7-2.4) L 10/21/24 03:46 Calcium Level 8.1 mg/dl (8.6-10.3) L 10/21/24 03:46 Microbiology 10/19/24 12:08 Aerobic Blood Culture - Preliminary Blood No growth in Aerobic bottle after 24 hours. Anaerobic Blood Culture - Preliminary No growth in Anaerobic bottle after 24 hours. 10/19/24 12:08 Aerobic Blood Culture - Preliminary Blood No growth in Aerobic bottle after 24 hours. Anaerobic Blood Culture - Preliminary No growth in Anaerobic bottle after 24 hours. 10/19/24 14:40 Urine Culture - Final Urine,Clean Catch More than three types of organisms present, all moderate counts mixed probable skin candice. No further identifications or sensitivities to follow. 10/19/24 12:44 Gram Stain - Final Sputum, Expectorated Sputum Culture - Preliminary Moderate normal candice present, final report to follow. Diagnostic Findings (Past 24 Hours) Abdomen/Pelvis CT 10/20/24 11:[address] WITH IV AND ORAL CONTRAST CT DOSE: 783.92 mGy.cm HISTORY: Staging study in a patient with lung cancer cancer staging TECHNIQUE: Multiaxial CT images of the abdomen and pelvis were performed following the IV administration of 90 cc of Optiray and oral contrast. A dose lowering technique was utilized adhering to the principles of ALARA. COMPARISON STUDY: Chest CT 10/19/2024 FINDINGS: Thoracic findings are better discussed on yesterday's chest CT. Cardiomegaly with coronary artery calcifications. Small pleural effusions with bibasilar consolidation and mucous plugging. Intralobular septal thickening. No pneumatosis or pneumoperitoneum. Unremarkable spleen. Moderately atrophic pancreas with borderline ductal dilation. Nodular thickening of the adrenal gland measures up to 3.8 cm on the left 1.67 m on the right. Several ill-defined hypodense liver lesions, metastasis are seen measuring up to 2 cm. Patency of the hepatic and portal veins. Cholelithiasis. Bilateral renal cysts. No hydronephrosis. Decompressed urinary bladder. There is atherosclerosis of the aorta and branch vessels. Retroperitoneal lymph nodes measure up to 12 mm. Periportal lymph nodes measure up to 1.6 cm. Iliac chain lymph nodes measure up to 11 mm on the left. Mild nonspecific distal esophageal wall thickening. Gastric bypass. Colonic diverticulosis. Moderate fecal retention of the right hemicolon. The appendix is noninflamed. As enteric and body wall edema. No acute fracture or destructive bone lesion is identified. There are a few age-indeterminate compression deformities, noted with L1, L3 and L5. IMPRESSION: 1. Small pleural effusion with bibasilar consolidation, and mucous plugging. Please refer to the chest CT from yesterday for further discussion of the thoracic malignant findings. 2. Hepatic and adrenal metastasis with pathologically enlarged lymph nodes of the abdomen and pelvis. 3. Moderate fecal retention of the right hemicolon. No bowel obstruction or bowel wall thickening. 4. Colonic diverticulosis. 5. No destructive bone lesions identified. ACT 112: Negative or not required by law. The above report was generated using voice recognition software. It may contain grammatical, syntax or spelling errors. Electronically signed by: Fei Swanson M.D. 10/20/2024 3:47 PM I & O Totals 24 Hours 10/20/24 10/21/24 10/22/24 06:59 06:59 06:59 Intake Total 3229.726 / 3229.726 1930.734 / 1930.734 Output Total 551 / 551 976 / 976 Balance 2678.726 / 2678.726 954.734 / 954.734 Cumulative 10/19/24 10:55 thru 10/21/24 06:54 Intake Total 5160.460 Output Total 1527 Balance 3633.460 RT Ventilator Mngmt (Last Documented) Ventilator Ordered Settings Respiratory Rate 17 10/21/24 06:09 Ventilator - PT Measurements Respiratory Rate 17 Coding Level of Care Code 43967 SUB INP/OBS CARE 2/35MIN Diagnoses Hypotension I95.9 Mediastinal mass J98.59 Atrial fibrillation I48.91 Influenza A J10.1
[2024-10-21] MEDS: CALCIUM GLUCONATE 1,000 MG/60 ML BAG IV SCH (08:08)
[2024-10-21] MEDS: ALBUMIN 25% 25 GM/100 ML VIAL IV SCH (08:12)
[2024-10-21] MEDS: SODIUM CHLORIDE 1 GM TABLET PO SCH (10:31)
[2024-10-21] MEDS: CALCIUM GLUCONATE 1000 MG/60 ML NSS IV ONE (10:34)
--- NOTE | 2024-10-21 11:42 | Pharmacy Report ---
Pharmacy Glycemic Short Note 2 - Date of Service October 21, 2024 - Glycemic Short BSG Results (Last 24 hours): 10/20/24 10/20/24 10/21/24 16:37 20:40 03:46 Glucose 104 H POC Glucose 131 H 122 H 10/21/24 10/21/24 07:13 11:11 Glucose POC Glucose 151 H 274 H OUTPATIENT ANTIDIABETIC REGIMEN: * Ozempic 1mg SQ weekly HbA1C: 9.1% (10/20) ASSESSMENT: 10/21: * BSGs 198-467-405tt/dL the last 24h. Received 16 units of bolus insulin yesterday. * Continues on PO antibiotics, tamiflu and requiring vasopressor support that is being weaned. Tolerating diet. * Continue to hold basal. Novolog carb ratio tightened slightly. 10/20: * Pt is a 74 year old female with chronic hypotension admitted with influenza A and hypotension. History of DM2 on Ozempic at home. Pharmacy consulted to assist with inpatient glycemic management. * Receiving antibiotics and phenylephrine at 0.3mcg/kg/min. Received Solu Cortef 100mg IV X 1 yesterday. Tolerating diet. * BSGs have trended down to 228mg/dl this AM with 4 units of bolus insulin last night. Will hold basal for now (await A1C) given no ongoing steroids. Novolog tightened to 30/12 starting at lunch. PLAN FOR INPATIENT GLYCEMIC CONTROL: * Hold outpatient oral diabetes medications * Basal insulin * Hold * Bolus insulin * NovoLog per scale ACHS or Q6hrs while NPO * Goal Range: Low 110 mg/dL - High 140 mg/dL * Correction Factor: 30 mg/dL/unit * Nutritional / Prandial insulin per carb ratio of 1 unit per 11 grams CHO consumed
--- NOTE | 2024-10-21 13:59 | Hospitalist Progress Note ---
Date of Service October 21, 2024 Assessment & Plan (1) Pneumonia: Plan Influenza A Pneumonia Lung mass Patient presents with cough for 2 weeks, productive in nature. Admitting CXR with left hilar/paramediastinal masslike opacity and mild patchy left basilar atelectasis versus pneumonitis. CT chest showed masslike lesion in mediastinum, small pleural effusion, bibasilar opacities, lesions in the liver ICU Physician who noted that patient has differential BP readings on both UE with Left reading being 30-40 points lower. He also reported that the lung mass on CT appear to be compressing the subclavia artery which is likely cause of falsely low BP Hence, this is unlikely septic shock Pressors discontinued Continue tamiflu, Augmentin Updated patient and family at bedside Discussed with IR. They need patient to be off ASA and plavix for atleast 5 days. Likely outpatient IR biopsy next . IR stated they will call her once they make appt Patient will need oncology follow up afterwards. Patient and family notified Paroxysmal Afib Syncope Patient reports lightheadedness and fall last Thursday. Patient noted to be in A-fib RVR with heart rate in 140s at presentation in the ED. Patient reports no prior diagnosis of A-fib.. Patient spontaneously converted to normal sinus rhythm in the ED. 10/05/2024 echo with EF of 60 to 64%, grade 1 diastolic dysfunction, left ventricular wall motion normal. Cardiology eval and recs noted Considering orthostasis, falls; Card recommends holding off AC at this time which is reasonable Will get PT/OT eval Fall precautions Patient's Home medications are: As needed albuterol, as needed Xanax 0.5 Mg, baby aspirin daily, Plavix 75 Mg daily, atorvastatin 80 Mg daily, furosemide 20 Mg as needed for leg swelling. Levothyroxine 100 mcg daily, midodrine 5 Mg 3 times daily, nortriptyline 25 Mg at bedtime, omeprazole 1-2 times a week, Ozempic 4 mg subcutaneous every week,. DVT prophylaxis: Heparin subcu Downgrade from ICU to PCU I spent a total of 50 minutes coordinating, documenting and providing care for this patient excluding time spent in performance of separately billed services Admission and Anticipated Discharge Date Admission Date: October 19, 2024 Subjective Patient seen and examined Reports feeling better Cough is much improved Physical Exam Constitutional: + well hydrated; no acute distress Eyes: PERRL, conjunctivae normal, anicteric sclerae ENMT: external ear and nose normal, oropharynx normal Respiratory: normal respiratory effort, lungs clear to auscultation Cardiovascular: Rate/Rhythm: regular rate and regular rhythm Gastrointestinal (Abdomen): normal bowel sounds, soft, nontender, no hepatosplenomegaly Neurologic: PERRL, EOMI, accommodation nl, no face palsy, no dysarthria Psychiatric: A+Ox3, euthymic affect Results & Data Results & Data Vital Signs (Past 12 Hours) Vital Signs Temp Pulse Resp BP Pulse Ox O2 Del Method O2 Flow Rate 10/21/24 12:06 76 17 98 10/21/24 12:00 103/56 L 10/21/24 11:03 74 20 97 10/21/24 11:00 126/58 L 10/21/24 10:04 146/65 H 10/21/24 10:00 78 21 112/59 L 92 10/21/24 09:03 67 18 94 10/21/24 09:00 125/55 L 10/21/24 08:54 73 23 96 10/21/24 08:27 82 23 96 10/21/24 08:09 78 13 94 10/21/24 08:00 36.4 C L 10/21/24 08:00 Room Air 10/21/24 08:00 77 10/21/24 07:03 67 19 94 Room Air 10/21/24 07:00 104/67 10/21/24 06:09 77 17 10/21/24 05:33 67 20 10/21/24 05:30 135/76 10/21/24 05:30 135/76 10/21/24 05:30 135/76 10/21/24 05:30 135/76 10/21/24 05:12 68 19 10/21/24 05:00 129/76 10/21/24 05:00 129/76 10/21/24 05:00 129/76 10/21/24 05:00 69 19 10/21/24 04:30 65 19 10/21/24 04:30 100/65 10/21/24 04:00 110/60 10/21/24 04:00 36.5 C 110/60 10/21/24 04:00 67 20 110/60 93 Room Air 10/21/24 03:00 0 10/21/24 03:00 65 19 115/68 Room Air 10/21/24 02:06 63 18 10/21/24 02:00 117/64 10/21/24 02:00 117/64 10/21/24 02:00 11764 10/21/24 01:57 64 19 Laboratory Results Abnormal lab results 10/20/24 10/20/24 10/20/24 Range/Units 03:41 16:37 20:40 Creatinine (0.6-1.2) mg/dl BUN/Creatinine Ratio (10-20) Glucose (70-99(Fasting)) mg/dl POC Glucose 131 H 122 H (70-99) mg/dl Hemoglobin A1c 9.1 H (4.5-5.6) % Calcium (8.6-10.3) mg/dl Phosphorus (2.5-4.9) mg/dl Magnesium (1.7-2.4) mg/dl Albumin (3.4-5.0) gm/dl Albumin/Globulin Ratio (0.9-2) 10/21/24 10/21/24 10/21/24 Range/Units 03:46 07:13 11:11 Creatinine 0.37 L (0.6-1.2) mg/dl BUN/Creatinine Ratio 21.6 H (10-20) Glucose 104 H (70-99(Fasting)) mg/dl POC Glucose 151 H 274 H (70-99) mg/dl Hemoglobin A1c (4.5-5.6) % Calcium 8.1 L (8.6-10.3) mg/dl Phosphorus 2.4 L (2.5-4.9) mg/dl Magnesium 1.6 L (1.7-2.4) mg/dl Albumin 3.0 L (3.4-5.0) gm/dl Albumin/Globulin Ratio 0.8 L (0.9-2)
--- NOTE | 2024-10-21 16:27 | Electrocardiogram Report ---
Test Reason : Blood Pressure : */* mmHG Vent. Rate : 139 BPM Atrial Rate : * BPM P-R Int : * ms QRS Dur : 86 ms QT Int : 310 ms P-R-T Axes : * 5 128 degrees QTcB Int : 471 ms Probable Atrial fibrillation with rapid ventricular response Nonspecific T wave abnormality Abnormal ECG When compared with ECG of 19-Oct-2024 11:18, Atrial fibrillation has replaced Sinus rhythm Nonspecific T wave abnormality, worse in Lateral leads Confirmed by Miles Simmons ([id number]) on 10/21/2024 4:27:27 PM Referred By: REFERRED SELF Confirmed By: Miles Simmons
[2024-10-22] MEDS: MUPIROCIN 2% OINT 22 GM TUBE EXT SCH (07:34)
[2024-10-22 08:12] LABS: Hematocrit (blood only) 37.4 % (37.0-47.0); Hemoglobin 12.9 g/dl (12.0-16.0); Mean Corpuscular Hemoglobin 30.1 pg (25.0-34.0); Mean Corpuscular Hgb Conc 34.5 g/dL (32.0-36.0); Mean Corpuscular Volume 87.4 fL (80.0-100.0); Mean Platelet Volume 10.1 fL (9.4-12.4); Platelet Count 279 K/uL (130-400); RDW Coefficient of Variation 13.6 % (11.5-14.5); RDW Standard Deviation 43.2 fL (36.4-46.3); Red Blood Count 4.28 M/uL (4.20-5.40); White Blood Count 7.81 K/ul (4.8-10.8)
[2024-10-22 08:28] LABS: BUN Creatinine Ratio 44.4 (10-20); Calcium 8.2 mg/dl (8.6-10.3); Creatinine Clr Calc Pharmacy 123.4 ml/min; Phosphorus 2.7 mg/dl (2.5-4.9); Potassium 4.1 mmol/L (3.5-5.1)
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
[2024-10-23] MEDS: MIDODRINE HCL 2.5 MG TAB PO SCH (08:50)
--- NOTE | 2024-10-23 10:08 | Discharge Summary ---
Date of Service October 23, 2024 Admission HPI Per Admitting Provider 74-year-old lady with PMH of T2DM, peripheral neuropathy, peripheral angiopathy, HLD, postoperative hypothyroidism, hypotension on midodrine, COPD, peripheral arterial disease, right subclavian artery stenosis, GERD, restless leg syndrome, lumbar disc disease, primary osteoarthritis of both knees, bariatric surgery, RUY, tobacco use disorder, status post carotid endarterectomy presented to the ED with complaint of cough, generalized weakness and syncope x 1. Patient reports cough for 2 weeks productive cough greenish sputum, currently sore throat has resolved, denies fever. Reports worsening generalized weakness. Patient reports poor appetite at baseline, denies nausea and vomiting currently but did have upset stomach earlier in the course. Patient reports 1 episode of diarrhea yesterday, denies pain or burning while passing urine. The patient reports getting lightheaded and dizzy and fell on face after getting out of car last Thursday. She hit right side of the face. Because she was not getting better and getting weaker, she decided to come to the ED. Patient noted to be in A-fib RVR with heart rate in the 140s at presentation. S/P 2L IVF at ED. ER physician was in touch w/ ICU attending, recommendation was to use hydrocortisone, florinef, home midodrine and hold Levophed to see if patient can hold her blood pressure. Pt was evaluated at bedside and BP noted to be 60/40, pt w/ no symptom of lightheadedness or chest pain. I will put in 25% albumin and put pressors back. and admit to ICU. Patient reports smoking her whole life, 1 pack a day currently. Denies alcohol/recreational drug use. Medication reviewed with the patient at bedside. Full code Plan of care discussed with the patient and her daughter at bedside, answered all the questions, they voiced understanding. Admission Exam Per Admitting Provider GENERAL: Alert and oriented x3. NAD, on RA. Appears weak/frail/ill. HEENT: No pallor, no icterus. Pupils equal, round and reactive to light. Oral mucosa moist. NECK: No JVD, no neck masses. HEART: S1 and S2 heard. Regular rate and rhythm. in 80s. No murmur, no gallop. RESPIRATORY SYSTEM: Normal AP diameter. No accessory muscle use. No wheezing, bb crackles. ABDOMEN: Soft, bowel sounds present, nontender, no distention. CENTRAL NERVOUS SYSTEM: No facial droop. Speech is clear. Obeys simple commands. Moves extremities. EXTREMITIES: No edema, no erythema seen. ble chronic skin changes noted. Principal Diagnosis Syncope Pneumonia Influenza A Lung mass Paroxysmal Atrial fibrillation Discharge Exam Constitutional + well hydrated; no acute distress Eyes PERRL, conjunctivae normal, anicteric sclerae ENMT external ear and nose normal, oropharynx normal Respiratory normal respiratory effort, lungs clear to auscultation Cardiovascular Rate/Rhythm: regular rate and regular rhythm Gastrointestinal (Abdomen) normal bowel sounds, soft, nontender, no hepatosplenomegaly Musculoskeletal No pedal edema Neurologic PERRL, EOMI, accommodation nl, no face palsy, no dysarthria Psychiatric A+Ox3, euthymic affect Discharge Data Allergies Allergy/AdvReac Type Severity Reaction Status Date / Time Penicillins Allergy Hives Unverified 10/19/24 18:40 metformin AdvReac Diarrhea Unverified 10/19/24 18:40 Consultations 10/19/24 16:54 ED Decision to Admit Stat 10/19/24 17:48 Consult Cardroom Manager Routine Ordered Studies 10/19/24 11:52 CT head/brain wo con Stat 10/19/24 16:09 CT chest diagnostic w con Stat 10/19/24 18:58 MR brain wo/w con Stat 10/20/24 11:33 CT Abd and Pelvis [CT abd pelvis oral and IV con] Routine 10/26/24 07:44 IR biopsy liver US Routine Hospital Course (1) Pneumonia: Plan Influenza A Pneumonia Lung mass Patient presents with cough for 2 weeks, productive in nature. Admitting CXR with left hilar/paramediastinal masslike opacity and mild patchy left basilar atelectasis versus pneumonitis. 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 Lung mass on CT appear to be compressing the subclavia artery which is likely cause of falsely low BP Hence, this is unlikely septic shock Pressors was discontinued Patient's midodrine was increased to 5mg TID Avoid using LUE for BP checks Was treated with tamiflu and Augmentin. Patient discharged on this to complete 5 day therapy On 10/21/24, I discussed with IR. They need patient to be off ASA and plavix for atleast 5 days. Likely outpatient IR biopsy next . IR stated they will call her once they make appt Patient and family educated to hold off ASA and plavix until after biopsy Patient will need oncology follow up afterwards. Paroxysmal Afib Syncope Patient reports lightheadedness and fall last Thursday. Patient noted to be in A-fib RVR with heart rate in 140s at presentation in the ED. Patient reports no prior diagnosis of A-fib.. Patient spontaneously converted to normal sinus rhythm in the ED. 10/05/2024 echo with EF of 60 to 64%, grade 1 diastolic dysfunction, left ventricular wall motion normal. Cardiology evaluated Considering orthostasis, falls; Card recommends holding off AC at this time which is reasonable Patient's home xanax and hydrocodone discontinued Total Time Total Time Spent Total Time Spent (In Minutes): 45 Total Time Includes: Examination of the Patient, Discharge Planning, Medication Reconciliation and Other Discharge Plan Discharge Items Patient Disposition: Home - Self-Care Reason For Visit: COUGH, SPUTUM, FALLS Discharge Diagnosis: Syncope Pneumonia Influenza A Lung mass Paroxysmal Atrial fibrillation Activity: Resume your previous activity Non-emergency contact: Primary Care Provider Call non-emergency contact if: you have any medication questions and your symptoms worsen Follow-up/Referrals: Sean Macias MD [Primary Care Provider] - Diet: Heart Healthy Addtl Attending Provider Instructions: Mrs Izquierdo You came to the hospital complaining of cough, weakness and syncope. You were evaluated and managed for the above listed diagnoses. You were found to have lung mass with lesions in your liver. It is very important that you follow up with Interventional Radiology within the week for biopsy after which you will need to follow up with Oncology. You are being discharged on Tamiflu and Augmentin to complete treatment. Please stop taking your Aspirin and Plavix for now until biopsy is done. Stop taking xanax and hydrocodone for now. Your midodrine was increased to 5mg three times a day for now for better blood pressure support. Please ensure follow up with your Primary Doctor It was a pleasure taking care of you. Pending Studies at Discharge: No Stand-Alone Forms: My [facility], Smoking Cessation Medications and DC Order Prescriptions: New oseltamivir [Tamiflu] 75 mg Capsule 75 mg PO BID Qty: 2 0RF amoxicillin-pot clavulanate 875-125 mg Tablet 1 tab PO BIDM Qty: 2 0RF Continued atorvastatin 80 mg tablet 80 mg PO DAILY nortriptyline 25 mg capsule 25 mg PO DAILY levothyroxine 100 mcg tablet 100 mcg PO DAILY omeprazole 20 mg capsule,delayed release(DR/EC) 20 mg PO DAILY Ozempic 1 mg/dose (4 mg/3 mL) pen injector 1 mg subcut WK Rx Instructions: THURSDAY albuterol sulfate 90 mcg/actuation HFA aerosol inhaler 2 inh INHALATION QID PRN (Reason: SOB) Qty: 6.7 0RF Changed midodrine 5 mg tablet 5 mg PO TID Qty: 90 0RF Held clopidogrel 75 mg tablet 75 mg PO DAILY Hold Instructions: Resume on 10/28/24. Please hold until after IR biopsy aspirin 81 mg Tablet 81 mg PO DAILY Hold Instructions: Resume on 10/28/24. Please hold until after biopsy Discontinued hydrocodone-acetaminophen 5-325 mg tablet 1 tab PO Q6H PRN (Reason: Pain) alprazolam 0.5 mg tablet 0.5 mg PO BID PRN (Reason: Anxiety) Discharge Orders: Discharge Order (Routine); Ordered 10/23/24 Ordered By: Diamond Arrieta Admission Data Admit Date/Time: 10/19/24 17:48 Attending Provider: Diamond Arrieta I. Admit Provider: Renetta Mendez Primary Care Provider: Sean Macias Other Providers: Renetta Mendez; Trevor Brannon Other Interventions: Discharge Summary Assessment (RN) Last Done: 10/23/24 10:33
== END 2024-10-23 10:59 | disposition home or self-care (01) | DRG 871 ==
LOC: ED 10:55 → SUATTDRO 17:48 → 1E 17:48 → 2S 10-21 18:47 → 2W 10-22 22:41